=== PATIENT | female | born 1955 | race African-American/Black ===

== ENCOUNTER 2018-08-09 19:35 | Emergency (ER) | payer SELFPAY ==
[2018-08-09 21:36] LABS: Absolute Lymphocytes (CBC) 1.3 K/uL (0.7-4.9); Absolute Monocytes 0.4 K/uL (0.1-1.3); Absolute Neutrophil 2.9 K/uL (1.8-8.0); Basophils % 0.6 % (0-1.3); Eosinophils % 1.4 % (0-4.4); Hematocrit 37.3 % (36.0-45.0); Lymphocytes % 27.1 % (15.3-44.8); MPV 9.7 fL (7.6-11.3); Monocytes % 8.5 % (3.3-12.3); RBC Red Blood Cell Count 4.69 M/uL (3.86-4.86)
[2018-08-09 21:37] LABS: Protime INR 1.04
[2018-08-09 21:49] LABS: ALT/SGPT 22 U/L (12-78); AST/SGOT 21 U/L (15-37); Albumin 3.8 g/dL (3.4-5.0); Alkaline Phosphatase 72 U/L (45-117); BUN Blood Urea Nitrogen 15 mg/dL (7-18); Bicarbonate 29 mmol/L (21-32); Bilirubin Direct 0.1 mg/dL (0-0.2); Bilirubin Total 0.2 mg/dL (0.2-1.0); Glucose Level 94 mg/dL (74-106); Magnesium 2.2 mg/dL (1.8-2.4); NT PRO-BNP 65 pg/mL (<125); Potassium 3.8 mmol/L (3.5-5.1); Protein, Total 8.4 g/dL (6.4-8.2); Sodium Level 140 mmol/L (136-145); Troponin (Emerg Dept Use Only) < 0.02 ng/mL (0.0-0.045)
--- NOTE | 2018-08-09 22:10 | ER ---
Nurse's Notes [facility] Name: Critsino Morrison Age: 62 yrs Sex: Female : 1955 Arrival Date: 08/09/2018 Time: 19:37 Bed 14 Private MD: Diagnosis: Strain of muscle and tendon of back wall of thorax;Strain of muscle and tendon of front wall of thorax Presentation: 08/09 20:11 Presenting complaint: Patient states: For the past 2 to 3 days she has been having aj1 upper back pain, she's tried soaking in a warm bath with epsom salt, but it didn't help. Patient states that she was moving some furniture "the other day". Patient denies fever. Transition of care: patient was not received from another setting of care. Onset of symptoms was August 07, 2017. Risk Assessment: Do you want to hurt yourself or someone else? Patient reports no desire to harm self or others. Initial Sepsis Screen: Does the patient meet any 2 criteria? No. Patient's initial sepsis screen is negative. Does the patient have a suspected source of infection? No. Patient's initial sepsis screen is negative. Care prior to arrival: None. 20:11 Method Of Arrival: Ambulatory aj1 20:11 Acuity: SYEDA 3 aj1 Triage Assessment: 20:14 General: Appears in no apparent distress. uncomfortable, Behavior is calm, cooperative, aj1 appropriate for age. Pain: Complains of pain in thoracic area Pain currently is 8 out of 10 on a pain scale. Neuro: Level of Consciousness is awake, alert, obeys commands. Cardiovascular: Patient's skin is warm and dry. Respiratory: Airway is patent Respiratory effort is even, unlabored, Respiratory pattern is regular, symmetrical. Historical: - Allergies: 20:14 Codeine; aj1 - Home Meds: 20:14 None [Active]; aj1 - PMHx: 20:14 None; aj1 - PSHx: 20:14 partial hysterectomy; Tubal ligation; ; aj1 - Immunization history:: Flu vaccine is not up to date. - Social history:: Smoking status: Patient/guardian denies using tobacco. - Ebola Screening: : Patient denies travel to an Ebola-affected area in the 21 days before illness onset. Screenin:32 Abuse screen: Denies threats or abuse. Denies injuries from another. Nutritional ak1 screening: No deficits noted. On. Tuberculosis screening: No symptoms or risk factors identified. Fall Risk None identified. Assessment: 20:29 General: Appears in no apparent distress. Behavior is calm, cooperative. Pain: ak1 Complains of pain in back and left arm. Neuro: Level of Consciousness is awake, alert, obeys commands, Oriented to person, place, time, situation, Dynamics Ax Technical Architect are equal bilaterally Moves all extremities. Gait is steady, Speech is normal, Facial symmetry appears normal. Cardiovascular: No deficits noted. Respiratory: No deficits noted. GI: No signs and/or symptoms were reported involving the gastrointestinal system. : No signs and/or symptoms were reported regarding the genitourinary system. EENT: No signs and/or symptoms were reported regarding the EENT system. Derm: No signs and/or symptoms reported regarding the dermatologic system. Musculoskeletal: Range of motion: limited in left shoulder Reports pain in upper back, left shoulder, left chest wall pt stated she "may have slept wrong" Sunday, pain started in upper back. pt stated Sunday she "moved furniture" and now has increased pain to upper back, across the shoulders, left shoulder and left arm is more sore than right arm and right shoulder. pt c/o chest wall pain increased with palpation. Vital Signs: 20:14 BP 154 / 83; Pulse 70; Resp 18; Temp 97.2; Pulse Ox 100% on R/A; Weight 68.04 kg (R); aj1 Height 5 ft. 4 in. (162.56 cm) (R); Pain 8/10; 21:54 BP 153 / 82; Pulse 60; Resp 18; Temp 97.2; Pulse Ox 100% on R/A; ak1 22:21 BP 134 / 74; Pulse 68; Resp 18; Temp 98.1; Pulse Ox 100% on R/A; ak1 20:14 Body Mass Index 25.75 (68.04 kg, 162.56 cm) aj1 ED Course: 19:37 Patient arrived in ED. am2 20:14 Triage completed. aj1 20:14 Arm band placed on Patient placed in waiting room, Patient notified of wait time. aj1 20:29 Kaylee Andrade, RN is Primary Nurse. ak1 20:32 Patient has correct armband on for positive identification. Placed in gown. Bed in low ak1 position. Call light in reach. Side rails up X 1. Pulse ox on. NIBP on. 20:36 Avelino Grace NP is PHCP. pm1 20:36 Cristian Bonilla MD is Attending Physician. pm1 21:17 XRAY Chest (1 view) In Process Unspecified. EDMS 21:31 Basic Metabolic Panel Sent. ak1 21:31 LFT's Sent. ak1 22:21 No provider procedures requiring assistance completed. Patient did not have IV access ak1 during this emergency room visit. Administered Medications: No medications were administered Outcome: 22:09 Discharge ordered by . pm1 22:22 Discharged to home ambulatory. ak1 22:22 Condition: good 22:22 Discharge instructions given to patient, Instructed on discharge instructions, follow up and referral plans. no drinking with medication, no driving heavy equipment, medication usage, Demonstrated understanding of instructions, follow-up care, medications, Prescriptions given X 2. 22:39 Patient left the ED. ak1 Signatures: Dispatcher [employer] EDMS Evelyn Porter, RN RN aj1 Kaylee Andrade RN RN ak1 Avelino Grace NP SUPERVISOR MULTIFOCAL LENS pm1 [place] am2
--- NOTE | 2018-08-09 22:10 | EDPHYS ---
Physician Documentation [facility] Name: Cristino Morrison Age: 62 yrs Sex: Female : 1955 Arrival Date: 08/09/2018 Time: 19:37 Bed 14 Private MD: ED Physician Cristian Bonilla HPI: 08/09 22:03 This 62 yrs old Black Female presents to ER via Ambulatory with complaints of Neck and pm1 Upper Back Pain. 22:03 The patient presents with pain that is acute. The symptoms are located in the left pm1 trapezius and right trapezius and chest. Onset: The symptoms/episode began/occurred 2 day(s) ago. The pain does not radiate. Associated signs and symptoms: Pertinent negatives: abdominal pain, dysuria, fever, headache, nausea, numbness, tingling, vomiting, SOB. 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 Pain to back and chest improved with lying in a tub with epsom salt. Pain increased with lifting up both arms. Painful to move her arms. Modifying factors: The patient symptoms are alleviated by hot tub bath, the patient symptoms are aggravated by moving arms. Severity of symptoms: in the emergency department the symptoms have improved. The patient has not experienced similar symptoms in the past. The patient has not recently seen a physician. Historical: - Allergies: 20:14 Codeine; aj1 - Home Meds: 20:14 None [Active]; aj1 - PMHx: 20:14 None; aj1 - PSHx: 20:14 partial hysterectomy; Tubal ligation; ; aj1 - Immunization history:: Flu vaccine is not up to date. - Social history:: Smoking status: Patient/guardian denies using tobacco. - Ebola Screening: : Patient denies travel to an Ebola-affected area in the 21 days before illness onset. ROS: 22:03 Constitutional: Negative for fever, chills, and weight loss, Eyes: Negative for injury, pm1 pain, redness, and discharge, ENT: Negative for injury, pain, and discharge, Neck: Negative for injury, pain, and swelling, Respiratory: Negative for shortness of breath, cough, wheezing, and pleuritic chest pain. 22:03 Abdomen/GI: Negative for abdominal pain, nausea, vomiting, diarrhea, and constipation, Back: Negative for injury and pain, : Negative for injury, bleeding, discharge, and swelling, MS/Extremity: Negative for injury and deformity, Skin: Negative for injury, rash, and discoloration, Neuro: Negative for headache, weakness, numbness, tingling, and seizure. 22:03 Cardiovascular: Positive for chest pain, Negative for edema, orthopnea, palpitations. Exam: 22:03 Constitutional: This is a well developed, well nourished patient who is awake, alert, pm1 and in no acute distress. Head/Face: Normocephalic, atraumatic. Eyes: Pupils equal round and reactive to light, extra-ocular motions intact. Lids and lashes normal. Conjunctiva and sclera are non-icteric and not injected. Cornea within normal limits. Periorbital areas with no swelling, redness, or edema. ENT: Nares patent. No nasal discharge, no septal abnormalities noted. Tympanic membranes are normal and external auditory canals are clear. Oropharynx with no redness, swelling, or masses, exudates, or evidence of obstruction, uvula midline. Mucous membranes moist. Neck: Trachea midline, no thyromegaly or masses palpated, and no cervical lymphadenopathy. Supple, full range of motion without nuchal rigidity, or vertebral point tenderness. No Meningismus. 22:03 Cardiovascular: Regular rate and rhythm with a normal S1 and S2. No gallops, murmurs, or rubs. Normal PMI, no JVD. No pulse deficits. Respiratory: Lungs have equal breath sounds bilaterally, clear to auscultation and percussion. No rales, rhonchi or wheezes noted. No increased work of breathing, no retractions or nasal flaring. Abdomen/GI: Soft, non-tender, with normal bowel sounds. No distension or tympany. No guarding or rebound. No evidence of tenderness throughout. 22:03 Skin: Warm, dry with normal turgor. Normal color with no rashes, no lesions, and no evidence of cellulitis. MS/ Extremity: Pulses equal, no cyanosis. Neurovascular intact. Full, normal range of motion. 22:03 Chest/axilla: Inspection: normal, Palpation: crepitus, is not appreciated, tenderness, of the anterior aspect of right upper chest and anterior aspect of left upper chest, that totally reproduces the patient's complaints. 22:03 Back: pain, that is moderate, of the left trapezius and right trapezius, tenderness, normal spinal alignment noted. 22:03 Neuro: Orientation: is normal, Motor: is normal, moves all fours, Sensation: is normal, no obvious gross deficits, Gait: is steady, at a normal pace, without difficulty. Vital Signs: 20:14 BP 154 / 83; Pulse 70; Resp 18; Temp 97.2; Pulse Ox 100% on R/A; Weight 68.04 kg (R); aj1 Height 5 ft. 4 in. (162.56 cm) (R); Pain 8/10; 21:54 BP 153 / 82; Pulse 60; Resp 18; Temp 97.2; Pulse Ox 100% on R/A; ak1 22:21 BP 134 / 74; Pulse 68; Resp 18; Temp 98.1; Pulse Ox 100% on R/A; ak1 20:14 Body Mass Index 25.75 (68.04 kg, 162.56 cm) aj1 MDM: 20:37 Patient medically screened. pm1 22:08 Data reviewed: vital signs. Data interpreted: Pulse oximetry: on room air is 100 %. pm1 Interpretation: normal. Counseling: I had a detailed discussion with the patient and/or guardian regarding: the historical points, exam findings, and any diagnostic results supporting the discharge/admit diagnosis, lab results, radiology results, the need for outpatient follow up, to return to the emergency department if symptoms worsen or persist or if there are any questions or concerns that arise at home. 08/09 20:59 Order name: Basic Metabolic Panel pm1 08/09 20:59 Order name: CBC with Diff; Complete Time: 22:02 pm08/09 20:59 Order name: LFT's pm1 08/09 20:59 Order name: Magnesium; Complete Time: 22:02 pm1 08/09 20:59 Order name: NT PRO-BNP; Complete Time: 22:02 pm1 08/09 20:59 Order name: PT-INR; Complete Time: 22:02 pm1 08/09 20:59 Order name: Troponin (emerg Dept Use Only); Complete Time: 22:02 pm1 08/09 20:59 Order name: XRAY Chest (1 view) pm1 08/09 20:59 Order name: EKG; Complete Time: 21:00 pm1 08/09 20:59 Order name: Cardiac monitoring; Complete Time: 21:24 pm1 08/09 20:59 Order name: EKG - Nurse/Tech; Complete Time: 21:24 pm1 08/09 20:59 Order name: IV Saline Lock; Complete Time: 22:19 pm1 08/09 20:59 Order name: Basic Metabolic Panel; Complete Time: 22:02 EDAK 08/09 21:00 Order name: Liver (Hepatic) Function; Complete Time: 22:02 EDAK 08/09 20:59 Order name: Labs collected and sent; Complete Time: 21:24 pm1 08/09 20:59 Order name: O2 Per Protocol; Complete Time: 21:24 pm1 08/09 20:59 Order name: O2 Sat Monitoring; Complete Time: 21:24 pm1 Administered Medications: No medications were administered Disposition: 08/09/18 22:09 Discharged to Home. Impression: Strain of muscle and tendon of back wall of thorax, Strain of muscle and tendon of front wall of thorax. - Condition is Stable. - Discharge Instructions: Muscle Strain. - Prescriptions for Cyclobenzaprine 10 mg Oral Tablet - take 1 tablet by ORAL route every 8 hours As needed; 30 tablet. Diclofenac Sodium 75 mg Oral Tablet, Delayed Release (E.C.) - take 1 tablet by ORAL route 2 times per day As needed; 30 tablet. - Medication Reconciliation Form, Thank You Letter, Antibiotic Education, Prescription Opioid Use form. - Follow up: Emergency Department; When: As needed; Reason: Worsening of condition. Follow up: Private Physician; When: 2 - 3 days; Reason: Recheck today's complaints, Continuance of care, Re-evaluation by your physician. - Problem is new. - Symptoms have improved. Addendum: 08/12/2018 09:01 Co-signature as Attending Physician, Cristian Bonilla MD I agree with the assessment and c cooper plan of care. Signatures: Dispatcher [employer] Evelyn Navarro, RN RN aj1 Cristian Bonilla MD MD cha Krenek, Amber RN RN ak1 Avelino Grace, SECURITIES VAULT SUPERVISOR SECURITIES VAULT SUPERVISOR pm1 Corrections: (The following items were deleted from the chart) 08/09 22:39 22:09 08/09/2018 22:09 Discharged to Home. Impression: Strain of muscle and tendon of ak1 back wall of thorax; Strain of muscle and tendon of front wall of thorax. Condition is Stable. Forms are Medication Reconciliation Form, Thank You Letter, Antibiotic Education, Prescription Opioid Use. Follow up: Emergency Department; When: As needed; Reason: Worsening of condition. Follow up: Private Physician; When: 2 - 3 days; Reason: Recheck today's complaints, Continuance of care, Re-evaluation by your physician. Problem is new. Symptoms have improved. pm1
--- NOTE | 2018-08-10 07:44 | EKG ---
Test Date: 2018-08-09 Test Time: 21:25:46 Accounts Payable Specialist: KAMLESH MEASUREMENT RESULTS: Intervals: Rate: 67 OK: 172 QRSD: 74 QT: 396 QTc: 418 [place]: P: 60 OK: 172 QRS: 21 T: 2 INTERPRETIVE STATEMENTS: Normal sinus rhythm Possible Left atrial enlargement Borderline ECG No previous ECG available for comparison Electronically Signed On 08-10-18 07:43:49 MARINE ELECTRICIAN HELPER by Jake Nuñez
--- NOTE | 2018-08-12 09:54 | RAD REPORT ---
EXAM DESCRIPTION: RAD - Chest Single View CLINICAL HISTORY: Thepatient is 62 years old and is Female; CHEST PAIN. COMPARISON: No relevant prior studies available. TECHNIQUE: Frontal view of the chest. FINDINGS: Lungs: Unremarkable. No consolidation. Pleural space: Unremarkable. No pneumothorax. Heart: Unremarkable. No cardiomegaly. Mediastinum: Unremarkable. Bones/Joints: Unremarkable. IMPRESSION: No acute cardiopulmonary process. Electronically signed by: Sandhya Posada MD 08/09/2018 11:55 PM TOUR PRODUCTION SUPERVISOR Due to temporary technical issues with the PACS/Fluency reporting system, reports are being signed by the in house radiologist as a courtesy to ensure prompt reporting. The interpreting radiologist is f ully responsible for the content of the report.
== END 2018-08-09 22:39 | disposition home or self-care (01) ==
LOC: ER 19:35
DX: S29.012A Strain of muscle and tendon of back wall of thorax, initial encounter (principal); S29.011A Strain of muscle and tendon of front wall of thorax, initial encounter; X50.0XXA Overexertion from strenuous movement or load, initial encounter; Z88.5 Allergy status to narcotic agent
CPT/HCPCS: 36415; 71045; 80048; 80076; 83735; 83880; 84484; 85025; 85610; 93005; 99284

== ENCOUNTER 2018-11-05 20:00 | Emergency (ER) | payer SELFPAY ==
--- NOTE | 2018-11-05 20:37 | ER ---
Nurse's Notes [facility] Name: Cristino Morrison Age: 62 yrs Sex: Female : 1955 Arrival Date: 11/05/2018 Time: 20:02 Bed Treatment Private MD: Diagnosis: Cellulitis of right lower limb Presentation: 11/05 20:08 Presenting complaint: Patient states: insect bite on Sunday, pt states the bite is tl2 getting bigger. States she has been putting alcohol on it. Denies drainage, reports redness. Transition of care: patient was not received from another setting of care. Onset of symptoms was November 02, 2018. Risk Assessment: Do you want to hurt yourself or someone else? Patient reports no desire to harm self or others. Initial Sepsis Screen: Does the patient meet any 2 criteria? No. Patient's initial sepsis screen is negative. Does the patient have a suspected source of infection? No. Patient's initial sepsis screen is negative. Care prior to arrival: None. 20:08 Method Of Arrival: Ambulatory tl2 20:08 Acuity: SYEDA 4 tl2 Triage Assessment: 20:10 Bite description: bite sustained to medial aspect of right thigh by unknown insect. tl2 General: Appears in no apparent distress. comfortable, Behavior is calm, cooperative, appropriate for age. 21:17 Bite description: animal information: vaccination(s) is unknown. aj1 Historical: - Allergies: 20:10 Codeine; tl2 - Home Meds: 20:10 None [Active]; tl2 - PMHx: 20:10 None; tl2 - PSHx: 20:10 Carpal Tunnel Repair; Tubal ligation; ; tl2 - Immunization history:: Adult Immunizations up to date. - Social history:: Smoking status: Patient/guardian denies using tobacco. - Ebola Screening: : No symptoms or risks identified at this time. Screenin:15 Abuse screen: Denies threats or abuse. Denies injuries from another. Nutritional aj1 screening: No deficits noted. Tuberculosis screening: No symptoms or risk factors identified. 21:17 Fall Risk None identified. aj1 Assessment: 21:15 General: Appears in no apparent distress. comfortable, Behavior is calm, cooperative, aj1 appropriate for age. Pain: Complains of pain in medial aspect of right thigh. Neuro: Level of Consciousness is awake, alert, obeys commands. Cardiovascular: Patient's skin is warm and dry. Respiratory: Airway is patent Respiratory effort is even, unlabored, Respiratory pattern is regular, symmetrical. GI: No signs and/or symptoms were reported involving the gastrointestinal system. : No signs and/or symptoms were reported regarding the genitourinary system. EENT: No signs and/or symptoms were reported regarding the EENT system. Derm: Skin is healthy with good turgor, Skin is normal, redness noted to right thigh. Musculoskeletal: Circulation, motion, and sensation intact. Vital Signs: 20:10 BP 133 / 79; Pulse 86; Resp 18; Temp 98.4(O); Pulse Ox 98% on R/A; Weight 68.95 kg; tl2 Height 5 ft. 4 in. (162.56 cm); Pain 2/10; 20:10 Body Mass Index 26.09 (68.95 kg, 162.56 cm) tl2 ED Course: 20:02 Patient arrived in ED. es 20:09 Triage completed. tl2 20:10 Arm band placed on right wrist. tl2 20:18 Franky Roberts PA is PHCP. [facility] 20:18 Roddy Magana MD is Attending Physician. [facility] 20:30 Evelyn Porter, RN is Primary Nurse. aj1 21:15 Patient has correct armband on for positive identification. Bed in low position. aj1 21:15 No provider procedures requiring assistance completed. Patient did not have IV access aj1 during this emergency room visit. Administered Medications: No medications were administered Outcome: 20:36 Discharge ordered by MD. [facility] 21:15 Discharged to home ambulatory. aj1 21:15 Condition: good 21:15 Discharge instructions given to patient, Instructed on discharge instructions, follow up and referral plans. medication usage, Demonstrated understanding of instructions, follow-up care, medications. 21:18 Patient left the ED. aj1 Signatures: Evelyn Porter, RN RN aj1 Franky Roberts PA PA jmm Salyer, Edna es Knox, Taylor, RN RN tl2
--- NOTE | 2018-11-05 20:37 | EDPHYS ---
Physician Documentation [facility] Name: Crsitino Morrison Age: 62 yrs Sex: Female : 1955 Arrival Date: 11/05/2018 Time: 20:02 Bed Treatment Private MD: ED Physician Roddy Magana HPI: 11/05 20:32 This 62 yrs old Black Female presents to ER via Ambulatory with complaints of Insect jmm Bite. 20:32 The patient's rash thought to be caused by insect bites. Onset: The symptoms/episode jmm began/occurred acutely, 3 day(s) ago. Associated signs and symptoms: Pertinent negatives: fever. This is a 62 year old female with no chronic medical conditions that presents to the ED with complaints of right thigh pain beginning after she felt an insect bite 3 days ago. Patient denies fever. . Historical: - Allergies: 20:10 Codeine; tl2 - Home Meds: 20:10 None [Active]; tl2 - PMHx: 20:10 None; tl2 - PSHx: 20:10 Carpal Tunnel Repair; Tubal ligation; ; tl2 - Immunization history:: Adult Immunizations up to date. - Social history:: Smoking status: Patient/guardian denies using tobacco. - Ebola Screening: : No symptoms or risks identified at this time. ROS: 20:32 Constitutional: Negative for fever, chills, and weight loss, Cardiovascular: Negative jmm for chest pain, palpitations, and edema, Respiratory: Negative for shortness of breath, cough, wheezing, and pleuritic chest pain. 20:32 MS/extremity: Positive for pain. 20:32 All other systems are negative. Exam: 20:32 Constitutional: This is a well developed, well nourished patient who is awake, alert, jmm and in no acute distress. Head/Face: atraumatic. Eyes: EOMI, no conjunctival erythema appreciated ENT: Moist Mucus Membranes Neck: Trachea midline, Supple Chest/axilla: Normal chest wall appearance and motion. Cardiovascular: Regular rate and rhythm. No edema appreciated Respiratory: Normal respirations, no respiratory distress appreciated Abdomen/GI: Non distended, soft Back: Normal ROM 20:32 Skin: mild erythema noted to the right medial thigh, mildly tender to palpation, no purulent drainage is appreciated. . 20:32 Neuro: Orientation: is normal, Mentation: is normal, Memory: is normal. 20:32 Psych: Behavior/mood is pleasant, cooperative. Vital Signs: 20:10 BP 133 / 79; Pulse 86; Resp 18; Temp 98.4(O); Pulse Ox 98% on R/A; Weight 68.95 kg; tl2 Height 5 ft. 4 in. (162.56 cm); Pain 2/10; 20:10 Body Mass Index 26.09 (68.95 kg, 162.56 cm) tl2 MDM: 20:32 Patient medically screened. [facility] 20:36 Data reviewed: vital signs, nurses notes. Counseling: I had a detailed discussion with [facility] the patient and/or guardian regarding: the historical points, exam findings, and any diagnostic results supporting the discharge/admit diagnosis, the need for outpatient follow up, to return to the emergency department if symptoms worsen or persist or if there are any questions or concerns that arise at home. 20:36 ED course: Patient is alert and non toxic in appearance in the ED. Patient prescribed [facility] oral antibiotics and advised to closely follow up with PCP for reevaluation. Patient was otherwise given strict return precautions. Patient understood and agrees with the plan of care. . Administered Medications: No medications were administered Disposition: 11/05/18 20:36 Discharged to Home. Impression: Cellulitis of right lower limb. - Condition is Stable. - Discharge Instructions: Cellulitis, Adult. - Prescriptions for Cephalexin 500 mg Oral Capsule - take 1 capsule by ORAL route every 6 hours for 10 days; 40 capsule. - Medication Reconciliation Form, Thank You Letter, Antibiotic Education, Prescription Opioid Use form. - Follow up: Private Physician; When: 2 - 3 days; Reason: Recheck today's complaints, Continuance of care, Re-evaluation by your physician. Signatures: Evelyn Porter RN RN aj1 Franky Roberts PA PA jmm Knox, Taylor RN RN tl2 Corrections: (The following items were deleted from the chart) 21:18 20:36 11/05/2018 20:36 Discharged to Home. Impression: Cellulitis of right lower limb. aj1 Condition is Stable. Forms are Medication Reconciliation Form, Thank You Letter, Antibiotic Education, Prescription Opioid Use. Follow up: Private Physician; When: 2 - 3 days; Reason: Recheck today's complaints, Continuance of care, Re-evaluation by your physician. carla
== END 2018-11-05 21:18 | disposition home or self-care (01) ==
LOC: ER 20:00
DX: L03.115 Cellulitis of right lower limb (principal); Z88.5 Allergy status to narcotic agent
CPT/HCPCS: 99281

== ENCOUNTER 2019-06-25 13:46 | Emergency (ER) | payer SELFPAY ==
[2019-06-25 15:03] LABS: Basophils % 0.4 % (0-1.3); Hematocrit 33.1 % (36.0-45.0); Lymphocytes % 26.6 % (15.3-44.8); MPV 9.2 fL (7.6-11.3); RBC Red Blood Cell Count 4.26 M/uL (3.86-4.86)
--- NOTE | 2019-06-25 15:15 | RAD REPORT ---
EXAM DESCRIPTION: CT - Stone Protocol - 06/25/2019 3:02 pm CLINICAL HISTORY: Abdominal pain, nausea COMPARISON: None. TECHNIQUE: Axial 5 mm thick images were obtained without oral or IV contrast. The [id number]-awws span s the entirety of the system partially obscuring uppermost abdomen and lung bases. All CT scans are performed using dose optimization technique as appropriate and may include automated exposure control or mA/KV adjustment according to patient size. FINDINGS: Mild dilatation of the left collecting system. No obstructing or nonobstructing calculi. N o right-side dilatation. No suspicious renal masses. Isodense masses and pyelonephritis are not exclu ded on a stone protocol CT scan. No urinary bladder suspicious finding. No significant adrenal findin g. Numerous pelvic phleboliths are present. Imaged portions of the liver, spleen and pancreas show no suspicious findings on non-contrast imaging . No gallbladder or biliary tree abnormality identified. No appendicitis. No bowel dilatation or bowel wall thickening. Moderate stool volume in the colon. No hernia, mass or bulky lymphadenopathy noted. No free air, free fluid or inflammatory stranding. No significant bony abnormality. IMPRESSION: Mild dilatation of the collecting system on the left with no obstructing mass or calculu s. Isodense masses and pyelonephritis are not excluded on stone protocol technique. No acute GI abnormality. No acute finding to explain the abdominal pain.
[2019-06-25 15:16] LABS: Potassium 3.3 mmol/L (3.5-5.1)
[2019-06-25 15:28] LABS: Urine Bacteria >50 /HPF (<20); Urine Culture Reflex Order REFLEXED; Urine Mucus 2+ /HPF (NONE SEEN); Urine RBC <5 /HPF (NONE SEEN)
--- NOTE | 2019-06-25 15:44 | ER ---
Nurse's Notes [facility] Name: Cristino Morrison Age: 63 yrs Sex: Female : 1955 Arrival Date: 06/25/2019 Time: 13:49 Bed 15 Private MD: Diagnosis: Acute cystitis Presentation: 06/25 13:55 Presenting complaint: Lower abdominal pain and nausea x 3 days. Transition of care: hb patient was not received from another setting of care. Onset of symptoms was June 22, 2019. Risk Assessment: Do you want to hurt yourself or someone else? Patient reports no desire to harm self or others. Initial Sepsis Screen: Does the patient meet any 2 criteria? No. Patient's initial sepsis screen is negative. Does the patient have a suspected source of infection? No. Patient's initial sepsis screen is negative. Care prior to arrival: None. 13:55 Method Of Arrival: Ambulatory 13:55 Acuity: SYEDA 3 hb Triage Assessment: 14:27 GI: Abdomen is round non-distended, Bowel sounds present X 4 quads. Abd is soft Abdomen vc is tender to palpation in right lower quadrant and left lower quadrant. 14:27 General: Appears in no apparent distress. comfortable, Behavior is calm, cooperative. vc Pain: Complains of pain in right lower quadrant and left lower quadrant Pain does not radiate. Historical: - Allergies: 13:56 Codeine; hb - Home Meds: 13:56 None [Active]; hb - PMHx: 13:56 Asthma; hb - PSHx: 13:56 Carpal Tunnel Repair; Tubal ligation; ; hb - Immunization history:: Adult Immunizations up to date. - Social history:: Smoking status: Patient/guardian denies using tobacco. - Ebola Screening: : No symptoms or risks identified at this time. Screenin:27 Abuse screen: Denies threats or abuse. Nutritional screening: No deficits noted. vc Tuberculosis screening: No symptoms or risk factors identified. Fall Risk None identified. Assessment: 14:27 General: Appears in no apparent distress. comfortable, Behavior is calm, cooperative. vc Pain: Complains of pain in right lower quadrant and left lower quadrant. Neuro: Level of Consciousness is awake, alert, obeys commands, Oriented to person, place, time. Cardiovascular: Patient's skin is warm and dry. Respiratory: Airway is patent Respiratory effort is even, unlabored. GI: Abdomen is round non-distended, Bowel sounds present X 4 quads. Reports lower abdominal pain. : Urine is cloudy. EENT: No signs and/or symptoms were reported regarding the EENT system. Derm: Skin is intact, is healthy with good turgor, Skin temperature is warm. Musculoskeletal: Range of motion: intact in all extremities. 15:13 Reassessment: Patient to CT, via wheelchair.. vc 16:00 Reassessment: Patient and/or family updated on plan of care and expected duration. Pain vc level reassessed. Patient is alert, oriented x 3, equal unlabored respirations, skin warm/dry/pink. Patient states feeling better. Vital Signs: 13:56 BP 148 / 84; Pulse 84; Resp 16; Temp 98.2; Pulse Ox 100% on R/A; Weight 68.04 kg; hb Height 5 ft. 4 in. (162.56 cm); Pain 6/10; 15:00 BP 117 / 71; Pulse 72; Resp 18; Pulse Ox 100% on R/A; Pain 4/10; vc 16:00 BP 131 / 70; Pulse 67; Resp 16; Pulse Ox 100% on R/A; Pain 4/10; vc 13:56 Body Mass Index 25.75 (68.04 kg, 162.56 cm) hb ED Course: 13:49 Patient arrived in ED. as 13:49 [facility]C [facility] la1 13:49 Filipe Obrien MD is Attending Physician. la1 13:56 Triage completed. hb 13:57 Arm band placed on. hb 14:27 Jessica Shay, RN is Primary Nurse. vc 14:27 Patient has correct armband on for positive identification. Bed in low position. Call vc light in reach. Side rails up X 1. 14:58 Basic Metabolic Panel Sent. vc 14:58 CBC with Diff Sent. vc 15:13 CT Stone Protocol In Process Unspecified. EDMS 16:38 No provider procedures requiring assistance completed. IV discontinued, intact, vc bleeding controlled, No redness/swelling at site. Pressure dressing applied. Administered Medications: No medications were administered Outcome: 15:42 Discharge ordered by . la1 16:38 Discharged to home ambulatory. vc 16:38 Condition: good 16:38 Discharge instructions given to patient, Instructed on discharge instructions, follow up and referral plans. medication usage, Demonstrated understanding of instructions, follow-up care, medications, Prescriptions given X 2. 16:39 Patient left the ED. bp Signatures: Dispatcher [employer] EDNataliia Conrad Lee, CUSTOMER SERVICE REPRESENTATIVE TELLER-C CUSTOMER SERVICE REPRESENTATIVE TELLER-Cla1 Yojana Salcedo RN RN Leon Garcia RN RN bp Jessica Shay RN RN vc Corrections: (The following items were deleted from the chart) 16:55 16:53 Reassessment: Patient to CT.. vc vc
--- NOTE | 2019-06-25 15:44 | EDPHYS ---
Physician Documentation [facility] Name: Cristino Morrison Age: 63 yrs Sex: Female : 1955 Arrival Date: 06/25/2019 Time: 13:49 Bed 15 Private MD: ED Physician Filipe Obrien HPI: 06/25 14:04 This 63 yrs old Black Female presents to ER via Ambulatory with complaints of Abdominal la1 Pain. 14:04 The patient presents with abdominal pain in the lower abdomen. Onset: The la1 symptoms/episode began/occurred 2 day(s) ago. The symptoms radiate to the left flank. Associated signs and symptoms: Pertinent positives: dysuria, nausea, Pertinent negatives: chest pain, constipation, diarrhea, vomiting, vomiting blood. The symptoms are described as sharp. Modifying factors: The symptoms are alleviated by nothing. Severity of pain: At its worst the pain was moderate in the emergency department the pain has improved. The patient has not experienced similar symptoms in the past. pt reports recently she was having sex with her SO and noticed some bleeding after, now she reports dysuria and left flank pain'. Historical: - Allergies: 13:56 Codeine; hb - Home Meds: 13:56 None [Active]; hb - PMHx: 13:56 Asthma; hb - PSHx: 13:56 Carpal Tunnel Repair; Tubal ligation; ; hb - Immunization history:: Adult Immunizations up to date. - Social history:: Smoking status: Patient/guardian denies using tobacco. - Ebola Screening: : No symptoms or risks identified at this time. ROS: 14:06 Constitutional: Negative for fever, chills, and weight loss, Eyes: Negative for injury, la1 pain, redness, and discharge, ENT: Negative for injury, pain, and discharge, Neck: Negative for injury, pain, and swelling, Cardiovascular: Negative for chest pain, palpitations, and edema, Respiratory: Negative for shortness of breath, cough, wheezing, and pleuritic chest pain, Back: Negative for injury and pain, MS/Extremity: Negative for injury and deformity, Neuro: Negative for headache, weakness, numbness, tingling, and seizure. 14:06 Abdomen/GI: Positive for abdominal pain, nausea. 14:06 : Positive for burning with urination. Exam: 14:06 Constitutional: This is a well developed, well nourished patient who is awake, alert, la1 and in no acute distress. Head/Face: Normocephalic, atraumatic. Eyes: Pupils equal round and reactive to light, extra-ocular motions intact. Lids and lashes normal. Conjunctiva and sclera are non-icteric and not injected. Cornea within normal limits. Periorbital areas with no swelling, redness, or edema. Neck: Trachea midline, no thyromegaly or masses palpated, and no cervical lymphadenopathy. Supple, full range of motion without nuchal rigidity, or vertebral point tenderness. No Meningismus. Chest/axilla: Normal chest wall appearance and motion. Nontender with no deformity. No lesions are appreciated. Cardiovascular: Regular rate and rhythm with a normal S1 and S2. No gallops, murmurs, or rubs. Normal PMI, no JVD. No pulse deficits. Respiratory: Lungs have equal breath sounds bilaterally, clear to auscultation No rales, rhonchi or wheezes noted. No increased work of breathing, no retractions or nasal flaring. 14:06 Abdomen/GI: Inspection: abdomen appears normal, Bowel sounds: normal, in all quadrants, Palpation: soft, in all quadrants, mild abdominal tenderness, in the suprapubic area, right lower quadrant and left lower quadrant, Indicators: McBurney's point is not tender, Day's sign is negative, Rovsing's sign is negative, Obturator sign is negative, Psoas sign is negative. 14:06 Back: CVA tenderness, is absent. Vital Signs: 13:56 BP 148 / 84; Pulse 84; Resp 16; Temp 98.2; Pulse Ox 100% on R/A; Weight 68.04 kg; hb Height 5 ft. 4 in. (162.56 cm); Pain 6/10; 15:00 BP 117 / 71; Pulse 72; Resp 18; Pulse Ox 100% on R/A; Pain 4/10; vc 16:00 BP 131 / 70; Pulse 67; Resp 16; Pulse Ox 100% on R/A; Pain 4/10; vc 13:56 Body Mass Index 25.75 (68.04 kg, 162.56 cm) hb MDM: 14:00 Patient medically screened. la1 15:40 Data reviewed: vital signs, nurses notes, lab test result(s), I have discussed the la1 patient's presentation/case with the attending Emergency Department Physician; and as a result, I will discharge patient. Data interpreted: Pulse oximetry: on room air is 100 %. Interpretation: normal. Counseling: I had a detailed discussion with the patient and/or guardian regarding: the historical points, exam findings, and any diagnostic results supporting the discharge/admit diagnosis, lab results, the need for outpatient follow up, a family practitioner. ED course: Instructed to complete course of abx and FU with PCP for repeat testing for presence of blood. Pt tolerating PO, in no distress, resting comfortably in stretcher. Return precautions given. 06/25 14:01 Order name: Basic Metabolic Panel; Complete Time: 15:24 [facility] 06/25 14:01 Order name: CBC with Diff [facility] 06/25 14:45 Order name: CT Stone Protocol; Complete Time: 15:24 [facility] 06/25 14:46 Order name: Urine Microscopic Only; Complete Time: 15:35 [facility] 06/25 15:30 Order name: Urine Culture [facility] 06/25 15:35 Order name: Urine Dipstick--Ancillary (enter results) bd 06/25 14:01 Order name: IV Saline Lock; Complete Time: 14:58 la1 06/25 14:01 Order name: Labs collected and sent; Complete Time: 14:58 la 06/25 14:01 Order name: Urine Dipstick-Ancillary (obtain specimen); Complete Time: 14:58 la1 Administered Medications: No medications were administered Disposition: 06/25/19 15:42 Discharged to Home. Impression: Acute cystitis. - Condition is Stable. - Discharge Instructions: Urinary Tract Infection, Adult. - Prescriptions for Pyridium 200 mg Oral Tablet - take 1 tablet by ORAL route every 8 hours for 3 days; 9 tablet. Macrobid 100 mg Oral Capsule - take 1 capsule by ORAL route every 12 hours for 7 days; 14 capsule. - Medication Reconciliation Form, Thank You Letter form. - Follow up: Private Physician; When: 2 - 3 days; Reason: Recheck today's complaints, Re-evaluation by your physician. Follow up: Emergency Department; When: As needed; Reason: Fever > 102 F, Worsening of condition. - Problem is new. - Symptoms are unchanged. Addendum: 06/26/2019 21:00 Co-signature as Attending Physician, Filipe Obrien MD I agree with the assessment and k dr plan of care. Signatures: Dispatcher [employer] EDVA Filipe Obrien MD MD [facility] Manuel Mendoza, SPIRAL TUBE WINDER HELPER-C SPIRAL TUBE WINDER HELPER-Cla1 Yojana Salcedo, RN RN Leon Garcia, RN RN bp Corrections: (The following items were deleted from the chart) 06/25 16:39 15:42 06/25/2019 15:42 Discharged to Home. Impression: Acute cystitis. Condition is bp Stable. Forms are Medication Reconciliation Form, Thank You Letter, Antibiotic Education, Prescription Opioid Use. Follow up: Private Physician; When: 2 - 3 days; Reason: Recheck today's complaints, Re-evaluation by your physician. Follow up: Emergency Department; When: As needed; Reason: Fever > 102 F, Worsening of condition. Problem is new. Symptoms are unchanged. la1
[2019-06-25 15:47] LABS: Urine Blood 1+ (NEG); Urine Glucose NEGATIVE (NEG); Urine Protein NEGATIVE (NEG); Urine Specific Gravity >1.030 (1.005-1.030)
[2019-06-25 20:34] VITALS: TEMP 98.2; O2SAT 100
[2019-06-25 20:37] VITALS: BP 131/70
== END 2019-06-25 16:39 | disposition home or self-care (01) ==
LOC: ER 13:46
DX: N30.00 Acute cystitis without hematuria (principal); Z88.6 Allergy status to analgesic agent
CPT/HCPCS: 36415; 74176; 76377; 80048; 81003; 81015; 85025; 87086; 87088; 99283

== ENCOUNTER 2019-07-10 09:51 | Emergency (ER) | payer SELFPAY ==
[2019-07-10] MEDS ORDERED: IPRATROPIUM BROM 0.5MG/2.5ML ONE (10:25)
[2019-07-10] MEDS ORDERED: ALBUTEROL 2.5 MG/3 ML NEB SOL ONE (10:25)
--- NOTE | 2019-07-10 11:07 | ER ---
Nurse's Notes [facility] Name: Cristino Morrison Age: 63 yrs Sex: Female : 1955 Arrival Date: 07/10/2019 Time: 09:54 Bed 4 Private MD: Diagnosis: Cough Presentation: 07/10 10:10 Presenting complaint: Patient states: She has had a persistent cough since Sunday. She aj1 has been taking OTC cough medication with no relief. Reports chills, congestion, and headache. Denies fever. Transition of care: patient was not received from another setting of care. Onset of symptoms was 2018. Risk Assessment: Do you want to hurt yourself or someone else? Patient reports no desire to harm self or others. Initial Sepsis Screen: Does the patient meet any 2 criteria? HR > 90 bpm. No. Patient's initial sepsis screen is negative. Does the patient have a suspected source of infection? Yes: Productive cough/pneumonia. Care prior to arrival: None. 10:10 Method Of Arrival: Ambulatory aj 10:10 Acuity: SYEDA 4 aj1 Triage Assessment: 10:11 General: Appears in no apparent distress. comfortable, Behavior is calm, cooperative, aj1 appropriate for age. Pain: Complains of pain in face. EENT: Reports nasal congestion nasal discharge. Historical: - Allergies: 10:11 Codeine; aj1 - Home Meds: 10:11 Albuterol Inhl as needed [Active]; aj1 - PMHx: 10:11 Asthma; aj1 - Immunization history:: Flu vaccine is not up to date. - Social history:: Smoking status: Patient/guardian denies using tobacco. - Ebola Screening: : Patient denies travel to an Ebola-affected area in the 21 days before illness onset. Screenin:12 Abuse screen: Denies threats or abuse. Denies injuries from another. Nutritional aj1 screening: No deficits noted. Tuberculosis screening: No symptoms or risk factors identified. Assessment: 10:12 General: Appears in no apparent distress. uncomfortable, Behavior is calm, cooperative, aj1 appropriate for age. Pain: Complains of pain in face Pain does not radiate. Pain currently is 6 out of 10 on a pain scale. Quality of pain is described as aching. Neuro: Level of Consciousness is awake, alert, obeys commands, Oriented to person, place, time, situation, Reports headache. Cardiovascular: Patient's skin is warm and dry. Respiratory: Reports cough that is hacking, persistent Airway is patent Respiratory effort is even, unlabored, Respiratory pattern is regular, symmetrical, GI: No signs and/or symptoms were reported involving the gastrointestinal system. : No signs and/or symptoms were reported regarding the genitourinary system. EENT: Throat is reddened bilaterally Reports nasal congestion nasal discharge. Derm: No signs and/or symptoms reported regarding the dermatologic system. Skin is pink, warm \T\ dry. normal. Musculoskeletal: No signs and/or symptoms reported regarding the musculoskeletal system. Circulation, motion, and sensation intact. 11:17 Reassessment: PT D/C HOME AMBULATORY, DX WITH COUGH. bp Vital Signs: 10:11 BP 105 / 58; Pulse 94; Resp 20; Temp 98.5; Pulse Ox 100% on R/A; Weight 68.04 kg (R); aj1 Height 5 ft. 4 in. (162.56 cm) (R); Pain 6/10; 11:17 BP 107 / 71; Pulse 76; Resp 16; Temp 98.5; Pulse Ox 99% ; bp 10:11 Body Mass Index 25.75 (68.04 kg, 162.56 cm) aj1 ED Course: 09:54 Patient arrived in ED. as 09:54 Kenya Jeffery [facility]NP-C [facility]. kb 09:54 Filipe Obrien MD is Attending Physician. kb 10:10 Evelyn Porter, SUJATA is Primary Nurse. aj1 10:11 Triage completed. aj1 10:11 Arm band placed on Patient placed in an exam room. aj1 10:12 Patient has correct armband on for positive identification. Bed in low position. Call aj1 light in reach. 10:12 No provider procedures requiring assistance completed. aj1 10:13 Strep Sent. hb 10:13 Flu Sent. hb 11:18 Patient did not have IV access during this emergency room visit. bp Administered Medications: 10:31 Drug: Albuterol 2.5 mg Route: Inhalation; aj1 10:31 Drug: AtroVENT Aerosol 0.5 mg Route: Inhalation; aj1 Outcome: 11:06 Discharge ordered by . kb 11:18 Discharged to home ambulatory. bp 11:18 Condition: stable 11:18 Discharge instructions given to patient, Instructed on discharge instructions, follow up and referral plans. medication usage, Demonstrated understanding of instructions, follow-up care, medications, Prescriptions given X 1. 11:19 Patient left the ED. bp Signatures: Kenya Jeffery, CLINICAL APPEALS REVIEWER-C CLINICAL APPEALS REVIEWER-Evelyn Kelly, RN RN aj1 Nataliia Logan as Yojana Salcedo RN RN Leon Garcia RN RN bp
--- NOTE | 2019-07-10 11:08 | EDPHYS ---
Physician Documentation [facility] Name: Cristino Morrison Age: 63 yrs Sex: Female : 1955 Arrival Date: 07/10/2019 Time: 09:54 Bed 4 Private MD: ED Physician Filipe Obrien HPI: 07/10 10:15 This 63 yrs old Black Female presents to ER via Ambulatory with complaints of Cough, kb Sore Throat. 10:15 The patient or guardian reports cough, that is constant, described as moderate, with no kb sputum. Onset: The symptoms/episode began/occurred 4 day(s) ago. Severity of symptoms: At their worst the symptoms were moderate, in the emergency department the symptoms are unchanged. Modifying factors: The symptoms are alleviated by nothing, the symptoms are aggravated by nothing. Associated signs and symptoms: Pertinent positives: rhinorrhea, sore throat, Pertinent negatives: chest pain, diarrhea, ear ache, fever, nausea, vomiting. The patient has not experienced similar symptoms in the past. The patient has not recently seen a physician. Historical: - Allergies: 10:11 Codeine; aj1 - Home Meds: 10:11 Albuterol Inhl as needed [Active]; aj1 - PMHx: 10:11 Asthma; aj1 - Immunization history:: Flu vaccine is not up to date. - Social history:: Smoking status: Patient/guardian denies using tobacco. - Ebola Screening: : Patient denies travel to an Ebola-affected area in the 21 days before illness onset. ROS: 10:14 Constitutional: Negative for fever, chills, and weight loss, Neck: Negative for injury, kb pain, and swelling, Cardiovascular: Negative for chest pain, palpitations, and edema, Abdomen/GI: Negative for abdominal pain, nausea, vomiting, diarrhea, and constipation, : Negative for injury, bleeding, discharge, and swelling, MS/Extremity: Negative for injury and deformity, Skin: Negative for injury, rash, and discoloration, Neuro: Negative for headache, weakness, numbness, tingling, and seizure. 10:14 ENT: Positive for sore throat. 10:14 Respiratory: Positive for cough. Exam: 10:14 Constitutional: This is a well developed, well nourished patient who is awake, alert, kb and in no acute distress. Head/Face: Normocephalic, atraumatic. Neck: Trachea midline, no thyromegaly or masses palpated, and no cervical lymphadenopathy. Supple, full range of motion without nuchal rigidity, or vertebral point tenderness. No Meningismus. Chest/axilla: Normal chest wall appearance and motion. Nontender with no deformity. No lesions are appreciated. Cardiovascular: Regular rate and rhythm with a normal S1 and S2. No gallops, murmurs, or rubs. Normal PMI, no JVD. No pulse deficits. Respiratory: Lungs have equal breath sounds bilaterally, clear to auscultation and percussion. No rales, rhonchi or wheezes noted. No increased work of breathing, no retractions or nasal flaring. Abdomen/GI: Soft, non-tender, with normal bowel sounds. No distension or tympany. No guarding or rebound. No evidence of tenderness throughout. Skin: Warm, dry with normal turgor. Normal color with no rashes, no lesions, and no evidence of cellulitis. MS/ Extremity: Pulses equal, no cyanosis. Neurovascular intact. Full, normal range of motion. Neuro: Awake and alert, GCS 15, oriented to person, place, time, and situation. Cranial nerves II-XII grossly intact. Motor strength 5/5 in all extremities. Sensory grossly intact. Cerebellar exam normal. Normal gait. 10:14 ENT: External ear(s): are unremarkable, Ear canal(s): are normal, TM's: are normal, Nose: is normal, Mouth: is normal, Posterior pharynx: Airway: normal, no evidence of obstruction, Tonsils: bilaterally enlarged, with erythema, Uvula: normal, midline, swelling, that is mild, erythema, that is mild, exudate, is not appreciated. Vital Signs: 10:11 BP 105 / 58; Pulse 94; Resp 20; Temp 98.5; Pulse Ox 100% on R/A; Weight 68.04 kg (R); aj1 Height 5 ft. 4 in. (162.56 cm) (R); Pain 6/10; 11:17 BP 107 / 71; Pulse 76; Resp 16; Temp 98.5; Pulse Ox 99% ; bp 10:11 Body Mass Index 25.75 (68.04 kg, 162.56 cm) aj MDM: 09:59 Patient medically screened. kb 10:14 Data reviewed: vital signs, nurses notes. Data interpreted: Pulse oximetry: on room air kb is 100 %. Interpretation: normal. 11:05 Counseling: I had a detailed discussion with the patient and/or guardian regarding: the kb historical points, exam findings, and any diagnostic results supporting the discharge/admit diagnosis, lab results, the need for outpatient follow up, a family practitioner, to return to the emergency department if symptoms worsen or persist or if there are any questions or concerns that arise at home. 07/10 09:55 Order name: Flu; Complete Time: 10:41 kb 07/10 09:55 Order name: Strep; Complete Time: 10:41 kb 07/10 10:35 Order name: Throat Culture EDMS Administered Medications: 10:31 Drug: Albuterol 2.5 mg Route: Inhalation; aj1 10:31 Drug: AtroVENT Aerosol 0.5 mg Route: Inhalation; aj1 Disposition: 16:29 Co-signature as Attending Physician, Filipe Obrien MD I agree with the assessment and kdr plan of care. Disposition: 07/10/19 11:06 Discharged to Home. Impression: Cough. - Condition is Stable. - Discharge Instructions: Cough, Adult, [id number]. - Prescriptions for Tessalon Perles 100 mg Oral Capsule - take 1 capsule by ORAL route every 8 hours As needed; 15 capsule. - Medication Reconciliation Form, Thank You Letter, Antibiotic Education, Prescription Opioid Use form. - Follow up: Emergency Department; When: As needed; Reason: Worsening of condition. Follow up: Private Physician; When: 2 - 3 days; Reason: Recheck today's complaints, Continuance of care, Re-evaluation by your physician. Signatures: Dispatcher [employer] EDMS Kenya Jeffery FNP-C FNP-Ckb Johnson, Angela, RN RN aj1 Filipe Obrien MD MD kdr Peltier, Brian, RN RN bp Corrections: (The following items were deleted from the chart) 11:19 11:06 07/10/2019 11:06 Discharged to Home. Impression: Cough. Condition is Stable. bp Forms are Medication Reconciliation Form, Thank You Letter, Antibiotic Education, Prescription Opioid Use. Follow up: Emergency Department; When: As needed; Reason: Worsening of condition. Follow up: Private Physician; When: 2 - 3 days; Reason: Recheck today's complaints, Continuance of care, Re-evaluation by your physician. kb
[2019-07-10 11:33] VITALS: TEMP 98.5
[2019-07-10 11:34] VITALS: BP 107/71; O2SAT 99
== END 2019-07-10 11:19 | disposition home or self-care (01) ==
LOC: ER 09:51
DX: R05 Cough (principal); J45.909 Unspecified asthma, uncomplicated; Z88.5 Allergy status to narcotic agent
CPT/HCPCS: 87070; 87081; 87804; 99284

== ENCOUNTER 2019-07-26 00:38 | Emergency (ER) | payer SELFPAY ==
[2019-07-26 02:51] LABS: Absolute Lymphocytes (CBC) 0.8 K/uL (0.7-4.9); Basophils % 0.4 % (0-1.3); Hematocrit 33.5 % (36.0-45.0); MPV 9.4 fL (7.6-11.3); RBC Red Blood Cell Count 4.29 M/uL (3.86-4.86)
--- NOTE | 2019-07-26 03:36 | ER ---
Nurse's Notes [facility] Name: Cristino Morrison Age: 63 yrs Sex: Female : 1955 Arrival Date: 07/26/2019 Time: 00:40 Bed 19 Private MD: Diagnosis: Sinusitis. Bronchitis Presentation: 07/26 00:43 Presenting complaint: Patient states: I had these same symptoms 2 weeks ago and was fc seen here and diagnosed with a viral illness then about 3 days ago I started feeling bad again. I have cough, congestion. sore throat and fever. Transition of care: patient was not received from another setting of care. Onset of symptoms was July 22, 2018. Risk Assessment: Do you want to hurt yourself or someone else? Patient reports no desire to harm self or others. Initial Sepsis Screen: Does the patient meet any 2 criteria? No. Patient's initial sepsis screen is negative. Does the patient have a suspected source of infection? No. Patient's initial sepsis screen is negative. Care prior to arrival: None. 00:43 Method Of Arrival: Ambulatory 00:43 Acuity: SYEDA 3 fc Historical: - Allergies: 00:47 Codeine; fc - Home Meds: 00:47 Albuterol Inhl as needed [Active]; loratadine oral oral [Active]; fc - PMHx: 00:47 Asthma; fc - PSHx: 00:47 ; Tubal ligation; Hysterectomy; fc - Immunization history:: Adult Immunizations not up to date, Flu vaccine is not up to date. - Social history:: Smoking status: Patient denies any tobacco usage or history of. Patient/guardian denies using alcohol, street drugs. - Ebola Screening: : Patient negative for fever greater than or equal to 101.5 degrees Fahrenheit, and additional compatible Ebola Virus Disease symptoms Patient denies exposure to infectious person Patient denies travel to an Ebola-affected area in the 21 days before illness onset. Screenin:00 Abuse screen: Denies threats or abuse. Denies injuries from another. Nutritional wh screening: No deficits noted. Tuberculosis screening: No symptoms or risk factors identified. Fall Risk None identified. Assessment: 01:50 General: Appears in no apparent distress. Behavior is calm, cooperative, appropriate wh for age. Pain: Denies pain. Neuro: Level of Consciousness is awake, alert, obeys commands, Oriented to person, place, time, situation, Appropriate for age. Cardiovascular: Heart tones S1 S2. Respiratory: Airway is patent Respiratory effort is even, unlabored, Respiratory pattern is regular, symmetrical, Breath sounds are clear bilaterally. Respiratory: Reports cough that is congestion. GI: Abdomen is flat, non-distended. : No signs and/or symptoms were reported regarding the genitourinary system. EENT: Throat is pink. Derm: Skin is intact, is healthy with good turgor, Skin is pink, warm \T\ dry. normal. Musculoskeletal: Circulation, motion, and sensation intact. 03:00 Reassessment: Patient appears in no apparent distress at this time. No changes from previously documented assessment. Patient and/or family updated on plan of care and expected duration. Pain level reassessed. Patient is alert, oriented x 3, equal unlabored respirations, skin warm/dry/pink. Vital Signs: 00:45 BP 119 / 85; Pulse 95; Resp 17; Temp 98.8; Pulse Ox 100% ; Weight 68.04 kg; Height 5 fc ft. 4 in. (162.56 cm); Pain 8/10; 03:22 BP 122 / 79; Pulse 82; Resp 18; Pulse Ox 100% on R/A; wh 00:45 Body Mass Index 25.75 (68.04 kg, 162.56 cm) ED Course: 00:40 Patient arrived in ED. cf2 00:45 Triage completed. 00:47 Arm band placed on right wrist. 01:39 Mague Santizo is Primary Nurse. 02:00 Patient has correct armband on for positive identification. Bed in low position. Call light in reach. Side rails up X 1. Pulse ox on. NIBP on. 02:06 Oscar Arboleda MD is Attending Physician. pkl 02:30 Inserted saline lock: 22 gauge in right antecubital area, using aseptic technique. Blood collected. 02:32 XRAY CXR (1 view) In Process Unspecified. EDMS 03:49 No provider procedures requiring assistance completed. IV discontinued, intact, bleeding controlled, No redness/swelling at site. Administered Medications: No medications were administered Outcome: 03:36 Discharge ordered by . pkl 03:49 Discharged to home ambulatory. 03:49 Condition: stable 03:49 Discharge instructions given to patient, Instructed on discharge instructions, follow up and referral plans. medication usage, POC Demonstrated understanding of instructions, follow-up care, medications, POC Prescriptions given X 2. 03:50 Patient left the ED. Signatures: Dispatcher [employer] EDOscar Matthews MD MD pkl Chretien, Felicia, RN RN Mague Null [facility]
--- NOTE | 2019-07-26 03:36 | EDPHYS ---
Physician Documentation [facility] Name: Cristino Morrison Age: 63 yrs Sex: Female : 1955 Arrival Date: 07/26/2019 Time: 00:40 Bed 19 Private MD: ED Physician Oscar Arboleda HPI: 07/26 03:29 This 63 yrs old Black Female presents to ER via Ambulatory with complaints of Flu pkl Symptoms. 03:29 The patient or guardian reports cough, described as mild, difficulty breathing. pkl 03:30 Onset: The symptoms/episode began/occurred 3 day(s) ago. pkl Historical: - Allergies: 00:47 Codeine; fc - Home Meds: 00:47 Albuterol Inhl as needed [Active]; loratadine oral oral [Active]; fc - PMHx: 00:47 Asthma; fc - PSHx: 00:47 ; Tubal ligation; Hysterectomy; fc - Immunization history:: Adult Immunizations not up to date, Flu vaccine is not up to date. - Social history:: Smoking status: Patient denies any tobacco usage or history of. Patient/guardian denies using alcohol, street drugs. - Ebola Screening: : Patient negative for fever greater than or equal to 101.5 degrees Fahrenheit, and additional compatible Ebola Virus Disease symptoms Patient denies exposure to infectious person Patient denies travel to an Ebola-affected area in the 21 days before illness onset. ROS: 03:30 Eyes: Negative for injury, pain, redness, and discharge, ENT: Negative for injury, pkl pain, and discharge, Neck: Negative for injury, pain, and swelling, Cardiovascular: Negative for chest pain, palpitations, and edema. 03:30 Respiratory: Positive for cough, with green sputum, shortness of breath. 03:30 Abdomen/GI: Negative for abdominal pain, nausea, vomiting, and diarrhea. 03:32 Back: Negative for acute changes. pkl 03:32 : Negative for urinary symptoms. 03:32 MS/extremity: Negative for acute changes. 03:32 Skin: Negative for rash. 03:32 Neuro: Negative for altered mental status. Exam: 03:32 Head/Face: Normocephalic, atraumatic. Eyes: Pupils equal round and reactive to light, pkl extra-ocular motions intact. Lids and lashes normal. Conjunctiva and sclera are non-icteric and not injected. Cornea within normal limits. Periorbital areas with no swelling, redness, or edema. ENT: Nares patent. No nasal discharge, no septal abnormalities noted. Tympanic membranes are normal and external auditory canals are clear. Oropharynx with no redness, swelling, or masses, exudates, or evidence of obstruction, uvula midline. Mucous membranes moist. Neck: Trachea midline, no thyromegaly or masses palpated, and no cervical lymphadenopathy. Supple, full range of motion without nuchal rigidity, or vertebral point tenderness. No Meningismus. Chest/axilla: Normal chest wall appearance and motion. Nontender with no deformity. No lesions are appreciated. Cardiovascular: Regular rate and rhythm with a normal S1 and S2. No gallops, murmurs, or rubs. Normal PMI, no JVD. No pulse deficits. Respiratory: Lungs have equal breath sounds bilaterally, clear to auscultation and percussion. No rales, rhonchi or wheezes noted. No increased work of breathing, no retractions or nasal flaring. Abdomen/GI: Soft, non-tender, with normal bowel sounds. No distension or tympany. No guarding or rebound. No evidence of tenderness throughout. Back: No spinal tenderness. No costovertebral tenderness. Full range of motion. Skin: Warm, dry with normal turgor. Normal color with no rashes, no lesions, and no evidence of cellulitis. MS/ Extremity: Pulses equal, no cyanosis. Neurovascular intact. Full, normal range of motion. Neuro: Awake and alert, GCS 15, oriented to person, place, time, and situation. Cranial nerves II-XII grossly intact. Motor strength 5/5 in all extremities. Sensory grossly intact. Cerebellar exam normal. Normal gait. Vital Signs: 00:45 BP 119 / 85; Pulse 95; Resp 17; Temp 98.8; Pulse Ox 100% ; Weight 68.04 kg; Height 5 fc ft. 4 in. (162.56 cm); Pain 8/10; 03:22 BP 122 / 79; Pulse 82; Resp 18; Pulse Ox 100% on R/A; wh 00:45 Body Mass Index 25.75 (68.04 kg, 162.56 cm) fc MDM: 02:07 Patient medically screened. pkl 03:32 Data reviewed: vital signs, nurses notes, lab test result(s), radiologic studies, plain pkl films. 07/26 00:48 Order name: Flu; Complete Time: 02:07 fc 07/26 02:11 Order name: CBC with Diff pkl 07/26 02:11 Order name: Strep; Complete Time: 03:11 pkl 07/26 02:11 Order name: XRAY CXR (1 view) pkl 07/26 02:11 Order name: CBC with Automated Diff; Complete Time: 03:12 EDMS 07/26 02:51 Order name: Throat Culture EDMS Administered Medications: No medications were administered Disposition: 07/26/19 03:36 Discharged to Home. Impression: Sinusitis. Bronchitis. - Condition is Stable. - Discharge Instructions: Sinusitis, Adult, Auft-[id number], Acute Bronchitis, [id number]. - Prescriptions for Zithromax Z- Oz 250 mg Oral Tablet - take 1 tablet by ORAL route as directed for 5 days Day 1 - take two (2) tablets one time. Day 2, 3, 4 , 5 take one (1) tablet once daily.; 6 tablet. - Medication Reconciliation Form, Thank You Letter, Antibiotic Education, Prescription Opioid Use form. - Follow up: Private Physician; When: 2 - 3 days; Reason: Re-evaluation by your physician. - Problem is new. - Symptoms are unchanged. Signatures: Dispatcher [employer] EDMN Oscar Arboleda MD MD pkl Chretien, Felicia RN RN Mague Null Corrections: (The following items were deleted from the chart) 03:50 03:36 07/26/2019 03:36 Discharged to Home. Impression: Sinusitis. Bronchitis. Condition wh is Stable. Forms are Medication Reconciliation Form, Thank You Letter, Antibiotic Education, Prescription Opioid Use. Follow up: Private Physician; When: 2 - 3 days; Reason: Re-evaluation by your physician. Problem is new. Symptoms are unchanged. pkl
[2019-07-26 03:55] VITALS: TEMP 98.8; O2SAT 100
[2019-07-26 03:56] VITALS: BP 122/79
--- NOTE | 2019-07-26 07:22 | RAD REPORT ---
EXAM DESCRIPTION: Susanna Single View07/26/2019 2:32 am CLINICAL HISTORY: Cough COMPARISON: August 2018 FINDINGS: The lungs appear clear of acute infiltrate. The heart is normal size IMPRESSION: No acute abnormalities displayed
== END 2019-07-26 03:50 | disposition home or self-care (01) ==
LOC: ER 00:38
DX: J40 Bronchitis, not specified as acute or chronic (principal); J32.9 Chronic sinusitis, unspecified; Z88.5 Allergy status to narcotic agent
CPT/HCPCS: 36415; 71045; 85025; 87070; 87081; 87804; 99284

== ENCOUNTER 2019-10-24 03:11 | Emergency (ER) | payer SELFPAY ==
[2019-10-24] MEDS ORDERED: NA CHLORIDE 0.9% 500 ML ONE (03:58)
[2019-10-24 04:41] LABS: Absolute Lymphocytes (CBC) 1.1 K/uL (0.7-4.9); Basophils % 0.5 % (0-1.3); Hematocrit 35.5 % (36.0-45.0); Lymphocytes % 31.3 % (15.3-44.8); MPV 10.1 fL (7.6-11.3); RBC Red Blood Cell Count 4.49 M/uL (3.86-4.86)
[2019-10-24 04:53] LABS: Albumin 3.6 g/dL (3.4-5.0); Bilirubin Total 0.3 mg/dL (0.2-1.0); Potassium 3.9 mmol/L (3.5-5.1); Protein, Total 7.5 g/dL (6.4-8.2)
--- NOTE | 2019-10-24 04:59 | ER ---
Nurse's Notes [facility] Name: Cristino Morrison Age: 63 yrs Sex: Female : 1955 Arrival Date: 10/24/2019 Time: 03:15 Bed 8 Private MD: Diagnosis: Vomiting;Diarrhea, unspecified;Asthma Presentation: 10/23 03:18 Chief complaint: EMS states: Reports she has been quarantined for 6 days pt reports she ea has been having difficulty breathing that started tonight. Pt reports her co worker was confirmed positive for covid. Coronavirus screen: Proceed with normal triage. Ebola Screen: No symptoms or risks identified at this time. Risk Assessment: Do you want to hurt yourself or someone else?. Onset of symptoms was October 24, 2019. 03:18 Method Of Arrival: EMS: [facility] ea 03:18 Acuity: SYEDA 4 ea 03:30 Initial Sepsis Screen: Does the patient meet any 2 criteria? No. Patient's initial ea sepsis screen is negative. Does the patient have a suspected source of infection? No. Patient's initial sepsis screen is negative. Historical: - Allergies: 03:30 Codeine; ea - Home Meds: 03:30 loratadine Oral [Active]; Albuterol Inhl as needed [Active]; ea - PMHx: 03:30 Asthma; ea - PSHx: 03:30 Hysterectomy; Tubal ligation; ; ea - Immunization history:: Adult Immunizations up to date. - Social history:: Smoking status: Patient denies any tobacco usage or history of. Screenin:20 Abuse screen: Denies threats or abuse. Nutritional screening: No deficits noted. ea Tuberculosis screening: No symptoms or risk factors identified. Fall Risk None identified. Assessment: 03:30 General: Appears in no apparent distress. Behavior is calm, cooperative, appropriate ea for age. Pain: Denies pain. Neuro: Level of Consciousness is awake, alert, obeys commands, Oriented to person, place, time, situation. Cardiovascular: Patient's skin is warm and dry. Respiratory: Airway is patent Respiratory effort is even, unlabored, Respiratory pattern is regular, symmetrical. Derm: Skin is dry, Skin is normal, Skin temperature is warm. 04:00 Reassessment: Patient and/or family updated on plan of care and expected duration. Pain ea level reassessed. Patient is alert, oriented x 3, equal unlabored respirations, skin warm/dry/pink. 05:41 Reassessment: Patient and/or family updated on plan of care and expected duration. Pain ea level reassessed. Patient is alert, oriented x 3, equal unlabored respirations, skin warm/dry/pink. Discharge instruction given to patient, verbalized the understanding of instruction. Pt awaiting on ride. 05:57 Reassessment: Patient and/or family updated on plan of care and expected duration. Pain ea level reassessed. Patient is alert, oriented x 3, equal unlabored respirations, skin warm/dry/pink. Pt left ED ambulatory tolerating well. Vital Signs: 03:18 Weight 68.04 kg; Height 5 ft. 4 in. (162.56 cm); ea 03:28 BP 147 / 91; Pulse 79; Resp 18; Temp 97.9; Pulse Ox 98% ; ea 05:42 BP 126 / 76; Pulse 80; Resp 18; Pulse Ox 98% ; ea 03:18 Body Mass Index 25.75 (68.04 kg, 162.56 cm) ea ED Course: 03:15 Patient arrived in ED. ea 03:18 Amparo Taylor, RN is Primary Nurse. ea 03:20 Triage completed. ea 03:20 Patient has correct armband on for positive identification. Bed in low position. Call ea light in reach. Side rails up X2. 03:29 Cristian Bonilla MD is Attending Physician. franck 03:30 Patient placed in an exam room, on a stretcher, on pulse oximetry. ea 04:00 Inserted saline lock: 22 gauge in left antecubital area, using aseptic technique. ea 04:12 Chest Single View XRAY In Process Unspecified. EDMS 05:41 No provider procedures requiring assistance completed. IV discontinued, intact, ea bleeding controlled, No redness/swelling at site. Pressure dressing applied. 10:09 Health Dept notified/ COVID test sent to lab/ PUI # [id number]/ lab notified. eb Administered Medications: 04:10 Drug: NS 0.9% 500 ml Route: IV; Rate: bolus; Site: left antecubital; ea 05:42 Follow up: Response: No adverse reaction; IV Status: Completed infusion; IV Intake: ea 500ml Intake: 05:42 IV: 500ml; Total: 500ml. ea Outcome: 04:58 Discharge ordered by . franck 05:41 Condition: stable ea 05:41 Discharge instructions given to patient, Instructed on discharge instructions, follow up and referral plans. medication usage, Demonstrated understanding of instructions, follow-up care, medications, Prescriptions given X 2. 05:56 Discharged to home ambulatory, with family. ea 06:00 Patient left the ED. ea Signatures: Dispatcher [employer] EDCristian Murphy MD MD cha Antunez, Elena RN RN Betty Alba
--- NOTE | 2019-10-24 04:59 | EDPHYS ---
Physician Documentation [facility] Name: Cristino Morrison Age: 63 yrs Sex: Female : 1955 Arrival Date: 10/24/2019 Time: 03:15 Bed 8 Private MD: ED Physician Cristian Bonilla HPI: 10/23 03:41 This 63 yrs old Black Female presents to ER via EMS with complaints of n,v, d and sob. franck 03:41 The patient has shortness of breath at rest, with light activity. Onset: The franck symptoms/episode began/occurred just prior to arrival. Duration: The symptoms are continuous, but are markedly better than the original presentation. The patient's shortness of breath has no apparent modifying factors. The patient presents to the emergency department with nausea, vomiting, diarrhea. Possible causes: unknown, covid 19 exposure at work. The symptoms are aggravated by nothing. The symptoms are alleviated by nothing. Associated signs and symptoms: Pertinent positives: non-productive cough, nausea, vomiting. Severity of symptoms: At their worst the symptoms were mild in the emergency department the symptoms have resolved. Associated signs and symptoms: Pertinent positives: diarrhea, nausea, vomiting. Historical: - Allergies: 03:30 Codeine; ea - Home Meds: 03:30 loratadine Oral [Active]; Albuterol Inhl as needed [Active]; ea - PMHx: 03:30 Asthma; ea - PSHx: 03:30 Hysterectomy; Tubal ligation; ; ea - Immunization history:: Adult Immunizations up to date. - Social history:: Smoking status: Patient denies any tobacco usage or history of. ROS: 03:43 Constitutional: Negative for fever, chills, and weight loss, Eyes: Negative for injury, franck pain, redness, and discharge, ENT: Negative for injury, pain, and discharge, Neck: Negative for injury, pain, and swelling, Cardiovascular: Negative for chest pain, palpitations, and edema, Back: Negative for injury and pain, : Negative for injury, bleeding, discharge, and swelling, MS/Extremity: Negative for injury and deformity, Skin: Negative for injury, rash, and discoloration, Neuro: Negative for headache, weakness, numbness, tingling, and seizure, Psych: Negative for depression, anxiety, suicide ideation, homicidal ideation, and hallucinations, Allergy/Immunology: Negative for hives, rash, and allergies, Endocrine: Negative for neck swelling, polydipsia, polyuria, polyphagia, and marked weight changes, Hematologic/Lymphatic: Negative for swollen nodes, abnormal bleeding, and unusual bruising. 03:43 Respiratory: Positive for shortness of breath. 03:43 Abdomen/GI: Positive for nausea and vomiting, diarrhea. 03:43 MS/extremity: Negative for swelling, tenderness. Exam: 03:44 Constitutional: This is a well developed, well nourished patient who is awake, alert, franck and in no acute distress. Head/Face: Normocephalic, atraumatic. Eyes: Pupils equal round and reactive to light, extra-ocular motions intact. Lids and lashes normal. Conjunctiva and sclera are non-icteric and not injected. Cornea within normal limits. Periorbital areas with no swelling, redness, or edema. ENT: Nares patent. No nasal discharge, no septal abnormalities noted. Tympanic membranes are normal and external auditory canals are clear. Oropharynx with no redness, swelling, or masses, exudates, or evidence of obstruction, uvula midline. Mucous membranes moist. Neck: Trachea midline, no thyromegaly or masses palpated, and no cervical lymphadenopathy. Supple, full range of motion without nuchal rigidity, or vertebral point tenderness. No Meningismus. Chest/axilla: Normal chest wall appearance and motion. Nontender with no deformity. No lesions are appreciated. Cardiovascular: Regular rate and rhythm with a normal S1 and S2. No gallops, murmurs, or rubs. Normal PMI, no JVD. No pulse deficits. Respiratory: Lungs have equal breath sounds bilaterally, clear to auscultation and percussion. No rales, rhonchi or wheezes noted. No increased work of breathing, no retractions or nasal flaring. Abdomen/GI: Soft, non-tender, with normal bowel sounds. No distension or tympany. No guarding or rebound. No evidence of tenderness throughout. Back: No spinal tenderness. No costovertebral tenderness. Full range of motion. Female : Normal external genitalia. Skin: Warm, dry with normal turgor. Normal color with no rashes, no lesions, and no evidence of cellulitis. MS/ Extremity: Pulses equal, no cyanosis. Neurovascular intact. Full, normal range of motion. Neuro: Awake and alert, GCS 15, oriented to person, place, time, and situation. Cranial nerves II-XII grossly intact. Motor strength 5/5 in all extremities. Sensory grossly intact. Cerebellar exam normal. Normal gait. Psych: Awake, alert, with orientation to person, place and time. Behavior, mood, and affect are within normal limits. 04:08 ECG was reviewed by the Attending Physician. [facility] Vital Signs: 03:18 Weight 68.04 kg; Height 5 ft. 4 in. (162.56 cm); ea 03:28 BP 147 / 91; Pulse 79; Resp 18; Temp 97.9; Pulse Ox 98% ; ea 05:42 BP 126 / 76; Pulse 80; Resp 18; Pulse Ox 98% ; ea 03:18 Body Mass Index 25.75 (68.04 kg, 162.56 cm) ea MDM: 03:29 Patient medically screened. [facility] 03:45 Data reviewed: vital signs, nurses notes, lab test result(s), EKG, radiologic studies, [facility] plain films. ED course: pt at home parvin n,v, d and sob, called ems... pt at work 6 days ago covid 19 exposure. 10/23 03:40 Order name: CBC with Diff; Complete Time: 04:43 [facility] 10/23 03:40 Order name: Comprehensive Metabolic Panel; Complete Time: 04:58 [facility] 10/23 03:40 Order name: Strep [facility] 10/23 03:40 Order name: Flu [facility] 10/23 03:40 Order name: COVID-19 [facility] 10/23 05:03 Order name: Throat Culture EDCT 10/23 03:40 Order name: Chest Single View XRAY [facility] 10/23 03:40 Order name: EKG; Complete Time: 03:41 [facility] 10/23 03:40 Order name: EKG - Nurse/Tech; Complete Time: 04:17 [facility] EC:08 Rate is 69 beats/min. Rhythm is regular. QRS [place] is Normal. CT interval is normal. QRS franck interval is normal. QT interval is normal. No Q waves. T waves are Inverted. No ST changes noted. Clinical impression: Abnormal EKG without significant change. Administered Medications: 04:10 Drug: NS 0.9% 500 ml Route: IV; Rate: bolus; Site: left antecubital; ea 05:42 Follow up: Response: No adverse reaction; IV Status: Completed infusion; IV Intake: ea 500ml Disposition: 10/24/19 04:58 Discharged to Home. Impression: Vomiting, Diarrhea, unspecified, Asthma. - Condition is Stable. - Discharge Instructions: Asthma, Adult, Food Choices to Help Relieve Diarrhea, Adult, Diarrhea, Adult, Nausea and Vomiting, Adult, Nausea and Vomiting, Adult, [id number], Asthma, Adult, Tvyw-nx-Gvyd, Diarrhea, Adult, Nqvj-[id number]. - Prescriptions for Zofran 4 mg Oral Tablet - take 1 tablet by ORAL route every 12 hours As needed; 14 tablet. Albuterol Sulfate 90 mcg/actuation - inhale 1-2 puff by INHALATION route every 4-6 hours; 1 Inhaler. - Medication Reconciliation Form, Thank You Letter, Antibiotic Education, Prescription Opioid Use form. - Follow up: Private Physician; When: 2 - 3 days; Reason: Recheck today's complaints, Re-evaluation by your physician. - Problem is new. - Symptoms have improved. Signatures: Dispatcher [employer] EDCT Cristian Bonilla MD MD cha Antunez, Elena RN RN lilia Corrections: (The following items were deleted from the chart) 06:00 04:58 10/24/2019 04:58 Discharged to Home. Impression: Vomiting; Diarrhea, unspecified; ea Asthma. Condition is Stable. Discharge Instructions: Asthma, Adult, Food Choices to Help Relieve Diarrhea, Adult, Diarrhea, Adult, Nausea and Vomiting, Adult, Nausea and Vomiting, Adult, Sris-in-Qlqn, Asthma, Adult, Eknf-qn-Xxwk, Diarrhea, Adult, Uufg-ex-Cdcu. Prescriptions for Zofran 4 mg Oral Tablet - take 1 tablet by ORAL route every 12 hours As needed; 14 tablet, Albuterol Sulfate 90 mcg/actuation - inhale 1-2 puff by INHALATION route every 4-6 hours; 1 Inhaler. and Forms are Medication Reconciliation Form, Thank You Letter, Antibiotic Education, Prescription Opioid Use. Follow up: Private Physician; When: 2 - 3 days; Reason: Recheck today's complaints, Re-evaluation by your physician. Problem is new. Symptoms have improved. franck
[2019-10-24 06:06] VITALS: TEMP 97.9; O2SAT 98
[2019-10-24 06:08] VITALS: BP 126/76
--- NOTE | 2019-10-24 08:39 | RAD REPORT ---
EXAM DESCRIPTION: RAD - Chest Single View - 10/24/2019 4:12 am CLINICAL HISTORY: COUGH Chest pain. COMPARISON: Chest Single View dated 07/26/2019; Chest Single View dated 08/09/2018 FINDINGS: Portable technique limits examination quality. The lungs are grossly clear. The heart is normal in size. No displaced fractures. IMPRESSION: No acute intrathoracic process suspected.
--- NOTE | 2019-10-24 12:03 | EKG ---
Test Date: 2019-10-24 Test Time: 04:03:43 Land Commissioner: THUY MEASUREMENT RESULTS: Intervals: Rate: 69 [place]: 172 QRSD: 78 QT: 378 QTc: 405 [place]: P: 70 [place]: 172 QRS: 12 T: -11 INTERPRETIVE STATEMENTS: Normal sinus rhythm Nonspecific T wave abnormality Abnormal ECG Compared to ECG 08/09/2018 21:25:46 T-wave abnormality now present Electronically Signed On 10-24-19 12:02:38 CDT by Johnathon Galindo
== END 2019-10-24 06:00 | disposition home or self-care (01) ==
LOC: ER 03:11
DX: R11.2 Nausea with vomiting, unspecified (principal); R19.7 Diarrhea, unspecified; J45.909 Unspecified asthma, uncomplicated; Z03.818 Encounter for observation for suspected exposure to other biological agents ruled out; Z88.5 Allergy status to narcotic agent
CPT/HCPCS: 36415; 71045; 80053; 85025; 87070; 87081; 87804; 93005; 96360; 96361; 99284; J7040; U0001

== ENCOUNTER 2020-01-01 06:08 | Emergency (ER) | payer OTHER, SELFPAY ==
[2020-01-01] MEDS ORDERED: BUPIVACAINE 0.5% PF 10 ML VIAL ONE (06:44)
--- NOTE | 2020-01-01 07:57 | ER ---
Nurse's Notes [facility] Name: Cristino Morrison Age: 64 yrs Sex: Female : 1955 Arrival Date: 01/01/2020 Time: 06:10 Bed 15 Private MD: Diagnosis: Edith Presentation: 12/31 06:27 Chief complaint: Patient states: Swelling to right middle finger swelling that began 3 lp1 days ago, unsure if bitten by something; No relief with compression and ice to area. Coronavirus screen: Proceed with normal triage. Ebola Screen: No symptoms or risks identified at this time. Initial Sepsis Screen: Does the patient meet any 2 criteria? No. Patient's initial sepsis screen is negative. Does the patient have a suspected source of infection? No. Patient's initial sepsis screen is negative. Risk Assessment: Do you want to hurt yourself or someone else? Patient reports no desire to harm self or others. Onset of symptoms was January 01, 2020. 06:27 Method Of Arrival: Ambulatory lp1 06:27 Acuity: SYEDA 4 lp1 Historical: - Allergies: 06:29 Codeine; lp1 - Home Meds: 06:29 Albuterol Inhl as needed [Active]; lp1 - PMHx: 06:29 Asthma; lp1 - PSHx: 06:29 partial hysterectomy; lp1 - Immunization history:: Adult Immunizations up to date. - Social history:: Smoking status: Patient denies any tobacco usage or history of. Screenin:30 Abuse screen: Denies threats or abuse. Denies injuries from another. Nutritional lp1 screening: No deficits noted. Tuberculosis screening: No symptoms or risk factors identified. Fall Risk None identified. Assessment: 06:33 General: Appears in no apparent distress. Behavior is calm, cooperative, appropriate lp1 for age. Pain: Complains of pain in right middle finger Pain currently is 6 out of 10 on a pain scale. Neuro: No deficits noted. Cardiovascular: No deficits noted. Respiratory: No deficits noted. GI: No deficits noted. : No signs and/or symptoms were reported regarding the genitourinary system. EENT: No signs and/or symptoms were reported regarding the EENT system. Derm: swelling to right middle finger. Musculoskeletal: Swelling present in right middle finger. 07:46 Reassessment: Patient appears in no apparent distress at this time. Patient and/or ph family updated on plan of care and expected duration. Pain level reassessed. Patient is alert, oriented x 3, equal unlabored respirations, skin warm/dry/pink. ERP at bedside to drain abscess, pt tolerated well. Vital Signs: 06:27 BP 154 / 91; Pulse 74; Resp 18; Temp 98.1(TE); Pulse Ox 100% on R/A; Weight 68.04 kg lp1 (R); Height 5 ft. 4 in. (162.56 cm); Pain 6/10; 06:27 Body Mass Index 25.75 (68.04 kg, 162.56 cm) lp1 ED Course: 06:10 Patient arrived in ED. cl3 06:29 Triage completed. lp1 06:29 Arm band placed on left wrist. lp1 06:30 Patient has correct armband on for positive identification. lp1 06:33 [facility] jr[facility] 06:33 Cristian Bonilla MD is Attending Physician. jr8 06:40 Sonam Kurtz, RN is Primary Nurse. lp1 07:47 Assist provider with I \T\ D: of an abscess on right middle digit. ph 07:47 Patient did not have IV access during this emergency room visit. ph 07:53 Wellington Ro MD is Referral Physician. jr8 Administered Medications: 07:15 Drug: Marcaine (0.5 %) 1 vials Volume: 10 ml; Route: Infiltration; ph Outcome: 07:56 Discharge ordered by . jr8 08:23 Patient left the ED. ph Signatures: Sonam Kurtz RN RN lp1 Hill Amaya PA PA jr8 Gris Wiggins RN RN Juan Carlos cMcray cl3 Corrections: (The following items were deleted from the chart) 07:48 07:47 Assist provider with I \T\ D: of an abscess on ph ph
--- NOTE | 2020-01-01 07:57 | EDPHYS ---
Physician Documentation [facility] Name: Cristino Morrison Age: 64 yrs Sex: Female : 1955 Arrival Date: 01/01/2020 Time: 06:10 Bed 15 Private MD: ED Physician Cristian Bonilla HPI: 12/31 07:05 This 64 yrs old Black Female presents to ER via Ambulatory with complaints of finger jr8 swelling. 07:05 The patient or guardian reports pain, swelling, tenderness. The complaints affect the jr8 pad of third finger right hand. Context: The problem was sustained at home. Onset: The symptoms/episode began/occurred gradually, 2 day(s) ago. Modifying factors: The symptoms are alleviated by nothing, the symptoms are aggravated by movement. Associated signs and symptoms: The patient has no apparent associated signs or symptoms. Severity of symptoms: At their worst the symptoms were mild, in the emergency department the symptoms are unchanged. The patient has not experienced similar symptoms in the past. The patient has not recently seen a physician. Historical: - Allergies: 06:29 Codeine; lp1 - Home Meds: 06:29 Albuterol Inhl as needed [Active]; lp1 - PMHx: 06:29 Asthma; lp1 - PSHx: 06:29 partial hysterectomy; lp1 - Immunization history:: Adult Immunizations up to date. - Social history:: Smoking status: Patient denies any tobacco usage or history of. ROS: 07:05 Eyes: Negative for injury, pain, redness, and discharge, ENT: Negative for injury, jr8 pain, and discharge, Neck: Negative for injury, pain, and swelling, Cardiovascular: Negative for chest pain, palpitations, and edema, Respiratory: Negative for shortness of breath, cough, wheezing, and pleuritic chest pain, Abdomen/GI: Negative for abdominal pain, nausea, vomiting, diarrhea, and constipation, Back: Negative for injury and pain, Skin: Negative for injury, rash, and discoloration, Neuro: Negative for headache, weakness, numbness, tingling, and seizure. 07:05 MS/extremity: Positive for pain, swelling, tenderness, warmth, of the pad of right middle finger. Exam: 07:05 Eyes: Pupils equal round and reactive to light, extra-ocular motions intact. Lids and jr8 lashes normal. Conjunctiva and sclera are non-icteric and not injected. Cornea within normal limits. Periorbital areas with no swelling, redness, or edema. ENT: Nares patent. No nasal discharge, no septal abnormalities noted. Tympanic membranes are normal and external auditory canals are clear. Oropharynx with no redness, swelling, or masses, exudates, or evidence of obstruction, uvula midline. Mucous membranes moist. Neck: Trachea midline, no thyromegaly or masses palpated, and no cervical lymphadenopathy. Supple, full range of motion without nuchal rigidity, or vertebral point tenderness. No Meningismus. Cardiovascular: Regular rate and rhythm with a normal S1 and S2. No gallops, murmurs, or rubs. Normal PMI, no JVD. No pulse deficits. Respiratory: Lungs have equal breath sounds bilaterally, clear to auscultation and percussion. No rales, rhonchi or wheezes noted. No increased work of breathing, no retractions or nasal flaring. Abdomen/GI: Soft, non-tender, with normal bowel sounds. No distension or tympany. No guarding or rebound. No evidence of tenderness throughout. Back: No spinal tenderness. No costovertebral tenderness. Full range of motion. Skin: Warm, dry with normal turgor. Normal color with no rashes, no lesions, and no evidence of cellulitis. Neuro: Awake and alert, GCS 15, oriented to person, place, time, and situation. Cranial nerves II-XII grossly intact. Motor strength 5/5 in all extremities. Sensory grossly intact. Cerebellar exam normal. Normal gait. 07:05 Musculoskeletal/extremity: Extremities: grossly normal except: noted in the pad right finger: Patient has moderate swelling to pad of right middle finger with mild erythema. No extension along george surface of finger. No other trauma or nail abnormality noted , ROM: intact in all extremities, Circulation is intact in all extremities. Sensation intact. Vital Signs: 06:27 BP 154 / 91; Pulse 74; Resp 18; Temp 98.1(TE); Pulse Ox 100% on R/A; Weight 68.04 kg lp1 (R); Height 5 ft. 4 in. (162.56 cm); Pain 6/10; 06:27 Body Mass Index 25.75 (68.04 kg, 162.56 cm) lp1 Procedures: 07:04 Nerve block: (digital) of dorsal aspect of proximal phalanx of right middle finger jr8 Medication: Marcaine 0.5%, Amount: 4 mls were injected, Effect: the patient has resolution of the pain, Set up for procedure. Performed by Hill TORRES Patient tolerated well. 07:52 I \T\ D: Incision and drainage was performed for an abscess of the right finger Prepped jr8 with Betadine, Incised with #11 blade. Drained small amount purulent fluid. bloody fluid. Abscess cavity explored. Dressing: sterile 4x4 gauze, the patient tolerated the procedure well. MDM: 06:33 Patient medically screened. jr8 07:52 Data reviewed: vital signs, nurses notes, and as a result, I will discharge patient. jr8 Data interpreted: Pulse oximetry: on room air is 100 %. Interpretation: normal. Counseling: I had a detailed discussion with the patient and/or guardian regarding: the historical points, exam findings, and any diagnostic results supporting the discharge/admit diagnosis, the need for outpatient follow up, a hand specialist, to return to the emergency department if symptoms worsen or persist or if there are any questions or concerns that arise at home. Administered Medications: 07:15 Drug: Marcaine (0.5 %) 1 vials Volume: 10 ml; Route: Infiltration; ph Disposition: 17:48 Co-signature as Attending Physician, Cristian Bonilla MD I agree with the assessment and franck plan of care. Disposition: 01/01/20 07:56 Discharged to Home. Impression: Felon. - Condition is Stable. - Discharge Instructions: Edith. - Prescriptions for Ibuprofen 800 mg Oral Tablet - take 1 tablet by ORAL route every 12 hours As needed take with food; 20 tablet. Bactrim DS 800- 160 mg Oral Tablet - take 1 tablet by ORAL route every 12 hours for 10 days; 20 tablet. - Medication Reconciliation Form, Thank You Letter, Antibiotic Education, Prescription Opioid Use form. - Follow up: Wellington Ro MD; When: 2 - 3 days; Reason: Wound Recheck, Recheck today's complaints, Continuance of care, Re-evaluation by your physician. - Problem is new. - Symptoms have improved. Signatures: Cristian Bonilla MD MD cha Pena, Laura RN RN lp1 Hill Amaya PA PA jr8 Gris Wiggins, RN RN ph Corrections: (The following items were deleted from the chart) 08:23 07:56 01/01/2020 07:56 Discharged to Home. Impression: Felon. Condition is Stable. ph Forms are Medication Reconciliation Form, Thank You Letter, Antibiotic Education, Prescription Opioid Use. Follow up: Wellington Ro; When: 2 - 3 days; Reason: Wound Recheck, Recheck today's complaints, Continuance of care, Re-evaluation by your physician. Problem is new. Symptoms have improved. jr8
[2020-01-01 08:44] VITALS: BP 154/91; TEMP 98.1; O2SAT 100
== END 2020-01-01 08:23 | disposition home or self-care (01) ==
LOC: ER 06:08
PROC: 0J9J0ZZ Drainage of Right Hand Subcutaneous Tissue and Fascia, Open Approach (ICD-10-PCS; principal; 2020-01-01)
DX: L03.011 Cellulitis of right finger (principal); J45.909 Unspecified asthma, uncomplicated; Z88.5 Allergy status to narcotic agent
CPT/HCPCS: 64450; 99283

== ENCOUNTER 2020-06-30 05:42 | Emergency (ER) | payer SELFPAY ==
[2020-06-30 06:34] LABS: Absolute Lymphocytes (CBC) 1.1 K/uL (0.7-4.9); Basophils % 0.4 % (0-1.3); Lymphocytes % 28.3 % (15.3-44.8); MPV 9.7 fL (7.6-11.3); RBC Red Blood Cell Count 4.59 M/uL (3.86-4.86)
[2020-06-30 06:35] LABS: Protime INR 1.08
[2020-06-30] MEDS ORDERED: NA CHLORIDE 0.9% 500 ML ONE (06:35)
[2020-06-30 06:56] LABS: ALT/SGPT 17 U/L (12-78); AST/SGOT 19 U/L (15-37); Albumin 3.7 g/dL (3.4-5.0); Alkaline Phosphatase 69 U/L (45-117); BUN Blood Urea Nitrogen 11 mg/dL (7-18); Bicarbonate 28 mmol/L (21-32); Bilirubin Direct < 0.1 mg/dL (0-0.2); Bilirubin Total 0.5 mg/dL (0.2-1.0); Glucose Level 95 mg/dL (74-106); Lipase 156 U/L (73-393); Magnesium 2.2 mg/dL (1.8-2.4); NT PRO-BNP 84 pg/mL (<125); Potassium 3.6 mmol/L (3.5-5.1); Sodium Level 142 mmol/L (136-145); Troponin (Emerg Dept Use Only) < 0.02 ng/mL (0.0-0.045)
--- NOTE | 2020-06-30 07:33 | ER ---
Nurse's Notes [facility] Name: Cristino Morrison Age: 64 yrs Sex: Female : 1955 Arrival Date: 06/30/2020 Time: 05:43 Bed 15 Private MD: Diagnosis: Weakness;Palpitations Presentation: 06/30 05:45 Chief complaint: Patient states: I just keep having these hot flashes and Im not really sg sure what is causing them, also having abdominal pain, no N/V/D/Fever at this time. pt denies any other symptoms for triage. Coronavirus screen: Client denies travel out of the [place] in the last 14 days. At this time, the client does not indicate any symptoms associated with coronavirus-19. Ebola Screen: Patient negative for fever greater than or equal to 101.5 degrees Fahrenheit, and additional compatible Ebola Virus Disease symptoms Patient denies exposure to infectious person. Patient denies travel to an Ebola-affected area in the 21 days before illness onset. No symptoms or risks identified at this time. Initial Sepsis Screen: Does the patient meet any 2 criteria? No. Patient's initial sepsis screen is negative. Does the patient have a suspected source of infection? No. Patient's initial sepsis screen is negative. Risk Assessment: Do you want to hurt yourself or someone else? Patient reports no desire to harm self or others. Onset of symptoms was June 30, 2020. Care prior to arrival: None. Transition of care: patient was not received from another setting of care. 05:45 Method Of Arrival: Ambulatory 05:45 Acuity: SYEDA 3 sg Historical: - Allergies: 05:45 Codeine; sg - PMHx: 05:45 Asthma; sg - PSHx: 05:45 partial hysterectomy; sg - Immunization history:: Adult Immunizations up to date. - Social history:: Smoking status: Patient denies any tobacco usage or history of. - Family history:: not pertinent. Screenin:49 Abuse screen: Denies threats or abuse. Nutritional screening: No deficits noted. ll2 Tuberculosis screening: No symptoms or risk factors identified. Fall Risk None identified. Assessment: 05:48 General: Appears in no apparent distress. Behavior is calm, cooperative, appropriate ll2 for age. Pain: Denies pain. Neuro: Level of Consciousness is awake, alert, obeys commands, Oriented to person, place, time, situation. Cardiovascular: Patient's skin is warm and dry. Respiratory: Airway is patent Respiratory effort is even, unlabored, Respiratory pattern is regular, symmetrical. GI: No signs and/or symptoms were reported involving the gastrointestinal system. : No signs and/or symptoms were reported regarding the genitourinary system. EENT: No signs and/or symptoms were reported regarding the EENT system. Derm: Skin is intact, is healthy with good turgor, Skin is dry, Skin is normal, Skin temperature is warm. Musculoskeletal: Circulation, motion, and sensation intact. Range of motion: intact in all extremities. 07:20 General: Appears in no apparent distress. comfortable, Behavior is calm, cooperative, zb appropriate for age. Pain: Denies pain. Neuro: Level of Consciousness is awake, alert, obeys commands, Oriented to person, place, time, situation. Cardiovascular: Heart tones S1 S2 present Capillary refill < 3 seconds in bilateral fingers Patient's skin is warm and dry. Respiratory: Airway is patent Respiratory effort is even, unlabored, Respiratory pattern is regular, symmetrical. GI: Abdomen is round non-distended. : No signs and/or symptoms were reported regarding the genitourinary system. EENT: No signs and/or symptoms were reported regarding the EENT system. Derm: Skin is intact, is healthy with good turgor, Skin is dry, Skin is normal, Skin temperature is warm. Musculoskeletal: Circulation, motion, and sensation intact. Capillary refill < 3 seconds, in bilateral fingers. Range of motion: intact in all extremities. 08:16 Reassessment: d/c instructions explain. pt oriented and able to ambulate w/ steady gate.zb Vital Signs: 06:06 BP 133 / 96; Pulse 60; Resp 17; Temp 98.3; Pulse Ox 100% on R/A; ll2 07:57 BP 141 / 85; Pulse 62; Resp 18; Pulse Ox 100% on R/A; zb ED Course: 05:43 Patient arrived in ED. cl3 05:45 Arm band placed on. sg 05:47 Cristian Bonilla MD is Attending Physician. franck 05:49 Patient has correct armband on for positive identification. commercial artist on. Pulse ll2 ox on. NIBP on. 05:49 No provider procedures requiring assistance completed. ll2 05:59 Initial lab(s) drawn, by me, sent to lab. Inserted saline lock: 20 gauge in right ll2 antecubital area, using aseptic technique. Blood collected. 06:17 Emily Lind, RN is Primary Nurse. ll2 06:18 Basic Metabolic Panel Sent. ll2 06:18 CBC with Diff Sent. ll2 06:24 Triage completed. sg 06:29 XRAY Chest (1 view) In Process Unspecified. EDMS 07:02 Attending Physician role handed off by Cristian Bonilla MD kdr 07:02 Filipe Obrien MD is Attending Physician. kdr 07:32 Rosalba Jose MD is Referral Physician. kdr 07:33 Primary Nurse role handed off by Emily Lind RN 07:42 Dayami Caraballo RN is Primary Nurse. zb 08:20 IV discontinued, intact, bleeding controlled, No redness/swelling at site. Pressure zb dressing applied. Administered Medications: 06:36 Drug: NS 0.9% 500 ml Route: IV; Rate: bolus; Site: right antecubital; ll2 07:58 Follow up: Response: No adverse reaction; IV Status: Completed infusion; IV Intake: zb 500ml 07:48 Drug: Aspirin 81 mg Route: PO; zb 07:58 Follow up: Response: No adverse reaction zb Intake: 07:58 IV: 500ml; Total: 500ml. zb Outcome: 07:32 Discharge ordered by MD. kdr 08:20 Discharged to home ambulatory. zb 08:20 Condition: stable 08:20 Discharge instructions given to patient, Instructed on discharge instructions, follow up and referral plans. medication usage, Demonstrated understanding of instructions, follow-up care, medications, Prescriptions given X 1. 08:27 Patient left the ED. zb Signatures: Dispatcher [employer] EDMS Seema Weber RN RN sv Gay, Steven, RN RN Cristian Bonilla MD MD cha Rittger, Kevin, MD MD [facility] Juan Carlos Mccray cl3 Emily Lind RN RN ll2 Dayami Caraballo RN RN zb Corrections: (The following items were deleted from the chart) 06:25 05:45 Chief complaint: Patient states: I just keep having these hot flashes and Im not sg really sure what is causing them. pt denies any other symptoms for triage at this time sg 06:25 05:45 Acuity: SYEDA 4 sg sg
--- NOTE | 2020-06-30 07:33 | EDPHYS ---
Physician Documentation [facility] Name: Cristino Morrison Age: 64 yrs Sex: Female : 1955 Arrival Date: 06/30/2020 Time: 05:43 Bed 15 Private MD: ED Physician Filipe Obrien HPI: 06/30 06:03 This 64 yrs old Black Female presents to ER via Unassigned with complaints of Hot franck Flashes. 06:03 The patient presents with abdominal pain abdominal distention. Onset: The franck symptoms/episode began/occurred 2 day(s) ago. hot flashes. Onset: The symptoms/episode began/occurred 2 day(s) ago. The symptoms do not radiate. Associated signs and symptoms: none. Modifying factors: The symptoms are alleviated by nothing, the symptoms are aggravated by nothing. Severity of symptoms: At their worst the symptoms were mild in the emergency department the symptoms are unchanged. Historical: - Allergies: 05:45 Codeine; sg - PMHx: 05:45 Asthma; sg - PSHx: 05:45 partial hysterectomy; sg - Immunization history:: Adult Immunizations up to date. - Social history:: Smoking status: Patient denies any tobacco usage or history of. - Family history:: not pertinent. ROS: 06:03 Constitutional: Negative for fever, chills, and weight loss, Eyes: Negative for injury, franck pain, redness, and discharge, ENT: Negative for injury, pain, and discharge, Neck: Negative for injury, pain, and swelling, Cardiovascular: Negative for chest pain, palpitations, and edema, Respiratory: Negative for shortness of breath, cough, wheezing, and pleuritic chest pain, Abdomen/GI: Negative for abdominal pain, nausea, vomiting, diarrhea, and constipation, Back: Negative for injury and pain, : Negative for injury, bleeding, discharge, and swelling, MS/Extremity: Negative for injury and deformity, Skin: Negative for injury, rash, and discoloration, Neuro: Negative for headache, weakness, numbness, tingling, and seizure, Psych: Negative for depression, anxiety, suicide ideation, homicidal ideation, and hallucinations, Allergy/Immunology: Negative for hives, rash, and allergies, Endocrine: Negative for neck swelling, polydipsia, polyuria, polyphagia, and marked weight changes, Hematologic/Lymphatic: Negative for swollen nodes, abnormal bleeding, and unusual bruising. 06:27 MS/extremity: Negative for swelling, no homans , no cords, no trauma, no hcs, no hx dvt.franck Exam: 06:03 Constitutional: This is a well developed, well nourished patient who is awake, alert, franck and in no acute distress. Head/Face: Normocephalic, atraumatic. Eyes: Pupils equal round and reactive to light, extra-ocular motions intact. Lids and lashes normal. Conjunctiva and sclera are non-icteric and not injected. Cornea within normal limits. Periorbital areas with no swelling, redness, or edema. ENT: Nares patent. No nasal discharge, no septal abnormalities noted. Tympanic membranes are normal and external auditory canals are clear. Oropharynx with no redness, swelling, or masses, exudates, or evidence of obstruction, uvula midline. Mucous membranes moist. Neck: Trachea midline, no thyromegaly or masses palpated, and no cervical lymphadenopathy. Supple, full range of motion without nuchal rigidity, or vertebral point tenderness. No Meningismus. Chest/axilla: Normal chest wall appearance and motion. Nontender with no deformity. No lesions are appreciated. Cardiovascular: Regular rate and rhythm with a normal S1 and S2. No gallops, murmurs, or rubs. Normal PMI, no JVD. No pulse deficits. Respiratory: Lungs have equal breath sounds bilaterally, clear to auscultation and percussion. No rales, rhonchi or wheezes noted. No increased work of breathing, no retractions or nasal flaring. Abdomen/GI: Soft, non-tender, with normal bowel sounds. No distension or tympany. No guarding or rebound. No evidence of tenderness throughout. Back: No spinal tenderness. No costovertebral tenderness. Full range of motion. Female : Normal external genitalia. Skin: Warm, dry with normal turgor. Normal color with no rashes, no lesions, and no evidence of cellulitis. 06:03 Musculoskeletal/extremity: ROM: no acute changes, intact in all extremities, full active range of motion, full passive range of motion, Circulation is intact in all extremities. Sensation intact. Compartment Syndrome exam of affected extremity: is normal. Joints: All joints appear normal with full range of motion. Tendon exam: specific tendon testing normal through active and passive range of motion DVT Exam: No signs of deep vein thrombosis. no pain, no swelling, no tenderness, negative Homans' sign noted on exam, no appreciated bluish discoloration, no erythema, no increased warmth. 06:25 Musculoskeletal/extremity: Weight bearing: able to fully bear weight. [facility] 06:36 ECG was reviewed by the Attending Physician. [facility] Vital Signs: 06:06 BP 133 / 96; Pulse 60; Resp 17; Temp 98.3; Pulse Ox 100% on R/A; ll2 07:57 BP 141 / 85; Pulse 62; Resp 18; Pulse Ox 100% on R/A; zb MDM: 05:47 Patient medically screened. [facility] 06:06 Differential Diagnosis sepsis. Differential diagnosis: acute coronary syndrome, franck gastritis, gastroesophageal reflux disease, Mesenteric ischemia or infarction, myocardia ischemia or infarction, non-specific abd pain, pancreatitis, Peptic Ulcer Disease, Perf. Gastric Ulcer, Pyelonephritis, Ureterolithiasis, urinary tract infection. Data reviewed: vital signs, nurses notes, lab test result(s), EKG. Data interpreted: objects conservator:. Test interpretation: by ED physician or midlevel provider: ECG, plain radiologic studies. Counseling: I had a detailed discussion with the patient and/or guardian regarding: the historical points, exam findings, and any diagnostic results supporting the discharge/admit diagnosis, lab results, radiology results, the need for outpatient follow up. 07:34 Special discussion: Based on the patient's history, exam, and Dx evaluation, there is kdr no indication for emergent intervention or inpatient Tx. It is understood by the patient/guardian that if the Sx's persist or worsen they need to return immediately for re-evaluation. I discussed with the patient/guardian in detail that at this point there is no indication for admission to the hospital. It is understood, however, that if the symptoms persist or worsen the patient needs to return immediately for re-evaluation. 06/30 05:57 Order name: Basic Metabolic Panel [facility] 06/30 05:57 Order name: CBC with Diff [facility] 06/30 05:57 Order name: LFT's; Complete Time: 07:22 [facility] 06/30 05:57 Order name: Magnesium; Complete Time: 07:22 [facility] 06/30 05:57 Order name: NT PRO-BNP; Complete Time: 07:22 [facility] 06/30 05:57 Order name: PT-INR; Complete Time: 07:22 [facility] 06/30 05:57 Order name: Troponin (emerg Dept Use Only); Complete Time: 07:22 [facility] 06/30 05:57 Order name: XRAY Chest (1 view) [facility] 06/30 05:57 Order name: Lipase; Complete Time: 07:22 [facility] 06/30 05:58 Order name: Basic Metabolic Panel; Complete Time: 07:22 [facility] 06/30 05:58 Order name: CBC with Automated Diff; Complete Time: 07:22 [facility] 06/30 05:57 Order name: EKG; Complete Time: 05:58 [facility] 06/30 05:57 Order name: Cardiac monitoring; Complete Time: 06:18 [facility] 06/30 05:57 Order name: EKG - Nurse/Tech; Complete Time: 06:37 [facility] 06/30 05:57 Order name: IV Saline Lock; Complete Time: 06:18 [facility] 06/30 05:57 Order name: Labs collected and sent; Complete Time: 06:18 [facility] 06/30 05:57 Order name: O2 Per Protocol; Complete Time: 06:18 [facility] 06/30 05:57 Order name: O2 Sat Monitoring; Complete Time: 06:18 [facility] EC:36 Rate is 66 beats/min. Rhythm is regular. QRS [place] is Normal. GA interval is normal. QRS franck interval is normal. QT interval is normal. No Q waves. T waves are Normal. No ST changes noted. Clinical impression: NSR w/ Non-specific ST/T Changes and No evidence of ischemia. Interpreted by me. Reviewed by me. Administered Medications: 06:36 Drug: NS 0.9% 500 ml Route: IV; Rate: bolus; Site: right antecubital; ll2 07:58 Follow up: Response: No adverse reaction; IV Status: Completed infusion; IV Intake: zb 500ml 07:48 Drug: Aspirin 81 mg Route: PO; zb 07:58 Follow up: Response: No adverse reaction zb Disposition: 06/30/20 07:32 Discharged to Home. Impression: Weakness, Palpitations. - Condition is Stable. - Discharge Instructions: Palpitations, Weakness, Fatigue, Weakness, [id number], Aspirin and Your Heart, Palpitations, [id number]. - Prescriptions for Vitamin 27- 0.8 mg Oral Tablet - take 1 tablet by ORAL route once daily; 30 tablet. - Medication Reconciliation Form, Thank You Letter form. - Follow up: Private Physician; When: 2 - 3 days; Reason: Recheck today's complaints, Continuance of care, Re-evaluation by your physician. Follow up: Rosalba Jose; When: 2 - 3 days; Reason: Recheck today's complaints, Re-evaluation by your physician. - Problem is new. - Symptoms have improved. Signatures: Dispatcher [employer] EDMS Semaj Bermudez RN RN Cristian Leger MD MD cha Rittger, Kevin, MD MD kdr Linscombe, Lacie RN RN ll2 Dayami Caraballo RN RN zb Corrections: (The following items were deleted from the chart) 08:27 07:32 06/30/2020 07:32 Discharged to Home. Impression: Weakness; Palpitations. zb Condition is Stable. Discharge Instructions: Palpitations, Weakness, Fatigue, Weakness, [id number]-wu-[id number], Aspirin and Your Heart, Palpitations, Yshs-[id number]. Prescriptions for Vitamin 27-0.8 mg Oral Tablet - take 1 tablet by ORAL route once daily; 30 tablet. and Forms are Medication Reconciliation Form, Thank You Letter, Antibiotic Education, Prescription Opioid Use. Follow up: Private Physician; When: 2 - 3 days; Reason: Recheck today's complaints, Continuance of care, Re-evaluation by your physician. Follow up: Rosalba Jose; When: 2 - 3 days; Reason: Recheck today's complaints, Re-evaluation by your physician. Problem is new. Symptoms have improved. kdr
[2020-06-30] MEDS ORDERED: ASPIRIN EC 81 MG TAB PO ONE (08:02)
--- NOTE | 2020-06-30 09:14 | RAD REPORT ---
EXAM DESCRIPTION: RAD - Chest Single View - 06/30/2020 6:29 am CLINICAL HISTORY: COUGH COMPARISON: October 2019 TECHNIQUE: AP portable chest image was obtained 06/30/2020 6:29 am . FINDINGS: Lungs are clear. Heart and vasculature are normal. No measurable pleural effusion and no p neumothorax. No acute bony abnormality seen. No acute aortic findings suspected. IMPRESSION: No acute cardiopulmonary process. No significant change from comparison study.
[2020-06-30 15:53] VITALS: TEMP 98.3; O2SAT 100
[2020-06-30 15:55] VITALS: BP 141/85
== END 2020-06-30 08:27 | disposition home or self-care (01) ==
LOC: ER 05:42
DX: R00.2 Palpitations (principal); Z88.5 Allergy status to narcotic agent
CPT/HCPCS: 36415; 71045; 80048; 80076; 83690; 83735; 83880; 84484; 85025; 85610; 93005; 96360; 99284; J7040

== ENCOUNTER 2021-04-25 10:31 | Emergency (ER) | payer OTHER, SELFPAY ==
--- NOTE | 2021-04-25 12:04 | RAD REPORT ---
EXAM DESCRIPTION: RAD - C Spine Ap/Lat - 04/25/2021 11:59 am CLINICAL HISTORY: trauma COMPARISON: No comparisons FINDINGS: No acute fracture. No malalignment. Mild spurring at the C5-6 and C6-7 level. IMPRESSION: No acute osseous abnormality involving the cervical spine.
--- NOTE | 2021-04-25 12:05 | RAD REPORT ---
EXAM DESCRIPTION: RAD - Lumbar Spine 3 Views - 04/25/2021 11:59 am CLINICAL HISTORY: trauma COMPARISON: No comparisons FINDINGS: No acute fracture. No malalignment. No significant focal degenerative changes. IMPRESSION: No acute osseous abnormality involving the lumbar spine.
--- NOTE | 2021-04-25 12:28 | EDPHYS ---
Physician Documentation [facility] Name: Cristino Morrison Age: 65 yrs Sex: Female : 1955 Arrival Date: 04/25/2021 Time: 10:40 Bed 20 Private MD: ED Physician Casie Hernandez HPI: 04/25 11:11 This 65 yrs old Black Female presents to ER via Wheelchair with complaints of Back Pain.sp3 11:11 65-year-old female with a history of asthma presents with right upper and lower sp3 muscular back pain for the past 3 days. On her over the stove microwave and kitchen cabinet fell while she was using the device and she had to catch it with her right upper extremity to prevent it from falling on top of her. Patient states that subsequent to that she has had pain in her right upper and lower back that is muscular in origin. Patient denies any fall, direct bone pain, radiculopathy, paresthesia, pain in any of her extremities, abdominal pain, chest pain, shortness of breath, fever, nausea, vomiting, diarrhea, inability to ambulate, or any other symptoms as a part of ROS at this time. Remainder of ROS negative. Patient denies head injury, fall, trauma, or any other direct trauma.. Historical: - Allergies: 10:49 Codeine; aa5 - PMHx: 10:49 Asthma; aa5 - Immunization history:: Client reports receiving the German \T\ German single-dose vaccine. - Social history:: Smoking status: Patient denies any tobacco usage or history of. ROS: 11:13 Constitutional: Negative for fever, chills, and weight loss, Eyes: Negative for injury, sp3 pain, redness, and discharge, ENT: Negative for injury, pain, and discharge, Neck: Negative for injury, pain, and swelling, Cardiovascular: Negative for chest pain, palpitations, and edema, Respiratory: Negative for shortness of breath, cough, wheezing, and pleuritic chest pain, Abdomen/GI: Negative for abdominal pain, nausea, vomiting, diarrhea, and constipation, : Negative for injury, bleeding, discharge, and swelling, Skin: Negative for injury, rash, and discoloration, Neuro: Negative for headache, weakness, numbness, tingling, and seizure, Psych: Negative for depression, anxiety, suicide ideation, homicidal ideation, and hallucinations. 11:13 All other systems are negative. Exam: 11:14 Constitutional: This is a well developed, well nourished patient who is awake, alert, sp3 and in no acute distress. Head/Face: Normocephalic, atraumatic. Eyes: Pupils equal round and reactive to light, extra-ocular motions intact. Lids and lashes normal. Conjunctiva and sclera are non-icteric and not injected. Cornea within normal limits. Periorbital areas with no swelling, redness, or edema. ENT: Nares patent. No nasal discharge, no septal abnormalities noted. External auditory canals are clear. Oropharynx with no redness, swelling, or masses, exudates, or evidence of obstruction, uvula midline. Mucous membranes moist. Neck: Trachea midline, no thyromegaly or masses palpated, and no cervical lymphadenopathy. Supple, full range of motion without nuchal rigidity, or vertebral point tenderness. No Meningismus. Chest/axilla: Normal chest wall appearance and motion. Nontender with no deformity. No lesions are appreciated. Cardiovascular: Regular rate and rhythm with a normal S1 and S2. No gallops, murmurs, or rubs. Normal PMI, no JVD. No pulse deficits. Respiratory: Lungs have equal breath sounds bilaterally, clear to auscultation and percussion. No rales, rhonchi or wheezes noted. No increased work of breathing, no retractions or nasal flaring. Abdomen/GI: Soft, non-tender, with normal bowel sounds. No distension or tympany. No guarding or rebound. No evidence of tenderness throughout. Skin: Warm, dry with normal turgor. Normal color with no rashes, no lesions, and no evidence of cellulitis. MS/ Extremity: Pulses equal, no cyanosis. Neurovascular intact. Full, normal range of motion. Neuro: Awake and alert, GCS 15, oriented to person, place, time, and situation. Cranial nerves II-XII grossly intact. Motor strength 5/5 in all extremities. Sensory grossly intact. Cerebellar exam normal. Normal gait. Psych: Awake, alert, with orientation to person, place and time. Behavior, mood, and affect are within normal limits. 11:14 Back: Patient has mild tenderness to the musculature on the right side of her back. No direct bony pain on spinous processes. Patient is full range of motion in the right upper extremity. Rotator cuff exam is normal. Neurovascular exam in the right upper extremity and right lower extremity are also normal with no sensory, motor, or pulse deficits.. Vital Signs: 10:48 BP 132 / 85; Pulse 82; Resp 16 S; Temp 97.0(TE); Pulse Ox 100% on R/A; Weight 63.5 kg aa5 (R); Height 5 ft. 4 in. (162.56 cm) (R); 10:52 BP 132 / 85; Pulse 82; Resp 16; Temp 97; Pulse Ox 100% ; ch5 10:48 Body Mass Index 24.03 (63.50 kg, 162.56 cm) aa5 MDM: 10:58 Patient medically screened. sp3 11:15 Data reviewed: vital signs, nurses notes. ED course: 65-year-old with likely muscular sp3 strain of her back of likely her latissimus dorsi muscle. I am not suspicious of head trauma, spinal trauma, compression fracture, herniation, vascular tear, intra-abdominal pathology, any other critical emergency at this time. Will obtain x-rays of the cervical and lumbar spine and if no acute abnormalities will discharge patient home on Flexeril and NSAID. Patient is okay with the plan and has no further questions or concerns. She is only taken Tylenol orally at home without any anti-inflammatories.. 12:26 ED course: X-rays are negative and we will give 30 mg ketorolac IM x1. Will discharge sp3 on Flexeril and diclofenac p.o.. 04/25 11:08 Order name: XRAY Lumbar Spine (3 Views); Complete Time: 12:25 sp3 04/25 11:08 Order name: XRAY C Spine Ap/lat; Complete Time: 12:25 sp3 Administered Medications: 12:20 Drug: Ketorolac 30 mg Route: IM; Site: right deltoid; 5 12:39 Follow up: Response: Medication administered at discharge. ch5 Disposition Summary: 04/25/21 12:27 Discharge Ordered Location: Home sp3 Condition: Stable sp3 Diagnosis - Strain of muscle and tendon of back wall of thorax, initial encounter sp3 - Strain of muscle, fascia and tendon of lower back, initial encounter sp3 Followup: sp3 - With: Private Physician - When: - Reason: Re-evaluation by your physician Discharge Instructions: - Discharge Summary Sheet sp3 - Muscle Strain sp3 - Thoracic Strain sp3 Forms: - Medication Reconciliation Form sp3 - Thank You Letter sp3 - Antibiotic Education sp3 - Prescription Opioid Use sp3 - Work release form ch5 Prescriptions: - Diclofenac Sodium 75 mg Oral Tablet Sustained Release - take 1 tablet by ORAL route 2 times per day; 30 tablet; Refills: 0, Product sp3 Selection Permitted - Cyclobenzaprine 5 mg Oral Tablet - take 1 tablet by ORAL route 3 times per day As needed; 15 tablet; Refills: 0, sp3 Product Selection Permitted Signatures: Dispatcher [employer] EDShila Mccauley RN RN aa5 Casie Hernandez MD MD sp3 Mikhail Callahan RN RN ch5
--- NOTE | 2021-04-25 12:28 | ER ---
Nurse's Notes [facility] [place], [place] Name: Cristino Morrison Age: 65 yrs Sex: Female : 1955 Arrival Date: 04/25/2021 Time: 10:40 Bed 20 Private MD: Diagnosis: Strain of muscle and tendon of back wall of thorax, initial encounter;Strain of muscle, fascia and tendon of lower back, initial encounter Presentation: 04/25 10:48 Chief complaint: Patient states: "my top kitchen cabinets and microwave fell and I aa5 tried to catch it with my right arm and ever since then my back has been hurting". Coronavirus screen: At this time, the client does not indicate any symptoms associated with coronavirus-19. Ebola Screen: No symptoms or risks identified at this time. Initial Sepsis Screen: Does the patient meet any 2 criteria? No. Patient's initial sepsis screen is negative. Does the patient have a suspected source of infection? No. Patient's initial sepsis screen is negative. Risk Assessment: Do you want to hurt yourself or someone else? Patient reports no desire to harm self or others. Onset of symptoms was April 22, 2021. 10:48 Method Of Arrival: Wheelchair aa5 10:48 Acuity: SYEDA 4 aa5 Historical: - Allergies: 10:49 Codeine; aa5 - PMHx: 10:49 Asthma; aa5 - Immunization history:: Client reports receiving the German \\T\\ German single-dose vaccine. - Social history:: Smoking status: Patient denies any tobacco usage or history of. Screenin:52 Abuse screen: Denies threats or abuse. Denies injuries from another. Nutritional ch5 screening: No deficits noted. Tuberculosis screening: No symptoms or risk factors identified. Fall Risk None identified. Assessment: 10:51 Reassessment: No changes from previously documented assessment. Pain: Complains of pain ch5 in back. Vital Signs: 10:48 BP 132 / 85; Pulse 82; Resp 16 S; Temp 97.0(TE); Pulse Ox 100% on R/A; Weight 63.5 kg aa5 (R); Height 5 ft. 4 in. (162.56 cm) (R); 10:52 BP 132 / 85; Pulse 82; Resp 16; Temp 97; Pulse Ox 100% ; ch5 10:48 Body Mass Index 24.03 (63.50 kg, 162.56 cm) aa5 ED Course: 10:40 Patient arrived in ED. ds1 10:48 Arm band placed on. aa5 10:49 Triage completed. aa5 10:51 Mikhail Callahan, RN is Primary Nurse. ch5 10:52 Bed in low position. Call light in reach. Side rails up X2. ch5 10:52 No provider procedures requiring assistance completed. ch5 10:54 Casie Hernandez MD is Attending Physician. sp3 11:59 XRAY Lumbar Spine (3 Views) In Process Unspecified. EDMS 11:59 XRAY C Spine Ap/lat In Process Unspecified. EDMS 12:39 IV discontinued, intact. ch5 Administered Medications: 12:20 Drug: Ketorolac 30 mg Route: IM; Site: right deltoid; ch5 12:39 Follow up: Response: Medication administered at discharge. 5 Outcome: 12:27 Discharge ordered by . sp3 12:39 Discharged to home ambulatory. ch5 12:39 Condition: improved 12:39 Discharge instructions given to patient, Instructed on discharge instructions, Prescriptions given X 2. 12:40 Patient left the ED. 5 Signatures: Dispatcher [employer] EDDC Malaika Bautista ds1 Shila Wilkins, RN RN aa5 Casie Hernandez MD MD sp3 Mikhail Callahan, RN RN 5
[2021-04-25] MEDS ORDERED: KETOROLAC 30 MG/ML INJ ONE (12:48)
[2021-04-25 12:54] VITALS: BP 132/85; O2SAT 100
[2021-04-25 12:56] VITALS: TEMP 97
== END 2021-04-25 12:40 | disposition home or self-care (01) ==
LOC: ER 10:31
DX: S39.012A Strain of muscle, fascia and tendon of lower back, initial encounter (principal); S29.012A Strain of muscle and tendon of back wall of thorax, initial encounter; Z88.5 Allergy status to narcotic agent
CPT/HCPCS: 72040; 72100; 96372; 99283

== ENCOUNTER 2022-01-18 17:41 | Emergency (ER) | payer OTHER ==
[2022-01-18] MEDS ORDERED: LIDOCAINE VISCOUS 2% SOLN 15 ML UDC ONE (19:27)
[2022-01-18] MEDS ORDERED: FAMOTIDINE 20 MG TAB ONE (19:27)
[2022-01-18] MEDS ORDERED: MAGNES/ALUMIN/SIMET 30ML UCUP ONE (19:27)
[2022-01-18 19:46] LABS: Absolute Lymphocytes (CBC) 0.3 K/uL (0.7-4.9); Hematocrit 36.4 % (36.0-45.0); Lymphocytes % 5.7 % (15.3-44.8); MCV 78.6 fL (80-100); MPV 9.2 fL (7.6-11.3); RBC Red Blood Cell Count 4.63 M/uL (3.86-4.86)
[2022-01-18 20:07] LABS: Potassium 3.7 mmol/L (3.5-5.1); Troponin High Sensitivity 4.8 pg/mL (<58.9)
--- NOTE | 2022-01-18 20:20 | RAD REPORT ---
EXAM DESCRIPTION: RAD - Chest Single View - 01/18/2022 7:57 pm CLINICAL HISTORY: CHEST PAIN COMPARISON: Portable 06/30/2020 TECHNIQUE: AP portable chest image was obtained 01/18/2022 7:57 pm . FINDINGS: Lungs are clear. Mediastinal and hilar regions match comparison. Heart and vasculature are normal. No measurable pleural effusion and no pneumothorax. No acute bony abnormality seen. No acute aortic findings suspected. IMPRESSION: No acute cardiopulmonary process.
--- NOTE | 2022-01-18 20:34 | EDPHYS ---
Physician Documentation [facility] Name: Cristino Morrison Age: 66 yrs Sex: Female : 1955 Arrival Date: 01/18/2022 Time: 17:43 Bed 2 Private MD: ED Physician Mustapha Bolton HPI: 01/18 19:52 This 66 yrs old Black Female presents to ER via Ambulatory with complaints of acid ms3 reflux. 19:52 The patient presents with abdominal pain in the epigastric area. Onset: The ms3 symptoms/episode began/occurred 1 day(s) ago. The symptoms radiate to chest. Associated signs and symptoms: none. The symptoms are described as burning. Modifying factors: The symptoms are alleviated by nothing, the symptoms are aggravated by nothing. Severity of pain: At its worst the pain was severe in the emergency department the pain is unchanged. Historical: - Allergies: 19:15 Codeine; vc1 - Home Meds: 19:15 Albuterol Inhl as needed [Active]; Iron CR 250 mg Oral cpER [Active]; vc1 - PMHx: 19:15 Asthma; GERD; vc1 - PSHx: 19:15 section; Patial Hysterectomy; Tubes Tied; vc1 - Immunization history:: Adult Immunizations up to date, Client reports receiving the 2nd dose of the Covid vaccine, German \T\German Flu vaccine is up to date. - Social history:: Smoking status: Patient/guardian denies using tobacco, but has a distant history of tobacco abuse. ROS: 19:52 Constitutional: Negative for fever, and chills. Eyes: Negative for injury, pain, ms3 redness, and discharge, Neck: Negative for injury, pain, and swelling. 19:52 Cardiovascular: Negative for chest pain, and palpitations. Respiratory: Negative for shortness of breath, cough, wheezing, and pleuritic chest pain. 19:52 Skin: Negative for injury, rash, and discoloration, Neuro: Negative for headache, weakness, numbness, tingling. 19:52 Cardiovascular: 19:52 Abdomen/GI: Positive for reflux. 19:52 All other systems are negative. Exam: 19:49 ECG was reviewed by the Attending Physician. ms3 19:52 Constitutional: This is a well developed, well nourished patient who is awake, alert, ms3 and in no acute distress. Head/Face: Normocephalic, atraumatic. Chest/axilla: Normal chest wall appearance and motion. Nontender with no deformity. Cardiovascular: Regular rate and rhythm with a normal S1 and S2. No gallops, murmurs, or rubs. Normal PMI, no JVD. No pulse deficits. Respiratory: Lungs have equal breath sounds bilaterally, clear to auscultation and percussion. No rales, rhonchi or wheezes noted. No increased work of breathing, no retractions or nasal flaring. Abdomen/GI: Soft, non-tender, with normal bowel sounds. No distension or tympany. No guarding or rebound. No evidence of tenderness throughout. Skin: Warm, dry with normal turgor. Normal color with no rashes, no lesions, and no evidence of cellulitis. Neuro: Awake and alert, GCS 15, oriented to person, place, time, and situation. Cranial nerves II-XII grossly intact. Motor strength 5/5 in all extremities. Sensory grossly intact. Cerebellar exam normal. Normal gait. Psych: Awake, alert, with orientation to person, place and time. Behavior, mood, and affect are within normal limits. Vital Signs: 19:09 Pain 6/10; vc1 19:12 Weight 62.14 kg; Height 5 ft. 4 in. (162.56 cm); vc1 19:13 BP 110 / 77; Pulse 101; Resp 17; Temp 98.5; Pulse Ox 100% ; vc1 20:12 BP 120 / 75; Pulse 83; Resp 18 S; Pulse Ox 100% on R/A; as6 19:12 Body Mass Index 23.52 (62.14 kg, 162.56 cm) vc1 MDM: 19:52 Differential diagnosis: gastroesophageal reflux disease, myocardia ischemia or ms3 infarction, non-specific abd pain. 20:04 Patient medically screened. ms3 20:33 Data reviewed: vital signs, lab test result(s), radiologic studies, and as a result, I ms3 will discharge patient. Data interpreted: Pulse oximetry: on room air is 100 %. Interpretation: normal. Counseling: I had a detailed discussion with the patient and/or guardian regarding: the historical points, exam findings, and any diagnostic results supporting the discharge/admit diagnosis, lab results, radiology results, the need for outpatient follow up, to return to the emergency department if symptoms worsen or persist or if there are any questions or concerns that arise at home. 22:35 ED course: Discussed labs, chest x-ray, physical exam findings with patient. Patient to ms3 follow-up with primary care physician in 2 to 3 days. Patient understands and agrees with plan. All questions were answered. Return precautions discussed include worsening symptoms, or any other concerns. On reevaluation patient is alert and oriented x4, in no apparent distress, nontoxic-appearing, speaking full sentences, ambulatory in emergency department. . 01/18 19:17 Order name: Basic Metabolic Panel; Complete Time: 20:08 ms3 01/18 19:17 Order name: CBC with Diff; Complete Time: 20:08 ms3 01/18 19:17 Order name: Troponin HS; Complete Time: 20:08 ms3 01/18 19:17 Order name: XRAY Chest (1 view); Complete Time: 20:22 ms3 01/18 19:17 Order name: EKG; Complete Time: 19:17 ms3 01/18 19:17 Order name: Cardiac monitoring; Complete Time: 20:11 ms3 01/18 19:17 Order name: EKG - Nurse/Tech; Complete Time: 19:38 ms3 01/18 19:17 Order name: IV Saline Lock; Complete Time: 19:37 ms3 01/18 19:17 Order name: Labs collected and sent; Complete Time: 19:37 ms3 01/18 19:17 Order name: O2 Per Protocol; Complete Time: 20:11 ms3 01/18 19:17 Order name: O2 Sat Monitoring; Complete Time: 20:11 ms3 EC:49 Rate is 85 beats/min. Rhythm is regular. QRS [place] is Normal. QRS interval is normal. ms3 Clinical impression: NSR w/ Non-specific ST/T Changes. Interpreted by me. Reviewed by me. Administered Medications: 19:23 Drug: GI Cocktail with - (Phenobarbital-Belladonna 10 ml, Maalox Suspension 30 vc1 ml, Lidocaine Liquid 2 % 20 ml) Route: PO; 19:23 Drug: Pepcid (famotidine) 20 mg Route: PO; vc1 Disposition Summary: 01/18/22 20:33 Discharge Ordered Location: Home ms3 Condition: Stable ms3 Diagnosis - Chest pain, unspecified ms3 - Gastro-esophageal reflux disease without esophagitis ms3 - anemia ms3 Followup: ms3 - With: Lee Hernandez DO - When: 2 - 3 days - Reason: Recheck today's complaints Discharge Instructions: - Discharge Summary Sheet ms3 - Nonspecific Chest Pain, Adult, [id number] ms3 - Gastroesophageal Reflux Disease, Adult, [id number] ms3 Forms: - Medication Reconciliation Form ms3 - Thank You Letter ms3 - Antibiotic Education ms3 - Prescription Opioid Use ms3 Prescriptions: - Pepcid 20 mg Oral Tablet - take 1 tablet by ORAL route every 12 hours for 5 days; 10 tablet; Refills: 0, ms3 Product Selection Permitted Signatures: Dispatcher [employer] Mustapha Abbasi DO DO ms3 Jessica Shay, RN RN vc1
--- NOTE | 2022-01-18 20:34 | ER ---
Nurse's Notes [facility] Name: Cristino Morrison Age: 66 yrs Sex: Female : 1955 Arrival Date: 01/18/2022 Time: 17:43 Bed 2 Private MD: Diagnosis: Chest pain, unspecified;Gastro-esophageal reflux disease without esophagitis;anemia Presentation: 01/18 19:09 Chief complaint: Patient states: "I have acid reflux and I ate some cucumbers and I vc1 have been really bad all day.". Coronavirus screen: Vaccine status:. Initial Sepsis Screen: Does the patient meet any 2 criteria?. Onset of symptoms was January 18, 2022. 19:09 Method Of Arrival: Ambulatory vc1 19:13 Ebola Screen: No symptoms or risks identified at this time. Initial Sepsis Screen: Does vc1 the patient meet any 2 criteria? HR > 90 bpm. No. Patient's initial sepsis screen is negative. Does the patient have a suspected source of infection? No. Patient's initial sepsis screen is negative. Risk Assessment: Do you want to hurt yourself or someone else? Patient reports no desire to harm self or others. 19:13 Acuity: SYEDA 3 vc1 Triage Assessment: 19:09 General: Appears in no apparent distress. uncomfortable, Behavior is calm, cooperative, vc1 appropriate for age. Pain: Complains of pain in mid-sternal area Pain currently is 6 out of 10 on a pain scale. Quality of pain is described as burning. EENT: No deficits noted. Neuro: Level of Consciousness is awake, alert, obeys commands, Oriented to person, place, time, situation, Appropriate for age. Cardiovascular: Reports Heart burn. Respiratory: Airway is patent Respiratory effort is even, unlabored, Respiratory pattern is regular, symmetrical. GI: Reports indigestion. : No signs and/or symptoms were reported regarding the genitourinary system. Derm: No deficits noted. Musculoskeletal: No deficits noted. Historical: - Allergies: 19:15 Codeine; vc1 - Home Meds: 19:15 Albuterol Inhl as needed [Active]; Iron CR 250 mg Oral cpER [Active]; vc1 - PMHx: 19:15 Asthma; GERD; vc1 - PSHx: 19:15 section; Patial Hysterectomy; Tubes Tied; vc1 - Immunization history:: Adult Immunizations up to date, Client reports receiving the 2nd dose of the Covid vaccine, German \\T\\German Flu vaccine is up to date. - Social history:: Smoking status: Patient/guardian denies using tobacco, but has a distant history of tobacco abuse. Screenin:12 Abuse screen: Denies threats or abuse. Nutritional screening: No deficits noted. vc1 Tuberculosis screening: No symptoms or risk factors identified. Fall Risk None identified. Assessment: 20:12 Reassessment: Patient appears in no apparent distress at this time. Patient and/or as6 family updated on plan of care and expected duration. Pain level reassessed. Patient is alert, oriented x 3, equal unlabored respirations, skin warm/dry/pink. Patient states symptoms have improved. Vital Signs: 19:09 Pain 6/10; vc1 19:12 Weight 62.14 kg; Height 5 ft. 4 in. (162.56 cm); vc1 19:13 BP 110 / 77; Pulse 101; Resp 17; Temp 98.5; Pulse Ox 100% ; vc1 20:12 BP 120 / 75; Pulse 83; Resp 18 S; Pulse Ox 100% on R/A; as6 19:12 Body Mass Index 23.52 (62.14 kg, 162.56 cm) vc1 ED Course: 17:43 Patient arrived in ED. as 19:08 Mustapha Bolton DO is Attending Physician. ms3 19:15 Triage completed. vc1 19:16 Arm band placed on left wrist. vc1 19:16 Patient has correct armband on for positive identification. vc1 19:37 Inserted saline lock: 20 gauge in right antecubital area, using aseptic technique. zm Blood collected. 19:37 Basic Metabolic Panel Sent. zm 19:38 CBC with Diff Sent. zm 19:38 Troponin HS Sent. zm 19:58 XRAY Chest (1 view) In Process Unspecified. EDMS 20:06 Luis A Colmenares, SUJATA is Primary Nurse. as6 20:28 Lee Hernandez DO is Referral Physician. ms3 20:47 No provider procedures requiring assistance completed. IV discontinued, intact, ld1 bleeding controlled, No redness/swelling at site. Administered Medications: 19:23 Drug: GI Cocktail with - (Phenobarbital-Belladonna 10 ml, Maalox Suspension 30 vc1 ml, Lidocaine Liquid 2 % 20 ml) Route: PO; 19:23 Drug: Pepcid (famotidine) 20 mg Route: PO; vc1 Medication: 20:47 VIS not applicable for this client. ld1 Outcome: 20:33 Discharge ordered by . ms3 20:47 Discharged to home ambulatory. ld1 20:47 Condition: stable 20:47 Discharge instructions given to patient. 20:47 Patient left the ED. ld1 Signatures: Dispatcher [employer] EDNataliia Conrad Marcus, DO DO ms3 Michela Barrios RN RN ld1 Luis A Colmenares RN RN as6 Jessica Shay RN RN vc1 Christel Logan
[2022-01-18 21:29] VITALS: TEMP 98.5; O2SAT 100
[2022-01-18 21:31] VITALS: BP 120/75
--- NOTE | 2022-01-19 13:05 | EKG ---
Test Date: 2022-01-18 Test Time: 19:49:35 Patent Clerk: LISA MEASUREMENT RESULTS: Intervals: Rate: 85 FL: 162 QRSD: 86 QT: 348 QTc: 414 [place]: P: 73 FL: 162 QRS: 37 T: -1 INTERPRETIVE STATEMENTS: Normal sinus rhythm Nonspecific T wave abnormality Abnormal ECG Compared to ECG 06/30/2020 06:31:32 No significant changes Electronically Signed On 01-19-22 13:04:13 CDT by Varun Schmidt
== END 2022-01-18 20:47 | disposition home or self-care (01) ==
LOC: ER 17:41
DX: R07.9 Chest pain, unspecified (principal); K21.9 Gastro-esophageal reflux disease without esophagitis; D64.9 Anemia, unspecified; J45.909 Unspecified asthma, uncomplicated; Z88.5 Allergy status to narcotic agent
CPT/HCPCS: 36415; 71045; 80048; 84484; 85025; 93005

== ENCOUNTER 2023-04-16 05:13 | Emergency (ER) | payer OTHER ==
[2023-04-16 05:59] LABS: Renal Epithelial <5 /HPF (None Seen); Specific Gravity 1.025 (1.005-1.030); Urine Bacteria None Seen /HPF (<20); Urine Bilirubin NEGATIVE (Negative); Urine Blood Negative (Negative); Urine Clarity Extremely Turbid (Clear); Urine Color Light-Yellow (Yellow); Urine Glucose NEGATIVE (Negative); Urine Mucus Slight /HPF (None Seen); Urine Protein NEGATIVE (Negative); Urine RBC <5 /HPF (None Seen); Urine Urobilinogen Normal (Normal); Urine pH 5.5 (5.0-7.0)
[2023-04-16] MEDS ORDERED: CIPROFLOXACIN HCL 500 MG TAB ONE (06:19)
[2023-04-16] MEDS ORDERED: CEFTRIAXONE 1000 MG/VIAL ONE (06:20)
[2023-04-16] MEDS ORDERED: NA CHLORIDE 0.9% 1,000 ML ONE (06:20)
[2023-04-16 06:46] LABS: Absolute Lymphocytes (CBC) 1.1 K/uL (0.7-4.9); Lymphocytes % 30.9 % (15.3-44.8); MCV 79.4 fL (80-100); MPV 9.9 fL (7.6-11.3); Platelets 186 thou/uL (152-406); RBC Red Blood Cell Count 4.29 M/uL (3.86-4.86)
--- NOTE | 2023-04-16 06:49 | EDPHYS ---
Physician Documentation [facility] Name: Cristino Morrison Age: 67 yrs Sex: Female : 1955 Arrival Date: 04/16/2023 Time: 05:13 Bed 6 Private MD: ED Physician Cristian Bonilla HPI: 04/16 05:44 This 67 yrs old Black Female presents to ER via Ambulatory with complaints of Urinary franck Problem. 05:44 The patient presents with abdominal pain in the lower abdomen, in the left lower franck quadrant. Onset: The symptoms/episode began/occurred 3 day(s) ago. The patient presents with urinary symptoms, dysuria, frequency. Onset: The symptoms/episode began/occurred 3 day(s) ago. Modifying factors: The symptoms are alleviated by nothing, the symptoms are aggravated by nothing. Associated signs and symptoms: The patient has no apparent associated signs or symptoms. Severity of symptoms: At their worst the symptoms were mild, moderate, in the emergency department the symptoms are unchanged. Historical: - Allergies: 05:27 Codeine; bp - Home Meds: 05:27 Albuterol Inhl as needed [Active]; Iron CR 250 mg Oral cpER [Active]; bp - PMHx: 05:27 Asthma; GERD; bp - PSHx: 05:27 section; patial hysterectomy; tubes tied; bp - Immunization history:: Adult Immunizations up to date. - Social history:: Smoking status: Patient denies any tobacco usage or history of. - Family history:: not pertinent. ROS: 05:44 Constitutional: Negative for fever, chills, and weight loss, Eyes: Negative for injury, franck pain, redness, and discharge, ENT: Negative for injury, pain, and discharge, Neck: Negative for injury, pain, and swelling, Cardiovascular: Negative for chest pain, palpitations, and edema, Respiratory: Negative for shortness of breath, cough, wheezing, and pleuritic chest pain, Back: Negative for injury and pain, : Negative for injury, bleeding, discharge, and swelling, MS/Extremity: Negative for injury and deformity, Skin: Negative for injury, rash, and discoloration, Neuro: Negative for headache, weakness, numbness, tingling, and seizure, Psych: Negative for depression, anxiety, suicide ideation, homicidal ideation, and hallucinations, Allergy/Immunology: Negative for hives, rash, and allergies, Endocrine: Negative for neck swelling, polydipsia, polyuria, polyphagia, and marked weight changes, Hematologic/Lymphatic: Negative for swollen nodes, abnormal bleeding, and unusual bruising, 05:44 Abdomen/GI: Positive for abdominal pain, of the suprapubic area, Exam: 05:44 Constitutional: This is a well developed, well nourished patient who is awake, alert, franck and in no acute distress. Head/Face: Normocephalic, atraumatic. Eyes: Pupils equal round and reactive to light, extra-ocular motions intact. Lids and lashes normal. Conjunctiva and sclera are non-icteric and not injected. Cornea within normal limits. Periorbital areas with no swelling, redness, or edema. ENT: Nares patent. No nasal discharge, no septal abnormalities noted. Tympanic membranes are normal and external auditory canals are clear. Oropharynx with no redness, swelling, or masses, exudates, or evidence of obstruction, uvula midline. Mucous membranes moist. Neck: Trachea midline, no thyromegaly or masses palpated, and no cervical lymphadenopathy. Supple, full range of motion without nuchal rigidity, or vertebral point tenderness. No Meningismus. Chest/axilla: Normal chest wall appearance and motion. Nontender with no deformity. No lesions are appreciated. Cardiovascular: Regular rate and rhythm with a normal S1 and S2. No gallops, murmurs, or rubs. Normal PMI, no JVD. No pulse deficits. Respiratory: Lungs have equal breath sounds bilaterally, clear to auscultation and percussion. No rales, rhonchi or wheezes noted. No increased work of breathing, no retractions or nasal flaring. Back: No spinal tenderness. No costovertebral tenderness. Full range of motion. Female : Normal external genitalia. Skin: Warm, dry with normal turgor. Normal color with no rashes, no lesions, and no evidence of cellulitis. MS/ Extremity: Pulses equal, no cyanosis. Neurovascular intact. Full, normal range of motion. Neuro: Awake and alert, GCS 15, oriented to person, place, time, and situation. Cranial nerves II-XII grossly intact. Motor strength 5/5 in all extremities. Sensory grossly intact. Cerebellar exam normal. Normal gait. Psych: Awake, alert, with orientation to person, place and time. Behavior, mood, and affect are within normal limits. 05:44 Abdomen/GI: Inspection: obese Bowel sounds: active, all quadrants, Palpation: mild abdominal tenderness, in the suprapubic area and left lower quadrant, Liver: no appreciated palpable abnormalities, Hernia: not appreciated, Vital Signs: 05:26 BP 135 / 89; Pulse 68; Resp 16; Temp 97.7; Pulse Ox 100% ; Weight 58.97 kg; Height 5 bp ft. 4 in. ; 05:26 Body Mass Index 22.31 (58.97 kg, 162.56 cm) bp MDM: 05:22 Patient medically screened. franck 05:47 Differential diagnosis: urinary tract infection, non-specific abd pain. Data reviewed: [facility] vital signs, nurses notes, lab test result(s), radiologic studies, CT scan. Consideration of Admission/Observation Escalation of care including admission/observation considered. I considered the following discharge prescriptions or medication management in the emergency department Medications were administered in the Emergency Department. See MAR. Independent interpretation of the following test(s) in the Emergency Department CT Scan: My interpretation is ct stone. Test considered but Not performed: Ultrasound no abd usg. 04/16 05:29 Order name: Urinalysis w/ reflexes; Complete Time: 06:46 bp 04/16 05:43 Order name: CBC with Diff; Complete Time: 06:47 franck 04/16 05:43 Order name: Comprehensive Metabolic Panel; Complete Time: 07:13 franck 04/16 06:20 Order name: Urine Culture EDMO 04/16 05:43 Order name: CT Stone Protocol franck Administered Medications: 06:10 Drug: NS 0.9% IV 1000 ml IV at 1 bolus Per protocol; 1000 mL bolus Route: IV; Rate: 1 bp bolus; Site: right antecubital; 06:10 Drug: Rocephin IV 1 grams IV at per protocol once; Given slow IV push per pharmacy bp instructions Route: IV; Rate: per protocol; Site: right antecubital; 06:10 Drug: Ciprofloxacin PO 500 mg PO once Route: PO; bp Disposition Summary: 04/16/23 06:48 Discharge Ordered Notes: Location: Home franck Problem: new franck Symptoms: have improved franck Condition: Stable franck Diagnosis - UTI/ Urinary tract infection, site not specified franck - Weakness franck - Abdominal pain, unspecified franck Followup: franck - With: Private Physician - When: 1 - 2 days - Reason: Recheck today's complaints, Continuance of care, Re-evaluation by your physician Discharge Instructions: - Discharge Summary Sheet franck - Abdominal Pain, Adult franck - Dysuria franck - Urinary Tract Infection, Adult franck - Weakness franck - Urinary Tract Infection, Adult, [id number] franck - Weakness, [id number] franck Forms: - Medication Reconciliation Form franck - Thank You Letter franck - Antibiotic Education franck - Prescription Opioid Use franck - Patient Portal Instructions franck - Leadership Thank You Letter franck - Work release form iw Prescriptions: - Cipro 250 mg Oral tablet - take 1 tablet ORAL route every 12 hours; 14 tablet; Refills: 0, Product [facility] Selection Permitted - Pyridium 200 mg Oral tablet - take 1 tablet ORAL route every 8 hours for 2 days; 6 tablet; Refills: 0, franck Product Selection Permitted Signatures: Dispatcher [employer] Cristian Escamilla MD MD cha Peltier, Brian, RN RN bp
--- NOTE | 2023-04-16 06:49 | ER ---
Nurse's Notes [facility] Name: Cristino Morrison Age: 67 yrs Sex: Female : 1955 Arrival Date: 04/16/2023 Time: 05:13 Bed 6 Private MD: Diagnosis: UTI/ Urinary tract infection, site not specified;Weakness;Abdominal pain, unspecified Presentation: 04/16 05:26 Chief complaint: Patient states: FATIGUE AND URINARY DISCHARGE x3 DAYS. Coronavirus bp screen: At this time, the client does not indicate any symptoms associated with coronavirus-19. Ebola Screen: No symptoms or risks identified at this time. Initial Sepsis Screen: Does the patient meet any 2 criteria? No. Patient's initial sepsis screen is negative. Does the patient have a suspected source of infection? No. Patient's initial sepsis screen is negative. Risk Assessment: Do you want to hurt yourself or someone else? Patient reports no desire to harm self or others. Onset of symptoms is unknown. 05:26 Method Of Arrival: Ambulatory bp 05:26 Acuity: SYEDA 4 bp Triage Assessment: 05:27 General: Appears in no apparent distress. Behavior is calm, cooperative, appropriate bp for age. Pain: Denies pain. : Reports burning with urination, discharge. Historical: - Allergies: 05:27 Codeine; bp - Home Meds: 05:27 Albuterol Inhl as needed [Active]; Iron CR 250 mg Oral cpER [Active]; bp - PMHx: 05:27 Asthma; GERD; bp - PSHx: 05:27 section; patial hysterectomy; tubes tied; bp - Immunization history:: Adult Immunizations up to date. - Social history:: Smoking status: Patient denies any tobacco usage or history of. - Family history:: not pertinent. Screenin:30 [facility] ED Fall Risk Assessment (Adult) History of falling in the last 3 months, bp including since admission No falls in past 3 months (0 pts). Abuse screen: Denies threats or abuse. Denies injuries from another. Nutritional screening: No deficits noted. Tuberculosis screening: No symptoms or risk factors identified. Assessment: 05:30 General: SEE TRIAGE NOTE. bp Vital Signs: 05:26 BP 135 / 89; Pulse 68; Resp 16; Temp 97.7; Pulse Ox 100% ; Weight 58.97 kg; Height 5 bp ft. 4 in. ; 05:26 Body Mass Index 22.31 (58.97 kg, 162.56 cm) bp ED Course: 05:19 Patient arrived in ED. mr 05:20 Leon Garcia, RN is Primary Nurse. bp 05:21 Cristian Bonilla MD is Attending Physician. franck 05:27 Triage completed. bp 05:27 Arm band placed on. bp 05:30 Patient has correct armband on for positive identification. Bed in low position. Call bp light in reach. Side rails up X2. 06:22 CT Stone Protocol In Process Unspecified. EDMS 06:27 Inserted saline lock: 22 gauge in right antecubital area, using aseptic technique. bp Blood collected. Administered Medications: 06:10 Drug: NS 0.9% IV 1000 ml IV at 1 bolus Per protocol; 1000 mL bolus Route: IV; Rate: 1 bp bolus; Site: right antecubital; 06:10 Drug: Rocephin IV 1 grams IV at per protocol once; Given slow IV push per pharmacy bp instructions Route: IV; Rate: per protocol; Site: right antecubital; 06:10 Drug: Ciprofloxacin PO 500 mg PO once Route: PO; bp Medication: 05:30 VIS not applicable for this client. bp Outcome: 06:48 Discharge ordered by . [facility] 07:47 Patient left the ED. iw Signatures: Dispatcher [employer] EDMS Cristian Bonilla MD MD cha Rivera, Mary, Reg Reg Ct Mullins, RN RN iw Leon Garcia, RN RN bp
[2023-04-16 06:58] LABS: Albumin 3.4 g/dL (3.4-5.0); Bilirubin Total 0.5 mg/dL (0.2-1.0); Potassium 3.8 mEq/L (3.5-5.1); Protein, Total 7.2 g/dL (6.4-8.2)
--- NOTE | 2023-04-16 07:27 | RAD REPORT ---
EXAM DESCRIPTION: CT - Stone Protocol - 04/16/2023 6:20 am CLINICAL HISTORY: Flank pain. ABD PAIN COMPARISON: Stone Protocol dated 06/25/2019 TECHNIQUE: Axial images were obtained without oral or IV contrast. Lack of contrast limits solid org an and vascular assessment. The [id number] spans the entirety of the system partially obscuring uppermost abdomen and lung bases. Coronal reformatted images were obtained and reviewed. All CT scans are performed using dose optimization technique as appropriate and may include automated exposure control or mA/KV adjustment according to patient size. FINDINGS: The lower lung mason are clear. Small hiatal hernia. Multiple cysts are present in the liver, unchanged. No aggressive liver lesion or biliary dilatation. The spleen is normal in size. The pancreas and adrenal glands are normal. No pathologic lymphadenopat hy in the abdomen or pelvis. No urinary tract stones or obstructive uropathy. No bowel obstruction, free air, free fluid or abscess. Normal appendix noted.Moderate stool is presen t throughout the colon. No significant bony abnormality. Mild degenerative dextroscoliosis. IMPRESSION: No urinary tract stones or obstructive uropathy.
[2023-04-16 07:56] VITALS: BP 135/89; TEMP 97.7; O2SAT 100
== END 2023-04-16 07:47 | disposition home or self-care (01) ==
LOC: ER 05:13
DX: N39.0 Urinary tract infection, site not specified (principal); R53.1 Weakness; Z88.5 Allergy status to narcotic agent
CPT/HCPCS: 87088; 85025; 81001; 87086; 36415; 80053; 76377; 74176; 96374; 99284; J7030; J0696

== ENCOUNTER 2023-06-06 09:44 | Emergency (ER) | payer OTHER ==
--- OUTSIDE RECORDS SUMMARY | 2023-06-06 09:55 | XMS REPORT | Continuity of Care Document ---
:1955 Author Organization [facility] t Address [address] [place] [address] Care Team Providers Name Role Phone Ant Kong Primary Care Physician JOSE DUMONT Attending Clinician Unavailable SANTIAGO SMITH Attending Clinician Unavailable ARLYN MAX Attending Clinician Unavailable LAB90 Attending Clinician Unavailable JOLENE DE OLIVEIRA Attending Clinician Unavailable RAVINDRA DESAI Attending Clinician Unavailable Ravindra Desai MD Attending Clinician ABIMBOLA ANDERSON Attending Clinician Unavailable [id number] Attending Clinician Unavailable MD CATRACHITO Attending Clinician Unavailable PARTH MCGRAW Attending Clinician Unavailable RADIOLOGY, DEPT Attending Clinician Unavailable LAB59 Attending Clinician Unavailable HAILEE MAJANO Attending Clinician Unavailable CONCHIS MAYBERRY Attending Clinician Unavailable SUMANTH DOYLE Attending Clinician Unavailable TATIANNA SALGADO Attending Clinician Ant Kong Attending Clinician Felix Wiggins NP Attending Clinician [email or web address] Attending Clinician Unavailable Janice Magaña RN Attending Clinician Unavailable Only, Ang Db Test Attending Clinician Unavailable Jhony Rivera Attending Clinician JHONY FAITH Attending Clinician Unavailable Verónica Isaacs Attending Clinician [phone] DR TATIANNA SALGADO Attending Clinician Unavailable Leonela SON, Doris S Attending Clinician Doctor Unassigned, [place] Attending Clinician Unavailable Jay Reilly MD Attending Clinician Yomaira Dick MD Attending Clinician Ike Rudd Attending Clinician ANT KONG Attending Clinician Unavailable Bryan Stovall DO Attending Clinician RAVINDRA DESAI Admitting Clinician Unavailable TATIANNA SALGADO Admitting Clinician [email or web address] Admitting Clinician Unavailable DR TATIANNA SALGADO Admitting Clinician Unavailable Payers Payer Name Policy Type Policy Number Effective Date Expiration Date S myles KCYesika GOLD FREEDOM 16 [id number] 2022 HMO-POS 00:00:00 GLADYSCARE [id number] 2022 ADVANTAGE 00:00:00 [place]: [id number] 2021 [email or web address] 00:00:00 [employer] [id number] [facility] [id number] [employer] ([facility]) Problems Condition Condition Condition Status Onset Resolution Last Treating Co mments Source Name Details Category Date Date Treatment Clinician Date Gastroesop Gastroesop Disease Active 2022-07 K elsey hageal hageal 0-25 Seybold reflux reflux 00:00: - disease disease 00 Externa without without l esophagiti esophagiti s s Iron Iron Disease Active 2022-07 Gladys deficiency deficiency 0-25 Se ybold anemia anemia 00:00: - secondary secondary 00 Exte rna to to l inadequate inadequate dietary dietary iron iron intake intake Hepatic Hepatic Disease Active 2022-07 Gladys cyst cyst 0-25 Seybold 00:00: - 00 Externa l Thyroid Thyroid Disease Active Lgadys nodule nodule 4-17 Seybold 00:00: - 00 Externa l Prediabete Prediabete Disease Active K elsey s s 4-17 Seybold 00:00: - 00 Externa l S/P S/P Disease Active Gladys thyroid thyroid 4-17 Seybold biopsy biopsy 00:00: - 00 Externa l Solitary Solitary Disease Active Kelse y nodule of nodule of 3-24 Seyb old right lobe right lobe 00:00: - of thyroid of thyroid 00 Ex terna - Not - Not l 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 03-19 sensitivit sensitivit 00:00: Ho spita y y 00 l Prediabete Prediabete Disease Active M ethodi s s 03-12 st 00:00: Hospita 00 l Hyperchole Hyperchole Disease Active M ethodi sterolemia sterolemia 03-12 00:00: Hospita 00 l Elevated Elevated Disease Active Metho di amylase amylase 03-12 00:00: Hospita 00 l Asthma Asthma Disease Active Methodi dependent dependent 03-10 on inhaled on inhaled 00:00: Ho spita steroids steroids 00 l GERD GERD Disease Active Methodi (gastroeso (gastroeso 03-10 st phageal phageal 00:00: Hospita reflux reflux 00 l disease) disease) Chronic Chronic Disease Active Methodi anemia anemia 03-10 00:00: Hospita 00 l Abnormal Abnormal Disease Active Metho di loss of loss of 03-10 weight weight 00:00: Hospita 00 l GERD GERD Disease Active Methodi (gastroeso (gastroeso 03-10 st phageal phageal 00:00: Hospita reflux reflux 00 l disease) disease) Asthma Asthma Problem Active 2022-06-07 Manuel carmen (disorder) (disorder) 08:01:08 l Active Eric Problem 06/07/2022 [facility] [place] History of History Problem Active 2022-06-07 Memoria polyp of of polyp 08:01:08 l colon of colon Eric (situation (situation ) ) Active Problem 06/07/2022 [facility] History of History Problem Active 2022-06-07 Memoria vaccinatio of 08:01:08 l n vaccinatio Misbah n (situation n ) (situation ) Active Problem 06/07/2022 COVID19, [employer] [facility] Iron Iron Problem Active 2022-06-07 Memor ia deficiency deficiency 08:01:08 l anemia anemia [place] (disorder) (disorder) Active Problem 06/07/2022 [facility] Iron Iron Problem Active 2021-03-11 Memor ia deficiency deficiency 04:10:40 l anemia, anemia, Eric unspecifie unspecifie d iron d iron deficiency deficiency anemia anemia type type Active Problem 03/11/2021 Fide Mckeon M.D P.A. Cervical Cervical Diagnosis Active 2020-12-29 Memoria cancer cancer 04:10:27 l screening screening Herm brad Active Diagnosis 12/29/2020 Fide Mckeon M.D P.A. No known No known Disease Unive rs active active ity of problems problems [facility] History of Past Illness Condition Condition Condition Status Onset Resolution Last Treating Co mments Source Name Details Category Date Date Treatment Clinician Date Encounter Encounter Problem 2021-072022-06-07 2022-06-07 Memoria for for 08-06 08:01:08 08:01:08 l screening screening 18:00: Herm brad for for 00 malignant malignant neoplasm neoplasm of colon of colon 06/06/2022 06/07/2022 [facility] Allergies, Adverse Reactions, Alerts Allergy Allergy Status Severity Reaction(s) Onset Inactive Treating Comm ents Source Name Type Date Date Clinician Codeine Propensi Active Other lori Graham ty to 07-26 Seybold adverse 00:00: - reaction 00 Externa s l Codeine- Propensi Active Other (See Me paz Guaifene ty to Comments) 03-10 st sin adverse 00:00: Hospita reaction 00 l s to drug Codeine Codeine Active Info Not Memori a Sulfate Sulfate Available 6-22 l 00:00: Eric 00 CODEINE DRUG Active Anxiety Univers INGREDI 03-13 ity of 00:00: [place] 00 [facility] Codeine Propensi Active Anxiety Univer s ty to 03-13 ity of adverse 00:00: [place] reaction 00 Medical s Branch Codeine Propensi Active Anxiety Method i ty to 03-13 st adverse 00:00: Hospita reaction 00 l s to drug codeine codeine Active Eruption of Mem oria skin l (disorder) Misbah n Codeine DA Active Unknown Dizzy, [facility] Caffeine FA Active Unknown [facility] Family History Family Member Diagnosis Comments Start Date Stop Date Source Natural mother Thyroid disease [facility] Natural mother Diabetes [facility] Natural mother Hyperlipidemia Method t [facility] mother Hypertension [facility] Natural sister Cancer [facility] Natural brother Stroke [facility] father Diabetes [facility] father Hypertension [facility] Social History Social Habit Start Date Stop Date Quantity Comments Source Sexual orientation Method [facility] History of tobacco Cigarette Smoker Gladys Sarabia - use External Gender identity Gladys matthew - External Exposure to 2022-11-02 2022-11-12 Not sure University of SARS-CoV-2 (event) 00:00:00 20:50:00 [facility] Tobacco use and 2022-10-23 2022-10-23 Smokeless Gladys Hairston ybhelena - exposure 00:00:00 00:00:00 tobacco non-user External Alcohol intake 2022-04-17 2022-04-17 Ex-drinker [facility] 00:00:00 00:00:00 (finding) Hospital History of Social 2022-04-17 2022-04-[address] function 00:00:00 00:00:00 Hospital Cigarettes smoked 2022-03-10 2022-03-[address] current (pack per 00:00:00 00:00:00 Hospita l day) - Reported Cigarette 2022-03-10 2022-03-10 [facility] pack-years 00:00:00 00:00:00 Hospital Sex [birth year] At [birth year] [facility] 00:00:00 00:00:00 Hospital Smoking Status Start Date Stop Date Source Ex-smoker 2022-10-23 00:00:00 2022-10-23 Gladys Berkowitz ld - 00:00:00 External Social History [facility] Tobacco smoking [facility] consumption unknown Medical Bran ch Medications Ordered Filled Start Stop Current Ordering Indication Dosage Frequency Signature Comments Components Source Medication Medication Date Date Medication? Clinician (SIG) Name Name Eva 2022-07 Yes [id number] 1{tbl} Q.5D Take 1 Gladys rphan-guaiF 1-28 tablet by Bernadette sweeney ENesin 00:00: mouth 2 - (Mucinex DM 00 times Externa Maximum daily as l Strength) needed. 60-1200 MG oral Tablet 12 Hour Sustained Release ASHWAGANDHA 2022-07- No 300mg Take 300 Gladys OR 0-25 10-25 mg by Seybold 09:47: 00:00 mouth - 34 :00 daily Externa l Evening 2022-07- No 1{capsu Take 1 Jazzy ey [place] 0-25 10-25 le} capsule by Yair malik Oil 1000 MG 09:47: 00:00 mouth - oral 11 :00 daily Externa Capsule l Albuterol 2022-07 Yes 2{puff} Inhale 2 K elsey Sulfate 108 0-25 puffs into Se ybold (90 Base) 09:37: the lungs - MCG/ACT 14 as needed Externa inhalation l AEROSOL POWDER, BREATH ACTIVATED Albuterol 2022-07 Yes 2{puff} Inhale 2 K elsey Sulfate 108 0-25 puffs into Se ybold (90 Base) 09:37: the lungs - MCG/ACT 14 as needed Externa inhalation l AEROSOL POWDER, BREATH ACTIVATED Ascorbic 2022-07 Yes 500mg Take 500 Jazzy ey Acid 0-25 mg by ybhelena (VITAMIN C 09:36: mouth - OR) 25 daily Externa l Cholecalcif 2022-07 Yes 1{tbl} Take 1 Ke lsey renetta 0-25 tablet by No (Vitamin 09:36: mouth - D3) 50 MCG 25 daily Externa (1999 UT) l oral Capsule Cyanocobala 2022-07 Yes 1{tbl} Take 1 Ke lsey min (B-12) 0-25 tablet by yb old 500 MCG 09:36: mouth - oral Tablet 25 Externa l Vitamin E 2022-07 Yes 180mg Take 180 James sey 180 MG (400 0-25 mg by Seybhelena UNIT) oral 09:36: mouth - Capsule 25 daily Externa l Ascorbic 2022-07 Yes 500mg Take 500 Jazzy ey Acid 0-25 mg by Seybold (VITAMIN C 09:36: mouth - OR) 25 daily Externa l Cholecalcif 2022-07 Yes 1{tbl} Take 1 Ke lsey renetta 0-25 tablet by Seybold (Vitamin 09:36: mouth - D3) 50 MCG 25 daily Externa (2000 UT) l oral Capsule Cyanocobala 2022-07 Yes 1{tbl} Take 1 Ke lsey min (B-12) 0-25 tablet by Seyb old 500 MCG 09:36: mouth - oral Tablet 25 Externa l Vitamin E 2022-07 Yes 180mg Take 180 James sey 180 MG (400 0-25 mg by Seybold UNIT) oral 09:36: mouth - Capsule 25 daily Externa l Ferrous 2022-07 Yes [id number] 325mg Take 1 Ke lsey Sulfate 0-25 tablet Seybold (Iron) 325 00:00: (325 mg - (65 Fe) MG 00 total) by Exte rna oral Tablet mouth l daily (with breakfast) . Pantoprazol 2022-07 Yes [id number] 40mg Take 1 Gladys e Sodium 40 0-25 tablet (40 Se ybold MG oral 00:00: mg total) - Tablet 00 by mouth Externa Delayed daily. l Response Ferrous 2022-07 Yes [id number] 325mg Take 1 Ke lsey Sulfate 0-25 tablet Seybold (Iron) 325 00:00: (325 mg - (65 Fe) MG 00 total) by Exte rna oral Tablet mouth l daily (with breakfast) . Pantoprazol 2022-07 Yes [id number] 40mg Take 1 Gladys e Sodium 40 0-25 tablet (40 Se ybold MG oral 00:00: mg total) - Tablet 00 by mouth Externa Delayed daily. l Response Ciprofloxac 2022-07- No 250mg Take 1 Ke lsey in HCl 250 0-09 10-25 tablet Seybol d MG oral 00:00: 00:00 (250 mg - Tablet 00 :00 total) by Externa mouth l every 12 hours. Albuterol Yes 2{puff} Inhale 2 K elsey Sulfate 108 6-16 puffs into Se ybold (90 Base) 15:04: the lungs - MCG/ACT 33 as needed Externa inhalation l AEROSOL POWDER, BREATH ACTIVATED Ascorbic 0 Yes 500mg Take 500 Jazzy ey Acid 6-16 mg by Seybold (VITAMIN C 15:04: mouth - OR) 33 daily Externa l Cholecalcif 0 Yes 1{tbl} Take 1 Ke lsey renetta 6-16 tablet by Seybold (Vitamin 15:04: mouth - D3) 50 MCG 33 daily Externa (2000 UT) l oral Capsule Cyanocobala 0 Yes 1{tbl} Take 1 Ke lsey min (B-12) 6-16 tablet by Seyb old 500 MCG 15:04: mouth - oral Tablet 33 Externa l Vitamin E 0 Yes 180mg Take 180 James sey 180 MG (400 6-16 mg by Seybold UNIT) oral 15:04: mouth - Capsule 33 daily Externa l ASHWAGANDHA Yes 300mg Take 300 K elsey OR 6-16 mg by Seybold 15:04: mouth - 33 daily Externa l Evening Yes 1{capsu Take 1 Kelse y [place] 6-16 le} capsule by Seybo ld Oil 1000 MG 15:04: mouth - oral 33 daily Externa Capsule l methylpredn 2022- No 125mg 125 mg, U nivers isolone sod 11-13 Intramuscu i ty of succ 03:00: 02:18 lar, ONCE, [place] (SOLU-MEDRO 00 :00 1 dose, On Me dical L) 11/12/22 Branch injection at 2200, 2 125 mg mL ipratropium 2022- No 3mL 3 mL, Univ ers -albuteroL 11-13 Inhalation it y of (DUONEB) 03:00: 02:22 , ONCE, 1 Seth as 0.5 mg-3 00 :00 dose, On Medical mg(2.5 mg 11/12/22 Bran ch base)/3 mL at 2200, nebulizer Routine solution 3 mL albuterol 0 Yes [id number] 2{puff} Inhale 2 Univers 90 5-07 Puffs ity of mcg/actuati 00:00: every 4 Seth as on inhaler 00 (four) Medical hours as Branch needed for Wheezing or Shortness of Breath. predniSONE Yes [id number] Take 40 mg Univers 20 mg 11-12 (2 ity of tablet 00:00: tablets) [place] 00 daily for Medical next 5 Branch days Albuterol Yes 2{puff} Inhale 2 K elsey Sulfate 108 4-17 puffs into Se ybold (90 Base) 14:14: the lungs - MCG/ACT 09 as needed Externa inhalation l AEROSOL POWDER, BREATH ACTIVATED Ascorbic Yes 500mg Take 500 Jazzy ey Acid 4-17 mg by Seybold (VITAMIN C 14:14: mouth - OR) 09 daily Externa l Cholecalcif Yes 1{tbl} Take 1 Ke lsey renetta 4-17 tablet by Seybold (Vitamin 14:14: mouth - D3) 50 MCG 09 daily Externa (2000 UT) l oral Capsule Cyanocobala Yes 1{tbl} Take 1 Ke lsey min (B-12) 4-17 tablet by Seyb old 500 MCG 14:14: mouth - oral Tablet 09 Externa l Vitamin E Yes 180mg Take 180 James sey 180 MG (400 4-17 mg by Seybold UNIT) oral 14:14: mouth - Capsule 09 daily Externa l ASHWAGANDHA Yes 300mg Take 300 K elsey OR 4-17 mg by Seybold 14:14: mouth - 09 daily Externa l Evening Yes 1{capsu Take 1 Kelse y [place] 4-17 le} capsule by Seybo ld Oil 1000 MG 14:14: mouth - oral 09 daily Externa Capsule l Probiotic 2022- No Take by Jazzy ey Product -03 08- mouth Seybold (PROBIOTIC 16:05: 00:00 Drinks1 - OR) 51 :00 bottle by Externa mouth l daily Albuterol Yes 2{puff} Inhale 2 K elsey Sulfate 108 1-26 puffs into Se ybold (90 Base) 16:05: the lungs - MCG/ACT 44 as needed Externa inhalation l AEROSOL POWDER, BREATH ACTIVATED Ascorbic Yes 1{tbl} Take 1 Kelse y Acid -26 tablet by Seybold (VITAMIN C 16:05: mouth - OR) 44 daily Externa l Cholecalcif Yes 1{tbl} Take 1 Ke lsey renetta 1-26 tablet by Seybold (VITAMIN D3 16:05: mouth - OR) 44 daily Externa l Cyanocobala Yes 1{tbl} Take 1 Ke lsey min (B-12) 1-26 tablet by Seyb old 500 MCG 16:05: mouth - oral Tablet 44 Externa l Albuterol Yes 2{puff} Inhale 2 K elsey Sulfate 108 1-18 puffs into Se ybold (90 Base) 15:55: the lungs - MCG/ACT 17 as needed Externa inhalation l AEROSOL POWDER, BREATH ACTIVATED Ascorbic Yes 1{tbl} Take 1 Kelse y Acid 1-18 tablet by Seybold (VITAMIN C 15:55: mouth - OR) 17 daily Externa l Cholecalcif Yes 1{tbl} Take 1 Ke lsey renetta 1-18 tablet by Seybold (VITAMIN D3 15:55: mouth - OR) 17 daily Externa l Probiotic Yes Take by Kelse y Product 1-18 mouth Seybold (PROBIOTIC 15:55: Drinks1 - OR) 17 bottle by Externa mouth l daily Cyanocobala Yes 1{tbl} Take 1 Ke lsey min (B-12) 1-18 tablet by Seyb old 500 MCG 15:55: mouth - oral Tablet 17 Externa l Probiotic 2021-07 Yes Take by Kelse y Product 2-08 mouth Seybold (PROBIOTIC 16:57: Drinks1 - OR) 44 bottle by Externa mouth l daily Cholecalcif 2021-07 Yes 1{tbl} Take 1 Ke lsey renetta 2-08 tablet by Seybold (VITAMIN D3 16:52: mouth - OR) 23 daily Externa l Ascorbic 2021-07 Yes 1{tbl} Take 1 Kelse y Acid 2-08 tablet by Seybold (VITAMIN C 16:52: mouth - OR) 23 daily Externa l Albuterol 2021-07 Yes 2{puff} Inhale 2 K elsey Sulfate 108 2-08 puffs into Se ybold (90 Base) 16:50: the lungs - MCG/ACT 07 as needed Externa inhalation l AEROSOL POWDER, BREATH ACTIVATED LR 1,000 mL 2021-07 No 1,000 mL, M emoria 1-29 IV, 75 l 15:20: mL/hr, Eric 00 start date 06/06/22 9:20:00 BUG TRIMMER, 1.66, m2 Robinul 2021-07 No 0.2 mg = 1 Manuel carmen 1-29 mL, l 15:20: Injection, Eric 00 IV Push, Once PRN for bradycardi a, first dose 06/06/22 9:20:00 BUG TRIMMER Xopenex 2021-07 No 0.63 mg = Memor ia 0.63 mg/3 08-06 3 mL, l mL 15:20: Soln, NEB, [place] inhalation 00 Once PRN solution for wheezing, first dose 06/06/22 9:20:00 BUG TRIMMER ondansetron 2021-07 No 4 mg = 2 Me moria 1-29 mL, l 15:20: Injection, [place] 00 IV Push, q15min PRN for nausea, order duration: 2 dose(s)/ti me(s), first dose 06/06/22 9:20:00 BUG TRIMMER, stop date Limited # of times promethazin 2021-07 No 12.5 mg = M emoria e -29 0.5 mL, l 15:20: Injection, [place] 00 IM, Once PRN for vomiting, first dose 06/06/22 9:20:00 BUG TRIMMER labetalol 2021-07 No 5 mg = 1 Manuel carmen 1-29 mL, l 15:20: Injection, [place] 00 IV Push, As Indicated PRN for hypertensi on, first dose 06/06/22 9:20:00 BUG TRIMMER, SBP Hold Parameter: less than 110 mmHg, HR Hold Parameter: less than 60 bpm hydrALAZINE 2021-07 No 10 mg = Mem oria 1-29 0.5 mL, l 15:20: Injection, [place] 00 IV Push, As Indicated PRN for hypertensi on, first dose 06/06/22 9:20:00 BUG TRIMMER, SBP Hold Parameter: less than 110 mmHg diphenhydrA 2021-07 No 25 mg = Mem oria MINE -29 0.5 mL, l 15:20: Injection, [place] 00 IV Push, Once PRN for itching, first dose 06/06/22 9:20:00 BUG TRIMMER Xopenex 2021-07 No 0.63 mg = Memor ia 0.63 mg/3 08-06 3 mL, l mL 15:20: Soln, NEB, Eric inhalation 00 Once PRN solution for wheezing, first dose 06/06/22 9:20:00 BUG TRIMMER ondansetron 2021-07 No 4 mg = 2 Me moria 1-29 mL, l 15:20: Injection, [place] 00 IV Push, q15min PRN for nausea, order duration: 2 dose(s)/ti me(s), first dose 06/06/22 9:20:00 BUG TRIMMER, stop date Limited # of times promethazin 2021-07 No 12.5 mg = M emoria e -29 0.5 mL, l 15:20: Injection, [place] 00 IM, Once PRN for vomiting, first dose 06/06/22 9:20:00 BUG TRIMMER labetalol 2021-07 No 5 mg = 1 Manuel carmen -29 mL, l 15:20: Injection, [place] 00 IV Push, As Indicated PRN for hypertensi on, first dose 06/06/22 9:20:00 BUG TRIMMER, SBP Hold Parameter: less than 110 mmHg, HR Hold Parameter: less than 60 bpm hydrALAZINE 2021-07 No 10 mg = Mem oria 1-29 0.5 mL, l 15:20: Injection, [place] 00 IV Push, As Indicated PRN for hypertensi on, first dose 06/06/22 9:20:00 BUG TRIMMER, SBP Hold Parameter: less than 110 mmHg diphenhydrA 2021-07 No 25 mg = Mem oria MINE -29 0.5 mL, l 15:20: Injection, Eric 00 IV Push, Once PRN for itching, first dose 06/06/22 9:20:00 BUG TRIMMER LR 1,000 mL 2021-07 No 1,000 mL, M emoria 1-29 IV, 75 l 15:20: mL/hr, [place] 00 start date 06/06/22 9:20:00 BUG TRIMMER, 1.66, m2 Robinul 2021-07 No 0.2 mg = 1 Manuel carmen 1-29 mL, l 15:20: Injection, Eric 00 IV Push, Once PRN for bradycardi a, first dose 06/06/22 9:20:00 BUG TRIMMER Xopenex 2021-07 No 0.63 mg = Memor ia 0.63 mg/3 08-06 3 mL, l mL 15:20: Soln, NEB, Eric inhalation 00 Once PRN solution for wheezing, first dose 06/06/22 9:20:00 BUG TRIMMER ondansetron 2021-07 No 4 mg = 2 Me moria -29 mL, l 15:20: Injection, Eric 00 IV Push, q15min PRN for nausea, order duration: 2 dose(s)/ti me(s), first dose 06/06/22 9:20:00 BUG TRIMMER, stop date Limited # of times promethazin 2021-07 No 12.5 mg = M emoria e - 0.5 mL, l 15:20: Injection, Eric 00 IM, Once PRN for vomiting, first dose 06/06/22 9:20:00 BUG TRIMMER labetalol 2021-07 No 5 mg = 1 Manuel carmen -29 mL, l 15:20: Injection, Eric 00 IV Push, As Indicated PRN for hypertensi on, first dose 06/06/22 9:20:00 BUG TRIMMER, SBP Hold Parameter: less than 110 mmHg, HR Hold Parameter: less than 60 bpm hydrALAZINE 2021-07 No 10 mg = Mem oria -29 0.5 mL, l 15:20: Injection, Eric 00 IV Push, As Indicated PRN for hypertensi on, first dose 06/06/22 9:20:00 BUG TRIMMER, SBP Hold Parameter: less than 110 mmHg diphenhydrA 2021-07 No 25 mg = Mem oria MINE -29 0.5 mL, l 15:20: Injection, Eric 00 IV Push, Once PRN for itching, first dose 06/06/22 9:20:00 BUG TRIMMER LR 1,000 mL 2021-07 No 1,000 mL, M emoria 1-29 IV, 75 l 15:20: mL/hr, Eric 00 start date 06/06/22 9:20:00 BUG TRIMMER, 1.66, m2 Robinul 2021-07 No 0.2 mg = 1 Manuel carmen 1-29 mL, l 15:20: Injection, Eric 00 IV Push, Once PRN for bradycardi a, first dose 06/06/22 9:20:00 BUG TRIMMER Xopenex 2021-07 No 0.63 mg = Memor ia 0.63 mg/3 08-06 3 mL, l mL 15:20: Soln, NEB, Eric inhalation 00 Once PRN solution for wheezing, first dose 06/06/22 9:20:00 BUG TRIMMER ondansetron 2021-07 No 4 mg = 2 Me moria 1-29 mL, l 15:20: Injection, Eric 00 IV Push, q15min PRN for nausea, order duration: 2 dose(s)/ti me(s), first dose 06/06/22 9:20:00 BUG TRIMMER, stop date Limited # of times promethazin 2021-07 No 12.5 mg = M emoria e -29 0.5 mL, l 15:20: Injection, [place] 00 IM, Once PRN for vomiting, first dose 06/06/22 9:20:00 BUG TRIMMER labetalol 2021-07 No 5 mg = 1 Manuel carmen 1-29 mL, l 15:20: Injection, [place] 00 IV Push, As Indicated PRN for hypertensi on, first dose 06/06/22 9:20:00 BUG TRIMMER, SBP Hold Parameter: less than 110 mmHg, HR Hold Parameter: less than 60 bpm hydrALAZINE 2021-07 No 10 mg = Mem oria 1-29 0.5 mL, l 15:20: Injection, [place] 00 IV Push, As Indicated PRN for hypertensi on, first dose 06/06/22 9:20:00 BUG TRIMMER, SBP Hold Parameter: less than 110 mmHg diphenhydrA 2021-07 No 25 mg = Mem oria MINE -29 0.5 mL, l 15:20: Injection, [place] 00 IV Push, Once PRN for itching, first dose 06/06/22 9:20:00 BUG TRIMMER LR 1,000 mL 2021-07 No 1,000 mL, M emoria 1-29 IV, 75 l 15:20: mL/hr, [place] 00 start date 06/06/22 9:20:00 BUG TRIMMER, 1.66, m2 Robinul 2021-07 No 0.2 mg = 1 Manuel carmen 1-29 mL, l 15:20: Injection, [place] 00 IV Push, Once PRN for bradycardi a, first dose 06/06/22 9:20:00 BUG TRIMMER Xopenex 2021-07 No 0.63 mg = Memor ia 0.63 mg/3 08-06 3 mL, l mL 15:20: Soln, NEB, [place] inhalation 00 Once PRN solution for wheezing, first dose 06/06/22 9:20:00 BUG TRIMMER ondansetron 2021-07 No 4 mg = 2 Me moria 1-29 mL, l 15:20: Injection, [place] 00 IV Push, q15min PRN for nausea, order duration: 2 dose(s)/ti me(s), first dose 06/06/22 9:20:00 BUG TRIMMER, stop date Limited # of times promethazin 2021-07 No 12.5 mg = M emoria e - 0.5 mL, l 15:20: Injection, Eric 00 IM, Once PRN for vomiting, first dose 06/06/22 9:20:00 BUG TRIMMER labetalol 2021-07 No 5 mg = 1 Manuel carmen -29 mL, l 15:20: Injection, Eric 00 IV Push, As Indicated PRN for hypertensi on, first dose 06/06/22 9:20:00 BUG TRIMMER, SBP Hold Parameter: less than 110 mmHg, HR Hold Parameter: less than 60 bpm hydrALAZINE 2021-07 No 10 mg = Mem oria 1-29 0.5 mL, l 15:20: Injection, [place] 00 IV Push, As Indicated PRN for hypertensi on, first dose 06/06/22 9:20:00 BUG TRIMMER, SBP Hold Parameter: less than 110 mmHg diphenhydrA 2021-07 No 25 mg = Mem oria MINE -29 0.5 mL, l 15:20: Injection, [place] 00 IV Push, Once PRN for itching, first dose 06/06/22 9:20:00 BUG TRIMMER LR 1,000 mL 2021-07 No 1,000 mL, M emoria 1-29 IV, 75 l 15:20: mL/hr, [place] 00 start date 06/06/22 9:20:00 BUG TRIMMER, 1.66, m2 Robinul 2022-1 No 0.2 mg = 1 Manuel carmen 1-29 mL, l 15:20: Injection, Eric 00 IV Push, Once PRN for bradycardi a, first dose 06/06/22 9:20:00 BUG TRIMMER Xopenex 2021-07 No 0.63 mg = Memor ia 0.63 mg/3 1-29 3 mL, l mL 15:20: Soln, NEB, [place] inhalation 00 Once PRN solution for wheezing, first dose 06/06/22 9:20:00 BUG TRIMMER ondansetron 2021-07 No 4 mg = 2 Me moria 1-29 mL, l 15:20: Injection, [place] 00 IV Push, q15min PRN for nausea, order duration: 2 dose(s)/ti me(s), first dose 06/06/22 9:20:00 BUG TRIMMER, stop date Limited # of times promethazin 2021-07 No 12.5 mg = M emoria e 1-29 0.5 mL, l 15:20: Injection, Eric 00 IM, Once PRN for vomiting, first dose 06/06/22 9:20:00 BUG TRIMMER labetalol 2021-07 No 5 mg = 1 Manuel carmen 1-29 mL, l 15:20: Injection, Eric 00 IV Push, As Indicated PRN for hypertensi on, first dose 06/06/22 9:20:00 BUG TRIMMER, SBP Hold Parameter: less than 110 mmHg, HR Hold Parameter: less than 60 bpm hydrALAZINE 2021-07 No 10 mg = Mem oria 1-29 0.5 mL, l 15:20: Injection, Eric 00 IV Push, As Indicated PRN for hypertensi on, first dose 06/06/22 9:20:00 BUG TRIMMER, SBP Hold Parameter: less than 110 mmHg diphenhydrA 2021-07 No 25 mg = Mem oria MINE 1-29 0.5 mL, l 15:20: Injection, Eric 00 IV Push, Once PRN for itching, first dose 06/06/22 9:20:00 BUG TRIMMER LR 1,000 mL 2021-07 No 1,000 mL, M emoria 1-29 IV, 75 l 15:20: mL/hr, [place] 00 start date 06/06/22 9:20:00 BUG TRIMMER, 1.66, m2 Robinul 2021-07 No 0.2 mg = 1 Manuel carmen 1-29 mL, l 15:20: Injection, Eric 00 IV Push, Once PRN for bradycardi a, first dose 06/06/22 9:20:00 BUG TRIMMER Xopenex 2021-07 No 0.63 mg = Memor ia 0.63 mg/3 1-29 3 mL, l mL 15:20: Soln, NEB, [place] inhalation 00 Once PRN solution for wheezing, first dose 06/06/22 9:20:00 BUG TRIMMER ondansetron 2021-07 No 4 mg = 2 Me moria 1-29 mL, l 15:20: Injection, Eric 00 IV Push, q15min PRN for nausea, order duration: 2 dose(s)/ti me(s), first dose 06/06/22 9:20:00 BUG TRIMMER, stop date Limited # of times promethazin 2021-07 No 12.5 mg = M emoria e 1-29 0.5 mL, l 15:20: Injection, [place] 00 IM, Once PRN for vomiting, first dose 06/06/22 9:20:00 BUG TRIMMER labetalol 2021-07 No 5 mg = 1 Manuel carmen 1-29 mL, l 15:20: Injection, [place] 00 IV Push, As Indicated PRN for hypertensi on, first dose 06/06/22 9:20:00 BUG TRIMMER, SBP Hold Parameter: less than 110 mmHg, HR Hold Parameter: less than 60 bpm hydrALAZINE 2021-07 No 10 mg = Mem oria 1-29 0.5 mL, l 15:20: Injection, [place] 00 IV Push, As Indicated PRN for hypertensi on, first dose 06/06/22 9:20:00 BUG TRIMMER, SBP Hold Parameter: less than 110 mmHg diphenhydrA 2021-07 No 25 mg = Mem oria MINE 1-29 0.5 mL, l 15:20: Injection, [place] 00 IV Push, Once PRN for itching, first dose 06/06/22 9:20:00 BUG TRIMMER LR 1,000 mL 2021-07 No 1,000 mL, M emoria 1-29 IV, 75 l 15:20: mL/hr, [place] 00 start date 06/06/22 9:20:00 BUG TRIMMER, 1.66, m2 LR 1,000 mL 2021-07 No 1,000 mL, M emoria 1-29 IV, 75 l 15:20: mL/hr, [place] 00 start date 06/06/22 9:20:00 BUG TRIMMER, 1.66, m2 Robinul 2021-07 No 0.2 mg = 1 Manuel carmen 1-29 mL, l 15:20: Injection, [place] 00 IV Push, Once PRN for bradycardi a, first dose 06/06/22 9:20:00 BUG TRIMMER Xopenex 2021-07 No 0.63 mg = Memor ia 0.63 mg/3 -29 3 mL, l mL 15:20: Soln, NEB, Eric inhalation 00 Once PRN solution for wheezing, first dose 06/06/22 9:20:00 BUG TRIMMER ondansetron 2021-07 No 4 mg = 2 Me moria 1-29 mL, l 15:20: Injection, Eric 00 IV Push, q15min PRN for nausea, order duration: 2 dose(s)/ti me(s), first dose 06/06/22 9:20:00 BUG TRIMMER, stop date Limited # of times promethazin 2021-07 No 12.5 mg = M emoria e -29 0.5 mL, l 15:20: Injection, Eric 00 IM, Once PRN for vomiting, first dose 06/06/22 9:20:00 BUG TRIMMER labetalol 2021-07 No 5 mg = 1 Manuel carmen 1-29 mL, l 15:20: Injection, Eric 00 IV Push, As Indicated PRN for hypertensi on, first dose 06/06/22 9:20:00 BUG TRIMMER, SBP Hold Parameter: less than 110 mmHg, HR Hold Parameter: less than 60 bpm hydrALAZINE 2021-07 No 10 mg = Mem oria 1-29 0.5 mL, l 15:20: Injection, Eric 00 IV Push, As Indicated PRN for hypertensi on, first dose 06/06/22 9:20:00 BUG TRIMMER, SBP Hold Parameter: less than 110 mmHg diphenhydrA 2021-07 No 25 mg = Mem oria MINE 1-29 0.5 mL, l 15:20: Injection, [place] 00 IV Push, Once PRN for itching, first dose 06/06/22 9:20:00 BUG TRIMMER Robinul 2021-07 No 0.2 mg = 1 Manuel carmen 1-29 mL, l 15:20: Injection, [place] 00 IV Push, Once PRN for bradycardi a, first dose 06/06/22 9:20:00 BUG TRIMMER Xopenex 2021-07 No 0.63 mg = Memor ia 0.63 mg/3 1-29 3 mL, l mL 15:20: Soln, NEB, Eric inhalation 00 Once PRN solution for wheezing, first dose 06/06/22 9:20:00 BUG TRIMMER LR 1,000 mL 2021-07 No 1,000 mL, M emoria 1- IV, 75 l 15:20: mL/hr, [place] 00 start date 06/06/22 9:20:00 BUG TRIMMER, 1.66, m2 Robinul 2021-07 No 0.2 mg = 1 Manuel carmen 1-29 mL, l 15:20: Injection, [place] 00 IV Push, Once PRN for bradycardi a, first dose 06/06/22 9:20:00 BUG TRIMMER Xopenex 2021-07 No 0.63 mg = Memor ia 0.63 mg/3 -29 3 mL, l mL 15:20: Soln, NEB, Eric inhalation 00 Once PRN solution for wheezing, first dose 06/06/22 9:20:00 BUG TRIMMER ondansetron 2021-07 No 4 mg = 2 Me moria 1-29 mL, l 15:20: Injection, [place] 00 IV Push, q15min PRN for nausea, order duration: 2 dose(s)/ti me(s), first dose 06/06/22 9:20:00 BUG TRIMMER, stop date Limited # of times ondansetron 2021-07 No 4 mg = 2 Me moria 1-29 mL, l 15:20: Injection, Eric 00 IV Push, q15min PRN for nausea, order duration: 2 dose(s)/ti me(s), first dose 06/06/22 9:20:00 BUG TRIMMER, stop date Limited # of times promethazin 2021-07 No 12.5 mg = M emoria e -29 0.5 mL, l 15:20: Injection, [place] 00 IM, Once PRN for vomiting, first dose 06/06/22 9:20:00 BUG TRIMMER labetalol 2021-07 No 5 mg = 1 Manuel carmen 1-29 mL, l 15:20: Injection, [place] 00 IV Push, As Indicated PRN for hypertensi on, first dose 06/06/22 9:20:00 BUG TRIMMER, SBP Hold Parameter: less than 110 mmHg, HR Hold Parameter: less than 60 bpm hydrALAZINE 2021-07 No 10 mg = Mem oria 1-29 0.5 mL, l 15:20: Injection, [place] 00 IV Push, As Indicated PRN for hypertensi on, first dose 06/06/22 9:20:00 BUG TRIMMER, SBP Hold Parameter: less than 110 mmHg diphenhydrA 2021-07 No 25 mg = Mem oria MINE -29 0.5 mL, l 15:20: Injection, [place] 00 IV Push, Once PRN for itching, first dose 06/06/22 9:20:00 BUG TRIMMER promethazin 2021-07 No 12.5 mg = M emoria e -29 0.5 mL, l 15:20: Injection, Eric 00 IM, Once PRN for vomiting, first dose 06/06/22 9:20:00 BUG TRIMMER labetalol 2021-07 No 5 mg = 1 Manuel carmen 1-29 mL, l 15:20: Injection, [place] 00 IV Push, As Indicated PRN for hypertensi on, first dose 06/06/22 9:20:00 BUG TRIMMER, SBP Hold Parameter: less than 110 mmHg, HR Hold Parameter: less than 60 bpm LR 1,000 mL 2021-07 No 1,000 mL, M emoria 1-29 IV, 75 l 15:20: mL/hr, start date 06/06/22 9:20:00 BUG TRIMMER, 1.66, m2 Robinul 2021-07 No 0.2 mg = 1 Manuel carmen 1-29 mL, l 15:20: Injection, Eric 00 IV Push, Once PRN for bradycardi a, first dose 06/06/22 9:20:00 BUG TRIMMER Xopenex 2021-07 No 0.63 mg = Memor ia 0.63 mg/3 08-06 3 mL, l mL 15:20: Soln, NEB, Eric inhalation 00 Once PRN solution for wheezing, first dose 06/06/22 9:20:00 BUG TRIMMER ondansetron 2021-07 No 4 mg = 2 Me moria 1-29 mL, l 15:20: Injection, Eric 00 IV Push, q15min PRN for nausea, order duration: 2 dose(s)/ti me(s), first dose 06/06/22 9:20:00 BUG TRIMMER, stop date Limited # of times promethazin 2021-07 No 12.5 mg = M emoria e 1-29 0.5 mL, l 15:20: Injection, Eric 00 IM, Once PRN for vomiting, first dose 06/06/22 9:20:00 BUG TRIMMER labetalol 2021-07 No 5 mg = 1 Manuel carmen 1-29 mL, l 15:20: Injection, [place] 00 IV Push, As Indicated PRN for hypertensi on, first dose 06/06/22 9:20:00 BUG TRIMMER, SBP Hold Parameter: less than 110 mmHg, HR Hold Parameter: less than 60 bpm hydrALAZINE 2021-07 No 10 mg = Mem oria 1-29 0.5 mL, l 15:20: Injection, [place] 00 IV Push, As Indicated PRN for hypertensi on, first dose 06/06/22 9:20:00 BUG TRIMMER, SBP Hold Parameter: less than 110 mmHg diphenhydrA 2021-07 No 25 mg = Mem oria MINE 1-29 0.5 mL, l 15:20: Injection, [place] 00 IV Push, Once PRN for itching, first dose 06/06/22 9:20:00 BUG TRIMMER hydrALAZINE 2021-07 No 10 mg = Mem oria 1-29 0.5 mL, l 15:20: Injection, [place] 00 IV Push, As Indicated PRN for hypertensi on, first dose 06/06/22 9:20:00 BUG TRIMMER, SBP Hold Parameter: less than 110 mmHg diphenhydrA 2021-07 No 25 mg = Mem oria MINE 1-29 0.5 mL, l 15:20: Injection, [place] 00 IV Push, Once PRN for itching, first dose 06/06/22 9:20:00 BUG TRIMMER LR 1,000 mL 2022-1 No 1,000 mL, M emoria 1-29 IV, 75 l 15:20: mL/hr, Eric 00 start date 06/06/22 9:20:00 BUG TRIMMER, 1.66, m2 Rayshawnul 2021-07 No 0.2 mg = 1 Manuel carmen 1-29 mL, l 15:20: Injection, Eric 00 IV Push, Once PRN for bradycardi a, first dose 06/06/22 9:20:00 BUG TRIMMER Xopenex 2021-07 No 0.63 mg = Memor ia 0.63 mg/3 -29 3 mL, l mL 15:20: Soln, NEB, [place] inhalation 00 Once PRN solution for wheezing, first dose 06/06/22 9:20:00 BUG TRIMMER ondansetron 2021-07 No 4 mg = 2 Me moria 1-29 mL, l 15:20: Injection, [place] 00 IV Push, q15min PRN for nausea, order duration: 2 dose(s)/ti me(s), first dose 06/06/22 9:20:00 BUG TRIMMER, stop date Limited # of times promethazin 2021-07 No 12.5 mg = M emoria e 1-29 0.5 mL, l 15:20: Injection, [place] 00 IM, Once PRN for vomiting, first dose 06/06/22 9:20:00 BUG TRIMMER labetalol 2021-07 No 5 mg = 1 Manuel carmen 1-29 mL, l 15:20: Injection, Eric 00 IV Push, As Indicated PRN for hypertensi on, first dose 06/06/22 9:20:00 BUG TRIMMER, SBP Hold Parameter: less than 110 mmHg, HR Hold Parameter: less than 60 bpm hydrALAZINE 2021-07 No 10 mg = Mem oria 1-29 0.5 mL, l 15:20: Injection, [place] 00 IV Push, As Indicated PRN for hypertensi on, first dose 06/06/22 9:20:00 BUG TRIMMER, SBP Hold Parameter: less than 110 mmHg diphenhydrA 2021-07 No 25 mg = Mem oria MINE 1-29 0.5 mL, l 15:20: Injection, Eric 00 IV Push, Once PRN for itching, first dose 06/06/22 9:20:00 BUG TRIMMER LR 1,000 mL 2021-07 No 1,000 mL, M emoria 1-29 IV, 75 l 15:20: mL/hr, [place] 00 start date 06/06/22 9:20:00 BUG TRIMMER, 1.66, m2 Rayshawnul 2021-07 No 0.2 mg = 1 Manuel carmen 1-29 mL, l 15:20: Injection, [place] 00 IV Push, Once PRN for bradycardi a, first dose 06/06/22 9:20:00 BUG TRIMMER Xopenex 2021-07 No 0.63 mg = Memor ia 0.63 mg/3 - 3 mL, l mL 15:20: Soln, NEB, Eric inhalation 00 Once PRN solution for wheezing, first dose 06/06/22 9:20:00 BUG TRIMMER ondansetron 2021-07 No 4 mg = 2 Me moria 1-29 mL, l 15:20: Injection, Eric 00 IV Push, q15min PRN for nausea, order duration: 2 dose(s)/ti me(s), first dose 06/06/22 9:20:00 BUG TRIMMER, stop date Limited # of times promethazin 2021-07 No 12.5 mg = M emoria e -29 0.5 mL, l 15:20: Injection, [place] 00 IM, Once PRN for vomiting, first dose 06/06/22 9:20:00 BUG TRIMMER labetalol 2021-07 No 5 mg = 1 Manuel carmen 1-29 mL, l 15:20: Injection, [place] 00 IV Push, As Indicated PRN for hypertensi on, first dose 06/06/22 9:20:00 BUG TRIMMER, SBP Hold Parameter: less than 110 mmHg, HR Hold Parameter: less than 60 bpm hydrALAZINE 2021-07 No 10 mg = Mem oria 1-29 0.5 mL, l 15:20: Injection, Eric 00 IV Push, As Indicated PRN for hypertensi on, first dose 06/06/22 9:20:00 BUG TRIMMER, SBP Hold Parameter: less than 110 mmHg diphenhydrA 2021-07 No 25 mg = Mem oria MINE -29 0.5 mL, l 15:20: Injection, [place] 00 IV Push, Once PRN for itching, first dose 06/06/22 9:20:00 BUG TRIMMER LR 1,000 mL 2021-07 No 1,000 mL, M emoria 1-29 IV, 75 l 15:20: mL/hr, Eric 00 start date 06/06/22 9:20:00 BUG TRIMMER, 1.66, m2 Robinul 2021-07 No 0.2 mg = 1 Manuel carmen 1-29 mL, l 15:20: Injection, Eric 00 IV Push, Once PRN for bradycardi a, first dose 06/06/22 9:20:00 BUG TRIMMER Xopenex 2021-07 No 0.63 mg = Memor ia 0.63 mg/3 -29 3 mL, l mL 15:20: Soln, NEB, [place] inhalation 00 Once PRN solution for wheezing, first dose 06/06/22 9:20:00 BUG TRIMMER ondansetron 2021-07 No 4 mg = 2 Me moria 1-29 mL, l 15:20: Injection, Eric 00 IV Push, q15min PRN for nausea, order duration: 2 dose(s)/ti me(s), first dose 06/06/22 9:20:00 BUG TRIMMER, stop date Limited # of times promethazin 2021-07 No 12.5 mg = M emoria e 1-29 0.5 mL, l 15:20: Injection, [place] 00 IM, Once PRN for vomiting, first dose 06/06/22 9:20:00 BUG TRIMMER labetalol 2021-07 No 5 mg = 1 Manuel carmen 1-29 mL, l 15:20: Injection, Eric 00 IV Push, As Indicated PRN for hypertensi on, first dose 06/06/22 9:20:00 BUG TRIMMER, SBP Hold Parameter: less than 110 mmHg, HR Hold Parameter: less than 60 bpm hydrALAZINE 2021-07 No 10 mg = Mem oria 1-29 0.5 mL, l 15:20: Injection, [place] 00 IV Push, As Indicated PRN for hypertensi on, first dose 06/06/22 9:20:00 BUG TRIMMER, SBP Hold Parameter: less than 110 mmHg diphenhydrA 2021-07 No 25 mg = Mem oria MINE 1-29 0.5 mL, l 15:20: Injection, [place] 00 IV Push, Once PRN for itching, first dose 06/06/22 9:20:00 BUG TRIMMER LR 1,000 mL 2021-07 No 1,000 mL, M emoria 1-29 IV, 75 l 15:20: mL/hr, [place] 00 start date 06/06/22 9:20:00 BUG TRIMMER, 1.66, m2 Fatimah 2021-07 No 0.2 mg = 1 Manuel carmen 1-29 mL, l 15:20: Injection, Eric 00 IV Push, Once PRN for bradycardi a, first dose 06/06/22 9:20:00 BUG TRIMMER Xopenex 2021-07 No 0.63 mg = Memor ia 0.63 mg/3 - 3 mL, l mL 15:20: Soln, NEB, [place] inhalation 00 Once PRN solution for wheezing, first dose 06/06/22 9:20:00 BUG TRIMMER ondansetron 2021-07 No 4 mg = 2 Me moria 1-29 mL, l 15:20: Injection, [place] 00 IV Push, q15min PRN for nausea, order duration: 2 dose(s)/ti me(s), first dose 06/06/22 9:20:00 BUG TRIMMER, stop date Limited # of times promethazin 2021-07 No 12.5 mg = M emoria e -29 0.5 mL, l 15:20: Injection, Eric 00 IM, Once PRN for vomiting, first dose 06/06/22 9:20:00 BUG TRIMMER labetalol 2021-07 No 5 mg = 1 Manuel carmen 1-29 mL, l 15:20: Injection, [place] 00 IV Push, As Indicated PRN for hypertensi on, first dose 06/06/22 9:20:00 BUG TRIMMER, SBP Hold Parameter: less than 110 mmHg, HR Hold Parameter: less than 60 bpm hydrALAZINE 2021-07 No 10 mg = Mem oria 1-29 0.5 mL, l 15:20: Injection, [place] 00 IV Push, As Indicated PRN for hypertensi on, first dose 06/06/22 9:20:00 BUG TRIMMER, SBP Hold Parameter: less than 110 mmHg diphenhydrA 2021-07 No 25 mg = Mem oria MINE -29 0.5 mL, l 15:20: Injection, [place] 00 IV Push, Once PRN for itching, first dose 06/06/22 9:20:00 BUG TRIMMER LR 1,000 mL 2021-07 No 1,000 mL, M emoria 1- IV, 75 l 15:20: mL/hr, start date 06/06/22 9:20:00 BUG TRIMMER, 1.66, m2 Robinul 2021-07 No 0.2 mg = 1 Manuel carmen 1-29 mL, l 15:20: Injection, Eric 00 IV Push, Once PRN for bradycardi a, first dose 06/06/22 9:20:00 BUG TRIMMER Xopenex 2021-07 No 0.63 mg = Memor ia 0.63 mg/3 08-06 3 mL, l mL 15:20: Soln, NEB, inhalation 00 Once PRN solution for wheezing, first dose 06/06/22 9:20:00 BUG TRIMMER ondansetron 2021-07 No 4 mg = 2 Me moria -29 mL, l 15:20: Injection, IV Push, q15min PRN for nausea, order duration: 2 dose(s)/ti me(s), first dose 06/06/22 9:20:00 BUG TRIMMER, stop date Limited # of times promethazin 2021-07 No 12.5 mg = M emoria e - 0.5 mL, l 15:20: Injection, 00 IM, Once PRN for vomiting, first dose 06/06/22 9:20:00 BUG TRIMMER labetalol 2021-07 No 5 mg = 1 Manuel carmen 1-29 mL, l 15:20: Injection, [place] 00 IV Push, As Indicated PRN for hypertensi on, first dose 06/06/22 9:20:00 BUG TRIMMER, SBP Hold Parameter: less than 110 mmHg, HR Hold Parameter: less than 60 bpm hydrALAZINE 2021-07 No 10 mg = Mem oria 1-29 0.5 mL, l 15:20: Injection, [place] 00 IV Push, As Indicated PRN for hypertensi on, first dose 06/06/22 9:20:00 BUG TRIMMER, SBP Hold Parameter: less than 110 mmHg diphenhydrA 2021-07 No 25 mg = Mem oria MINE -29 0.5 mL, l 15:20: Injection, [place] 00 IV Push, Once PRN for itching, first dose 06/06/22 9:20:00 BUG TRIMMER LR 1,000 mL 2021-07 No 1,000 mL, M emoria 08-06 IV, 75 l 15:20: mL/hr, [place] 00 start date 06/06/22 9:20:00 BUG TRIMMER, 1.66, m2 Robinul 2021-07 No 0.2 mg = 1 Manuel carmen -29 mL, l 15:20: Injection, [place] 00 IV Push, Once PRN for bradycardi a, first dose 06/06/22 9:20:00 BUG TRIMMER Xopenex 2021-07 No 0.63 mg = Memor ia 0.63 mg/3 08-06 3 mL, l mL 15:20: Soln, NEB, Eric inhalation 00 Once PRN solution for wheezing, first dose 06/06/22 9:20:00 BUG TRIMMER ondansetron 2021-07 No 4 mg = 2 Me moria -29 mL, l 15:20: Injection, [place] 00 IV Push, q15min PRN for nausea, order duration: 2 dose(s)/ti me(s), first dose 06/06/22 9:20:00 BUG TRIMMER, stop date Limited # of times promethazin 2021-07 No 12.5 mg = M emoria e 08-06 0.5 mL, l 15:20: Injection, [place] 00 IM, Once PRN for vomiting, first dose 06/06/22 9:20:00 BUG TRIMMER labetalol 2021-07 No 5 mg = 1 Manuel carmen -29 mL, l 15:20: Injection, [place] 00 IV Push, As Indicated PRN for hypertensi on, first dose 06/06/22 9:20:00 BUG TRIMMER, SBP Hold Parameter: less than 110 mmHg, HR Hold Parameter: less than 60 bpm hydrALAZINE 2021-07 No 10 mg = Mem oria -29 0.5 mL, l 15:20: Injection, [place] 00 IV Push, As Indicated PRN for hypertensi on, first dose 06/06/22 9:20:00 BUG TRIMMER, SBP Hold Parameter: less than 110 mmHg diphenhydrA 2021-07 No 25 mg = Mem oria MINE - 0.5 mL, l 15:20: Injection, [place] 00 IV Push, Once PRN for itching, first dose 06/06/22 9:20:00 BUG TRIMMER LR 1,000 mL 2021-07 No 1,000 mL, M emoria - IV, 75 l 15:20: mL/hr, [place] 00 start date 06/06/22 9:20:00 BUG TRIMMER, 1.66, m2 Robinul 2021-07 No 0.2 mg = 1 Manuel carmen -29 mL, l 15:20: Injection, [place] 00 IV Push, Once PRN for bradycardi a, first dose 06/06/22 9:20:00 BUG TRIMMER Xopenex 2021-07 No 0.63 mg = Memor ia 0.63 mg/3 08-06 3 mL, l mL 15:20: Soln, NEB, [place] inhalation 00 Once PRN solution for wheezing, first dose 06/06/22 9:20:00 BUG TRIMMER ondansetron 2021-07 No 4 mg = 2 Me moria -29 mL, l 15:20: Injection, [place] 00 IV Push, q15min PRN for nausea, order duration: 2 dose(s)/ti me(s), first dose 06/06/22 9:20:00 BUG TRIMMER, stop date Limited # of times promethazin 2021-07 No 12.5 mg = M emoria e 08-06 0.5 mL, l 15:20: Injection, Eric 00 IM, Once PRN for vomiting, first dose 06/06/22 9:20:00 BUG TRIMMER labetalol 2021-07 No 5 mg = 1 Manuel carmen -29 mL, l 15:20: Injection, [place] 00 IV Push, As Indicated PRN for hypertensi on, first dose 06/06/22 9:20:00 BUG TRIMMER, SBP Hold Parameter: less than 110 mmHg, HR Hold Parameter: less than 60 bpm hydrALAZINE 2021-07 No 10 mg = Mem oria -29 0.5 mL, l 15:20: Injection, Eric 00 IV Push, As Indicated PRN for hypertensi on, first dose 06/06/22 9:20:00 BUG TRIMMER, SBP Hold Parameter: less than 110 mmHg diphenhydrA 2021-07 No 25 mg = Mem oria MINE 1-29 0.5 mL, l 15:20: Injection, [place] 00 IV Push, Once PRN for itching, first dose 06/06/22 9:20:00 BUG TRIMMER LR 1,000 mL 2021-07 No 1,000 mL, M emoria 1-29 IV, 75 l 15:20: mL/hr, Eric 00 start date 06/06/22 9:20:00 BUG TRIMMER, 1.66, m2 Robinul 2021-07 No 0.2 mg = 1 Manuel carmen 1-29 mL, l 15:20: Injection, [place] 00 IV Push, Once PRN for bradycardi a, first dose 06/06/22 9:20:00 BUG TRIMMER Xopenex 2021-07 No 0.63 mg = Memor ia 0.63 mg/3 08-06 3 mL, l mL 15:20: Soln, NEB, Eric inhalation 00 Once PRN solution for wheezing, first dose 06/06/22 9:20:00 BUG TRIMMER ondansetron 2021-07 No 4 mg = 2 Me moria 1-29 mL, l 15:20: Injection, [place] 00 IV Push, q15min PRN for nausea, order duration: 2 dose(s)/ti me(s), first dose 06/06/22 9:20:00 BUG TRIMMER, stop date Limited # of times promethazin 2021-07 No 12.5 mg = M emoria e -29 0.5 mL, l 15:20: Injection, Eric 00 IM, Once PRN for vomiting, first dose 06/06/22 9:20:00 BUG TRIMMER labetalol 2021-07 No 5 mg = 1 Manuel carmen 1-29 mL, l 15:20: Injection, [place] 00 IV Push, As Indicated PRN for hypertensi on, first dose 06/06/22 9:20:00 BUG TRIMMER, SBP Hold Parameter: less than 110 mmHg, HR Hold Parameter: less than 60 bpm hydrALAZINE 2021-07 No 10 mg = Mem oria 1-29 0.5 mL, l 15:20: Injection, [place] 00 IV Push, As Indicated PRN for hypertensi on, first dose 06/06/22 9:20:00 BUG TRIMMER, SBP Hold Parameter: less than 110 mmHg diphenhydrA 2021-07 No 25 mg = Mem oria MINE 1-29 0.5 mL, l 15:20: Injection, [place] 00 IV Push, Once PRN for itching, first dose 06/06/22 9:20:00 BUG TRIMMER LR 1,000 mL 2021-07 No 1,000 mL, M emoria 1-29 IV, 75 l 15:20: mL/hr, [place] 00 start date 06/06/22 9:20:00 BUG TRIMMER, 1.66, m2 Robinul 2021-07 No 0.2 mg = 1 Manuel carmen 1-29 mL, l 15:20: Injection, Eric 00 IV Push, Once PRN for bradycardi a, first dose 06/06/22 9:20:00 BUG TRIMMER Xopenex 2021-07 No 0.63 mg = Memor ia 0.63 mg/3 - 3 mL, l mL 15:20: Soln, NEB, [place] inhalation 00 Once PRN solution for wheezing, first dose 06/06/22 9:20:00 BUG TRIMMER ondansetron 2021-07 No 4 mg = 2 Me moria 1-29 mL, l 15:20: Injection, Eric 00 IV Push, q15min PRN for nausea, order duration: 2 dose(s)/ti me(s), first dose 06/06/22 9:20:00 BUG TRIMMER, stop date Limited # of times promethazin 2021-07 No 12.5 mg = M emoria e -29 0.5 mL, l 15:20: Injection, Eric 00 IM, Once PRN for vomiting, first dose 06/06/22 9:20:00 BUG TRIMMER labetalol 2021-07 No 5 mg = 1 Manuel carmen 1-29 mL, l 15:20: Injection, [place] 00 IV Push, As Indicated PRN for hypertensi on, first dose 06/06/22 9:20:00 BUG TRIMMER, SBP Hold Parameter: less than 110 mmHg, HR Hold Parameter: less than 60 bpm hydrALAZINE 2021-07 No 10 mg = Mem oria 1-29 0.5 mL, l 15:20: Injection, [place] 00 IV Push, As Indicated PRN for hypertensi on, first dose 06/06/22 9:20:00 BUG TRIMMER, SBP Hold Parameter: less than 110 mmHg diphenhydrA 2021-07 No 25 mg = Mem oria MINE 1-29 0.5 mL, l 15:20: Injection, Eric 00 IV Push, Once PRN for itching, first dose 06/06/22 9:20:00 BUG TRIMMER LR 1,000 mL 2021-07 No 1,000 mL, M emoria 1-29 IV, 75 l 15:20: mL/hr, Eric 00 start date 06/06/22 9:20:00 BUG TRIMMER, 1.66, m2 Robinul 2021-07 No 0.2 mg = 1 Manuel carmen 1-29 mL, l 15:20: Injection, Eric 00 IV Push, Once PRN for bradycardi a, first dose 06/06/22 9:20:00 BUG TRIMMER Xopenex 2021-07 No 0.63 mg = Memor ia 0.63 mg/3 -29 3 mL, l mL 15:20: Soln, NEB, Eric inhalation 00 Once PRN solution for wheezing, first dose 06/06/22 9:20:00 BUG TRIMMER ondansetron 2021-07 No 4 mg = 2 Me moria 1-29 mL, l 15:20: Injection, [place] 00 IV Push, q15min PRN for nausea, order duration: 2 dose(s)/ti me(s), first dose 06/06/22 9:20:00 BUG TRIMMER, stop date Limited # of times promethazin 2021-07 No 12.5 mg = M emoria e -29 0.5 mL, l 15:20: Injection, [place] 00 IM, Once PRN for vomiting, first dose 06/06/22 9:20:00 BUG TRIMMER labetalol 2021-07 No 5 mg = 1 Manuel carmen 1-29 mL, l 15:20: Injection, Eric 00 IV Push, As Indicated PRN for hypertensi on, first dose 06/06/22 9:20:00 BUG TRIMMER, SBP Hold Parameter: less than 110 mmHg, HR Hold Parameter: less than 60 bpm hydrALAZINE 2021-07 No 10 mg = Mem oria 1-29 0.5 mL, l 15:20: Injection, [place] 00 IV Push, As Indicated PRN for hypertensi on, first dose 06/06/22 9:20:00 BUG TRIMMER, SBP Hold Parameter: less than 110 mmHg diphenhydrA 2021-07 No 25 mg = Mem oria MINE -29 0.5 mL, l 15:20: Injection, [place] 00 IV Push, Once PRN for itching, first dose 06/06/22 9:20:00 BUG TRIMMER LR 1,000 mL 2021-07 No 1,000 mL, M emoria - IV, 75 l 15:20: mL/hr, Eric 00 start date 06/06/22 9:20:00 BUG TRIMMER, 1.66, m2 Robinul 2021-07 No 0.2 mg = 1 Manuel carmen -29 mL, l 15:20: Injection, Eric 00 IV Push, Once PRN for bradycardi a, first dose 06/06/22 9:20:00 BUG TRIMMER Xopenex 2021-07 No 0.63 mg = Memor ia 0.63 mg/3 08-06 3 mL, l mL 15:20: Soln, NEB, [place] inhalation 00 Once PRN solution for wheezing, first dose 06/06/22 9:20:00 BUG TRIMMER ondansetron 2021-07 No 4 mg = 2 Me moria 1-29 mL, l 15:20: Injection, Eric 00 IV Push, q15min PRN for nausea, order duration: 2 dose(s)/ti me(s), first dose 06/06/22 9:20:00 BUG TRIMMER, stop date Limited # of times promethazin 2021-07 No 12.5 mg = M emoria e -29 0.5 mL, l 15:20: Injection, [place] 00 IM, Once PRN for vomiting, first dose 06/06/22 9:20:00 BUG TRIMMER labetalol 2021-07 No 5 mg = 1 Manuel carmen 1-29 mL, l 15:20: Injection, Eric 00 IV Push, As Indicated PRN for hypertensi on, first dose 06/06/22 9:20:00 BUG TRIMMER, SBP Hold Parameter: less than 110 mmHg, HR Hold Parameter: less than 60 bpm hydrALAZINE 2021-07 No 10 mg = Mem oria 1-29 0.5 mL, l 15:20: Injection, Eric 00 IV Push, As Indicated PRN for hypertensi on, first dose 06/06/22 9:20:00 BUG TRIMMER, SBP Hold Parameter: less than 110 mmHg diphenhydrA 2021-07 No 25 mg = Mem oria MINE 08-06 0.5 mL, l 15:20: Injection, IV Push, Once PRN for itching, first dose 06/06/22 9:20:00 BUG TRIMMER LR 1,000 mL 2021-07 No 1,000 mL, M emoria 08-06 IV, 75 l 15:20: mL/hr, start date 06/06/22 9:20:00 BUG TRIMMER, 1.66, m2 Robinul 2021-07 No 0.2 mg = 1 Manuel carmen 08-06 mL, l 15:20: Injection, IV Push, Once PRN for bradycardi a, first dose 06/06/22 9:20:00 BUG TRIMMER Saline Lock 2021-07 No 10 mL, Manuel carmen Flush 08-06 Soln, IV l 14:50: Push, As Indicated PRN for flush, first dose 06/06/22 8:50:00 BUG TRIMMER [facility] 2021-07 No 10 mL, Manuel carmen Flush 08-06 Soln, IV l 14:50: Push, As Indicated PRN for flush, first dose 06/06/22 8:50:00 BUG TRIMMER [facility] 2021-07 No 10 mL, Manuel carmen Flush 08-06 Soln, IV l 14:50: Push, As Indicated PRN for flush, first dose 06/06/22 8:50:00 BUG TRIMMER [facility] 2021-07 No 10 mL, Manuel carmen Flush 08-06 Soln, IV l 14:50: Push, As Indicated PRN for flush, first dose 06/06/22 8:50:00 BUG TRIMMER [facility] 2021-07 No 10 mL, Manuel carmen Flush 08-06 Soln, IV l 14:50: Push, As Eric 00 Indicated PRN for flush, first dose 06/06/22 8:50:00 BUG TRIMMER [facility] 2021-07 No 10 mL, Manuel carmen Flush 08-06 Soln, IV l 14:50: Push, As Eric 00 Indicated PRN for flush, first dose 06/06/22 8:50:00 BUG TRIMMER [facility] 2021-07 No 10 mL, Manuel carmen Flush 08-06 Soln, IV l 14:50: Push, As Indicated PRN for flush, first dose 06/06/22 8:50:00 BUG TRIMMER [facility] 2021-07 No 10 mL, Manuel carmen Flush 08-06 Soln, IV l 14:50: Push, As Indicated PRN for flush, first dose 06/06/22 8:50:00 BUG TRIMMER [facility] 2021-07 No 10 mL, Manuel carmen Flush 08-06 Soln, IV l 14:50: Push, As Indicated PRN for flush, first dose 06/06/22 8:50:00 BUG TRIMMER [facility] 2021-07 No 10 mL, Manuel carmen Flush 08-06 Soln, IV l 14:50: Push, As Indicated PRN for flush, first dose 06/06/22 8:50:00 BUG TRIMMER [facility] 2021-07 No 10 mL, Manuel carmen Flush 08-06 Soln, IV l 14:50: Push, As Indicated PRN for flush, first dose 06/06/22 8:50:00 BUG TRIMMER [facility] 2021-07 No 10 mL, Manuel carmen Flush 08-06 Soln, IV l 14:50: Push, As Indicated PRN for flush, first dose 06/06/22 8:50:00 BUG TRIMMER [facility] 2021-07 No 10 mL, Manuel carmen Flush 08-06 Soln, IV l 14:50: Push, As Indicated PRN for flush, first dose 06/06/22 8:50:00 BUG TRIMMER [facility] 2021-07 No 10 mL, Manuel carmen Flush 08-06 Soln, IV l 14:50: Push, As [place] 00 Indicated PRN for flush, first dose 06/06/22 8:50:00 BUG TRIMMER [facility] 2021-07 No 10 mL, Manuel carmen Flush 08-06 Soln, IV l 14:50: Push, As Indicated PRN for flush, first dose 06/06/22 8:50:00 BUG TRIMMER [facility] 2021-07 No 10 mL, Manuel carmen Flush 08-06 Soln, IV l 14:50: Push, As Indicated PRN for flush, first dose 06/06/22 8:50:00 BUG TRIMMER [facility] 2021-07 No 10 mL, Manuel carmen Flush 08-06 Soln, IV l 14:50: Push, As Indicated PRN for flush, first dose 06/06/22 8:50:00 BUG TRIMMER [facility] 2021-07 No 10 mL, Manuel carmen Flush 08-06 Soln, IV l 14:50: Push, As Indicated PRN for flush, first dose 06/06/22 8:50:00 BUG TRIMMER [facility] 2021-07 No 10 mL, Manuel carmen Flush 08-06 Soln, IV l 14:50: Push, As Indicated PRN for flush, first dose 06/06/22 8:50:00 BUG TRIMMER [facility] 2021-07 No 10 mL, Manuel carmen Flush 08-06 Soln, IV l 14:50: Push, As Indicated PRN for flush, first dose 06/06/22 8:50:00 BUG TRIMMER [facility] 2021-07 No 10 mL, Manuel carmen Flush 08-06 Soln, IV l 14:50: Push, As Indicated PRN for flush, first dose 06/06/22 8:50:00 BUG TRIMMER [facility] 2021-07 No 10 mL, Manuel carmen Flush 08-06 Soln, IV l 14:50: Push, As Indicated PRN for flush, first dose 06/06/22 8:50:00 BUG TRIMMER [facility] 2021-07 No 600 mL, Memoria Medication 08-06 Soln-IV, l 14:42: IV, Once, first dose 06/06/22 8:42:00 BUG TRIMMER, stop date 06/06/22 8:42:00 BUG TRIMMER [facility] 2021-07 No 600 mL, Memoria Medication 08-06 Soln-IV, l 14:42: IV, Once, [place] 00 first dose 06/06/22 8:42:00 BUG TRIMMER, stop date 06/06/22 8:42:00 BUG TRIMMER [facility] 2021-07 No 600 mL, Memoria Medication 08-06 Soln-IV, l 14:42: IV, Once, first dose 06/06/22 8:42:00 BUG TRIMMER, stop date 06/06/22 8:42:00 BUG TRIMMER [facility] 2021-07 No 600 mL, Memoria Medication 08-06 Soln-IV, l 14:42: IV, Once, first dose 06/06/22 8:42:00 BUG TRIMMER, stop date 06/06/22 8:42:00 BUG TRIMMER [facility] 2021-07 No 600 mL, Memoria Medication 08-06 Soln-IV, l 14:42: IV, Once, first dose 06/06/22 8:42:00 BUG TRIMMER, stop date 06/06/22 8:42:00 BUG TRIMMER [facility] 2021-07 No 600 mL, Memoria Medication 08-06 Soln-IV, l 14:42: IV, Once, first dose 06/06/22 8:42:00 BUG TRIMMER, stop date 06/06/22 8:42:00 BUG TRIMMER [facility] 2021-07 No 600 mL, Memoria Medication 08-06 Soln-IV, l 14:42: IV, Once, first dose 06/06/22 8:42:00 BUG TRIMMER, stop date 06/06/22 8:42:00 BUG TRIMMER [facility] 2021-07 No 600 mL, Memoria Medication 08-06 Soln-IV, l 14:42: IV, Once, first dose 06/06/22 8:42:00 BUG TRIMMER, stop date 06/06/22 8:42:00 BUG TRIMMER [facility] 2021-07 No 600 mL, Memoria Medication 08-06 Soln-IV, l 14:42: IV, Once, first dose 06/06/22 8:42:00 BUG TRIMMER, stop date 06/06/22 8:42:00 BUG TRIMMER [facility] 2021-07 No 600 mL, Memoria Medication 08-06 Soln-IV, l 14:42: IV, Once, first dose 06/06/22 8:42:00 BUG TRIMMER, stop date 06/06/22 8:42:00 BUG TRIMMER [facility] 2021-07 No 600 mL, Memoria Medication 08-06 Soln-IV, l 14:42: IV, Once, first dose 06/06/22 8:42:00 BUG TRIMMER, stop date 06/06/22 8:42:00 BUG TRIMMER [facility] 2021-07 No 600 mL, Memoria Medication 08-06 Soln-IV, l 14:42: IV, Once, first dose 06/06/22 8:42:00 BUG TRIMMER, stop date 06/06/22 8:42:00 BUG TRIMMER [facility] 2021-07 No 600 mL, Memoria Medication 08-06 Soln-IV, l 14:42: IV, Once, first dose 06/06/22 8:42:00 BUG TRIMMER, stop date 06/06/22 8:42:00 BUG TRIMMER [facility] 2021-07 No 600 mL, Memoria Medication 08-06 Soln-IV, l 14:42: IV, Once, first dose 06/06/22 8:42:00 BUG TRIMMER, stop date 06/06/22 8:42:00 BUG TRIMMER [facility] 2021-07 No 600 mL, Memoria Medication 08-06 Soln-IV, l 14:42: IV, Once, first dose 06/06/22 8:42:00 BUG TRIMMER, stop date 06/06/22 8:42:00 BUG TRIMMER [facility] 2021-07 No 600 mL, Memoria Medication 08-06 Soln-IV, l 14:42: IV, Once, first dose 06/06/22 8:42:00 BUG TRIMMER, stop date 06/06/22 8:42:00 BUG TRIMMER [facility] 2021-07 No 600 mL, Memoria Medication 08-06 Soln-IV, l 14:42: IV, Once, first dose 06/06/22 8:42:00 BUG TRIMMER, stop date 06/06/22 8:42:00 BUG TRIMMER [facility] 2021-07 No 600 mL, Memoria Medication 08-06 Soln-IV, l 14:42: IV, Once, first dose 06/06/22 8:42:00 BUG TRIMMER, stop date 06/06/22 8:42:00 BUG TRIMMER [facility] 2021-07 No 600 mL, Memoria Medication 08-06 Soln-IV, l 14:42: IV, Once, first dose 06/06/22 8:42:00 BUG TRIMMER, stop date 06/06/22 8:42:00 BUG TRIMMER [facility] 2021-07 No 600 mL, Memoria Medication 08-06 Soln-IV, l 14:42: IV, Once, first dose 06/06/22 8:42:00 BUG TRIMMER, stop date 06/06/22 8:42:00 BUG TRIMMER [facility] 2021-07 No 600 mL, Memoria Medication 08-06 Soln-IV, l 14:42: IV, Once, Eric 00 first dose 06/06/22 8:42:00 BUG TRIMMER, stop date 06/06/22 8:42:00 BUG TRIMMER [facility] 2021-07 No 600 mL, Memoria Medication 08-06 Soln-IV, l 14:42: IV, Once, first dose 06/06/22 8:42:00 BUG TRIMMER, stop date 06/06/22 8:42:00 BUG TRIMMER propofol 2021-07 No 40 mg = 4 Manuel carmen 1-29 mL, l 14:31: Emulsion, [place] 00 IV, Once, first dose 06/06/22 8:31:00 BUG TRIMMER, stop date 06/06/22 8:31:00 BUG TRIMMER lidocaine 2021-07 No 20 mg = 1 Mem oria 1-29 mL, l 14:31: Injection, [place] 00 IV, Once, first dose 06/06/22 8:31:00 BUG TRIMMER, stop date 06/06/22 8:31:00 BUG TRIMMER propofol 2021-07 No 40 mg = 4 Manuel carmen 1-29 mL, l 14:31: Emulsion, Eric 00 IV, Once, first dose 06/06/22 8:31:00 BUG TRIMMER, stop date 06/06/22 8:31:00 BUG TRIMMER lidocaine 2021-07 No 20 mg = 1 Mem oria 1-29 mL, l 14:31: Injection, Eric 00 IV, Once, first dose 06/06/22 8:31:00 BUG TRIMMER, stop date 06/06/22 8:31:00 BUG TRIMMER propofol 2021-07 No 40 mg = 4 Manuel carmen 1-29 mL, l 14:31: Emulsion, Eric 00 IV, Once, first dose 06/06/22 8:31:00 BUG TRIMMER, stop date 06/06/22 8:31:00 BUG TRIMMER lidocaine 2021-07 No 20 mg = 1 Mem oria 1-29 mL, l 14:31: Injection, [place] 00 IV, Once, first dose 06/06/22 8:31:00 BUG TRIMMER, stop date 06/06/22 8:31:00 BUG TRIMMER propofol 2021-07 No 40 mg = 4 Manuel carmen 1-29 mL, l 14:31: Emulsion, Eric 00 IV, Once, first dose 06/06/22 8:31:00 BUG TRIMMER, stop date 06/06/22 8:31:00 BUG TRIMMER lidocaine 2021-07 No 20 mg = 1 Mem oria 1-29 mL, l 14:31: Injection, Eric 00 IV, Once, first dose 06/06/22 8:31:00 BUG TRIMMER, stop date 06/06/22 8:31:00 BUG TRIMMER propofol 2021-07 No 40 mg = 4 Manuel carmen 1-29 mL, l 14:31: Emulsion, [place] 00 IV, Once, first dose 06/06/22 8:31:00 BUG TRIMMER, stop date 06/06/22 8:31:00 BUG TRIMMER lidocaine 2021-07 No 20 mg = 1 Mem oria 1-29 mL, l 14:31: Injection, Eric 00 IV, Once, first dose 06/06/22 8:31:00 BUG TRIMMER, stop date 06/06/22 8:31:00 BUG TRIMMER propofol 2021-07 No 40 mg = 4 Manuel carmen 1-29 mL, l 14:31: Emulsion, Eric 00 IV, Once, first dose 06/06/22 8:31:00 BUG TRIMMER, stop date 06/06/22 8:31:00 BUG TRIMMER lidocaine 2021-07 No 20 mg = 1 Mem oria 1-29 mL, l 14:31: Injection, [place] 00 IV, Once, first dose 06/06/22 8:31:00 BUG TRIMMER, stop date 06/06/22 8:31:00 BUG TRIMMER propofol 2021-07 No 40 mg = 4 Manuel carmen 1-29 mL, l 14:31: Emulsion, [place] 00 IV, Once, first dose 06/06/22 8:31:00 BUG TRIMMER, stop date 06/06/22 8:31:00 BUG TRIMMER lidocaine 2021-07 No 20 mg = 1 Mem oria 1-29 mL, l 14:31: Injection, Eric 00 IV, Once, first dose 06/06/22 8:31:00 BUG TRIMMER, stop date 06/06/22 8:31:00 BUG TRIMMER propofol 2021-07 No 40 mg = 4 Manuel carmen 1-29 mL, l 14:31: Emulsion, [place] 00 IV, Once, first dose 06/06/22 8:31:00 BUG TRIMMER, stop date 06/06/22 8:31:00 BUG TRIMMER lidocaine 2021-07 No 20 mg = 1 Mem oria 1-29 mL, l 14:31: Injection, [place] 00 IV, Once, first dose 06/06/22 8:31:00 BUG TRIMMER, stop date 06/06/22 8:31:00 BUG TRIMMER propofol 2021-07 No 40 mg = 4 Manuel carmen 1-29 mL, l 14:31: Emulsion, Eric 00 IV, Once, first dose 06/06/22 8:31:00 BUG TRIMMER, stop date 06/06/22 8:31:00 BUG TRIMMER lidocaine 2021-07 No 20 mg = 1 Mem oria 1-29 mL, l 14:31: Injection, Eric 00 IV, Once, first dose 06/06/22 8:31:00 BUG TRIMMER, stop date 06/06/22 8:31:00 BUG TRIMMER propofol 2021-07 No 40 mg = 4 Manuel carmen 1-29 mL, l 14:31: Emulsion, Eric 00 IV, Once, first dose 06/06/22 8:31:00 BUG TRIMMER, stop date 06/06/22 8:31:00 BUG TRIMMER lidocaine 2021-07 No 20 mg = 1 Mem oria 1-29 mL, l 14:31: Injection, Eric 00 IV, Once, first dose 06/06/22 8:31:00 BUG TRIMMER, stop date 06/06/22 8:31:00 BUG TRIMMER propofol 2021-07 No 40 mg = 4 Maunel carmen 1-29 mL, l 14:31: Emulsion, [place] 00 IV, Once, first dose 06/06/22 8:31:00 BUG TRIMMER, stop date 06/06/22 8:31:00 BUG TRIMMER lidocaine 2021-07 No 20 mg = 1 Mem oria 1-29 mL, l 14:31: Injection, Eric 00 IV, Once, first dose 06/06/22 8:31:00 BUG TRIMMER, stop date 06/06/22 8:31:00 BUG TRIMMER propofol 2021-07 No 40 mg = 4 Manuel carmen 1-29 mL, l 14:31: Emulsion, Eric 00 IV, Once, first dose 06/06/22 8:31:00 BUG TRIMMER, stop date 06/06/22 8:31:00 BUG TRIMMER propofol 2021-07 No 40 mg = 4 Manuel carmen 1-29 mL, l 14:31: Emulsion, Eric 00 IV, Once, first dose 06/06/22 8:31:00 BUG TRIMMER, stop date 06/06/22 8:31:00 BUG TRIMMER lidocaine 2021-07 No 20 mg = 1 Mem oria 1-29 mL, l 14:31: Injection, [place] 00 IV, Once, first dose 06/06/22 8:31:00 BUG TRIMMER, stop date 06/06/22 8:31:00 BUG TRIMMER lidocaine 2021-07 No 20 mg = 1 Mem oria 1-29 mL, l 14:31: Injection, [place] 00 IV, Once, first dose 06/06/22 8:31:00 BUG TRIMMER, stop date 06/06/22 8:31:00 BUG TRIMMER propofol 2021-07 No 40 mg = 4 Manuel carmen 1-29 mL, l 14:31: Emulsion, Eric 00 IV, Once, first dose 06/06/22 8:31:00 BUG TRIMMER, stop date 06/06/22 8:31:00 BUG TRIMMER lidocaine 2021-07 No 20 mg = 1 Mem oria 1-29 mL, l 14:31: Injection, [place] 00 IV, Once, first dose 06/06/22 8:31:00 BUG TRIMMER, stop date 06/06/22 8:31:00 BUG TRIMMER propofol 2021-07 No 40 mg = 4 Manuel carmen 1-29 mL, l 14:31: Emulsion, [place] 00 IV, Once, first dose 06/06/22 8:31:00 BUG TRIMMER, stop date 06/06/22 8:31:00 BUG TRIMMER lidocaine 2021-07 No 20 mg = 1 Mem oria 1-29 mL, l 14:31: Injection, [place] 00 IV, Once, first dose 06/06/22 8:31:00 BUG TRIMMER, stop date 06/06/22 8:31:00 BUG TRIMMER propofol 2021-07 No 40 mg = 4 Manuel carmen 1-29 mL, l 14:31: Emulsion, [place] 00 IV, Once, first dose 06/06/22 8:31:00 BUG TRIMMER, stop date 06/06/22 8:31:00 BUG TRIMMER lidocaine 2021-07 No 20 mg = 1 Mem oria 1-29 mL, l 14:31: Injection, [place] 00 IV, Once, first dose 06/06/22 8:31:00 BUG TRIMMER, stop date 06/06/22 8:31:00 BUG TRIMMER propofol 2021-07 No 40 mg = 4 Manuel carmen 1-29 mL, l 14:31: Emulsion, [place] 00 IV, Once, first dose 06/06/22 8:31:00 BUG TRIMMER, stop date 06/06/22 8:31:00 BUG TRIMMER lidocaine 2021-07 No 20 mg = 1 Mem oria 1-29 mL, l 14:31: Injection, [place] 00 IV, Once, first dose 06/06/22 8:31:00 BUG TRIMMER, stop date 06/06/22 8:31:00 BUG TRIMMER propofol 2021-07 No 40 mg = 4 Manuel carmen 1-29 mL, l 14:31: Emulsion, [place] 00 IV, Once, first dose 06/06/22 8:31:00 BUG TRIMMER, stop date 06/06/22 8:31:00 BUG TRIMMER lidocaine 2021-07 No 20 mg = 1 Mem oria 1-29 mL, l 14:31: Injection, Eric 00 IV, Once, first dose 06/06/22 8:31:00 BUG TRIMMER, stop date 06/06/22 8:31:00 BUG TRIMMER propofol 2021-07 No 40 mg = 4 Manuel carmen 1-29 mL, l 14:31: Emulsion, [place] 00 IV, Once, first dose 06/06/22 8:31:00 BUG TRIMMER, stop date 06/06/22 8:31:00 BUG TRIMMER lidocaine 2021-07 No 20 mg = 1 Mem oria 1-29 mL, l 14:31: Injection, [place] 00 IV, Once, first dose 06/06/22 8:31:00 BUG TRIMMER, stop date 06/06/22 8:31:00 BUG TRIMMER propofol 2021-07 No 40 mg = 4 Manuel carmen 1-29 mL, l 14:31: Emulsion, [place] 00 IV, Once, first dose 06/06/22 8:31:00 BUG TRIMMER, stop date 06/06/22 8:31:00 BUG TRIMMER lidocaine 2021-07 No 20 mg = 1 Mem oria 1-29 mL, l 14:31: Injection, Eric 00 IV, Once, first dose 06/06/22 8:31:00 BUG TRIMMER, stop date 06/06/22 8:31:00 BUG TRIMMER propofol 2021-07 No 40 mg = 4 Manuel carmen 1-29 mL, l 14:31: Emulsion, [place] 00 IV, Once, first dose 06/06/22 8:31:00 BUG TRIMMER, stop date 06/06/22 8:31:00 BUG TRIMMER lidocaine 2021-07 No 20 mg = 1 Mem oria 1-29 mL, l 14:31: Injection, [place] 00 IV, Once, first dose 06/06/22 8:31:00 BUG TRIMMER, stop date 06/06/22 8:31:00 BUG TRIMMER propofol 2021-07 No 40 mg = 4 Manuel carmen 1-29 mL, l 14:31: Emulsion, [place] 00 IV, Once, first dose 06/06/22 8:31:00 BUG TRIMMER, stop date 06/06/22 8:31:00 BUG TRIMMER lidocaine 2021-07 No 20 mg = 1 Mem oria 1-29 mL, l 14:31: Injection, [place] 00 IV, Once, first dose 06/06/22 8:31:00 BUG TRIMMER, stop date 06/06/22 8:31:00 BUG TRIMMER propofol 2021-07 No 40 mg = 4 Manuel carmen 1-29 mL, l 14:20: Emulsion, [place] 00 IV, Once, first dose 06/06/22 8:20:00 BUG TRIMMER, stop date 06/06/22 8:20:00 BUG TRIMMER lidocaine 2021-07 No 20 mg = 1 Mem oria 1-29 mL, l 14:20: Injection, [place] 00 IV, Once, first dose 06/06/22 8:20:00 BUG TRIMMER, stop date 06/06/22 8:20:00 BUG TRIMMER propofol 2021-07 No 40 mg = 4 Manuel carmen 1-29 mL, l 14:20: Emulsion, [place] 00 IV, Once, first dose 06/06/22 8:20:00 BUG TRIMMER, stop date 06/06/22 8:20:00 BUG TRIMMER lidocaine 2021-07 No 20 mg = 1 Mem oria 1-29 mL, l 14:20: Injection, [place] 00 IV, Once, first dose 06/06/22 8:20:00 BUG TRIMMER, stop date 06/06/22 8:20:00 BUG TRIMMER propofol 2021-07 No 40 mg = 4 Manuel carmen 1-29 mL, l 14:20: Emulsion, [place] 00 IV, Once, first dose 06/06/22 8:20:00 BUG TRIMMER, stop date 06/06/22 8:20:00 BUG TRIMMER lidocaine 2021-07 No 20 mg = 1 Mem oria 1-29 mL, l 14:20: Injection, Eric 00 IV, Once, first dose 06/06/22 8:20:00 BUG TRIMMER, stop date 06/06/22 8:20:00 BUG TRIMMER propofol 2021-07 No 40 mg = 4 Manuel carmen 1-29 mL, l 14:20: Emulsion, [place] 00 IV, Once, first dose 06/06/22 8:20:00 BUG TRIMMER, stop date 06/06/22 8:20:00 BUG TRIMMER lidocaine 2021-07 No 20 mg = 1 Mem oria 1-29 mL, l 14:20: Injection, Eric 00 IV, Once, first dose 06/06/22 8:20:00 BUG TRIMMER, stop date 06/06/22 8:20:00 BUG TRIMMER propofol 2021-07 No 40 mg = 4 Manuel carmen 1-29 mL, l 14:20: Emulsion, [place] 00 IV, Once, first dose 06/06/22 8:20:00 BUG TRIMMER, stop date 06/06/22 8:20:00 BUG TRIMMER lidocaine 2021-07 No 20 mg = 1 Mem oria 1-29 mL, l 14:20: Injection, Eric 00 IV, Once, first dose 06/06/22 8:20:00 BUG TRIMMER, stop date 06/06/22 8:20:00 BUG TRIMMER propofol 2021-07 No 40 mg = 4 Manuel carmen 1-29 mL, l 14:20: Emulsion, [place] 00 IV, Once, first dose 06/06/22 8:20:00 BUG TRIMMER, stop date 06/06/22 8:20:00 BUG TRIMMER lidocaine 2021-07 No 20 mg = 1 Mem oria 1-29 mL, l 14:20: Injection, Eric 00 IV, Once, first dose 06/06/22 8:20:00 BUG TRIMMER, stop date 06/06/22 8:20:00 BUG TRIMMER propofol 2021-07 No 40 mg = 4 Manuel carmen 1-29 mL, l 14:20: Emulsion, [place] 00 IV, Once, first dose 06/06/22 8:20:00 BUG TRIMMER, stop date 06/06/22 8:20:00 BUG TRIMMER lidocaine 2021-07 No 20 mg = 1 Mem oria 1-29 mL, l 14:20: Injection, [place] 00 IV, Once, first dose 06/06/22 8:20:00 BUG TRIMMER, stop date 06/06/22 8:20:00 BUG TRIMMER propofol 2021-07 No 40 mg = 4 Manuel carmen 1-29 mL, l 14:20: Emulsion, [place] 00 IV, Once, first dose 06/06/22 8:20:00 BUG TRIMMER, stop date 06/06/22 8:20:00 BUG TRIMMER lidocaine 2021-07 No 20 mg = 1 Mem oria 1-29 mL, l 14:20: Injection, Eric 00 IV, Once, first dose 06/06/22 8:20:00 BUG TRIMMER, stop date 06/06/22 8:20:00 BUG TRIMMER propofol 2021-07 No 40 mg = 4 Manuel carmen 1-29 mL, l 14:20: Emulsion, Eric 00 IV, Once, first dose 06/06/22 8:20:00 BUG TRIMMER, stop date 06/06/22 8:20:00 BUG TRIMMER lidocaine 2021-07 No 20 mg = 1 Mem oria 1-29 mL, l 14:20: Injection, [place] 00 IV, Once, first dose 06/06/22 8:20:00 BUG TRIMMER, stop date 06/06/22 8:20:00 BUG TRIMMER propofol 2021-07 No 40 mg = 4 Manuel carmen 1-29 mL, l 14:20: Emulsion, Eric 00 IV, Once, first dose 06/06/22 8:20:00 BUG TRIMMER, stop date 06/06/22 8:20:00 BUG TRIMMER lidocaine 2021-07 No 20 mg = 1 Mem oria 1-29 mL, l 14:20: Injection, [place] 00 IV, Once, first dose 06/06/22 8:20:00 BUG TRIMMER, stop date 06/06/22 8:20:00 BUG TRIMMER propofol 2021-07 No 40 mg = 4 Manuel carmen 1-29 mL, l 14:20: Emulsion, Eric 00 IV, Once, first dose 06/06/22 8:20:00 BUG TRIMMER, stop date 06/06/22 8:20:00 BUG TRIMMER lidocaine 2021-07 No 20 mg = 1 Mem oria 1-29 mL, l 14:20: Injection, [place] 00 IV, Once, first dose 06/06/22 8:20:00 BUG TRIMMER, stop date 06/06/22 8:20:00 BUG TRIMMER propofol 2021-07 No 40 mg = 4 Manuel carmen 1-29 mL, l 14:20: Emulsion, Eric 00 IV, Once, first dose 06/06/22 8:20:00 BUG TRIMMER, stop date 06/06/22 8:20:00 BUG TRIMMER lidocaine 2021-07 No 20 mg = 1 Mem oria 1-29 mL, l 14:20: Injection, [place] 00 IV, Once, first dose 06/06/22 8:20:00 BUG TRIMMER, stop date 06/06/22 8:20:00 BUG TRIMMER propofol 2021-07 No 40 mg = 4 Manuel carmen 1-29 mL, l 14:20: Emulsion, [place] 00 IV, Once, first dose 06/06/22 8:20:00 BUG TRIMMER, stop date 06/06/22 8:20:00 BUG TRIMMER lidocaine 2021-07 No 20 mg = 1 Mem oria 1-29 mL, l 14:20: Injection, Eric 00 IV, Once, first dose 06/06/22 8:20:00 BUG TRIMMER, stop date 06/06/22 8:20:00 BUG TRIMMER propofol 2021-07 No 40 mg = 4 Manuel carmen 1-29 mL, l 14:20: Emulsion, [place] 00 IV, Once, first dose 06/06/22 8:20:00 BUG TRIMMER, stop date 06/06/22 8:20:00 BUG TRIMMER lidocaine 2021-07 No 20 mg = 1 Mem oria 1-29 mL, l 14:20: Injection, Eric 00 IV, Once, first dose 06/06/22 8:20:00 BUG TRIMMER, stop date 06/06/22 8:20:00 BUG TRIMMER propofol 2021-07 No 40 mg = 4 Manuel carmen 1-29 mL, l 14:20: Emulsion, Eric 00 IV, Once, first dose 06/06/22 8:20:00 BUG TRIMMER, stop date 06/06/22 8:20:00 BUG TRIMMER lidocaine 2021-07 No 20 mg = 1 Mem oria 1-29 mL, l 14:20: Injection, Eric 00 IV, Once, first dose 06/06/22 8:20:00 BUG TRIMMER, stop date 06/06/22 8:20:00 BUG TRIMMER propofol 2021-07 No 40 mg = 4 Manuel carmen 1-29 mL, l 14:20: Emulsion, [place] 00 IV, Once, first dose 06/06/22 8:20:00 BUG TRIMMER, stop date 06/06/22 8:20:00 BUG TRIMMER lidocaine 2021-07 No 20 mg = 1 Mem oria 1-29 mL, l 14:20: Injection, Eric 00 IV, Once, first dose 06/06/22 8:20:00 BUG TRIMMER, stop date 06/06/22 8:20:00 BUG TRIMMER propofol 2021-07 No 40 mg = 4 Manuel carmen 1-29 mL, l 14:20: Emulsion, Eric 00 IV, Once, first dose 06/06/22 8:20:00 BUG TRIMMER, stop date 06/06/22 8:20:00 BUG TRIMMER lidocaine 2021-07 No 20 mg = 1 Mem oria 1-29 mL, l 14:20: Injection, [place] 00 IV, Once, first dose 06/06/22 8:20:00 BUG TRIMMER, stop date 06/06/22 8:20:00 BUG TRIMMER propofol 2021-07 No 40 mg = 4 Manuel carmen 1-29 mL, l 14:20: Emulsion, [place] 00 IV, Once, first dose 06/06/22 8:20:00 BUG TRIMMER, stop date 06/06/22 8:20:00 BUG TRIMMER lidocaine 2021-07 No 20 mg = 1 Mem oria 1-29 mL, l 14:20: Injection, Eric 00 IV, Once, first dose 06/06/22 8:20:00 BUG TRIMMER, stop date 06/06/22 8:20:00 BUG TRIMMER propofol 2021-07 No 40 mg = 4 Manuel carmen 1-29 mL, l 14:20: Emulsion, Eric 00 IV, Once, first dose 06/06/22 8:20:00 BUG TRIMMER, stop date 06/06/22 8:20:00 BUG TRIMMER lidocaine 2021-07 No 20 mg = 1 Mem oria 1-29 mL, l 14:20: Injection, [place] 00 IV, Once, first dose 06/06/22 8:20:00 BUG TRIMMER, stop date 06/06/22 8:20:00 BUG TRIMMER propofol 2021-07 No 40 mg = 4 Manuel carmen 1-29 mL, l 14:20: Emulsion, [place] 00 IV, Once, first dose 06/06/22 8:20:00 BUG TRIMMER, stop date 06/06/22 8:20:00 BUG TRIMMER lidocaine 2021-07 No 20 mg = 1 Mem oria 1-29 mL, l 14:20: Injection, Eric 00 IV, Once, first dose 06/06/22 8:20:00 BUG TRIMMER, stop date 06/06/22 8:20:00 BUG TRIMMER propofol 2021-07 No 40 mg = 4 Manuel carmen 1-29 mL, l 14:20: Emulsion, [place] 00 IV, Once, first dose 06/06/22 8:20:00 BUG TRIMMER, stop date 06/06/22 8:20:00 BUG TRIMMER lidocaine 2021-07 No 20 mg = 1 Mem oria 1-29 mL, l 14:20: Injection, [place] 00 IV, Once, first dose 06/06/22 8:20:00 BUG TRIMMER, stop date 06/06/22 8:20:00 BUG TRIMMER propofol 2021-07 No 40 mg = 4 Manuel carmen 1-29 mL, l 14:20: Emulsion, Eric 00 IV, Once, first dose 06/06/22 8:20:00 BUG TRIMMER, stop date 06/06/22 8:20:00 BUG TRIMMER lidocaine 2021-07 No 20 mg = 1 Mem oria 1-29 mL, l 14:20: Injection, [place] 00 IV, Once, first dose 06/06/22 8:20:00 BUG TRIMMER, stop date 06/06/22 8:20:00 BUG TRIMMER fentaNYL 2021-07 No 50 mcg = 1 Mem oria 1-29 mL, l 14:17: Injection, Eric 00 IV, Once, first dose 06/06/22 8:17:00 BUG TRIMMER, stop date 06/06/22 8:17:00 BUG TRIMMER propofol 2021-07 No 40 mg = 4 Manuel carmen 1-29 mL, l 14:17: Emulsion, Eric 00 IV, Once, first dose 06/06/22 8:17:00 BUG TRIMMER, stop date 06/06/22 8:17:00 BUG TRIMMER lidocaine 2021-07 No 20 mg = 1 Mem oria 1-29 mL, l 14:17: Injection, Eric 00 IV, Once, first dose 06/06/22 8:17:00 BUG TRIMMER, stop date 06/06/22 8:17:00 BUG TRIMMER fentaNYL 2021-07 No 50 mcg = 1 Mem oria 1-29 mL, l 14:17: Injection, [place] 00 IV, Once, first dose 06/06/22 8:17:00 BUG TRIMMER, stop date 06/06/22 8:17:00 BUG TRIMMER propofol 2021-07 No 40 mg = 4 Manuel carmen 1-29 mL, l 14:17: Emulsion, [place] 00 IV, Once, first dose 06/06/22 8:17:00 BUG TRIMMER, stop date 06/06/22 8:17:00 BUG TRIMMER lidocaine 2021-07 No 20 mg = 1 Mem oria 1-29 mL, l 14:17: Injection, [place] 00 IV, Once, first dose 06/06/22 8:17:00 BUG TRIMMER, stop date 06/06/22 8:17:00 BUG TRIMMER fentaNYL 2021-07 No 50 mcg = 1 Mem oria 1-29 mL, l 14:17: Injection, [place] 00 IV, Once, first dose 06/06/22 8:17:00 BUG TRIMMER, stop date 06/06/22 8:17:00 BUG TRIMMER propofol 2021-07 No 40 mg = 4 Manuel carmen 1-29 mL, l 14:17: Emulsion, [place] 00 IV, Once, first dose 06/06/22 8:17:00 BUG TRIMMER, stop date 06/06/22 8:17:00 BUG TRIMMER lidocaine 2021-07 No 20 mg = 1 Mem oria 1-29 mL, l 14:17: Injection, [place] 00 IV, Once, first dose 06/06/22 8:17:00 BUG TRIMMER, stop date 06/06/22 8:17:00 BUG TRIMMER fentaNYL 2021-07 No 50 mcg = 1 Mem oria 1-29 mL, l 14:17: Injection, Eric 00 IV, Once, first dose 06/06/22 8:17:00 BUG TRIMMER, stop date 06/06/22 8:17:00 BUG TRIMMER propofol 2021-07 No 40 mg = 4 Manuel carmen 1-29 mL, l 14:17: Emulsion, [place] 00 IV, Once, first dose 06/06/22 8:17:00 BUG TRIMMER, stop date 06/06/22 8:17:00 BUG TRIMMER lidocaine 2021-07 No 20 mg = 1 Mem oria 1-29 mL, l 14:17: Injection, [place] 00 IV, Once, first dose 06/06/22 8:17:00 BUG TRIMMER, stop date 06/06/22 8:17:00 BUG TRIMMER fentaNYL 2021-07 No 50 mcg = 1 Mem oria 1-29 mL, l 14:17: Injection, [place] 00 IV, Once, first dose 06/06/22 8:17:00 BUG TRIMMER, stop date 06/06/22 8:17:00 BUG TRIMMER propofol 2021-07 No 40 mg = 4 Manuel carmen 1-29 mL, l 14:17: Emulsion, Eric 00 IV, Once, first dose 06/06/22 8:17:00 BUG TRIMMER, stop date 06/06/22 8:17:00 BUG TRIMMER lidocaine 2021-07 No 20 mg = 1 Mem oria 1-29 mL, l 14:17: Injection, [place] 00 IV, Once, first dose 06/06/22 8:17:00 BUG TRIMMER, stop date 06/06/22 8:17:00 BUG TRIMMER fentaNYL 2021-07 No 50 mcg = 1 Mem oria 1-29 mL, l 14:17: Injection, [place] 00 IV, Once, first dose 06/06/22 8:17:00 BUG TRIMMER, stop date 06/06/22 8:17:00 BUG TRIMMER propofol 2021-07 No 40 mg = 4 Manuel carmen 1-29 mL, l 14:17: Emulsion, Eric 00 IV, Once, first dose 06/06/22 8:17:00 BUG TRIMMER, stop date 06/06/22 8:17:00 BUG TRIMMER lidocaine 2021-07 No 20 mg = 1 Mem oria 1-29 mL, l 14:17: Injection, [place] 00 IV, Once, first dose 06/06/22 8:17:00 BUG TRIMMER, stop date 06/06/22 8:17:00 BUG TRIMMER fentaNYL 2021-07 No 50 mcg = 1 Mem oria 1-29 mL, l 14:17: Injection, Eric 00 IV, Once, first dose 06/06/22 8:17:00 BUG TRIMMER, stop date 06/06/22 8:17:00 BUG TRIMMER propofol 2021-07 No 40 mg = 4 Manuel carmen 1-29 mL, l 14:17: Emulsion, Eric 00 IV, Once, first dose 06/06/22 8:17:00 BUG TRIMMER, stop date 06/06/22 8:17:00 BUG TRIMMER lidocaine 2021-07 No 20 mg = 1 Mem oria 1-29 mL, l 14:17: Injection, [place] 00 IV, Once, first dose 06/06/22 8:17:00 BUG TRIMMER, stop date 06/06/22 8:17:00 BUG TRIMMER fentaNYL 2021-07 No 50 mcg = 1 Mem oria 1-29 mL, l 14:17: Injection, [place] 00 IV, Once, first dose 06/06/22 8:17:00 BUG TRIMMER, stop date 06/06/22 8:17:00 BUG TRIMMER propofol 2021-07 No 40 mg = 4 Manuel carmen 1-29 mL, l 14:17: Emulsion, [place] 00 IV, Once, first dose 06/06/22 8:17:00 BUG TRIMMER, stop date 06/06/22 8:17:00 BUG TRIMMER lidocaine 2021-07 No 20 mg = 1 Mem oria 1-29 mL, l 14:17: Injection, [place] 00 IV, Once, first dose 06/06/22 8:17:00 BUG TRIMMER, stop date 06/06/22 8:17:00 BUG TRIMMER fentaNYL 2021-07 No 50 mcg = 1 Mem oria 1-29 mL, l 14:17: Injection, Eric 00 IV, Once, first dose 06/06/22 8:17:00 BUG TRIMMER, stop date 06/06/22 8:17:00 BUG TRIMMER propofol 2021-07 No 40 mg = 4 Manuel carmen 1-29 mL, l 14:17: Emulsion, [place] 00 IV, Once, first dose 06/06/22 8:17:00 BUG TRIMMER, stop date 06/06/22 8:17:00 BUG TRIMMER lidocaine 2021-07 No 20 mg = 1 Mem oria 1-29 mL, l 14:17: Injection, [place] 00 IV, Once, first dose 06/06/22 8:17:00 BUG TRIMMER, stop date 06/06/22 8:17:00 BUG TRIMMER fentaNYL 2021-07 No 50 mcg = 1 Mem oria 1-29 mL, l 14:17: Injection, Eric 00 IV, Once, first dose 06/06/22 8:17:00 BUG TRIMMER, stop date 06/06/22 8:17:00 BUG TRIMMER propofol 2021-07 No 40 mg = 4 Manuel carmen 1-29 mL, l 14:17: Emulsion, Eric 00 IV, Once, first dose 06/06/22 8:17:00 BUG TRIMMER, stop date 06/06/22 8:17:00 BUG TRIMMER lidocaine 2021-07 No 20 mg = 1 Mem oria 1-29 mL, l 14:17: Injection, [place] 00 IV, Once, first dose 06/06/22 8:17:00 BUG TRIMMER, stop date 06/06/22 8:17:00 BUG TRIMMER fentaNYL 2021-07 No 50 mcg = 1 Mem oria 1-29 mL, l 14:17: Injection, Eric 00 IV, Once, first dose 06/06/22 8:17:00 BUG TRIMMER, stop date 06/06/22 8:17:00 BUG TRIMMER propofol 2021-07 No 40 mg = 4 Manuel carmen 1-29 mL, l 14:17: Emulsion, [place] 00 IV, Once, first dose 06/06/22 8:17:00 BUG TRIMMER, stop date 06/06/22 8:17:00 BUG TRIMMER lidocaine 2021-07 No 20 mg = 1 Mem oria 1-29 mL, l 14:17: Injection, Eric 00 IV, Once, first dose 06/06/22 8:17:00 BUG TRIMMER, stop date 06/06/22 8:17:00 BUG TRIMMER fentaNYL 2021-07 No 50 mcg = 1 Mem oria 1-29 mL, l 14:17: Injection, Eric 00 IV, Once, first dose 06/06/22 8:17:00 BUG TRIMMER, stop date 06/06/22 8:17:00 BUG TRIMMER propofol 2021-07 No 40 mg = 4 Manuel carmen 1-29 mL, l 14:17: Emulsion, [place] 00 IV, Once, first dose 06/06/22 8:17:00 BUG TRIMMER, stop date 06/06/22 8:17:00 BUG TRIMMER lidocaine 2021-07 No 20 mg = 1 Mem oria 1-29 mL, l 14:17: Injection, [place] 00 IV, Once, first dose 06/06/22 8:17:00 BUG TRIMMER, stop date 06/06/22 8:17:00 BUG TRIMMER fentaNYL 2021-07 No 50 mcg = 1 Mem oria 1-29 mL, l 14:17: Injection, [place] 00 IV, Once, first dose 06/06/22 8:17:00 BUG TRIMMER, stop date 06/06/22 8:17:00 BUG TRIMMER propofol 2021-07 No 40 mg = 4 Manuel carmen 1-29 mL, l 14:17: Emulsion, [place] 00 IV, Once, first dose 06/06/22 8:17:00 BUG TRIMMER, stop date 06/06/22 8:17:00 BUG TRIMMER lidocaine 2021-07 No 20 mg = 1 Mem oria 1-29 mL, l 14:17: Injection, [place] 00 IV, Once, first dose 06/06/22 8:17:00 BUG TRIMMER, stop date 06/06/22 8:17:00 BUG TRIMMER fentaNYL 2021-07 No 50 mcg = 1 Mem oria 1-29 mL, l 14:17: Injection, [place] 00 IV, Once, first dose 06/06/22 8:17:00 BUG TRIMMER, stop date 06/06/22 8:17:00 BUG TRIMMER propofol 2021-07 No 40 mg = 4 Manuel carmen 1-29 mL, l 14:17: Emulsion, [place] 00 IV, Once, first dose 06/06/22 8:17:00 BUG TRIMMER, stop date 06/06/22 8:17:00 BUG TRIMMER lidocaine 2021-07 No 20 mg = 1 Mem oria 1-29 mL, l 14:17: Injection, [place] 00 IV, Once, first dose 06/06/22 8:17:00 BUG TRIMMER, stop date 06/06/22 8:17:00 BUG TRIMMER fentaNYL 2021-07 No 50 mcg = 1 Mem oria 1-29 mL, l 14:17: Injection, [place] 00 IV, Once, first dose 06/06/22 8:17:00 BUG TRIMMER, stop date 06/06/22 8:17:00 BUG TRIMMER propofol 2021-07 No 40 mg = 4 Manuel carmen 1-29 mL, l 14:17: Emulsion, [place] 00 IV, Once, first dose 06/06/22 8:17:00 BUG TRIMMER, stop date 06/06/22 8:17:00 BUG TRIMMER lidocaine 2021-07 No 20 mg = 1 Mem oria 1-29 mL, l 14:17: Injection, [place] 00 IV, Once, first dose 06/06/22 8:17:00 BUG TRIMMER, stop date 06/06/22 8:17:00 BUG TRIMMER fentaNYL 2021-07 No 50 mcg = 1 Mem oria 1-29 mL, l 14:17: Injection, Eric 00 IV, Once, first dose 06/06/22 8:17:00 BUG TRIMMER, stop date 06/06/22 8:17:00 BUG TRIMMER propofol 2021-07 No 40 mg = 4 Manuel carmen 1-29 mL, l 14:17: Emulsion, [place] 00 IV, Once, first dose 06/06/22 8:17:00 BUG TRIMMER, stop date 06/06/22 8:17:00 BUG TRIMMER lidocaine 2021-07 No 20 mg = 1 Mem oria 1-29 mL, l 14:17: Injection, [place] 00 IV, Once, first dose 06/06/22 8:17:00 BUG TRIMMER, stop date 06/06/22 8:17:00 BUG TRIMMER fentaNYL 2021-07 No 50 mcg = 1 Mem oria 1-29 mL, l 14:17: Injection, Eric 00 IV, Once, first dose 06/06/22 8:17:00 BUG TRIMMER, stop date 06/06/22 8:17:00 BUG TRIMMER propofol 2021-07 No 40 mg = 4 Manuel carmen 1-29 mL, l 14:17: Emulsion, [place] 00 IV, Once, first dose 06/06/22 8:17:00 BUG TRIMMER, stop date 06/06/22 8:17:00 BUG TRIMMER lidocaine 2021-07 No 20 mg = 1 Mem oria 1-29 mL, l 14:17: Injection, [place] 00 IV, Once, first dose 06/06/22 8:17:00 BUG TRIMMER, stop date 06/06/22 8:17:00 BUG TRIMMER fentaNYL 2021-07 No 50 mcg = 1 Mem oria 1-29 mL, l 14:17: Injection, [place] 00 IV, Once, first dose 06/06/22 8:17:00 BUG TRIMMER, stop date 06/06/22 8:17:00 BUG TRIMMER propofol 2021-07 No 40 mg = 4 Manuel carmen 1-29 mL, l 14:17: Emulsion, [place] 00 IV, Once, first dose 06/06/22 8:17:00 BUG TRIMMER, stop date 06/06/22 8:17:00 BUG TRIMMER lidocaine 2021-07 No 20 mg = 1 Mem oria 1-29 mL, l 14:17: Injection, [place] 00 IV, Once, first dose 06/06/22 8:17:00 BUG TRIMMER, stop date 06/06/22 8:17:00 BUG TRIMMER fentaNYL 2021-07 No 50 mcg = 1 Mem oria 1-29 mL, l 14:17: Injection, Eric 00 IV, Once, first dose 06/06/22 8:17:00 BUG TRIMMER, stop date 06/06/22 8:17:00 BUG TRIMMER propofol 2021-07 No 40 mg = 4 Manuel carmen 1-29 mL, l 14:17: Emulsion, [place] 00 IV, Once, first dose 06/06/22 8:17:00 BUG TRIMMER, stop date 06/06/22 8:17:00 BUG TRIMMER lidocaine 2021-07 No 20 mg = 1 Mem oria 1-29 mL, l 14:17: Injection, [place] 00 IV, Once, first dose 06/06/22 8:17:00 BUG TRIMMER, stop date 06/06/22 8:17:00 BUG TRIMMER fentaNYL 2021-07 No 50 mcg = 1 Mem oria 1-29 mL, l 14:17: Injection, [place] 00 IV, Once, first dose 06/06/22 8:17:00 BUG TRIMMER, stop date 06/06/22 8:17:00 BUG TRIMMER propofol 2021-07 No 40 mg = 4 Manuel carmen 1-29 mL, l 14:17: Emulsion, [place] 00 IV, Once, first dose 06/06/22 8:17:00 BUG TRIMMER, stop date 06/06/22 8:17:00 BUG TRIMMER lidocaine 2021-07 No 20 mg = 1 Mem oria 1-29 mL, l 14:17: Injection, [place] 00 IV, Once, first dose 06/06/22 8:17:00 BUG TRIMMER, stop date 06/06/22 8:17:00 BUG TRIMMER fentaNYL 2021-07 No 50 mcg = 1 Mem oria 1-29 mL, l 14:17: Injection, Eric 00 IV, Once, first dose 06/06/22 8:17:00 BUG TRIMMER, stop date 06/06/22 8:17:00 BUG TRIMMER propofol 2021-07 No 40 mg = 4 Manuel carmen 1-29 mL, l 14:17: Emulsion, [place] 00 IV, Once, first dose 06/06/22 8:17:00 BUG TRIMMER, stop date 06/06/22 8:17:00 BUG TRIMMER lidocaine 2021-07 No 20 mg = 1 Mem oria 1-29 mL, l 14:17: Injection, Eric 00 IV, Once, first dose 06/06/22 8:17:00 BUG TRIMMER, stop date 06/06/22 8:17:00 BUG TRIMMER fentaNYL 2021-07 No 50 mcg = 1 Mem oria 1-29 mL, l 14:17: Injection, [place] 00 IV, Once, first dose 06/06/22 8:17:00 BUG TRIMMER, stop date 06/06/22 8:17:00 BUG TRIMMER propofol 2021-07 No 40 mg = 4 Manuel carmen 1-29 mL, l 14:17: Emulsion, [place] 00 IV, Once, first dose 06/06/22 8:17:00 BUG TRIMMER, stop date 06/06/22 8:17:00 BUG TRIMMER lidocaine 2021-07 No 20 mg = 1 Mem oria 1-29 mL, l 14:17: Injection, Eric 00 IV, Once, first dose 06/06/22 8:17:00 BUG TRIMMER, stop date 06/06/22 8:17:00 BUG TRIMMER LR 1,000 mL 2021-07 No 1,000 mL, M emoria 1-29 IV, 30 l 14:10: mL/hr, start date 06/06/22 8:10:00 BUG TRIMMER, 1.67, m2 LR 1,000 mL 2021-07 No 1,000 mL, M emoria 1-29 IV, 30 l 14:10: mL/hr, start date 06/06/22 8:10:00 BUG TRIMMER, 1.67, m2 LR 1,000 mL 2021-07 No 1,000 mL, M emoria 1-29 IV, 30 l 14:10: mL/hr, start date 06/06/22 8:10:00 BUG TRIMMER, 1.67, m2 LR 1,000 mL 2021-07 No 1,000 mL, M emoria 1-29 IV, 30 l 14:10: mL/hr, start date 06/06/22 8:10:00 BUG TRIMMER, 1.67, m2 LR 1,000 mL 2021-07 No 1,000 mL, M emoria 1-29 IV, 30 l 14:10: mL/hr, start date 06/06/22 8:10:00 BUG TRIMMER, 1.67, m2 LR 1,000 mL 2021-07 No 1,000 mL, M emoria 1-29 IV, 30 l 14:10: mL/hr, start 06/06/22 8:10:00 BUG TRIMMER, 1.67, m2 LR 1,000 mL 2021-07 No 1,000 mL, M emoria 1-29 IV, 30 l 14:10: mL/hr, start date 06/06/22 8:10:00 BUG TRIMMER, 1.67, m2 LR 1,000 mL 2021-07 No 1,000 mL, M emoria 1-29 IV, 30 l 14:10: mL/hr, 06/06/22 8:10:00 BUG TRIMMER, 1.67, m2 LR 1,000 mL 2021-07 No 1,000 mL, M emoria 1-29 IV, 30 l 14:10: mL/hr, 06/06/22 8:10:00 BUG TRIMMER, 1.67, m2 LR 1,000 mL 2021-07 No 1,000 mL, M emoria 1-29 IV, 30 l 14:10: mL/hr, 06/06/22 8:10:00 BUG TRIMMER, 1.67, m2 LR 1,000 mL 2021-07 No 1,000 mL, M emoria 1-29 IV, 30 l 14:10: mL/hr, 06/06/22 8:10:00 BUG TRIMMER, 1.67, m2 LR 1,000 mL 2021-07 No 1,000 mL, M emoria 1-29 IV, 30 l 14:10: mL/hr, 06/06/22 8:10:00 BUG TRIMMER, 1.67, m2 LR 1,000 mL 2021-07 No 1,000 mL, M emoria 1-29 IV, 30 l 14:10: mL/hr, start date 06/06/22 8:10:00 BUG TRIMMER, 1.67, m2 LR 1,000 mL 2021-07 No 1,000 mL, M emoria 1-29 IV, 30 l 14:10: mL/hr, start date 06/06/22 8:10:00 BUG TRIMMER, 1.67, m2 LR 1,000 mL 2021-07 No 1,000 mL, M emoria 1-29 IV, 30 l 14:10: mL/hr, start date 06/06/22 8:10:00 BUG TRIMMER, 1.67, m2 LR 1,000 mL 2021-07 No 1,000 mL, M emoria 1-29 IV, 30 l 14:10: mL/hr, start date 06/06/22 8:10:00 BUG TRIMMER, 1.67, m2 LR 1,000 mL 2021-07 No 1,000 mL, M emoria 1-29 IV, 30 l 14:10: mL/hr, start date 06/06/22 8:10:00 BUG TRIMMER, 1.67, m2 LR 1,000 mL 2021-07 No 1,000 mL, M emoria 1-29 IV, 30 l 14:10: mL/hr, start date 06/06/22 8:10:00 BUG TRIMMER, 1.67, m2 LR 1,000 mL 2021-07 No 1,000 mL, M emoria 1-29 IV, 30 l 14:10: mL/hr, date 06/06/22 8:10:00 BUG TRIMMER, 1.67, m2 LR 1,000 mL 2021-07 No 1,000 mL, M emoria 1-29 IV, 30 l 14:10: mL/hr, start date 06/06/22 8:10:00 BUG TRIMMER, 1.67, m2 LR 1,000 mL 2021-07 No 1,000 mL, M emoria 1-29 IV, 30 l 14:10: mL/hr, date 06/06/22 8:10:00 BUG TRIMMER, 1.67, m2 LR 1,000 mL 2021-07 No 1,000 mL, M emoria 1-29 IV, 30 l 14:10: mL/hr, date 06/06/22 8:10:00 BUG TRIMMER, 1.67, m2 Lidocaine 2022-1 No 0.2 mL, Memor ia 2% 0.2 mL 08-06 Injection, l IV Start 13:40: [facility] [[facility]] 00 us, Once PRN for other (see comment), first dose 06/06/22 7:40:00 BUG TRIMMER Lidocaine 2021- No 0.2 mL, Memor ia 2% 0.2 mL 08-06 Injection, l IV Start 13:40: [facility] [[facility]] 00 us, Once PRN for other (see comment), first dose 06/06/22 7:40:00 BUG TRIMMER Lidocaine 2021- No 0.2 mL, Memor ia 2% 0.2 mL 08-06 Injection, l IV Start 13:40: [facility] [[facility]] 00 us, Once PRN for other (see comment), first dose 06/06/22 7:40:00 BUG TRIMMER Lidocaine 2021- No 0.2 mL, Memor ia 2% 0.2 mL 08-06 Injection, l IV Start 13:40: [facility] [[facility]] 00 us, Once PRN for other (see comment), first dose 06/06/22 7:40:00 BUG TRIMMER Lidocaine 2021- No 0.2 mL, Memor ia 2% 0.2 mL 08-06 Injection, l IV Start 13:40: [facility] [[facility]] 00 us, Once PRN for other (see comment), first dose 06/06/22 7:40:00 BUG TRIMMER Lidocaine 2021-1 No 0.2 mL, Memor ia 2% 0.2 mL 08-06 Injection, l IV Start 13:40: [facility] [[facility]] 00 us, Once PRN for other (see comment), first dose 06/06/22 7:40:00 BUG TRIMMER Lidocaine 2021-1 No 0.2 mL, Memor ia 2% 0.2 mL 08-06 Injection, l IV Start 13:40: [facility] [[facility]] 00 us, Once PRN for other (see comment), first dose 06/06/22 7:40:00 BUG TRIMMER Lidocaine 2021-1 No 0.2 mL, Memor ia 2% 0.2 mL -29 Injection, l IV Start 13:40: [facility] [place] [[place]] 00 us, Once PRN for other (see comment), first dose 06/06/22 7:40:00 BUG TRIMMER Lidocaine 2021- No 0.2 mL, Memor ia 2% 0.2 mL - Injection, l IV Start 13:40: [facility] [place] [[place]] 00 us, Once PRN for other (see comment), first dose 06/06/22 7:40:00 BUG TRIMMER Lidocaine 2021- No 0.2 mL, Memor ia 2% 0.2 mL - Injection, l IV Start 13:40: [facility] [place] [[place]] 00 us, Once PRN for other (see comment), first dose 06/06/22 7:40:00 BUG TRIMMER Lidocaine 2021- No 0.2 mL, Memor ia 2% 0.2 mL 08-06 Injection, l IV Start 13:40: [facility] [[place]] 00 us, Once PRN for other (see comment), first dose 06/06/22 7:40:00 BUG TRIMMER Lidocaine 2021- No 0.2 mL, Memor ia 2% 0.2 mL 08-06 Injection, l IV Start 13:40: [facility] 00 us, Once PRN for other (see comment), first dose 06/06/22 7:40:00 BUG TRIMMER Lidocaine 2021- No 0.2 mL, Memor ia 2% 0.2 mL 08-06 Injection, l IV Start 13:40: [facility] us, Once PRN for other (see comment), first dose 06/06/22 7:40:00 BUG TRIMMER Lidocaine 2021- No 0.2 mL, Memor ia 2% 0.2 mL 08-06 Injection, l IV Start 13:40: [facility] [place] [[place]] 00 us, Once PRN for other (see comment), first dose 06/06/22 7:40:00 BUG TRIMMER Lidocaine 2021- No 0.2 mL, Memor ia 2% 0.2 mL - Injection, l IV Start 13:40: [facility] [[place]] 00 us, Once PRN for other (see comment), first dose 06/06/22 7:40:00 BUG TRIMMER Lidocaine 2021-07 No 0.2 mL, Memor ia 2% 0.2 mL - Injection, l IV Start 13:40: [facility] [place] [[place]] 00 us, Once PRN for other (see comment), first dose 06/06/22 7:40:00 BUG TRIMMER Lidocaine 2021-07 No 0.2 mL, Memor ia 2% 0.2 mL - Injection, l IV Start 13:40: [facility] [place] [[place]] 00 us, Once PRN for other (see comment), first dose 06/06/22 7:40:00 BUG TRIMMER Lidocaine 2021-07 No 0.2 mL, Memor ia 2% 0.2 mL 08-06 Injection, l IV Start 13:40: [facility] [place] [[place]] 00 us, Once PRN for other (see comment), first dose 06/06/22 7:40:00 BUG TRIMMER Lidocaine 2021-07 No 0.2 mL, Memor ia 2% 0.2 mL 08-06 Injection, l IV Start 13:40: [facility] [place] [[place]] 00 us, Once PRN for other (see comment), first dose 06/06/22 7:40:00 BUG TRIMMER Lidocaine 2021-07 No 0.2 mL, Memor ia 2% 0.2 mL 08-06 Injection, l IV Start 13:40: [facility] [place] [[place]] 00 us, Once PRN for other (see comment), first dose 06/06/22 7:40:00 BUG TRIMMER Lidocaine 2021-07 No 0.2 mL, Memor ia 2% 0.2 mL 08-06 Injection, l IV Start 13:40: [facility] [place] [[place]] 00 us, Once PRN for other (see comment), first dose 06/06/22 7:40:00 BUG TRIMMER Lidocaine 2021-07 No 0.2 mL, Memor ia 2% 0.2 mL -29 Injection, l IV Start 13:40: [facility] [place] [[place]] 00 us, Once PRN for other (see comment), first dose 06/06/22 7:40:00 BUG TRIMMER ferrous 2021-07 No 325mg QD Take 1 Method i sulfate 325 0-10 10-[address] (65 FE) MG 09:15: 00:00 (325 mg [facility] tablet 21 :00 total) by l mouth daily with breakfast. ferrous 2021-07- No 325mg QD Take 1 Method i sulfate 325 0-10 10-[address] (65 FE) MG 09:15: 00:00 (325 mg [facility] tablet 21 :00 total) by l mouth daily with breakfast. ferrous 2021-07- No 325mg QD Take 1 Method i sulfate 325 0-10 10-[address] (65 FE) MG 09:15: 00:00 (325 mg [facility] tablet 21 :00 total) by l mouth daily with breakfast. ferrous 2021-07- No 325mg QD Take 1 Method i sulfate 325 0-10 10-[address] (65 FE) MG 09:15: 00:00 (325 mg [facility] tablet 21 :00 total) by l mouth daily with breakfast. albuterol 2021-07 Yes 2{puff} Q6H Inhale 2 M ethodi (PROAIR 0-[address] HFA) 90 09:05: every 6 Hospita mcg/actuati 52 (six) l on inhaler hours as needed. Lactobacill 2021-07 Yes Take by Met hodi us 0-[address] rhamnosus 09:05: Hospita GG 52 l (CULTURELLE ORAL) cholecalcif 2021-07 Yes Q24H daily. Meth bassem renetta, 0-10 st vitamin D3, 09:05: Hospit a 125 mcg 52 l (5,000 unit) tablet albuterol 2021-07 Yes 2{puff} Q6H Inhale 2 M ethodi (PROAIR 0-[address] HFA) 90 09:05: every 6 Hospita mcg/actuati 52 (six) l on inhaler hours as needed. Lactobacill 2021-07 Yes Take by Met hodi us 0-[address] rhamnosus 09:05: Hospita GG 52 l (CULTURELLE ORAL) cholecalcif 2021-07 Yes Q24H daily. Meth bassem renetta, 0-10 st vitamin D3, 09:05: Hospit a 125 mcg 52 l (5,000 unit) tablet albuterol 2021-07 Yes 2{puff} Q6H Inhale 2 M ethodi (PROAIR 0-[address] HFA) 90 09:05: every 6 Hospita mcg/actuati 52 (six) l on inhaler hours as needed. Lactobacill 2021-07 Yes Take by Met hodi us 0-[address] rhamnosus 09:05: Hospita GG 52 l (CULTURELLE ORAL) cholecalcif 2021-07 Yes Q24H daily. Meth bassem renetta, 0-10 st vitamin D3, 09:05: Hospit a 125 mcg 52 l (5,000 unit) tablet albuterol 2021-07 Yes 2{puff} Q6H Inhale 2 M ethodi (PROAIR 0-[address] HFA) 90 09:05: every 6 Hospita mcg/actuati 52 (six) l on inhaler hours as needed. Lactobacill 2021-07 Yes Take by Met hodi us 0-[address] rhamnosus 09:05: Hospita GG 52 l (CULTURELLE ORAL) cholecalcif 2021-07 Yes Q24H daily. Meth bassem renetta, 0-10 st vitamin D3, 09:05: Hospit a 125 mcg 52 l (5,000 unit) tablet albuterol 2021-07 Yes 2{puff} Q6H Inhale 2 M ethodi (PROAIR 0-[address] HFA) 90 09:05: every 6 Hospita mcg/actuati 52 (six) l on inhaler hours as needed. Lactobacill 2021-07 Yes Take by Met hodi us 0-[address] rhamnosus 09:05: Hospita GG 52 l (CULTURELLE ORAL) cholecalcif 2021-07 Yes Q24H daily. Meth bassem renetta, 0-10 st vitamin D3, 09:05: Hospit a 125 mcg 52 l (5,000 unit) tablet triamcinolo 2021-07- No [id number] Q.5D Apply Methodi ne 0-10 10-[address] ([place]) 00:00: 04:59 2 (two) Hosp jes 0.1 % cream 00 :00 times a l day. triamcinolo 2021-07- No [id number] Q.5D Apply Methodi ne 0-10 10-[address] ([place]) 00:00: 04:59 2 (two) Hosp jes 0.1 % cream 00 :00 times a l day. triamcinolo 2021-07- No [id number] Q.5D Apply Methodi ne 0-10 10-[address] ([place]) 00:00: 04:59 2 (two) Hosp jes 0.1 % cream 00 :00 times a l day. triamcinolo 2021-07- No [id number] Q.5D Apply Methodi ne 0-10 10-[address] ([place]) 00:00: 04:59 2 (two) Hosp jes 0.1 % cream 00 :00 times a l day. triamcinolo 2021-07- No [id number] Q.5D Apply Methodi ne 0-10 10-[address] ([place]) 00:00: 04:59 2 (two) Hosp jes 0.1 % cream 00 :00 times a l day. Albuterol 0 Yes 2 puffs, Manuel carmen (Eqv-ProAir 9-17 MDI, q6hr, l HFA) 90 18:26: PRN as Eric mcg/inh 00 needed for inhalation wheezing, aerosol ASTHMA Albuterol 0 Yes 2 puffs, Manuel carmen (Eqv-ProAir 9-17 MDI, q6hr, l HFA) 90 18:26: PRN as [place] mcg/inh 00 needed for inhalation wheezing, aerosol ASTHMA Albuterol 0 Yes 2 puffs, Manuel carmen (Eqv-ProAir 9-17 MDI, q6hr, l HFA) 90 18:26: PRN as Eric mcg/inh 00 needed for inhalation wheezing, aerosol ASTHMA Albuterol 2021-0 Yes 2 puffs, Manuel carmen (Eqv-ProAir 9-17 MDI, q6hr, l HFA) 90 18:26: PRN as Eric mcg/inh 00 needed for inhalation wheezing, aerosol ASTHMA Albuterol 2021-0 Yes 2 puffs, Manuel carmen (Eqv-ProAir 9-17 MDI, q6hr, l HFA) 90 18:26: PRN as [place] mcg/inh 00 needed for inhalation wheezing, aerosol ASTHMA Albuterol 0 Yes 2 puffs, Manuel carmen (Eqv-ProAir 9-17 MDI, q6hr, l HFA) 90 18:26: PRN as Eric mcg/inh 00 needed for inhalation wheezing, aerosol ASTHMA Albuterol 2021-0 Yes 2 puffs, Manuel carmen (Eqv-ProAir 9-17 MDI, q6hr, l HFA) 90 18:26: PRN as Eric mcg/inh 00 needed for inhalation wheezing, aerosol ASTHMA Albuterol 0 Yes 2 puffs, Manuel carmen (Eqv-ProAir 9-17 MDI, q6hr, l HFA) 90 18:26: PRN as Eric mcg/inh 00 needed for inhalation wheezing, aerosol ASTHMA Albuterol 2021- Yes 2 puffs, Manuel carmen (Eqv-ProAir 9-17 MDI, q6hr, l HFA) 90 18:26: PRN as Eric mcg/inh 00 needed for inhalation wheezing, aerosol ASTHMA Albuterol Yes 2 puffs, Manuel carmen (Eqv-ProAir 9-17 MDI, q6hr, l HFA) 90 18:26: PRN as Eric mcg/inh 00 needed for inhalation wheezing, aerosol ASTHMA Albuterol 2021-0 Yes 2 puffs, Manuel carmen (Eqv-ProAir 9-17 MDI, q6hr, l HFA) 90 18:26: PRN as [place] mcg/inh 00 needed for inhalation wheezing, aerosol ASTHMA Albuterol 2021-0 Yes 2 puffs, Manuel carmen (Eqv-ProAir 9-17 MDI, q6hr, l HFA) 90 18:26: PRN as [place] mcg/inh 00 needed for inhalation wheezing, aerosol ASTHMA Albuterol 2021-0 Yes 2 puffs, Manuel carmen (Eqv-ProAir 9-17 MDI, q6hr, l HFA) 90 18:26: PRN as Eric mcg/inh 00 needed for inhalation wheezing, aerosol ASTHMA Albuterol 0 Yes 2 puffs, Manuel carmen (Eqv-ProAir 9-17 MDI, q6hr, l HFA) 90 18:26: PRN as [place] mcg/inh 00 needed for inhalation wheezing, aerosol ASTHMA Albuterol Yes 2 puffs, Manuel carmen (Eqv-ProAir 9-17 MDI, q6hr, l HFA) 90 18:26: PRN as Eric mcg/inh 00 needed for inhalation wheezing, aerosol ASTHMA Albuterol Yes 2 puffs, Manuel carmen (Eqv-ProAir 9-17 MDI, q6hr, l HFA) 90 18:26: PRN as Eric mcg/inh 00 needed for inhalation wheezing, aerosol ASTHMA Albuterol Yes 2 puffs, Manuel carmen (Eqv-ProAir 9-17 MDI, q6hr, l HFA) 90 18:26: PRN as [place] mcg/inh 00 needed for inhalation wheezing, aerosol ASTHMA Albuterol Yes 2 puffs, Manuel carmen (Eqv-ProAir 9-17 MDI, q6hr, l HFA) 90 18:26: PRN as [place] mcg/inh 00 needed for inhalation wheezing, aerosol ASTHMA Albuterol Yes 2 puffs, Manuel carmen (Eqv-ProAir 9-17 MDI, q6hr, l HFA) 90 18:26: PRN as [place] mcg/inh 00 needed for inhalation wheezing, aerosol ASTHMA Albuterol Yes 2 puffs, Manuel carmen (Eqv-ProAir 9-17 MDI, q6hr, l HFA) 90 18:26: PRN as [place] mcg/inh 00 needed for inhalation wheezing, aerosol ASTHMA Albuterol Yes 2 puffs, Manuel carmen (Eqv-ProAir 9-17 MDI, q6hr, l HFA) 90 18:26: PRN as [place] mcg/inh 00 needed for inhalation wheezing, aerosol ASTHMA Albuterol Yes 2 puffs, Manuel carmen (Eqv-ProAir 9-17 MDI, q6hr, l HFA) 90 18:26: PRN as [place] mcg/inh 00 needed for inhalation wheezing, aerosol ASTHMA Pepcid 20 Yes 20 mg = 1 Mem [facility]ria mg oral 9-17 tabs, l tablet 18:11: Oral, [place] 00 Daily, GERD Pepcid 20 0 Yes 20 mg = 1 Mem [facility]ria mg oral 9-17 tabs, l tablet 18:11: Oral, Eric Daily, GERD Pepcid 20 0 Yes 20 mg = 1 [facility] mg oral 9-17 tabs, l tablet 18:11: Oral, [place] Daily, GERD Pepcid 20 0 Yes 20 mg = 1 [facility] mg oral 9-17 tabs, l tablet 18:11: Oral, Eric Daily, GERD Pepcid 20 0 Yes 20 mg = 1 [facility] mg oral 9-17 tabs, l tablet 18:11: Oral, [place] Daily, GERD Pepcid 20 0 Yes 20 mg = 1 [facility] mg oral 9-17 tabs, l tablet 18:11: Oral, [place] Daily, GERD Pepcid 20 0 Yes 20 mg = 1 [facility] mg oral 9-17 tabs, l tablet 18:11: Oral, [place] Daily, GERD Pepcid 20 0 Yes 20 mg = 1 [facility] mg oral 9-17 tabs, l tablet 18:11: Oral, [place] Daily, GERD Pepcid 20 0 Yes 20 mg = 1 [facility] mg oral 9-17 tabs, l tablet 18:11: Oral, [place] Daily, GERD Pepcid 20 0 Yes 20 mg = 1 [facility] mg oral 9-17 tabs, l tablet 18:11: Oral, [place] 00 Daily, GERD Pepcid 20 0 Yes 20 mg = 1 [facility] mg oral 9-17 tabs, l tablet 18:11: Oral, [place] 00 Daily, GERD Pepcid 20 2021-0 Yes 20 mg = 1 [facility] mg oral 9-17 tabs, l tablet 18:11: Oral, [place] 00 Daily, GERD Pepcid 20 0 Yes 20 mg = 1 [facility] mg oral 9-17 tabs, l tablet 18:11: Oral, [place] 00 Daily, GERD Pepcid 20 0 Yes 20 mg = 1 [facility] mg oral 9-17 tabs, l tablet 18:11: Oral, [place] 00 Daily, GERD Pepcid 20 2021-0 Yes 20 mg = 1 [facility] mg oral 9-17 tabs, l tablet 18:11: Oral, [place] Daily, GERD Pepcid 20 2021-0 Yes 20 mg = 1 [facility] mg oral 9-17 tabs, l tablet 18:11: Oral, [place] Daily, GERD Pepcid 20 2021-0 Yes 20 mg = 1 [facility] mg oral 9-17 tabs, l tablet 18:11: Oral, [place] Daily, GERD Pepcid 20 2021-0 Yes 20 mg = 1 [facility] mg oral 9-17 tabs, l tablet 18:11: Oral, [place] Daily, GERD Pepcid 20 2021-0 Yes 20 mg = 1 [facility] mg oral 9-17 tabs, l tablet 18:11: Oral, [place] Daily, GERD Pepcid 20 2021-0 Yes 20 mg = 1 [facility] mg oral 9-17 tabs, l tablet 18:11: Oral, [place] Daily, GERD Pepcid 20 2021-0 Yes 20 mg = 1 [facility] mg oral 9-17 tabs, l tablet 18:11: Oral, [place] Daily, GERD Pepcid 20 2021-0 Yes 20 mg = 1 [facility] mg oral 9-17 tabs, l tablet 18:11: Oral, [place] Daily, GERD famotidine 2021-0 Yes 20mg Take 1 [facility] (PEPCID) 20 7-14 tablet (20 st MG tablet 00:00: mg total) [facility] by mouth. l famotidine 2021-0 Yes 20mg Take 1 [facility] (PEPCID) 20 7-14 tablet (20 st MG tablet 00:00: mg total) [facility] 00 by mouth. l famotidine 2022-0 Yes 20mg Take 1 [facility] (PEPCID) 20 7-14 tablet (20 st MG tablet 00:00: mg total) [facility] 00 by mouth. l famotidine 2022-0 Yes 20mg Take 1 [facility] (PEPCID) 20 7-14 tablet (20 st MG tablet 00:00: mg total) [facility] 00 by mouth. l famotidine 2-0 Yes 20mg Take 1 [facility] (PEPCID) 20 7-14 tablet (20 st MG tablet 00:00: mg total) [facility] 00 by mouth. l Albuterol Yes Fide 1 puff as [facility] Sulfate HFA 6-23 Mike needed l 04:10: Eric Albuterol Yes Fide 1 puff as [facility] Sulfate HFA 6-23 Mike needed l 04:10: Eric Albuterol Yes Fide 1 puff as [facility] Sulfate HFA 6-23 Mike needed l 04:10: Eric Albuterol Yes Fide 1 puff as [facility] Sulfate HFA 6-23 Mike needed l 04:10: Eric Albuterol Yes Fide 1 puff as [facility] Sulfate HFA 6-23 Mike needed l 04:10: Eric Albuterol Yes Fide 1 puff as [facility] Sulfate HFA 6-23 Mike needed l 04:10: Eric Albuterol 0 Yes Fide 1 puff as [facility] Sulfate HFA 6-23 Mike needed l 04:10: Eric Albuterol Yes Fide 1 puff as [facility] Sulfate HFA 6-23 Mike needed l 04:10: Eric Albuterol 0 Yes Fide 1 puff as [facility] Sulfate HFA 6-23 Mike needed l 04:10: Eric Albuterol Yes Fide 1 puff as [facility] Sulfate HFA 6-23 Mike needed l 04:10: Eric Albuterol 0 Yes Fide 1 puff as [facility] Sulfate HFA 6-23 Mike needed l 04:10: Eric Albuterol 0 Yes Fide 1 puff as [facility] Sulfate HFA 6-23 Mike needed l 04:10: Eric Albuterol 0 Yes Fide 1 puff as [facility] Sulfate HFA 6-23 Mike needed l 04:10: Eric Albuterol 0 Yes Fide 1 puff as [facility] Sulfate HFA 6-23 Mike needed l 04:10: Eric Albuterol 2020-0 Yes Fide 1 puff as [facility] Sulfate HFA 6-23 Mike needed l 04:10: Eric Albuterol 0 Yes Fide 1 puff as [facility] Sulfate HFA 6-23 Mike needed l 04:10: Eric Albuterol 0 Yes Fide 1 puff as [facility] Sulfate HFA 6-23 [facility] needed l 04:10: Eric Albuterol 0 Yes Fide 1 puff as [facility] Sulfate HFA 6-23 [facility] needed l 04:10: Eric Albuterol Yes Fide 1 puff as [facility] Sulfate HFA 6-23 [facility] needed l 04:10: Eric Albuterol 0 Yes Fide 1 puff as [facility] Sulfate HFA 6-23 Mike needed l 04:10: Eric Albuterol 0 Yes Fide 1 puff as [facility] Sulfate HFA 6-23 Mike needed l 04:10: Eric Albuterol 0 Yes Fide 1 puff as [facility] Sulfate HFA 6-23 Mike needed l 04:10: Eric Albuterol 0 Yes Fide 1 puff as [facility] Sulfate HFA 6-23 [facility] needed l 04:10: Eric Tramadol 0 Yes Fide 1 tablet [facility] HCl 6-21 Mike as needed l 00:00: [place] 00 Tramadol 0 Yes Fide 1 tablet [facility] HCl 6-21 Mike as needed l 00:00: [place] 00 Tramadol 0 Yes Fide 1 tablet [facility] HCl 6-21 [facility] as needed l 00:00: [place] 00 Tramadol 0 Yes Fide 1 tablet [facility] HCl 6-21 [facility] as needed l 00:00: [place] 00 Tramadol 2020-0 Yes Fide 1 tablet [facility] HCl 6-21 [facility] as needed l 00:00: [place] 00 Tramadol 0 Yes Fide 1 tablet [facility] HCl 6-21 [facility] as needed l 00:00: Tramadol 2020-0 Yes Fide 1 tablet [facility] HCl 6-21 [facility] as needed l 00:00: Tramadol 2020-0 Yes Fide 1 tablet [facility] HCl 6-21 [facility] as needed l 00:00: Tramadol 2020-0 Yes Fide 1 tablet [facility] HCl 6-21 [facility] as needed l 00:00: Tramadol 2020-0 Yes Fide 1 tablet [facility] HCl 6-21 [facility] as needed l 00:00: Tramadol 2020-0 Yes Fide 1 tablet [facility] HCl 6-21 [facility] as needed l 00:00: Tramadol 2020-0 Yes Fide 1 tablet [facility] HCl 6-21 [facility] as needed l 00:00: Tramadol 2020-0 Yes Fide 1 tablet [facility] HCl 6-21 [facility] as needed l 00:00: Tramadol 2020-0 Yes Fide 1 tablet [facility] HCl 6-21 [facility] as needed l 00:00: Tramadol 2020-0 Yes Fide 1 tablet [facility] HCl 6-21 [facility] as needed l 00:00: Tramadol 2020-0 Yes Fide 1 tablet [facility] HCl 6-21 [facility] as needed l 00:00: Tramadol 2020-0 Yes Fide 1 tablet [facility] HCl 6-21 [facility] as needed l 00:00: Tramadol 2020-0 Yes Fide 1 tablet [facility] HCl 6-21 [facility] as needed l 00:00: Tramadol 2020-0 Yes Fide 1 tablet [facility] HCl 6-21 [facility] as needed l 00:00: Tramadol 2020-0 Yes Fide 1 tablet [facility] HCl 6-21 [facility] as needed l 00:00: Tramadol 1-0 Yes Fide 1 tablet [facility] HCl 6-21 [facility] as needed l 00:00: Tramadol 1-0 Yes Fide 1 tablet [facility] HCl 6-21 [facility] as needed l 00:00: traMADoL 50 1-0 Yes [id number] 50mg Take 1 [facility] mg tablet 6-21 tablet by ity o f 00:00: mouth [place] 00 every 6 Medical (six) Branch hours as needed for Pain (scale 7-10). Indication s: acute pain traMADoL 50 1-0 Yes [id number] 50mg Take 1 [facility] mg tablet 6-21 tablet by ity o f 00:00: mouth [place] 00 every 6 Medical (six) Branch hours as needed for Pain (scale 7-10). Indication s: acute pain traMADoL 50 1-0 Yes [id number] 50mg Take 1 [facility] mg tablet 6-21 tablet by ity o f 00:00: mouth [place] 00 every 6 Medical (six) Branch hours as needed for Pain (scale 7-10). Indication s: acute pain traMADoL 50 1-0 Yes [id number] 50mg Take 1 [facility] mg tablet 6-21 tablet by ity o f 00:00: mouth [place] 00 every 6 Medical (six) Branch hours as needed for Pain (scale 7-10). Indication s: acute pain Tramadol 2020-0 Yes Fide 1 tablet [facility] HCl 6-21 [facility] as needed l 00:00: Ferrous 1-0 Yes Fide 1 tablet [facility] Sulfate 4-20 Mike l 00:00: Ferrous 2021-0 Yes Fide 1 tablet [facility] Sulfate 4-20 Mike l 00:00: Ferrous 2021-0 Yes Fide 1 tablet [facility] Sulfate 4-20 Mike l 00:00: Ferrous 2021-0 Yes Fide 1 tablet [facility] Sulfate 4-20 Mike l 00:00: Ferrous 2021-0 Yes Fide 1 tablet [facility] Sulfate 4-20 Mike l 00:00: Ferrous 2021-0 Yes Fide 1 tablet [facility] Sulfate 4-20 Mike l 00:00: Ferrous 2021-0 Yes Fide 1 tablet [facility] Sulfate 4-20 Mike l 00:00: Ferrous 2021-0 Yes Fide 1 tablet [facility] Sulfate 4-20 Mike l 00:00: Ferrous 2021-0 Yes Fide 1 tablet [facility] Sulfate 4-20 Mike l 00:00: Ferrous 2021-0 Yes Fide 1 tablet [facility] Sulfate 4-20 Mike l 00:00: Ferrous 2021-0 Yes Fide 1 tablet [facility] Sulfate 4-20 Mike l 00:00: Ferrous 2021-0 Yes Fide 1 tablet [facility] Sulfate 4-20 Mike l 00:00: Ferrous 2021-0 Yes Fide 1 tablet [facility] Sulfate 4-20 Mike l 00:00: Ferrous 2021-0 Yes Fide 1 tablet [facility] Sulfate 4-20 Mike l 00:00: Ferrous 1-0 Yes Fide 1 tablet [facility] Sulfate 4-20 Mike l 00:00: Ferrous 1-0 Yes Fide 1 tablet [facility] Sulfate 4-20 Mike l 00:00: Ferrous 1-0 Yes Fide 1 tablet [facility] Sulfate 4-20 Mike l 00:00: Ferrous 1-0 Yes Fide 1 tablet [facility] Sulfate 4-20 Mike l 00:00: Ferrous 1-0 Yes Fide 1 tablet [facility] Sulfate 4-20 Mike l 00:00: Ferrous 1-0 Yes Fide 1 tablet [facility] Sulfate 4-20 Mike l 00:00: Ferrous 1-0 Yes Fide 1 tablet [facility] Sulfate 4-20 Mike l 00:00: Ferrous 1-0 Yes Fide 1 tablet [facility] Sulfate 4-20 Mike l 00:00: Ferrous 1-0 Yes Fide 1 tablet [facility] Sulfate 4-20 Mike l 00:00: iohexol 2021-0 1- No [id number] 120mL 120 mL, [facility] (OMNIPAQUE 3-13 03- Intravenou it y of 350 15:30: 15:16 s, ONCE, 1 [place] BULK-100 00 :00 dose, Sat Medica l mL) 09/18/20 at Branch injection 0930, 120 mL Routine cephALEXin 2020-0 Yes [id number] 500mg Take 1 [facility] 500 mg 3-13 capsule by ity of capsule 00:00: mouth (four) Medical times Branch daily. cephALEXin 2020-0 Yes [id number] 500mg Take 1 [facility] 500 mg 3-13 capsule by ity of capsule 00:00: mouth (four) Medical times Branch daily. cephALEXin 2020-0 Yes [id number] 500mg Take 1 [facility] 500 mg 3-13 capsule by ity of capsule 00:00: mouth (four) Medical times Branch daily. cephALEXin 2020-0 Yes [id number] 500mg Take 1 [facility] 500 mg 3-13 capsule by ity of capsule 00:00: mouth (four) Medical times Branch daily. cephALEXin 2020-0 Yes [id number] 500mg Take 1 [facility] 500 mg 3-13 capsule by ity of capsule 00:00: mouth [place] (four) Medical times Branch daily. cephALEXin 2020-0 Yes [id number] 500mg Take 1 [facility] 500 mg 3-13 capsule by ity of capsule 00:00: mouth [place] (four) Medical times Branch daily. HYDROcodone 2020- No [id number] 1{tbl} Take 1 [facility] -acetaminop 3-13 - tablet by it y of hen 5-325 00:00: 04:59 mouth [place] mg tablet 00 :00 every 6 Medical (six) Branch hours as needed for Pain (scale 4-6) for up to 7 days. Indication s: acute pain ketorolac 2020-2020- No 60mg 60 mg, [facility] rs (TORADOL) -08 03-08 Intramuscu ity of injection 12:30: 11:29 lar, ONCE, [place] 60 mg 00 :00 1 dose, Medical 09/13/20 Branch at 0630, BEULAH
Fa cult[facility] member approving Restricted medication : YOMAIRA DICK levoFLOXaci 2020-0 Yes [id number] 500mg Take 1 [facility] n 3-08 tablet by ity of (LEVAQUIN) 00:00: mouth [place] 500 mg 00 every 24 Medical tablet (twenty-fo Branch ur) hours. traMADoL 2020-0 Yes [id number] 50mg Take 1 [facility] (ULTRAM) 50 3-08 tablet by ity of mg tablet 00:00: mouth [place] 00 every 6 Medical (six) Branch hours as needed for Pain (scale 7-10). Indication s: acute pain methocarbam 2021-0 Yes [id number] 500mg Take 1 [facility] oL 3-08 tablet by ity of (ROBAXIN) 00:00: mouth [place] 500 mg 00 every 6 Medical tablet (six) Branch hours as needed (MUSCLE SPASM). levoFLOXaci 2021-0 Yes [id number] 500mg Take 1 [facility] n 3-08 tablet by ity of (LEVAQUIN) 00:00: mouth [place] 500 mg 00 every 24 Medical tablet (twenty-fo Branch ur) hours. traMADoL 2021-0 Yes [id number] 50mg Take 1 [facility] (ULTRAM) 50 3-08 tablet by ity of mg tablet 00:00: mouth [place] 00 every 6 Medical (six) Branch hours as needed for Pain (scale 7-10). Indication s: acute pain methocarbam 2021-0 Yes [id number] 500mg Take 1 [facility] oL 3-08 tablet by ity of (ROBAXIN) 00:00: mouth [place] 500 mg 00 every 6 Medical tablet (six) Branch hours as needed (MUSCLE SPASM). levoFLOXaci 2021-0 Yes [id number] 500mg Take 1 [facility] n 3-08 tablet by ity of (LEVAQUIN) 00:00: mouth [place] 500 mg 00 every 24 Medical tablet (twenty-fo Branch ur) hours. traMADoL 2021-0 Yes [id number] 50mg Take 1 [facility] (ULTRAM) 50 3-08 tablet by ity of mg tablet 00:00: mouth [place] 00 every 6 Medical (six) Branch hours as needed for Pain (scale 7-10). Indication s: acute pain methocarbam 2021-0 Yes [id number] 500mg Take 1 [facility] oL 3-08 tablet by ity of (ROBAXIN) 00:00: mouth [place] 500 mg 00 every 6 Medical tablet (six) Branch hours as needed (MUSCLE SPASM). levoFLOXaci 2021-0 Yes [id number] 500mg Take 1 [facility] n 3-08 tablet by ity of (LEVAQUIN) 00:00: mouth [place] 500 mg 00 every 24 Medical tablet (twenty-fo Branch ur) hours. methocarbam 2021-0 Yes [id number] 500mg Take 1 [facility] oL 3-08 tablet by ity of (ROBAXIN) 00:00: mouth [place] 500 mg 00 every 6 Medical tablet (six) Branch hours as needed (MUSCLE SPASM). levoFLOXaci 2021-0 Yes [id number] 500mg Take 1 [facility] n 3-08 tablet by ity of (LEVAQUIN) 00:00: mouth [place] 500 mg 00 every 24 Medical tablet (twenty-fo Branch ur) hours. methocarbam 2021-0 Yes [id number] 500mg Take 1 [facility] oL 3-08 tablet by ity of (ROBAXIN) 00:00: mouth [place] 500 mg 00 every 6 Medical tablet (six) Branch hours as needed (MUSCLE SPASM). levoFLOXaci 1-0 Yes [id number] 500mg Take 1 [facility] n 3-08 tablet by ity of (LEVAQUIN) 00:00: mouth [place] 500 mg 00 every 24 Medical tablet (twenty-fo Branch ur) hours. methocarbam 2021-0 Yes [id number] 500mg Take 1 [facility] oL 3-08 tablet by ity of (ROBAXIN) 00:00: mouth [place] 500 mg 00 every 6 Medical tablet (six) Branch hours as needed (MUSCLE SPASM). levoFLOXaci 1-0 Yes [id number] 500mg Take 1 [facility] n 3-08 tablet by ity of (LEVAQUIN) 00:00: mouth [place] 500 mg 00 every 24 Medical tablet (twenty-fo Branch ur) hours. methocarbam 1-0 Yes [id number] 500mg Take 1 [facility] oL 3-08 tablet by ity of (ROBAXIN) 00:00: mouth [place] 500 mg 00 every 6 Medical tablet (six) Branch hours as needed (MUSCLE SPASM). traMADoL 2020- No [id number] 50mg Take 1 [facility] s (ULTRAM) 50 3-08 06-21 tablet by it y of mg tablet 00:00: 00:00 mouth [place] 00 :00 every 6 Medical (six) Branch hours as needed for Pain (scale 7-10). Indication s: acute pain ondansetron 2019-07- No 4mg 4 mg, Slow [facility] (ZOFRAN 07-31 IV Push, ity of (PF)) 01:45: 01:13 ONCE, 1 [place] injection 4 00 :00 dose, Sun Med ical mg 05/30/20 Branch at 1945, BEULAH NaCl 0.9% 2019-07- No 1000mL at 999 Uni vers (NS) bolus 1-23 11-23 mL/hr, ity of infusion 00:45: 02:30 1,000 mL, [facility] as 1,000 mL 00 :00 IV Medical Infusion, Branch ONCE, 1 dose, 05/30/20 at 1845, BEULAH cephALEXin 2019- 2020- No [id number] 500mg Take 1 [facility] 500 mg 07-30 11-30 capsule by ity of capsule 00:00: 05:59 mouth 2 [place] 00 :00 (two) Medical times Branch daily for 7 days. benzonatate 2020-0 2020- No 100mg 100 mg, U nivers (TESSALON 7-13 07-13 Oral, ity of PERLES) 11:30: 10:36 ONCE, 1 [place] capsule 100 00 :00 dose, Mon Med ical mg 01/19/20 at Branch 0630, Routine benzonatate 2020-0 Yes [id number] 100mg Take 1 [facility] 100 mg 7-13 capsule by ity of capsule 00:00: mouth 3 [place] 00 (three) Medical times Branch daily as needed for Cough. chlorphenir 2020-0 Yes [id number] 4mg Take 1 [facility] amine 4 mg 7-13 tablet by ity of tablet 00:00: mouth [place] 00 every 6 Medical (six) Branch hours as needed for Allergies or Runny nose. multivitami 2020-0 Yes [id number] 1{capsu Take 1 [facility] n capsule 7-13 le} capsule by ity of 00:00: mouth [place] 00 daily. Medical Branch calcium-mag 2020-0 Yes [id number] Take as [facility] nesium-zinc 7-13 directed ity of 333-133-8.3 00:00: for daily [place] mg Tab 00 dose. Medical Branch benzonatate 2020-0 Yes [id number] 100mg Take 1 [facility] 100 mg 7-13 capsule by ity of capsule 00:00: mouth 3 [place] 00 (three) Medical times Branch daily as needed for Cough. chlorphenir 2020-0 Yes [id number] 4mg Take 1 [facility] amine 4 mg 7-13 tablet by ity of tablet 00:00: mouth [place] 00 every 6 Medical (six) Branch hours as needed for Allergies or Runny nose. multivitami 2020-0 Yes [id number] 1{capsu Take 1 [facility] n capsule 7-13 le} capsule by ity of 00:00: mouth [place] 00 daily. Medical Branch calcium-mag 2020-0 Yes [id number] Take as [facility] nesium-zinc 7-13 directed ity of 333-133-8.3 00:00: for daily [place] mg Tab 00 dose. Medical Branch benzonatate 2020-0 Yes [id number] 100mg Take 1 [facility] 100 mg 7-13 capsule by ity of capsule 00:00: mouth 3 [place] 00 (three) Medical times Branch daily as needed for Cough. chlorphenir 2020-0 Yes [id number] 4mg Take 1 [facility] amine 4 mg 7-13 tablet by ity of tablet 00:00: mouth [place] 00 every 6 Medical (six) Branch hours as needed for Allergies or Runny nose. multivitami 2020-0 Yes [id number] 1{capsu Take 1 [facility] n capsule 7-13 le} capsule by ity of 00:00: mouth [place] 00 daily. Medical Branch calcium-mag 2020-0 Yes [id number] Take as [facility] nesium-zinc 7-13 directed ity of 333-133-8.3 00:00: for daily [place] mg Tab 00 dose. Medical Branch benzonatate 2020-0 Yes [id number] 100mg Take 1 [facility] 100 mg 7-13 capsule by ity of capsule 00:00: mouth 3 [place] 00 (three) Medical times Branch daily as needed for Cough. chlorphenir 2020-0 Yes [id number] 4mg Take 1 [facility] amine 4 mg 7-13 tablet by ity of tablet 00:00: mouth [place] 00 every 6 Medical (six) Branch hours as needed for Allergies or Runny nose. multivitami 2020-0 Yes [id number] 1{capsu Take 1 [facility] n capsule 7-13 le} capsule by ity of 00:00: mouth [place] 00 daily. Medical Branch calcium-mag 2020-0 Yes [id number] Take as [facility] nesium-zinc 7-13 directed ity of 333-133-8.3 00:00: for daily [place] mg Tab 00 dose. Medical Branch benzonatate 2020-0 Yes [id number] 100mg Take 1 [facility] 100 mg 7-13 capsule by ity of capsule 00:00: mouth 3 [place] 00 (three) Medical times Branch daily as needed for Cough. chlorphenir 2020-0 Yes [id number] 4mg Take 1 [facility] amine 4 mg 7-13 tablet by ity of tablet 00:00: mouth [place] 00 every 6 Medical (six) Branch hours as needed for Allergies or Runny nose. multivitami 2020-0 Yes [id number] 1{capsu Take 1 [facility] n capsule 7-13 le} capsule by ity of 00:00: mouth [place] 00 daily. Medical Branch calcium-mag 2020-0 Yes [id number] Take as [facility] nesium-zinc 7-13 directed ity of 333-133-8.3 00:00: for daily [place] mg Tab 00 dose. Medical Branch benzonatate 2020-0 Yes [id number] 100mg Take 1 [facility] 100 mg 7-13 capsule by ity of capsule 00:00: mouth 3 [place] 00 (three) Medical times Branch daily as needed for Cough. chlorphenir 2020-0 Yes [id number] 4mg Take 1 [facility] amine 4 mg 7-13 tablet by ity of tablet 00:00: mouth [place] 00 every 6 Medical (six) Branch hours as needed for Allergies or Runny nose. multivitami 2020-0 Yes [id number] 1{capsu Take 1 [facility] n capsule 7-13 le} capsule by ity of 00:00: mouth [place] 00 daily. Medical Branch calcium-mag 2020-0 Yes [id number] Take as [facility] nesium-zinc 7-13 directed ity of 333-133-8.3 00:00: for daily [place] mg Tab 00 dose. Medical Branch benzonatate 2020-0 Yes [id number] 100mg Take 1 [facility] 100 mg 7-13 capsule by ity of capsule 00:00: mouth 3 [place] 00 (three) Medical times Branch daily as needed for Cough. chlorphenir 2020-0 Yes [id number] 4mg Take 1 [facility] amine 4 mg 7-13 tablet by ity of tablet 00:00: mouth [place] 00 every 6 Medical (six) Branch hours as needed for Allergies or Runny nose. multivitami 2020-0 Yes [id number] 1{capsu Take 1 [facility] n capsule 7-13 le} capsule by ity of 00:00: mouth [place] 00 daily. Medical Branch calcium-mag 2020-0 Yes [id number] Take as [facility] nesium-zinc 7-13 directed ity of 333-133-8.3 00:00: for daily [place] mg Tab 00 dose. Medical Branch benzonatate 2020-0 Yes [id number] 100mg Take 1 [facility] 100 mg 7-13 capsule by ity of capsule 00:00: mouth 3 [place] 00 (three) Medical times Branch daily as needed for Cough. chlorphenir 2020-0 Yes [id number] 4mg Take 1 [facility] amine 4 mg 7-13 tablet by ity of tablet 00:00: mouth [place] 00 every 6 Medical (six) Branch hours as needed for Allergies or Runny nose. multivitami 2020-0 Yes [id number] 1{capsu Take 1 [facility] n capsule 7-13 le} capsule by ity of 00:00: mouth [place] 00 daily. Medical Branch calcium-mag 2020-0 Yes [id number] Take as [facility] nesium-zinc 7-13 directed ity of 333-133-8.3 00:00: for daily [place] mg Tab 00 dose. Medical Branch benzonatate 2020-0 Yes [id number] 100mg Take 1 [facility] 100 mg 7-13 capsule by ity of capsule 00:00: mouth 3 [place] 00 (three) Medical times Branch daily as needed for Cough. chlorphenir 2020-0 Yes [id number] 4mg Take 1 [facility] amine 4 mg 7-13 tablet by ity of tablet 00:00: mouth [place] 00 every 6 Medical (six) Branch hours as needed for Allergies or Runny nose. multivitami 2020-0 Yes [id number] 1{capsu Take 1 [facility] n capsule 7-13 le} capsule by ity of 00:00: mouth [place] 00 daily. Medical Branch calcium-mag 2020-0 Yes [id number] Take as [facility] nesium-zinc 7-13 directed ity of 333-133-8.3 00:00: for daily [place] mg Tab 00 dose. Medical Branch benzonatate 2020-0 Yes [id number] 100mg Take 1 [facility] 100 mg 7-13 capsule by ity of capsule 00:00: mouth 3 [place] 00 (three) Medical times Branch daily as needed for Cough. chlorphenir 2020-0 Yes [id number] 4mg Take 1 [facility] amine 4 mg 7-13 tablet by ity of tablet 00:00: mouth [place] 00 every 6 Medical (six) Branch hours as needed for Allergies or Runny nose. multivitami 2020-0 Yes [id number] 1{capsu Take 1 [facility] n capsule 7-13 le} capsule by ity of 00:00: mouth [place] 00 daily. Medical Branch calcium-mag 2020-0 Yes [id number] Take as [facility] nesium-zinc 7-13 directed ity of 333-133-8.3 00:00: for daily [place] mg Tab 00 dose. Medical Branch benzonatate 2020-0 Yes [id number] 100mg Take 1 [facility] 100 mg 7-13 capsule by ity of capsule 00:00: mouth 3 [place] 00 (three) Medical times Branch daily as needed for Cough. chlorphenir 2020-0 Yes [id number] 4mg Take 1 [facility] amine 4 mg 7-13 tablet by ity of tablet 00:00: mouth [place] 00 every 6 Medical (six) Branch hours as needed for Allergies or Runny nose. multivitami 2020-0 Yes [id number] 1{capsu Take 1 [facility] n capsule 7-13 le} capsule by ity of 00:00: mouth [place] 00 daily. Medical Branch calcium-mag 2020-0 Yes [id number] Take as [facility] nesium-zinc 7-13 directed ity of 333-133-8.3 00:00: for daily [place] mg Tab 00 dose. Medical Branch multivitami 2020-0 Yes 1{capsu QD Take 1 M ethodi n capsule 7-13 le} capsule by st 00:[facility]: [facility] 00 daily. l multivitami 2020-0 Yes 1{capsu QD Take 1 M ethodi n capsule 7-13 le} capsule by st 00:00: [facility] 00 daily. l multivitami 2020-0 Yes 1{capsu QD Take 1 M ethodi n capsule 7-13 le} capsule by st 00:00: mouth [facility] 00 daily. l multivitami 2020-0 Yes 1{capsu QD Take 1 M ethodi n capsule 7-13 le} capsule by st 00:00: mouth [facility] 00 daily. l multivitami 2020-0 Yes 1{capsu QD Take 1 M ethodi n capsule 7-13 le} capsule by st 00:00: mouth [facility] 00 daily. l ibuprofen Yes 600mg Take 600 [facility] vers 200 mg 5-24 mg by ity of tablet 13:33: mouth as [place] 26 needed. Medical Branch ibuprofen Yes 600mg Take 600 [facility] vers 200 mg 5-24 mg by ity of tablet 13:33: mouth as [place] 26 needed. Medical Branch ibuprofen Yes 600mg Take 600 [facility] vers 200 mg 5-24 mg by ity of tablet 13:33: mouth as [place] 26 needed. Medical Branch ibuprofen 2018-0 Yes 600mg Take 600 [facility] vers 200 mg 5-24 mg by ity of tablet 13:33: mouth as [place] 26 needed. Medical Branch ibuprofen 2018-0 Yes 600mg Take 600 [facility] vers 200 mg 5-24 mg by ity of tablet 13:33: mouth as [place] 26 needed. Medical Branch ibuprofen 2018-0 Yes 600mg Take 600 [facility] vers 200 mg 5-24 mg by ity of tablet 13:33: mouth as [place] 26 needed. Medical Branch ibuprofen 2018-0 Yes 600mg Take 600 [facility] vers 200 mg 5-24 mg by ity of tablet 13:33: mouth as [place] 26 needed. Medical Branch ibuprofen 2018-0 Yes 600mg Take 600 [facility] vers 200 mg 5-24 mg by ity of tablet 08:33: mouth as [place] 26 needed. Medical Branch ibuprofen 2018-0 Yes 600mg Take 600 [facility] vers 200 mg 5-24 mg by ity of tablet 08:33: mouth as [place] 26 needed. Medical Branch ibuprofen 2018-0 Yes 600mg Take 600 [facility] vers 200 mg 5-24 mg by ity of tablet 08:33: mouth as [place] 26 needed. Medical Branch ibuprofen 2018-0 Yes 600mg Take 600 [facility] vers 200 mg 5-24 mg by ity of tablet 08:33: mouth as [place] 26 needed. Medical Branch traMADOL 50 2018-0 Yes 50mg Take 1 [facility] ers mg tablet 3-28 tablet by ity o f 00:00: mouth [place] 00 every 6 Medical (six) Branch hours as needed for Pain (scale 4-6). naproxen 2018-0 Yes 500mg Take 1 [facility] s (NAPROSYN) 3-28 tablet by ity of 500 mg 00:00: mouth 2 [place] tablet 00 (two) Medical times Branch daily with meals. traMADOL 50 2018-0 Yes 50mg Take 1 [facility] ers mg tablet 3-28 tablet by ity o f 00:00: mouth [place] 00 every 6 Medical (six) Branch hours as needed for Pain (scale 4-6). naproxen 2018-0 Yes 500mg Take 1 [facility] s (NAPROSYN) 3-28 tablet by ity of 500 mg 00:00: mouth 2 [place] tablet 00 (two) Medical times Branch daily with meals. traMADOL 50 2018-0 Yes 50mg Take 1 [facility] ers mg tablet 3-28 tablet by ity o f 00:00: mouth [place] 00 every 6 Medical (six) Branch hours as needed for Pain (scale 4-6). naproxen 2018-0 Yes 500mg Take 1 Univer s (NAPROSYN) 3-28 tablet by ity of 500 mg 00:00: mouth 2 [place] tablet 00 (two) Medical times Branch daily with meals. naproxen 2018-0 Yes 500mg Take 1 Univer s (NAPROSYN) 3-28 tablet by ity of 500 mg 00:00: mouth 2 [place] tablet 00 (two) Medical times Branch daily with meals. naproxen 2018-0 Yes 500mg Take 1 Univer s (NAPROSYN) 3-28 tablet by ity of 500 mg 00:00: mouth 2 [place] tablet 00 (two) Medical times Branch daily with meals. naproxen 2018-0 Yes 500mg Take 1 Univer s (NAPROSYN) 3-28 tablet by ity of 500 mg 00:00: mouth 2 [place] tablet 00 (two) Medical times Branch daily with meals. naproxen 2018-0 Yes 500mg Take 1 Univer s (NAPROSYN) 3-28 tablet by ity of 500 mg 00:00: mouth 2 [place] tablet 00 (two) Medical times Branch daily with meals. naproxen 2018-0 Yes 500mg Take 1 Univer s (NAPROSYN) 3-28 tablet by ity of 500 mg 00:00: mouth 2 [place] tablet 00 (two) Medical times Branch daily with meals. traMADOL 50 2018-0 Yes 50mg Take 1 Univ ers mg tablet 3-28 tablet by ity o f 00:00: mouth [place] 00 every 6 Medical (six) Branch hours as needed for Pain (scale 4-6). naproxen 2018-0 Yes 500mg Take 1 Univer s (NAPROSYN) 3-28 tablet by ity of 500 mg 00:00: mouth 2 [place] tablet 00 (two) Medical times Branch daily with meals. traMADOL 50 2018-0 Yes 50mg Take 1 Univ ers mg tablet 3-28 tablet by ity o f 00:00: mouth [place] 00 every 6 Medical (six) Branch hours as needed for Pain (scale 4-6). naproxen 2018-0 Yes 500mg Take 1 Univer s (NAPROSYN) 3-28 tablet by ity of 500 mg 00:00: mouth 2 [place] tablet 00 (two) Medical times Branch daily with meals. traMADOL 50 2018-0 Yes 50mg Take 1 Univ ers mg tablet 3-28 tablet by ity o f 00:00: mouth [place] 00 every 6 Medical (six) Branch hours as needed for Pain (scale 4-6). naproxen 2018-0 Yes 500mg Take 1 Univer s (NAPROSYN) 3-28 tablet by ity of 500 mg 00:00: mouth 2 [place] tablet 00 (two) Medical times Branch daily with meals. traMADOL 50 2018-0 2020- No 50mg Take 1 Uni vers mg tablet 3-28 06-21 tablet by ity of 00:00: 00:00 mouth [place] 00 :00 every 6 Medical (six) Branch hours as needed for Pain (scale 4-6). dicyclomine 2017-0 Yes 20mg Take 1 Univ ers (BENTYL) 20 6-07 tablet by ity of mg tablet 00:00: mouth 4 [place] 00 (four) Medical times Branch daily. ondansetron 2017-0 Yes 4mg Take 1 Univ ers (ZOFRAN, 6-07 tablet by ity of HYDROCHLORI 00:00: mouth [place] DE,) 4 mg 00 every 8 Medical tablet (eight) Branch hours as needed for Nausea and Vomiting (N/V). dicyclomine 2017-0 Yes 20mg Take 1 Univ ers (BENTYL) 20 6-07 tablet by ity of mg tablet 00:00: mouth 4 [place] 00 (four) Medical times Branch daily. ondansetron 2017-0 Yes 4mg Take 1 Univ ers (ZOFRAN, 6-07 tablet by ity of HYDROCHLORI 00:00: mouth [place] DE,) 4 mg 00 every 8 Medical tablet (eight) Branch hours as needed for Nausea and Vomiting (N/V). dicyclomine 2017-0 Yes 20mg Take 1 Univ ers (BENTYL) 20 6-07 tablet by ity of mg tablet 00:00: mouth 4 [place] 00 (four) Medical times Branch daily. ondansetron 2017-0 Yes 4mg Take 1 Univ ers (ZOFRAN, 6-07 tablet by ity of HYDROCHLORI 00:00: mouth [place] DE,) 4 mg 00 every 8 Medical tablet (eight) Branch hours as needed for Nausea and Vomiting (N/V). dicyclomine 2017-0 Yes 20mg Take 1 Univ ers (BENTYL) 20 6-07 tablet by ity of mg tablet 00:00: mouth 4 [place] 00 (four) Medical times Branch daily. ondansetron 2017-0 Yes 4mg Take 1 Univ ers (ZOFRAN, 6-07 tablet by ity of HYDROCHLORI 00:00: mouth [place] DE,) 4 mg 00 every 8 Medical tablet (eight) Branch hours as needed for Nausea and Vomiting (N/V). dicyclomine 2017-0 Yes 20mg Take 1 Univ ers (BENTYL) 20 6-07 tablet by ity of mg tablet 00:00: mouth 4 [place] 00 (four) Medical times Branch daily. ondansetron 2017-0 Yes 4mg Take 1 Univ ers (ZOFRAN, 6-07 tablet by ity of HYDROCHLORI 00:00: mouth [place] DE,) 4 mg 00 every 8 Medical tablet (eight) Branch hours as needed for Nausea and Vomiting (N/V). dicyclomine 2017-0 Yes 20mg Take 1 Univ ers (BENTYL) 20 6-07 tablet by ity of mg tablet 00:00: mouth 4 [place] 00 (four) Medical times Branch daily. ondansetron 2017-0 Yes 4mg Take 1 Univ ers (ZOFRAN, 6-07 tablet by ity of HYDROCHLORI 00:00: mouth [place] DE,) 4 mg 00 every 8 Medical tablet (eight) Branch hours as needed for Nausea and Vomiting (N/V). dicyclomine 2017-0 Yes 20mg Take 1 Univ ers (BENTYL) 20 6-07 tablet by ity of mg tablet 00:00: mouth 4 [place] 00 (four) Medical times Branch daily. ondansetron 2017-0 Yes 4mg Take 1 Univ ers (ZOFRAN, 6-07 tablet by ity of HYDROCHLORI 00:00: mouth [place] DE,) 4 mg 00 every 8 Medical tablet (eight) Branch hours as needed for Nausea and Vomiting (N/V). dicyclomine 2017-0 Yes 20mg Take 1 Univ ers (BENTYL) 20 6-07 tablet by ity of mg tablet 00:00: mouth 4 [place] 00 (four) Medical times Branch daily. ondansetron 2017-0 Yes 4mg Take 1 Univ ers (ZOFRAN, 6-07 tablet by ity of HYDROCHLORI 00:00: mouth [place] DE,) 4 mg 00 every 8 Medical tablet (eight) Branch hours as needed for Nausea and Vomiting (N/V). dicyclomine 2017-0 Yes 20mg Take 1 Univ ers (BENTYL) 20 6-07 tablet by ity of mg tablet 00:00: mouth 4 [place] 00 (four) Medical times Branch daily. ondansetron 2017-0 Yes 4mg Take 1 Univ ers (ZOFRAN, 6-07 tablet by ity of HYDROCHLORI 00:00: mouth [place] DE,) 4 mg 00 every 8 Medical tablet (eight) Branch hours as needed for Nausea and Vomiting (N/V). dicyclomine 2017-0 Yes 20mg Take 1 Univ ers (BENTYL) 20 6-07 tablet by ity of mg tablet 00:00: mouth 4 [place] 00 (four) Medical times Branch daily. ondansetron 2017-0 Yes 4mg Take 1 Univ ers (ZOFRAN, 6-07 tablet by ity of HYDROCHLORI 00:00: mouth [place] DE,) 4 mg 00 every 8 Medical tablet (eight) Branch hours as needed for Nausea and Vomiting (N/V). dicyclomine 2017-0 Yes 20mg Take 1 Univ ers (BENTYL) 20 6-07 tablet by ity of mg tablet 00:00: mouth 4 [place] 00 (four) Medical times Branch daily. ondansetron 2017-0 Yes 4mg Take 1 Univ ers (ZOFRAN, 6-07 tablet by ity of HYDROCHLORI 00:00: mouth [place] DE,) 4 mg 00 every 8 Medical tablet (eight) Branch hours as needed for Nausea and Vomiting (N/V). sulfamethox 2016-0 Yes 1{tbl} Take 1 Un martir azole-trime 9-05 tablet by ity of thoprim 00:00: mouth [place] (BACTRIM 00 every 12 Medical DS) 800-160 (twelve) Bran ch mg per hours. tablet sulfamethox 2016-0 Yes 1{tbl} Take 1 Un martir azole-trime 9-05 tablet by ity of thoprim 00:00: mouth [place] (BACTRIM 00 every 12 Medical DS) 800-160 (twelve) Bran ch mg per hours. tablet sulfamethox 2016-0 Yes 1{tbl} Take 1 Un martir azole-trime 9-05 tablet by ity of thoprim 00:00: mouth [place] (BACTRIM 00 every 12 Medical DS) 800-160 (twelve) Bran ch mg per hours. tablet sulfamethox 2016-0 Yes 1{tbl} Take 1 Un martir azole-trime 9-05 tablet by ity of thoprim 00:00: mouth [place] (BACTRIM 00 every 12 Medical DS) 800-160 (twelve) Bran ch mg per hours. tablet sulfamethox 2016-0 Yes 1{tbl} Take 1 Un martir azole-trime 9-05 tablet by ity of thoprim 00:00: mouth [place] (BACTRIM 00 every 12 Medical DS) 800-160 (twelve) Bran ch mg per hours. tablet sulfamethox 2016-0 Yes 1{tbl} Take 1 Un martir azole-trime 9-05 tablet by ity of thoprim 00:00: mouth [place] (BACTRIM 00 every 12 Medical DS) 800-160 (twelve) Bran ch mg per hours. tablet sulfamethox 2016-0 Yes 1{tbl} Take 1 Un martir azole-trime 9-05 tablet by ity of thoprim 00:00: mouth [place] (BACTRIM 00 every 12 Medical DS) 800-160 (twelve) Bran ch mg per hours. tablet sulfamethox 2016-0 Yes 1{tbl} Take 1 Un martir azole-trime 9-05 tablet by ity of thoprim 00:00: mouth [place] (BACTRIM 00 every 12 Medical DS) 800-160 (twelve) Bran ch mg per hours. tablet sulfamethox 2016-0 Yes 1{tbl} Take 1 Un martir azole-trime 9-05 tablet by ity of thoprim 00:00: mouth [place] (BACTRIM 00 every 12 Medical DS) 800-160 (twelve) Bran ch mg per hours. tablet sulfamethox 2016-0 Yes 1{tbl} Take 1 Un martir azole-trime 9-05 tablet by ity of thoprim 00:00: mouth [place] (BACTRIM 00 every 12 Medical DS) 800-160 (twelve) Bran ch mg per hours. tablet sulfamethox 2016-0 Yes 1{tbl} Take 1 Un martir azole-trime 9-05 tablet by ity of thoprim 00:00: mouth [place] (BACTRIM 00 every 12 Medical DS) 800-160 (twelve) Bran ch mg per hours. tablet ferrous ferrous No 1 Q1D ferrous [facility] sulfate 325 sulfate 325 sulfate Medical mg (65 mg mg (65 mg 325 mg (65 iron) iron) mg iron) tablet Take tablet Take tablet 1 tablet 1 tablet Take 1 every day every day tablet by oral by oral every day route. route. by oral route. nitrofurant nitrofurant No nitrofuran [facility] oin oin toin Medical monohydrate monohydrate monohydrat /macrocryst /macrocryst e/macrocry als 100 mg als 100 mg stals 100 capsule capsule mg capsule TAKE 1 TAKE 1 TAKE 1 CAPSULE BY CAPSULE BY CAPSULE BY MOUTH EVERY MOUTH EVERY MOUTH 12 HOURS 12 HOURS EVERY 12 FOR 7 DAYS FOR 7 DAYS HOURS FOR 7 DAYS Vitamin C Vitamin C No 1 Q1D Vitamin C [facility] 1,000 mg 1,000 mg 1,000 mg Med ical tablet Take tablet Take tablet 1 tablet 1 tablet Take 1 every day every day tablet by oral by oral every day route. route. by oral route. Vitamin D3 Vitamin D3 No 1 Q1D Vitamin D3 [facility] 125 mcg 125 mcg 125 mcg Medica l (5,000 (5,000 (5,000 unit) unit) unit) tablet Take tablet Take tablet 1 tablet 1 tablet Take 1 every day every day tablet by oral by oral every day route. route. by oral route. albuterol albuterol No albuterol [facility] sulfate HFA sulfate HFA sulfate Medical 90 90 HFA 90 mcg/actuati mcg/actuati mcg/actuat on aerosol on aerosol ion inhaler inhaler aerosol INHALE 1 INHALE 1 inhaler PUFF BY PUFF BY INHALE 1 MOUTH EVERY MOUTH EVERY PUFF BY 6 HOURS 6 HOURS MOUTH NEEDED FOR NEEDED FOR EVERY 6 SHORTNESS SHORTNESS HOURS OF BREATH OF BREATH NEEDED FOR SHORTNESS OF BREATH Debrox 6.5 Debrox 6.5 No Debrox 6.5 [facility] % ear drops % ear drops % ear Medical INSTILL 5 INSTILL 5 drops DROPS INTO DROPS INTO INSTILL 5 AFFECTED AFFECTED DROPS INTO EAR(S) BY EAR(S) BY AFFECTED OTIC ROUTE OTIC ROUTE EAR(S) BY 2 TIMES PER 2 TIMES PER OTIC ROUTE DAY DAY 2 TIMES PER DAY ferrous ferrous No 1 Q1D ferrous [facility] sulfate 325 sulfate 325 sulfate Medical mg (65 mg mg (65 mg 325 mg (65 iron) iron) mg iron) tablet Take tablet Take tablet 1 tablet 1 tablet Take 1 every day every day tablet by oral by oral every day route. route. by oral route. albuterol albuterol No albuterol [facility] sulfate HFA sulfate HFA sulfate Medical 90 90 HFA 90 mcg/actuati mcg/actuati mcg/actuat on aerosol on aerosol ion inhaler inhaler aerosol INHALE 1 INHALE 1 inhaler PUFF BY PUFF BY INHALE 1 MOUTH EVERY MOUTH EVERY PUFF BY 6 HOURS 6 HOURS MOUTH NEEDED FOR NEEDED FOR EVERY 6 SHORTNESS SHORTNESS HOURS OF BREATH OF BREATH NEEDED FOR SHORTNESS OF BREATH famotidine famotidine No famotidine [facility] 40 mg 40 mg 40 mg Medical tablet TAKE tablet TAKE tablet 1 TABLET BY 1 TABLET BY TAKE 1 MOUTH TWICE MOUTH TWICE TABLET BY DAILY DAILY MOUTH TWICE DAILY FeroSul 325 FeroSul 325 No FeroSul [facility] mg (65 mg mg (65 mg 325 mg (65 Medical iron) iron) mg iron) tablet TAKE tablet TAKE tablet 1 TABLET BY 1 TABLET BY TAKE 1 MOUTH ONCE MOUTH ONCE TABLET BY DAILY DAILY MOUTH ONCE DAILY Macrobid Macrobid No 1capsul Q12H Macrobid [facility] 100 mg 100 mg e(s) 100 mg Medical capsule capsule capsule Take 1 Take 1 Take 1 capsule capsule capsule every 12 every 12 every 12 hours by hours by hours by oral route oral route oral route for 7 days. for 7 days. for 7 days. Vitamin C Vitamin C No 1 Q1D Vitamin C [facility] 1,000 mg 1,000 mg 1,000 mg Med ical tablet Take tablet Take tablet 1 tablet 1 tablet Take 1 every day every day tablet by oral by oral every day route. route. by oral route. Vitamin D3 Vitamin D3 No 1 Q1D Vitamin D3 [facility] 125 mcg 125 mcg 125 mcg Medica l (5,000 (5,000 (5,000 unit) unit) unit) tablet Take tablet Take tablet 1 tablet 1 tablet Take 1 every day every day tablet by oral by oral every day route. route. by oral route. albuterol albuterol No albuterol [facility] sulfate HFA sulfate HFA sulfate Medical 90 90 HFA 90 mcg/actuati mcg/actuati mcg/actuat on aerosol on aerosol ion inhaler inhaler aerosol INHALE 1 INHALE 1 inhaler PUFF BY PUFF BY INHALE 1 MOUTH EVERY MOUTH EVERY PUFF BY 6 HOURS 6 HOURS MOUTH NEEDED FOR NEEDED FOR EVERY 6 SHORTNESS SHORTNESS HOURS OF BREATH OF BREATH NEEDED FOR SHORTNESS OF BREATH famotidine famotidine No famotidine [facility] 40 mg 40 mg 40 mg Medical tablet TAKE tablet TAKE tablet 1 TABLET BY 1 TABLET BY TAKE 1 MOUTH TWICE MOUTH TWICE TABLET BY DAILY DAILY MOUTH TWICE DAILY Immunizations Ordered Filled Immunization Date Status Comments [facility] e Immunization Name Name COVID-19 vaccine, COVID-19 vaccine, 2021-02-21 Completed [facility] vector-nr, rS-Ad26, vector-nr, rS-Ad26, 00:00:00 PF, 0.5 mL PF, 0.5 mL (M2M Solution) (M2M Solution) COVID-19 vaccine, COVID-19 vaccine, 2021-02-[facility]-Ad[facility], vector-nr, rS-Ad26, 00:00:00 PF, 0.5 mL PF, 0.5 mL (M2M Solution) (M2M Solution) Covid-19 Vaccine 2021-02-21 Completed Gladys perezbold (M2M Solution) 00:00:00 - External Covid-19 Vaccine 2021-02-21 Completed [facility] Mejia eybold (M2M Solution) 00:00:00 - External Covid-19 Vaccine 2021-02-21 Completed [facility] Mejia eybold (M2M Solution) 00:00:00 - External influenza, influenza, 2020-08-16 Completed [facility] injectable, injectable, 00:00:00 quadrivalent quadrivalent influenza, influenza, 2020-08-16 Completed [facility] injectable, injectable, 00:00:00 quadrivalent quadrivalent Influenza Virus 2020-08-16 Completed Glad[facility] patelold Vaccine, Split, up 00:00:00 - Exte rnal to age 3 Influenza Virus 2020-08-16 Completed [facility] patelold Vaccine, Split, up 00:00:00 - Exte rnal to age 4 Influenza Virus 2020-08-16 Completed [facility] patelold Vaccine, Split, up 00:00:00 - Exte rnal to age 4 Tdap Tdap 2016-10-16 Completed [facility] 00:00:00 Tdap Tdap 2016-10-16 Completed [facility] 00:00:00 Tdap- (Boostrix, 2016-10-16 Completed Gladys meza Adacel) 00:00:00 - External Tdap- (Boostrix, 2016-10-16 Completed [facility] meza Adacel) 00:00:00 - External Tdap- (Boostrix, 2016-10-16 Completed Gladys meza Adacel) 00:00:00 - External Tdap Unknown Completed [facility] [place] COVID-19 Unknown Completed [address] [facility] FLUZONE QUAD Unknown Completed [facility] Covid-19 Vaccine Unknown Completed Gladys meza ([facility]) - External Influenza Virus Unknown Completed Gladys amandahelena Vaccine, Split, up - Exte rnal to age 4 Tdap- (Boostrix, Unknown Completed Gladys meza Adacel) - External Covid-19 Vaccine Unknown Completed Gladys meza ([place]) - External Influenza Virus Unknown Completed Gladys tiff Vaccine, Split, up - Exte rnal to age 4 Tdap- (Boostrix, Unknown Completed Gladys meza Adacel) - External Vital Signs Vital Name Observation Time Observation Value Comments Source Systolic blood 2023-05-02 14:34:00 145 mm[Hg] Gladys Sarabia - pressure External Diastolic blood 2023-05-02 14:34:00 87 mm[Hg] Elpidio Sarabia - pressure External Heart rate 2023-05-02 14:34:00 78 /min Gladys meza - External Body temperature 2023-05-02 14:34:00 36.61 Rubi Jazzy perez Seybold - External Respiratory rate 2023-05-02 14:34:00 15 /min Jazzy perez Seybhelena - External Body height 2023-05-02 14:34:00 162.6 cm Gladys meza - External Body weight 2023-05-02 14:34:00 58.968 kg Gladys meza - External BMI 2023-05-02 14:34:00 22.31 kg/m2 Gladys meza - External Oxygen saturation in 2023-05-02 14:34:00 99 /min Gladys Sarabia - Arterial blood by External Pulse oximetry Systolic blood 2022-12-22 20:05:00 127 mm[Hg] Gladys Seybold - pressure External Diastolic blood 2022-12-22 20:05:00 80 mm[Hg] Elpidio seo Seybold - pressure External Heart rate 2022-12-22 20:05:00 72 /min Gladys perezbovirgie - External Body temperature 2022-12-22 20:05:00 36.61 Rubi Jazyz perez Seybold - External Respiratory rate 2022-12-22 20:05:00 16 /min Jazzy perez Seybold - External Body height 2022-12-22 20:05:00 162.6 cm Gladys perezbold - External Body weight 2022-12-22 20:05:00 59.478 kg Gladys perezbold - External BMI 2022-12-22 20:05:00 22.51 kg/m2 Gladys perezbold - External Heart rate 2022-11-13 02:22:00 85 /min [facility] Respiratory rate 2022-11-13 02:22:00 20 /min [facility] Oxygen saturation in 2022-11-13 02:22:00 100 /min [facility] Arterial blood by [facility] Pulse oximetry Branch Systolic blood 2022-11-13 01:54:00 146 mm[Hg] Univer sity of [facility] Diastolic blood 2022-11-13 01:54:00 86 mm[Hg] [facility] Body temperature 2022-11-13 01:54:00 36.89 Rubi [facility] [place] [facility] height 2022-11-13 01:54:00 162.6 cm [facility] Body weight 2022-11-13 01:54:00 61.236 kg [facility] BMI 2022-11-13 01:54:00 23.17 kg/m2 [facility] BMI 2022-10-23 19:15:00 22.49 kg/m2 Gladys perezbold - External Systolic blood 2022-10-23 19:15:00 106 mm[Hg] Gladys Hairstonybold - pressure External Diastolic blood 2022-10-23 19:15:00 72 mm[Hg] Jamesse seo Seybold - pressure External Heart rate 2022-10-23 19:15:00 80 /min Gladys S eybold - External Respiratory rate 2022-10-23 19:15:00 16 /min Jazzy ey Seybold - External Body height 2022-10-23 19:15:00 162.6 cm Gladys Mejia eybold - External Body weight 2022-10-23 19:15:00 59.421 kg Gladys Mejia eybold - External Systolic blood 2022-08-03 22:09:00 110 mm[Hg] Gladys Seybold - pressure External Diastolic blood 2022-08-03 22:09:00 76 mm[Hg] Kelse y Seybold - pressure External Heart rate 2022-08-03 22:09:00 89 /min Gladys Mejia eybold - External Body temperature 2022-08-03 22:09:00 36.56 Rubi Jazzy ey Seybold - External Respiratory rate 2022-08-03 22:09:00 17 /min Jazzy ey Seybold - External Body height 2022-08-03 22:09:00 162.6 cm Gladys Mejia eybold - External Body weight 2022-08-03 22:09:00 59.932 kg Gladys Mejia eybold - External BMI 2022-08-03 22:09:00 22.68 kg/m2 Gladys Mejia eybold - External Systolic blood 2022-07-26 21:59:00 130 mm[Hg] Gladys Seybold - pressure External Diastolic blood 2022-07-26 21:59:00 69 mm[Hg] Jamesse y Seybold - pressure External Heart rate 2022-07-26 21:59:00 80 /min Gladys Mejia eybold - External Body temperature 2022-07-26 21:59:00 36.89 Rubi Jazzy ey Seybold - External Respiratory rate 2022-07-26 21:59:00 18 /min Jazzy perez Seybold - External Body height 2022-07-26 21:59:00 162.6 cm Gladys Mejia eybold - External Body weight 2022-07-26 21:59:00 61.417 kg Gladys Mejia eybold - External BMI 2022-07-26 21:59:00 23.24 kg/m2 Gladys Mejia eybold - External Height 2021-11-16 00:00:00 64 [in_i] Sher Grullon edical BMI (Body Mass 2021-11-16 00:00:00 25.2 kg/m2 [facility] Medical Index) BP Systolic 2021-11-16 00:00:00 138 mm[Hg] Sher Grullon edical Body Weight 2021-11-16 00:00:00 2352 [oz_av] Sher Grullon edical BP Diastolic 2021-11-16 00:00:00 82 mm[Hg] Sher Grullon edical BP Diastolic 2021-10-31 00:00:00 81 mm[Hg] Sher Grullon edical Height 2021-10-31 00:00:00 64 [in_i] Sher Grullon edical BMI (Body Mass 2021-10-31 00:00:00 23.5 kg/m2 [facility] Medical Index) BP Systolic 2021-10-31 00:00:00 136 mm[Hg] Sher Grullon edical Body Weight 2021-10-31 00:00:00 2192 [oz_av] Sher Grullon edical Height 2021-03-01 09:15:00 162.56 CM Weight 2021-03-01 09:15:00 61.68 KG Height 2021-02-21 15:37:00 162.56 CM Weight 2021-02-21 15:37:00 67.58 KG Systolic blood 2020-12-27 20:46:00 142 mm[Hg] Univer sity of [facility] Diastolic blood 2020-12-27 20:46:00 105 mm[Hg] Unive rsity of [facility] Heart rate 2020-12-27 20:46:00 105 /min [facility] Body temperature 2020-12-27 20:46:00 37.44 Rubi Univ ersity [facility] Respiratory rate 2020-12-27 20:46:00 20 /min [facility] Body weight 2020-12-27 20:46:00 63.504 kg [facility] BMI 2020-12-27 20:46:00 24.03 kg/m2 [facility] Oxygen saturation in 2020-12-27 20:46:00 100 /min [facility] blood by [facility] Pulse oximetry Branch BP Diastolic 2020-10-25 00:00:00 83 mm[Hg] Sher hooker Height 2020-10-25 00:00:00 63 [in_i] Sher hooker BMI (Body Mass 2020-10-25 00:00:00 25 kg/m2 [facility] Index) BP Systolic 2020-10-25 00:00:00 130 mm[Hg] Sher hooker Body Weight 2020-10-25 00:00:00 2256 [oz_av] Sher hooker Systolic blood 2020-09-18 15:00:00 145 mm[Hg] Univer sity of [facility] Diastolic blood 2020-09-18 15:00:00 93 mm[Hg] Unive rsity of [facility] Heart rate 2020-09-18 15:00:00 70 /min Universi ty [facility] Respiratory rate 2020-09-18 15:00:00 18 /min Univ ersity of [facility] Oxygen saturation in 2020-09-18 15:00:00 100 /min [facility] Arterial blood by [facility] Pulse oximetry Branch Body temperature 2020-09-18 14:24:00 36.89 Rubi Univ ersity [facility] Body weight 2020-09-18 14:24:00 68.04 kg [facility] BMI 2020-09-18 14:24:00 25.75 kg/m2 [facility] Systolic blood 2020-09-13 11:01:00 130 mm[Hg] Univer sity of [facility] Diastolic blood 2020-09-13 11:01:00 89 mm[Hg] Unive rsity of pressure [facility] Heart rate 2020-09-13 11:01:00 88 /min [facility]i [facility] Body temperature 2020-09-13 11:01:00 36.33 Rubi Univ ersity of [facility] Respiratory rate 2020-09-13 11:01:00 18 /min Univ ers[facility] Body weight 2020-09-13 11:01:00 68.04 kg [facility]i [facility] BMI 2020-09-13 11:01:00 25.75 kg/m2 [facility] Oxygen saturation in 2020-09-13 11:01:00 99 /min [facility] of Arterial blood by [facility] Pulse oximetry Branch Systolic blood 2020-05-31 02:39:00 133 mm[Hg] Univer [facility]ity of [facility] Diastolic blood 2020-05-31 02:39:00 80 mm[Hg] Unive rsity of [facility] Heart rate 2020-05-31 02:39:00 68 /min [facility] Respiratory rate 2020-05-31 02:39:00 18 /min Univ ersity [facility] Oxygen saturation in 2020-05-31 02:39:00 98 /min [facility] Arterial blood by [facility] Pulse oximetry Branch Body temperature 2020-05-31 00:38:00 37.06 Rubi Univ ers[facility] Body weight 2020-05-31 00:38:00 68.04 kg [facility] BMI 2020-05-31 00:38:00 25.75 kg/m2 [facility] Systolic blood 2020-01-19 10:17:00 163 mm[Hg] Univer [facility]ity [facility] Diastolic blood 2020-01-19 10:17:00 85 mm[Hg] Unive rsity [facility] Heart rate 2020-01-19 10:17:00 91 /min [facility] Body temperature 2020-01-19 10:17:00 36.33 Rubi Univ ersity [facility] Respiratory rate 2020-01-19 10:17:00 18 /min Univ ersity [facility] Body height 2020-01-19 10:17:00 162.6 cm [facility] Body weight 2020-01-19 10:17:00 68.04 kg [facility] BMI 2020-01-19 10:17:00 25.75 kg/m2 [facility] Oxygen saturation in 2020-01-19 10:17:00 100 /min [facility] Arterial blood by [facility] Pulse oximetry Branch Respitory Rate 2022-06-06 15:18:00 Coral al Eric Systolic (mm Hg) 2022-06-06 15:18:00 Manuel person Eric Diastolic (mm Hg) 2022-06-06 15:18:00 Lizzie cohen [place] Heart Rate 2022-06-06 15:00:00 [facility] Respitory Rate 2022-06-06 15:00:00 [facility] [place] Systolic (mm Hg) 2022-06-06 15:00:00 Manuel rial Eric Diastolic (mm Hg) 2022-06-06 15:00:00 Mem orial [facility] Heart Rate 2022-06-06 14:50:00 [facility] [place] Respitory Rate 2022-06-06 14:50:00 [facility] [place] Systolic (mm Hg) 2022-06-06 14:50:00 Manuel rial Eric Diastolic (mm Hg) 2022-06-06 14:50:00 Mem orial Eric Heart Rate 2022-06-06 14:40:00 [facility] Temperature Oral (F) 2022-06-06 14:30:00 36.3 [facility]i [facility] Eric Temperature Oral (F) 2022-06-06 13:40:00 36.7 [facility] Height 2022-06-06 13:40:00 162.5 cm [facility] Weight 2022-06-06 13:40:00 [facility] Height 2022-06-02 19:34:00 162.5 cm [facility] Weight 2022-06-02 19:34:00 [facility] Systolic blood 2022-04-17 14:05:00 149 mm[Hg] [facility] pressure Diastolic blood 2022-04-17 14:05:00 88 mm[Hg] [facility] pressure Heart rate 2022-04-17 14:05:00 69 /min [facility] Body temperature 2022-04-17 14:05:00 36.61 Rubi [facility] Respiratory rate 2022-04-17 14:05:00 18 /min [facility] Body height 2022-04-17 14:05:00 162.6 cm [facility] Body weight 2022-04-17 14:05:00 60.328 kg [facility] BMI 2022-04-17 14:05:00 22.83 kg/m2 [facility] Oxygen saturation in 2022-04-17 14:05:00 100 /min [facility] Arterial blood by Pulse oximetry Height 2022-03-25 18:10:00 162.5 cm [facility] Weight 2022-03-25 18:10:00 [facility] Height 2020-12-28 15:30:00 [facility] Temperature Oral (F) 2020-12-28 15:30:00 97.0 F [facility] Heart Rate 2020-12-28 15:30:00 [facility] Diastolic (mm Hg) 2020-12-28 15:30:00 Mem [facility] [place] Systolic (mm Hg) 2020-12-28 15:30:00 Manuel rial [place] Weight 2020-12-28 15:30:00 [facility] Procedures Procedure Date / Time Performing Source Performed Clinician URINALYSIS NONAUTO W/O SCOPE 2022-12-22 20:26:33 Jolene De Oliveira - External RAPID INFLUENZA A/B 2022-11-13 02:18:00 Ravindra Desai [facility] COVID-19 (ID NOW RAPID 2022-11-13 02:18:00 Ravindra Desai [facility] TESTING) Medical Branch CONSENT/REFUSAL FOR 2022-11-13 01:44:06 Doctor Unassigned, [facility] DIAGNOSIS AND TREATMENT [place] [facility] COLONOSCOPY FLEXIBLE; WITH 2022-06-06 14:19:00 [facility] BIOPSY; SINGLE OR MULTIPLE [id number] (N/A)<sup>1</sup> TRICHOMONAS VAGINALIS, TMA 2022-03-10 16:21:00 [facility] URINE CULTURE, COMPREHENSIVE 2022-03-10 16:21:00 [facility] (ELTON HIST) T4, FREE 2022-03-10 16:21:00 [facility] T3, FREE 2022-03-10 16:21:00 [facility] THYROID STIMULATING HORMONE 2022-03-10 16:21:00 [facility] CBC WITH PLATELET AND 2022-03-10 16:21:00 [facility] DIFFERENTIAL COMPREHENSIVE METABOLIC 2022-03-10 16:21:00 [facility] PANEL HEMOGLOBIN A1C 2022-03-10 16:21:00 [facility] LIPID PANEL 2022-03-10 16:21:00 [facility] URINALYSIS SCREEN AND 2022-03-10 16:21:00 [facility] MICROSCOPY, WITH REFLEX TO CULTURE ANTINUCLEAR ANTIBODIES (MONTSE) 2022-03-10 16:21:00 [facility] WITH REFLEX TO TITER AND PATTERN, IMMUNOFLUORESCENCE SS-B ANTIBODY 2022-03-10 16:21:00 [facility] SS-A ANTIBODY 2022-03-10 16:21:00 [facility] SEDIMENTATION RATE 2022-03-10 16:21:00 [facility] HIV 1/2 ANTIGEN/ANTIBODY, 2022-03-10 16:21:00 [facility] FOURTH GENERATION, WITH REFLEXES SYPHILIS RPR SCREEN WITH 2022-03-10 16:21:00 [facility] CONFIRMATION (TRADITIONAL ALGORITHM) HEPATITIS B SURFACE ANTIGEN 2022-03-10 16:21:00 [facility] HEPATITIS C ANTIBODY 2022-03-10 16:21:00 [facility] CHLAMYDIA/GC, FORTINO 2022-03-10 16:21:00 [facility] AMYLASE LEVEL 2022-03-10 16:21:00 [facility] LIPASE LEVEL 2022-03-10 16:21:00 [facility] CELIAC PANEL REFLEX TO TITER 2022-03-10 16:21:00 [facility] MICROSCOPIC EXAMINATION 2022-03-10 16:21:00 [facility] electrocardiogram, routine 2021-11-16 00:00:00 [facility] ECG, 12 leads min MAMMO, screening, bilateral 2021-10-31 00:00:00 [facility] EX SIG COLON VIA MARITA/ART OP 2021-03-01 00:00:00 [facility] ENDO DX Center EX TRNS COLON MARITA OR ART OP 2021-03-01 00:00:00 [facility] ENDO DX Center EX DUODENUM MARITA/ART OPENING 2021-03-01 00:00:00 [facility] ENDO DX Center EXC STOMACH MARITA/ART OPENING 2021-03-01 00:00:00 [facility] ENDO DX Center EXCISION EGJ VIA MARITA ART OP 2021-03-01 00:00:00 [facility] ENDO DX Center CONSENT/REFUSAL FOR 2020-12-27 20:38:15 Doctor Tijerina [facility]AM[facility], screening, bilateral 2020-10-11 00:00:00 [facility] electrocardiogram, routine 2020-10-11 00:00:00 [facility] ECG, 12 leads min DEXA 2020-10-11 00:00:[address] [facility] [address] ABDOMEN PELVIS W WO 2020-09-18 15:22:03 Jay [facility] CONTRAST [facility] LIPASE 2020-09-18 14:47:00 Jay Reilly [facility] HEPATIC FUNCTION PANEL 2020-09-18 14:47:00 Jay Reilly [facility] ([id number]) (ALB,T.PRO,BILI Medical Branch T,BU/BC,ALT,AST,ALK PHOS) BASIC METABOLIC PANEL (NA, 2020-09-18 14:47:00 [facility] K, CL, CO2, GLUCOSE, BUN, Medica l Branch CREATININE, CA) CBC WITH DIFF 2020-09-18 14:47:00 Jay Reilly [facility] PROTHROMBIN TIME / INR 2020-09-18 14:47:00 Jay Reilly [facility] ACTIVATED PARTIAL THRMPLAS 2020-09-18 14:47:00 [facility] PRINCESS [facility] URINALYSIS 2020-09-18 14:47:00 Jay Reilly [facility] CONSENT/REFUSAL FOR 2020-09-18 14:16:33 Doctor Tijerina [facility] 2020-09-13 11:10:00 Yomaira [facility] NOTICE OF PRIVACY PRACTICES 2020-09-13 10:52:09 Doctor Celsa urbina [facility] CONSENT/REFUSAL FOR 2020-09-13 10:51:19 Doctor Breezy [facility] DIAGNOSIS AND TREATMENT [place] [facility] COMP. METABOLIC PANEL 2020-05-31 00:58:00 [id number] CBC WITH DIFF 2020-05-31 00:58:00 Ike Vergara [facility] URINALYSIS 2020-05-31 00:58:00 Ike Vergara [facility] CONSENT/REFUSAL FOR 2020-05-31 00:25:05 Doctor Breezy [facility] DIAGNOSIS AND TREATMENT [place] [facility] NOTICE OF PRIVACY PRACTICES 2020-05-31 00:24:51 Doctor Celsa urbina [facility] [place] [facility] XR CHEST 1 VW COVID 2020-01-19 10:38:17 Bryan Stovall [facility] Delivery 1974-07-09 00:00:00 [facility] Carpal tunnel release [facility] Partial hysterectomy [facility] Colonoscopy [facility] Tubal ligation [facility] section [facility] n Hysterectomy [facility] Medical Plan of Care Planned Activity Planned Date Details Comments Source Future Scheduled 2023-05-03 Screening for [facility] Test 17:15:02 malignant neoplasm of colon (procedure) [code = 615729393] Future Scheduled 2023-05-03 Screening for [facility] Test 17:15:02 malignant neoplasm of colon (procedure) [code = 561479417] Future Scheduled 2023-05-03 Screening for [facility] Test 17:15:02 malignant neoplasm of colon (procedure) [code = 306470407] Future Scheduled 2023-05-03 65+ PNEUMOCOCCAL [facility] Test 17:15:02 VACCINE (1 - PCV) [code = 65+ PNEUMOCOCCAL VACCINE (1 - PCV)] Future Scheduled 2023-05-03 SHINGLES VACCINES (1 Met [facility] Test 17:15:02 of 2) [code = SHINGLES VACCINES (1 of 2)] Future Scheduled 2023-05-03 BREAST CANCER [facility] Test 17:15:02 SCREENING [code = BREAST CANCER SCREENING] Future Scheduled 2023-05-03 HEPATITIS B [facility]ACCINES [facility] Test 17:15:02 (1 of 3 - Risk 3-dose series) [code = HEPATITIS B VACCINES (1 of 3 - Risk 3-dose series)] Future Scheduled 2023-05-03 COVID-19 VACCINE (2 - [facility] Test 17:15:02 season) [code = COVID-19 VACCINE (2 - season)] Future Scheduled 2023-05-03 INFLUENZA VACCINE [facility] Test 17:15:02 (#1) [code = INFLUENZA VACCINE (#1)] Future Scheduled 2023-05-03 [facility] Test 17:15:02 malignant neoplasm of colon (procedure) [code = 362513142] Future Scheduled 2023-05-03 Screening for [facility] Test 17:15:02 malignant neoplasm of colon (procedure) [code = 698635582] Future Scheduled 2022-05-30 HEPATITIS B VACCINES Met [facility] Test 11:25:38 (1 of 3 - 3-dose series) [code = HEPATITIS B VACCINES (1 of 3 - 3-dose series)] Future Scheduled 2022-05-30 COVID-19 VACCINE (#1) [facility] Test 11:25:38 [code = COVID-19 VACCINE (#1)] Future Scheduled 2022-05-30 65+ [facility]CCAL [facility] 11:25:38 VACCINE (1 - PCV) [code = 65+ PNEUMOCOCCAL VACCINE (1 - PCV)] Future Scheduled 2022-05-30 Screening for [facility] Test 11:25:38 malignant neoplasm of cervix (procedure) [code = 982888204] Future Scheduled 2022-05-30 COLONOSCOPY SCREENING [facility] Test 11:25:38 [code = COLONOSCOPY SCREENING] Future Scheduled 2022-05-30 SHINGLES VACCINES (1 Met [facility] Test 11:25:38 of 2) [code = SHINGLES VACCINES (1 of 2)] Future Scheduled 2022-05-30 BREAST CANCER [facility] Test 11:25:38 SCREENING [code = BREAST CANCER SCREENING] Future Scheduled 2022-05-30 INFLUENZA VACCINE [facility] Test 11:25:38 [code = INFLUENZA VACCINE] Future Scheduled 2022-05-30 HEPATITIS B VACCINES Met [facility] Test 11:25:38 (1 of 3 - 3-dose series) [code = HEPATITIS B VACCINES (1 of 3 - 3-dose series)] Future Scheduled 2022-05-30 COVID-19 VACCINE (#1) [facility] Hospital Test 11:25:38 [code = COVID-19 VACCINE (#1)] Future Scheduled 2022-05-30 65+ PNEUMOCOCCAL [facility] Test 11:25:38 VACCINE (1 - PCV) [code = 65+ PNEUMOCOCCAL VACCINE (1 - PCV)] Future Scheduled 2022-05-30 Screening for [facility] Test 11:25:38 malignant neoplasm of cervix (procedure) [code = 044224653] Future Scheduled 2022-05-30 COLONOSCOPY SCREENING [facility] Test 11:25:38 [code = COLONOSCOPY SCREENING] Future Scheduled 2022-05-30 SHINGLES VACCINES (1 Met [facility] Test 11:25:38 of 2) [code = SHINGLES VACCINES (1 of 2)] Future Scheduled 2022-05-30 BREAST CANCER [facility] Test 11:25:38 SCREENING [code = BREAST CANCER SCREENING] Future Scheduled 2022-05-30 INFLUENZA VACCINE [facility] Test 11:25:38 [code = INFLUENZA VACCINE] Future Scheduled 2022-05-30 HEPATITIS B VACCINES Met [facility] Test 11:25:38 (1 of 3 - 3-dose series) [code = HEPATITIS B VACCINES (1 of 3 - 3-dose series)] Future Scheduled 2022-05-30 COVID-19 VACCINE (#1) [facility] Test 11:25:38 [code = COVID-19 VACCINE (#1)] Future Scheduled 2022-05-30 65+ PNEUMOCOCCAL [facility] Test 11:25:38 VACCINE (1 - PCV) [code = 65+ PNEUMOCOCCAL VACCINE (1 - PCV)] Future Scheduled 2022-05-30 Screening for [facility] Test 11:25:38 malignant neoplasm of cervix (procedure) [code = 662678387] Future Scheduled 2022-05-30 COLONOSCOPY SCREENING [facility] Test 11:25:38 [code = COLONOSCOPY SCREENING] Future Scheduled 2022-05-30 SHINGLES VACCINES (1 Met [facility] Test 11:25:38 of 2) [code = SHINGLES VACCINES (1 of 2)] Future Scheduled 2022-05-30 BREAST CANCER [facility] Test 11:25:38 SCREENING [code = BREAST CANCER SCREENING] Future Scheduled 2022-05-30 INFLUENZA VACCINE Method [facility] Test 11:25:38 [code = INFLUENZA VACCINE] Future Scheduled 2022-05-30 HEPATITIS B VACCINES Met [facility] Test 11:25:38 (1 of 3 - 3-dose series) [code = HEPATITIS B VACCINES (1 of 3 - 3-dose series)] Future Scheduled 2022-05-30 COVID-19 VACCINE (#1) [facility] Test 11:25:38 [code = COVID-19 VACCINE (#1)] Future Scheduled 2022-05-30 65+ PNEUMOCOCCAL [facility] Test 11:25:38 VACCINE (1 - PCV) [code = 65+ PNEUMOCOCCAL VACCINE (1 - PCV)] Future Scheduled 2022-05-30 Screening for [facility] Test 11:25:38 malignant neoplasm of cervix (procedure) [code = 176852920] Future Scheduled 2022-05-30 COLONOSCOPY SCREENING [facility] Test 11:25:38 [code = COLONOSCOPY SCREENING] Future Scheduled 2022-05-30 SHINGLES VACCINES (1 Met [facility] Test 11:25:38 of 2) [code = SHINGLES VACCINES (1 of 2)] Future Scheduled 2022-05-30 BREAST CANCER [facility] Test 11:25:38 SCREENING [code = BREAST CANCER SCREENING] Future Scheduled 2022-05-30 INFLUENZA VACCINE Method [facility] Test 11:25:38 [code = INFLUENZA VACCINE] Diagnostic Test 2021-11-16 Grapefruit IgE Ab [facility] Pending 00:00:00 [Units/volume] in Serum [code = 6131-7] Diagnostic Test 2021-11-16 iron + total [facility] Pending 00:00:00 iron-binding capacity (TIBC), serum [code = iron + total iron-binding capacity (TIBC), serum] Diagnostic Test 2021-11-16 ferritin, serum or [facility] Pending 00:00:00 plasma [code = ferritin, serum or plasma] Encounters Start End Encounter Admission Attending Care Care Encounter Source Date/Time Date/Time Type Type Clinicians Facility Department ID 2022-03-10 Outpatient [id number] Memoria 16:05:25 [id number] Eric [id number] 2021-05-09 Emergency [facility] [id number] Univers 02:41:16 [facility] 2021-05-08 Emergency [facility] [id number] Univers 05:46:33 ity [facility] 2021-05-08 Emergency [facility] [id number] Univers 03:55:48 ity [facility] 2021-05-07 Emergency [facility] [id number] Univers 07:07:53 ity [facility] 2021-05-06 Emergency [facility] [id number] Univers 06:15:06 ity [facility] 2023-06-19 2023-06-19 Outpatient GLADYS DUMONT [id number] Gladys 08:45:00 08:45:00 JOSE Seybol d 2023-06-06 2023-06-06 Outpatient SANTIAGO SMITH [id number] Gladys 08:45:00 08:45:00 Seybol d 2023-06-05 2023-06-05 Outpatient GLADYS MAX [id number] Gladys 09:00:00 09:00:00 ARLYN Seybol d 2023-05-02 2023-05-02 Outpatient LAB90 GLADYS GRAHAM [id number] Gladys 10:20:00 10:20:00 Seybol d 2023-05-02 2023-05-02 Outpatient GLADYS DUMONT [id number] Gladys 09:45:00 09:45:00 JOSE Seybol d 2022-12-22 2022-12-22 Outpatient GLADYS DE OLIVEIRA [id number] Gladys 15:15:00 15:15:00 JOLENE Seybol d 2022-11-16 2022-11-16 Outpatient GLADYS DE OLIVEIRA [id number] Gladys 14:45:00 14:45:00 JOLENE Seybol d 2022-11-12 2022-11-12 Emergency X BRYNN, [facility] ERT [id number] Univers 20:57:00 23:56:00 RAVINDRA ity of [facility] 2022-11-12 2022-11-12 Emergency Behzadi, [facility] 1.2.840.114 [id number] Univers 20:57:00 23:56:00 Ravindra Yesika CHOW 350.1.13.10 ity [facility] 4.2.7.2.686 [facility] [phone] [address] 2022-11-03 2022-11-03 Outpatient GLADYS ANDERSON [id number] Gladys 00:00:00 00:00:00 ABIMBOLA Seybol d 2022-11-02 2022-11-02 Outpatient GLADYS ANDERSON [id number] Gladys 00:00:00 00:00:00 ABIMBOLA Seybol d 2022-10-26 2022-10-26 Outpatient GLADYS GRAHAM [id number] Gladys 00:00:00 00:00:00 Seybol d 2022-10-24 2022-10-24 Outpatient GLADYS ANDERSON [id number] Gladys 00:00:00 00:00:00 ABIMBOLA Seybol d 2022-10-23 2022-10-23 Outpatient [id number] GLADYS GRAHAM [id number] Gladys 15:00:00 15:00:00 Seybol d 2022-10-23 2022-10-23 Outpatient GLADYS ANDERSON [id number] Gladys 14:15:00 14:15:00 ABIMBOLA Seybol d 2022-10-17 2022-10-17 Outpatient KARAN GRAHAM [id number] Gladys 00:00:00 00:00:00 MD VINI Seybol d 2022-09-29 2022-09-29 Outpatient PARTH MCGRAW [id number] Gladys 00:00:00 00:00:00 Seybol d 2022-09-21 2022-09-21 Outpatient GLADYS GRAHAM [id number] Gladys 14:30:00 14:30:00 Seybol d 2022-09-21 2022-09-21 Outpatient GLADYS DE OLIVEIRA [id number] Gladys 00:00:00 00:00:00 JOLENE Seybol d 2022-09-05 2022-09-05 Outpatient GLADYS GRAHAM [id number] Gladys 12:00:00 12:00:00 Seybol d 2022-09-05 2022-09-05 Outpatient GLADYS GRAHAM [id number] Gladys 11:55:00 11:55:00 Seybol d 2022-09-05 2022-09-05 Outpatient ALIISATUAI, GLADYS GRAHAM [id number] Gladys 00:00:00 00:00:00 JOLENE Seybol d 2022-08-30 2022-08-30 Outpatient RADIOLOGY, GLADYS GRAHAM [id number] Gladys 00:00:00 00:00:00 DEPT Seybol d 2022-08-25 2022-08-25 Outpatient GLADYS GRAHAM [id number] Gladys 15:20:00 15:20:00 Seybol d 2022-08-25 2022-08-25 Outpatient GLADYS GRAHAM [id number] Gladys 14:15:00 14:15:00 Seybol d 2022-08-03 2022-08-03 Outpatient LAB59 GLADYS GRAHAM [id number] Gladys 17:00:00 17:00:00 Seybol d 2022-08-03 2022-08-03 Outpatient ALIISATUAI, GLADYS GRAHAM [id number] Gladys 16:00:00 16:00:00 JOLENE Seybol d 2022-07-26 2022-07-26 Outpatient ALIISATUAI, GLADYS GRAHAM [id number] Gladys 16:00:00 16:00:00 JOLENE Seybol d 2022-06-27 2022-06-27 Outpatient OKORAFOR, GLADYS GRAHAM [id number] Gladys 14:00:00 14:00:00 HAILEE Seybol d 2022-06-20 2022-06-20 Outpatient OKORAFOR, GLADYS GRAHAM [id number] Gladys 15:00:00 15:00:00 HAILEE Seybol d 2022-06-16 2022-06-16 Outpatient NOCK, GLADYS GRAHAM [id number] Gladys 09:40:00 09:40:00 CONCHIS Seybo ld 2022-06-13 2022-06-13 Outpatient GLADYS DOYLE GLADYS [id number] Gladys 00:00:00 00:00:00 RASHNO ybol d 2022-06-06 2022-06-06 Outpatient [facility] [id number] Memoria 13:20:53 15:36:00 [facility] 2022-06-06 2022-06-06 Outpatient Man [facility] [id number] Memoria 13:20:53 15:36:00 [facility] 2022-06-06 2022-06-06 [facility] [id number] Memoria 07:20:53 09:36:00 judi danielle [place] 2022-06-06 2022-06-06 Outpatient DAMIAN, [id number] 07:20:53 09:36:00 TATIANNA 8 2022-05-26 2022-05-26 Telephone Basia, 1.2.840.1 [id number] Methodi 00:00:00 00:00:[address] 3.430.2.7 Hospit a .3.392066 l .8 2022-04-17 2022-04-17 Office Wiggins, 1.2.840.1 [id number] Methodi 09:00:00 09:24:20 Visit Felix 85578.1.[address] Kb 3.430.2.7 Hospit a .3.764570 l .8 2022-04-14 2022-04-14 Travel 1.2.840.1 1.2.945.947 [id number] Methodi 00:00:00 00:00:[address] 3.430.2.7 0.2.7.3.698 Ho spita .3.911939 084.8 l .8 2022-03-10 2022-03-10 Lab Basia, 1.2.840.1 [id number] Methodi 11:25:00 11:30:[address] 3.430.2.7 Hospit a .3.051407 l .8 2022-03-10 2022-03-10 Office Basia, 1.2.840.1 [id number] Methodi 10:30:00 11:16:35 Visit Ant 34327.1.[address] 3.430.2.7 Hospit a .3.026344 l .8 2022-03-10 2022-03-10 Travel 1.2.840.1 1.2.114.033 [id number] Methodi 00:00:00 00:00:[address] 3.430.2.7 0.2.7.3.698 Ho spita .3.841495 084.8 l .8 2022-02-27 2022-02-27 Outpatient GC_NEMD_Edo PRIV PRIV [id number] [facility] 00:00:00 00:00:00 kpayi_N [id number] Medica 2022-02-01 2022-02-01 Outpatient GC_NEMD_Edo PRIV PRIV [id number] [facility] 00:00:00 00:00:00 kpayi_N [id number] Medica 2022-01-23 2022-01-23 Letter HOLLAND Magaña 1.2.840.114 [id number] Univers 00:00:00 00:00:00 (Out) Janice LANDRY 350.1.13.10 it y of [facility] 4.2.7.2.686 Seth as [phone] [address] 2022-01-22 2022-01-22 Laboratory Only, Ang Db Test [facility] 1.2.8 40.114 [id number] Univers 11:45:00 12:00:00 Only Jhony Faith [facility] 350.1.13.10 ity of [place] 4.2.7.2.686 Seth as WERNER?BLEA [phone] Me [address] MEDICAL OFFICE BUILDING 2022-01-22 2022-01-22 Outpatient Judi FAITH [facility] [id number] Univers 11:45:00 11:45:00 VEENAGEOVANY michaelgabbi [facility] 2022-01-16 2022-01-16 Travel 1.2.840.1 1.2.676.709 [id number] Methodi 00:00:00 00:00:[address] 3.430.2.7 0.2.7.3.698 Ho spita .3.685672 084.8 l .8 2021-11-25 2021-11-25 Outpatient GC_NEMD_Edo PRIV PRIV [id number] [facility] 06:42:00 06:42:00 kpayi_N [id number] Medica l 2021-11-16 2021-11-16 Outpatient GC_NEMD_Edo PRIV PRIV [id number] [facility] 11:15:00 11:15:00 kpayi_N [id number] Medica l 2021-11-16 2021-11-16 Outpatient Edokpayi, PRIV PRIV [id number] 00:00:00 00:00:00 Verónica [id number] 2021-11-16 2021-11-16 Verónica PRIV [facility] 00:00:00 00:00:00 Ferny, Health - Med ical MD: 1111 GC_NEMD_Sug [address] [address] , Ph. 2021-10-31 2021-10-31 Outpatient GC_NEMD_Edo PRIV PRIV [id number] [facility] 12:23:00 12:23:00 kpayi_N [id number] Medica l 2021-10-31 2021-10-31 Outpatient Edokpayi, PRIV PRIV [id number] 00:00:00 00:00:00 Verónica [id number] 2021-10-31 2021-10-31 Verónica PRIV [facility] 00:00:00 00:00:00 [facility] - Med ical MD: 1111 GC_NEMD_Sug [address], [place] [address] , Ph. 2021-03-10 2021-03-10 Outpatient Fide Fide [id number] eClinic 11:24:00 11:24:00 Mike tobar P.A. P.A. 2021-03-01 2021-03-01 Outpatient Phong SALGADO [facility] [id number] [facility] 08:45:00 12:56:00 TATIANNA Medic [facility] 2021-01-20 2021-01-20 Outpatient Fide Elizalde [id number] eClinic 14:49:00 14:49:00 Mike tobar P.A. P.A. 2020-12-28 2020-12-28 Outpatient Fidemuriel Elizalde [id number] eClinic 10:30:00 10:30:00 Mike tobar P.A. P.A. 2020-12-27 2020-12-27 Emergency Gip[place], [facility] 1.2.452.392 [id number] Univers 15:52:00 16:11:00 Doris Chow 350.1.13.10 i ty of [place] 4[place]2.[place].2.686 [place] [phone] [facility] [address] 2020-12-27 2020-12-27 Orders Doctor HOLLAND [id number] Univers 00:00:00 00:00:00 Only Unassigned, GRIS [id number] ity of [place] [facility] 4.2.7.2.686 Seth as [id number] [facility] [address] 2020-11-19 2020-11-19 Outpatient GC_NEMD_Edo PRIV PRIV [id number] [facility] 02:01:00 02:01:00 kpayi_N [id number] Medica l 2020-10-25 2020-10-25 Outpatient GC_NEMD_Edo PRIV PRIV [id number] [facility] 08:24:00 08:24:00 kpayi_N [id number] Medica l 2020-10-25 2020-10-25 Outpatient EdokASH augustin PRIV [id number] 00:00:00 00:00:00 Verónica [id number] 2020-10-25 2020-10-25 Verónica PRIV [facility] - [facility] 19 [facility] 00:00:00 00:00:00 [facility] ica MD: [address] [address], [address] [address], [place] [address] , Ph. 2020-10-11 2020-10-11 Verónica PRIV [facility] - [facility] 05 [facility] 00:00:00 00:00:00 [facility] MD: [address] [address], [address] [address], [place] [address] , Ph. 2020-09-18 2020-09-18 Emergency [facility] [id number] Univers 08:22:00 10:53:00 Jay Chow [id number] i ty of [place] 4.2.7.2.686 [facility] [id number] [address] 2020-09-13 2020-09-13 Emergency Critical access hospital [id number] Univers 05:03:00 07:10:00 Yomaira Chow 350.1.13.10 ity [facility] 4.2.7.2.[address] [place] [id number] 2020-07-23 2020-07-23 Outpatient R [facility] [id number] Univers 14:30:00 14:30:00 ity of [facility] 2020-05-30 2020-05-30 Emergency [facility] [id number] Univers 18:32:00 20:39:00 Ike Chow 350.1.13.10 ity of [place] 4.2.7.2.686 [facility] [id number] [address] 2020-05-28 2020-05-28 Outpatient Judi KONG [facility] [id number] Univers 13:30:00 13:30:00 WONDIFUL ity o f [facility] 2020-03-25 2020-03-25 Outpatient Judi KONG [facility] [id number] Univers 08:45:00 08:45:00 WONDIFUL ity o f [facility] 2020-01-21 2020-01-21 Telephone HOLLAND Stovall [id number] Univers 00:00:00 00:00:00 Bryan GRIS 350.1.13.10 it y of [facility] 4.2.7.2.686 Seth as [id number] [address] 2020-01-20 2020-01-20 Patient Doctor [facility] [id number] Univers 00:00:00 00:00:00 Secure Msg Unassigned, 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 350.1.13.10 ity of [place] [facility] 4.2.7.2.686 Seth as MATERNAL [phone] Med ical & CHILD [address] [place] [address] 2020-01-19 2020-01-19 Emergency Singer [facility] [id number] Univers 05:13:24 06:35:00 Bryan Chow 350.1.13.10 i ty [facility] 4.2.7.2.686 [facility] [id number] [address] 2008-10-29 2008-10-29 Outpatient [facility] [id number] Univers 00:00:00 00:00:00 0 ity of [facility] 2006-12-31 2006-12-31 Outpatient [facility] [id number] Univers 00:00:00 10:27:30 1 ity of [facility] 2006-11-14 2006-11-14 Outpatient [facility] [id number] Univers 00:00:00 00:00:00 7 ity of [facility] 2006-03-06 2006-03-06 Outpatient [facility] [id number] Univers 00:00:00 09:45:[address] [facility] 2005-12-26 2005-12-26 Outpatient [facility] [id number] Univers 00:00:00 10:04:[address] [facility] 2005-10-19 2005-10-19 Outpatient [facility] [id number] Univers 00:00:00 14:52:[address] [facility] Results Test Description Test Time Test Comments Results Result Comments Source URINALYSIS NONAUTO W/O SCOPE 2022-12-22 00:00:00 Test Item Value Reference Range Interpretation Comme nts UD KETONES (test code = neg 5-160 303883) UD GLUCOSE (test code = neg 100-2000 173368) UD PROTEIN (test code = Neg Trace - 2000 mg/dL 156530) UD LEUKOCYTES (test code = Neg Trace - Large @ 2 713022) min. UD NITRITE (test code = Neg Neg. - Pos. @ 60 295846) sec. UD UROBILINOGEN (test code 0.2 mg/dL 0.2-8 = 194404) UD PH (test code = 788571) 6.5 See_Comment [Automated message] The system which ge nerated this result tra nsmitted reference range : 5.0 - 8.5 @ 60 sec.. The reference range was not u sed to interpret this result as normal/abnormal . UD BLOOD (test code = neg Neg. - Large @ 60 033423) sec. UD SPECIFIC GRAVITY (test 1.005 See_Comment [ Automated message] The code = 295394) system which generated this result tra nsmitted reference range : 1.000 - 1.030 @ 45 sec. . The reference range was not used to interpr et this result as brandee l/abnormal. UD BILIRUBIN (test code = neg Neg. - Large @ 45 554279) sec. Gladys Sarabia - ExternalCeliac panel reflex to [id number] 21:09:00 Test Item Value Reference Interpretation Comments Range Gliadin IgA (test See_Comment H Negative 0 - 19 code = 98153-0) Weak Positiv e 20 - 30 Moderate to Strong Positive >30 [Automated mess age] The system [employer] generated this result transmit werner reference range : 0 - 19 units. The reference range was not used to interpret this result as normal/abnormal . Tissue <2 0-3 Negative 0 - 3 Weak transglutaminase Ab, Positiv e 4 - 10 IgA (test code = Positive > 10 Tissue 39176-5) Transglutaminas e (tTG) has been identified as t he endomysial anti gen. Studies have demonstr- ated that endomysial IgA antibodies have over 99% specificity for gluten sensitiv e enteropathy. IgA (test code = 253 mg/dL 87-352 2458-8) VERN (test code = VERN) Performed at: - [address] [id number] Director: Lina Salcedo MD, Phone: [phone] rmed at: - [address] [id number] Director: Jair Turner MD, Phone: [phone] Lab Interpretation Abnormal (test code = 50638-7) [facility] to [id number] 21:09:00 Test Item Value Reference Interpretation Comments Range Gliadin IgA (test See_Comment H Negative 0 - 19 code = 41742-8) Weak Positiv e 20 - 30 Moderate to Strong Positive >30 [Automated mess age] The system Style[employer]aster generated this result transmit werner reference range : 0 - 19 units. The reference range was not used to interpret this result as normal/abnormal . Tissue <2 0-3 Negative 0 - 3 Weak transglutaminase Ab, Positiv e 4 - 10 IgA (test code = Positive >1 0 Tissue 60490-0) Transglutaminas e (tTG) has been identified as t he endomysial anti gen. Studies have demonstr- ated that endomysial IgA antibodies have over 99% specificity for gluten sensitiv e enteropathy. IgA (test code = 253 mg/dL 87-352 2458-8) VERN (test code = VERN) Performed at: [address] [place] [address] [id number] Director: Lina Salcedo MD, Phone: [phone] rmed at: 02 - [address] [id number] Director: Jair Turner MD, Phone: [phone] Lab Interpretation Abnormal (test code = 96557-2) [facility] reflex to [id number] 21:09:00 Test Item Value Reference Interpretation Comments Range Gliadin IgA (test See_Comment H Negative 0 - 19 code = 34545-2) Weak Positiv e 20 - 30 Moderate to Strong Positive >30 [Automated mess age] The system [employer]aster generated this result transmit werner reference range : 0 - 19 units. The reference range was not used to interpret this result as normal/abnormal . Tissue <2 0-3 Negative 0 - 3 Weak transglutaminase Ab, Positiv e 4 - 10 IgA (test code = Positive >1 0 Tissue 89230-6) Transglutaminas e (tTG) has been identified as t he endomysial anti gen. Studies have demonstr- ated that endomysial IgA antibodies have over 99% specificity for gluten sensitiv e enteropathy. IgA (test code = 253 mg/dL 87-352 2458-8) VERN (test code = VERN) Performed at: [address] [id number] Director: Lina Salcedo MD, Phone: [phone] rmed at: [address] [facility] [address] [id number] Director: Jair Turner MD, Phone: [phone] Lab Interpretation Abnormal (test code = 53007-1) [facility] panel reflex to [id number] 21:09:00 Test Item Value Reference Interpretation Comments Range Gliadin IgA (test See_Comment H Negative 0 - 19 code = 59595-4) Weak Positiv e 20 - 30 Moderate to Strong Positive >30 [Automated mess age] The system StyleCaster generated this result transmit werner reference range : 0 - 19 units. The reference range was not used to interpret this result as normal/abnormal . Tissue <2 0-3 Negative 0 - 3 transglutaminase Ab, Weak Po sitive 4 - 10 IgA (test code = Positive >1 0 Tissue 73249-1) Transglutaminas e (tTG) has been identified as t he endomysial anti gen. Studies have demonstr- ated that endomysial IgA antibodies have over 99% specificity for gluten sensitiv e enteropathy. IgA (test code = 253 mg/dL 87-352 2458-8) VERN (test code = VERN) Performed at: [address] [place] [address] [id number] Director: Lina Salcedo MD, Phone: [phone] rmed at: [address] [place] [address] [id number] Director: Jair Turner MD, Phone: [phone] Lab Interpretation Abnormal (test code = 30623-4) [facility], [id number] 17:09:00 Test Item Value Reference Range Interpretation Comments Trichomonas vaginalis, Negative Negative TMA result (test code = 01332-5) VERN (test code = VERN) Performed at: [address] [place] [address] [id number] Director: Jair Turner MD, Phone: [phone] [facility], [id number] 17:09:00 Test Item Value Reference Range Interpretation Comments Trichomonas vaginalis, Negative Negative TMA result (test code = 37369-3) VERN (test code = VERN) Performed at: [address] [place] [address] [id number] Director: Jair Turner MD, Phone: [phone] [facility], [id number] 17:09:00 Test Item Value Reference Range Interpretation Comments Trichomonas vaginalis, Negative Negative TMA result (test code = 17196-6) VERN (test code = VERN) Performed at: [address] [place] [address] [id number] Director: Jair Turner MD, Phone: [phone] [facility], [id number] 17:09:00 Test Item Value Reference Range Interpretation Comments Trichomonas vaginalis, Negative Negative TMA result (test code = 58634-2) VERN (test code = VERN) Performed at: [address] [place] [address] [id number] Director: Jair Turner MD, Phone: [phone] [facility]/GC, [id number] 02:06:00 Test Item Value Reference Range Interpretation Comments Chlamydia trachomatis, Negative Negative FORTINO (test code = 73303-7) Neisseria gonorrhoeae, Negative Negative FORTINO (test code = 94844-2) VERN (test code = VERN) Performed at: [address] [place] [address] [id number] Director: Jair Turner MD, Phone: [phone] [facility], [id number] 02:06:00 Test Item Value Reference Range Interpretation Comments Chlamydia trachomatis, Negative Negative FORTINO (test code = 52889-0) Neisseria gonorrhoeae, Negative Negative FORTINO (test code = 85451-9) VERN (test code = VERN) Performed at: [address] [place] [address] [id number] Director: Jair Turner MD, Phone: [phone] [facility], [id number] 02:06:00 Test Item Value Reference Range Interpretation Comments Chlamydia trachomatis, Negative Negative FORTINO (test code = 30757-3) Neisseria gonorrhoeae, Negative Negative FORTINO (test code = 06449-9) VERN (test code = VERN) Performed at: [address] [place] [address] [id number] Director: Jair Turner MD, Phone: [phone] [facility], [id number] 02:06:00 Test Item Value Reference Range Interpretation Comments Chlamydia trachomatis, Negative Negative FORTINO (test code = 55830-0) Neisseria gonorrhoeae, Negative Negative FORTINO (test code = 19806-7) VERN (test code = VERN) Performed at: [address] [place] [address] [id number] Director: Jair Turner MD, Phone: [phone] [facility], with reflex to culture 2022-03-12 18:08:00 Test Item Value Reference Range Interpretation Comments Specific gravity, 1.005-1.030 urine (test code = 5811-5) pH, urine (test code 5.0-7.5 = 5803-2) Color, UA (test code Yellow Yellow = 5778-6) Appearance (test code Clear Clear = 5767-9) WBC esterase, urine 2+ Negative A (test code = 5799-2) Protein, UA (test Negative Negative/Trace code = 19722-7) Glucose, urine (test Negative Negative code = 47094-9) Ketones, UA (test Negative Negative code = 2514-8) Occult blood, urine Negative Negative (test code = 5794-3) Bilirubin, UA (test Negative Negative code = 5770-3) Urobilinogen, UA 0.2 mg/dL 0.2-1.0 (test code = 16079-8) Nitrite, UA (test Negative Negative code = 5802-4) Microscopic See below: Microscopic was examination (test indicated and was code = 89727-3) performed. Urinalysis reflex Comment This speci men has (test code = 2386) reflexed to a Urine Culture. VERN (test code = VERN) Performed at: [facility] [id number] Director: Jair Turner MD, Phone: [phone] Lab Interpretation Abnormal (test code = 49701-2) [facility] [id number] 18:08:00 Test Item Value Reference Range Interpretation Comments WBC, UA (test code 0-5 See_Comment [Automat ed = 5821-4) message] The system which generated this result transmit werner reference range : 0 - 5 /hpf. The reference range was not used to interpret this result as normal/abnormal . RBC, UA (test code 0-2 See_Comment [Automat ed = 52408-9) message] The system which generated this result transmit werner reference range : 0 - 2 /hpf. The reference range was not used to interpret this result as normal/abnormal . Epithelial cells 0-10 See_Comment [Automated (non renal) (test message] T he code = 5787-7) system which generated this result transmit werner reference range : 0 - 10 /hpf. The reference range was not used to interpret this result as normal/abnormal . Casts (test code = None seen None seen /lpf 66351-2) Bacteria, UA (test Few None seen/Few code = 5769-5) VERN (test code = Performed at: VERN) [facility] [address] [id number] Director: Jair Turner MD, Phone: [phone] [facility] microscopy, with reflex to culture 2022-03-12 18:08:00 Test Item Value Reference Range Interpretation Comments Specific gravity, 1.005-1.030 urine (test code = 5811-5) pH, urine (test code 5.0-7.5 = 5803-2) Color, UA (test code Yellow Yellow = 5778-6) Appearance (test code Clear Clear = 5767-9) WBC esterase, urine 2+ Negative A (test code = 5799-2) Protein, UA (test Negative Negative/Trace code = 18037-5) Glucose, urine (test Negative Negative code = 37402-9) Ketones, UA (test Negative Negative code = 2514-8) Occult blood, urine Negative Negative (test code = 5794-3) Bilirubin, UA (test Negative Negative code = 5770-3) Urobilinogen, UA 0.2 mg/dL 0.2-1.0 (test code = 31568-0) Nitrite, UA (test Negative Negative code = 5802-4) Microscopic See below: Microscopic was examination (test indicated and was code = 40825-5) performed. Urinalysis reflex Comment This speci men has (test code = 2386) reflexed to a Urine Culture. VERN (test code = VERN) Performed at: [address] [place] [address] [id number] Director: Jair Turner MD, Phone: [phone] Lab Interpretation Abnormal (test code = 50909-2) [facility] [id number] 18:08:00 Test Item Value Reference Range Interpretation Comments WBC, UA (test code 0-5 See_Comment [Automat ed = 5821-4) message] The system which generated this result transmit werner reference range : 0 - 5 /hpf. The reference range was not used to interpret this result as normal/abnormal . RBC, UA (test code 0-2 See_Comment [Automat ed = 22856-1) message] The system which generated this result transmit werner reference range : 0 - 2 /hpf. The reference range was not used to interpret this result as normal/abnormal . Epithelial cells 0-10 See_Comment [Automated (non renal) (test message] T he code = 5787-7) system which generated this result transmit werner reference range : 0 - 10 /hpf. The reference range was not used to interpret this result as normal/abnormal . Casts (test code = None seen None seen /lpf 26098-6) Bacteria, UA (test Few None seen/Few code = 5769-5) VERN (test code = Performed at: - VERN) [facility] [id number] Director: Jair Turner MD, Phone: [phone] [facility], with reflex to culture 2022-03-12 18:08:00 Test Item Value Reference Range Interpretation Comments Specific gravity, 1.005-1.030 urine (test code = 5811-5) pH, urine (test code 5.0-7.5 = 5803-2) Color, UA (test code Yellow Yellow = 5778-6) Appearance (test code Clear Clear = 5767-9) WBC esterase, urine 2+ Negative A (test code = 5799-2) Protein, UA (test Negative Negative/Trace code = 74202-6) Glucose, urine (test Negative Negative code = 24026-6) Ketones, UA (test Negative Negative code = 2514-8) Occult blood, urine Negative Negative (test code = 5794-3) Bilirubin, UA (test Negative Negative code = 5770-3) Urobilinogen, UA 0.2 mg/dL 0.2-1.0 (test code = 52083-7) Nitrite, UA (test Negative Negative code = 5802-4) Microscopic See below: Microscopic was examination (test indicated and was code = 75667-4) performed. Urinalysis reflex Comment This speci men has (test code = 2386) reflexed to a Urine Culture. VERN (test code = VERN) Performed at: - [facility] [id number] Director: Jair Turner MD, Phone: [phone] Lab Interpretation Abnormal (test code = 19921-8) [facility] [id number] 18:08:00 Test Item Value Reference Range Interpretation Comments WBC, UA (test code 0-5 See_Comment [Automat ed = 6409-4) message] The system which generated this result transmit werner reference range : 0 - 5 /hpf. The reference range was not used to interpret this result as normal/abnormal . RBC, UA (test code 0-2 See_Comment [Automat ed = 59744-2) message] The system which generated this result transmit werner reference range : 0 - 2 /hpf. The reference range was not used to interpret this result as normal/abnormal . Epithelial cells 0-10 See_Comment [Automated (non renal) (test message] T he code = 5787-7) system which generated this result transmit werner reference range : 0 - 10 /hpf. The reference range was not used to interpret this result as normal/abnormal . Casts (test code = None seen None seen /lpf 96120-3) Bacteria, UA (test Few None seen/Few code = 5769-5) VERN (test code = Performed at: ) [facility] [address] [id number] Director: Jair uTrner MD, Phone: [phone] [facility], with reflex to culture 2022-03-12 18:08:00 Test Item Value Reference Range Interpretation Comments Specific gravity, 1.005-1.030 urine (test code = 5811-5) pH, urine (test code 5.0-7.5 = 5803-2) Color, UA (test code Yellow Yellow = 5778-6) Appearance (test code Clear Clear = 5767-9) WBC esterase, urine 2+ Negative A (test code = 5799-2) Protein, UA (test Negative Negative/Trace code = 51453-3) Glucose, urine (test Negative Negative code = 65256-7) Ketones, UA (test Negative Negative code = 2514-8) Occult blood, urine Negative Negative (test code = 5794-3) Bilirubin, UA (test Negative Negative code = 5770-3) Urobilinogen, UA 0.2 mg/dL 0.2-1.0 (test code = 98414-3) Nitrite, UA (test Negative Negative code = 5802-4) Microscopic See below: Microscopic was examination (test indicated and was code = 45295-9) performed. Urinalysis reflex Comment This speci men has (test code = 2386) reflexed to a Urine Culture. VERN (test code = VERN) Performed at: - [address] [id number] Director: Jair Turner MD, Phone: [phone] Lab Interpretation Abnormal (test code = 27892-2) [facility] [id number] 18:08:00 Test Item Value Reference Range Interpretation Comments WBC, UA (test code 0-5 See_Comment [Automat ed = 5821-4) message] The system which generated this result transmit werner reference range : 0 - 5 /hpf. The reference range was not used to interpret this result as normal/abnormal . RBC, UA (test code 0-2 See_Comment [Automat ed = 70496-8) message] The system which generated this result transmit werner reference range : 0 - 2 /hpf. The reference range was not used to interpret this result as normal/abnormal . Epithelial cells 0-10 See_Comment [Automated (non renal) (test message] T he code = 5787-7) system which generated this result transmit werner reference range : 0 - 10 /hpf. The reference range was not used to interpret this result as normal/abnormal . Casts (test code = None seen None seen /lpf 40601-6) Bacteria, UA (test Few None seen/Few code = 5769-5) VERN (test code = Performed at: - VERN) [address] [id number] Director: Jair Turner MD, Phone: [phone] [facility] Hospital[facility], Hlcchtdtkkzmu5434-59-09 18:08:00Urine cultureMixed urogenital floraLess than 10,000 colonies/mL [facility], [id number] 18:08:00Urine cultureMixed urogenital floraLess than 10,000 colonies/mL [facility], Arwbegazdmkya3317-75-07 18:08:00Urine cultureMixed urogenital floraLess than 10,000 colonies/mL [facility] Hospital[facility]rine [facility], [facility] 2022-03-12 18:08:00Urine cultureMixed urogenital floraLess than 10,000 colonies/mL [facility] [id number] 16:09:00 Test Item Value Reference Range Interpretation Comments MONTSE direct (test code Negative Negative = 8061-4) VERN (test code = VERN) Performed at: - [address] [id number] Director: Jair Turner MD, Phone: [phone] [facility] [id number] 16:09:00 Test Item Value Reference Range Interpretation Comments Sjogren's SS-A <0.2 See_Comment [Automated antibody (test message] The system code = 13297-8) which genera werner this result transmitted reference range : 0.0 - 0.9 AI. T he reference range was not used to interpret this result as normal/abnormal . VERN (test code = Performed at: - [facility]) [address] [id number] Director: Jair Turner MD, Phone: [phone] [facility] [id number] 16:09:00 Test Item Value Reference Range Interpretation Comments Sjogren's SS-B <0.2 See_Comment [Automated antibody (test message] The system code = 14609-3) which genera werner this result transmitted reference range : 0.0 - 0.9 AI. T he reference range was not used to interpret this result as normal/abnormal . VERN (test code = Performed at: - VERN) [address] [id number] Director: Jair Turner MD, Phone: [phone] [facility]2022-09-03 16:09:00 Test Item Value Reference Range Interpretation Comments MONTSE direct (test code Negative Negative = 8061-4) VERN (test code = VERN) Performed at: - [address] [id number] Director: Jair Turner MD, Phone: [phone] [facility] [id number] 16:09:00 Test Item Value Reference Range Interpretation Comments Sjogren's SS-A <0.2 See_Comment [Automated antibody (test message] The system code = 90650-0) which genera werner this result transmitted reference range : 0.0 - 0.9 AI. T he reference range was not used to interpret this result as normal/abnormal . VERN (test code = Performed at: VERN) [address] [id number] Director: Jair Turner MD, Phone: [phone] [facility] [id number] 16:09:00 Test Item Value Reference Range Interpretation Comments Sjogren's SS-B <0.2 See_Comment [Automated antibody (test message] The system code = 48668-5) which genera werner this result transmitted reference range : 0.0 - 0.9 AI. T he reference range was not used to interpret this result as normal/abnormal . VERN (test code = Performed at: VERN) [address] [id number] Director: Jair Turner MD, Phone: [phone] [facility] [id number] 16:09:00 Test Item Value Reference Range Interpretation Comments MONTSE direct (test code Negative Negative = 8061-4) VERN (test code = VERN) Performed at: - [address] [id number] Director: Jair Turner MD, Phone: [phone] [facility] [id number] 16:09:00 Test Item Value Reference Range Interpretation Comments Sjogren's SS-A <0.2 See_Comment [Automated antibody (test message] The system code = 34718-5) which genera werner this result transmitted reference range : 0.0 - 0.9 AI. T he reference range was not used to interpret this result as normal/abnormal . VERN (test code = Performed at: VERN) [address] [id number] Director: Jair Turner MD, Phone: [phone] [facility] [id number] 16:09:00 Test Item Value Reference Range Interpretation Comments Sjogren's SS-B <0.2 See_Comment [Automated antibody (test message] The system code = 77904-0) which genera werner this result transmitted reference range : 0.0 - 0.9 AI. T he reference range was not used to interpret this result as normal/abnormal . VERN (test code = Performed at: ) [address] [id number] Director: Jair Turner MD, Phone: [phone] [facility] HospitalEmwzzbrtNHC9242-21-39 16:09:00 Test Item Value Reference Range Interpretation Comments MONTSE direct (test code Negative Negative = 8061-4) VERN (test code = VERN) Performed at: [address] [address] [id number] Director: Jair Turner MD, Phone: [phone] [facility] [id number] 16:09:00 Test Item Value Reference Range Interpretation Comments Sjogren's SS-A <0.2 See_Comment [Automated antibody (test message] The system code = 18207-7) which genera werner this result transmitted reference range : 0.0 - 0.9 AI. T he reference range was not used to interpret this result as normal/abnormal . VREN (test code = Performed at: ) [address] [id number] Director: Jair Turner MD, Phone: [phone] [facility] [id number] 16:09:00 Test Item Value Reference Range Interpretation Comments Sjogren's SS-B <0.2 See_Comment [Automated antibody (test message] The system code = 49085-6) which genera werner this result transmitted reference range : 0.0 - 0.9 AI. T he reference range was not used to interpret this result as normal/abnormal . VERN (test code = Performed at: VERN) [address] [id number] Director: Jair Turner MD, Phone: [phone] [facility] [id number] 13:11:00 Test Item Value Reference Range Interpretation Comments Glucose (test code 91 mg/dL 65-99 = 2345-7) BUN (test code = 13 mg/dL 8-27 3094-0) Creatinine (test 0.71 mg/dL 0.57-1.00 code = 2160-0) eGFR (test code = 94 mL/min/1.73 See_Comment [Automa werner 8257) message] The system which generated this result transmit werner reference range : >=59. The reference range was not used to interpret this result as normal/abnormal . BUN/creatinine 12-28 ratio (test code = 3097-3) Sodium (test code = 140 mmol/L 749-143 6456-2) Potassium (test 4.2 mmol/L 3.5-5.2 code = 2823-3) Chloride (test code 103 mmol/L 96-106 = 2075-0) CO2 (test code = 24 mmol/L 20-29 2027-9) Calcium (test code 9.7 mg/dL 8.7-10.3 = 88918-1) Protein (test code 7.1 g/dL 6.0-8.5 = 2885-2) Albumin, S (test 4.4 g/dL 3.8-4.8 code = 1751-7) Globulin, total 2.7 g/dL 1.5-4.5 (test code = 50004-2) Albumin/globulin 1.2-2.2 ratio (test code = 1759-0) Total bilirubin 0.4 mg/dL 0.0-1.2 (test code = 1975-2) Alkaline See_Comment [Automated phosphatase (test message] T he code = 6768-6) system which generated this result transmit werner reference range : 44 - 121 IU/L. The reference range was not used to interpret this result as normal/abnormal . AST (test code = See_Comment [Automated 1920-8) message] The system which generated this result transmit werner reference range : 0 - 40 IU/L. The reference range was not used to interpret this result as normal/abnormal . ALT (test code = See_Comment [Automated 1742-6) message] The system which generated this result transmit werner reference range : 0 - 32 IU/L. The reference range was not used to interpret this result as normal/abnormal . VERN (test code = Performed at: VERN) - [facility] Fgrxzae18[address] [place], [place] [id number] Director: Jair Turner MD, Phone: [phone] [facility] [id number] 13:11:00 Test Item Value Reference Range Interpretation Comments Cholesterol (test 201 mg/dL 100-199 H code = 2092-3) Triglycerides (test 46 mg/dL 0-149 code = 2571-8) HDL cholesterol (test 61 mg/dL See_Comment [Auto mated code = 2085-9) message] The system which generated this result transmitted reference range : >=39. The reference range was not used to interpret this result as normal/abnormal . VLDL cholesterol vladimir 8 mg/dL 5-40 (test code = 36061-0) LDL Chol Calc ([facility]) 132 mg/dL 0-99 H (test code = 69821-6) Non-HDL cholesterol 140 mg/dL 0-129 H (test code = 45018-5) VERN (test code = VERN) Performed at: [address] [place] [address] [id number] Director: Jair Turner MD, Phone: [phone] Lab Interpretation Abnormal (test code = 81956-9) [facility] [id number] 13:11:00 Test Item Value Reference Range Interpretation Comments Amylase (test code = 121 U/L 31-110 H 1798-8) VERN (test code = VERN) Performed at: [address] [place] [address] [id number] Director: Jair Turner MD, Phone: [phone] Lab Interpretation (test Abnormal code = 61039-8) [facility] [id number] 13:11:00 Test Item Value Reference Range Interpretation Comments Hemoglobin A1C (test 5.9 % 4.8-5.6 H Predia betes: code = 4548-4) 5.7 - 6.4 Diabetes: >6.4 Glycemic control for adults with diabetes: <7.0 VERN (test code = VERN) Performed at: [address] [place] [id number] Director: Jair Turner MD, Phone: [phone] Lab Interpretation Abnormal (test code = 82735-5) [facility] [id number] 13:11:00 Test Item Value Reference Range Interpretation Comments Lipase (test code = 50 U/L 14-72 3040-3) VERN (test code = VERN) Performed at: [address] [place] [address] [id number] Director: Jair Turner MD, Phone: [phone] [facility] HospitalT4, [id number] 13:11:00 Test Item Value Reference Range Interpretation Comments T4, free (test code 1.21 ng/dL 0.82-1.77 = 3024-7) VERN (test code = Performed at: ) [address] [id number] Director: Jair Turner MD, Phone: [phone] [facility] HospitalThyroid stimulating [id number] 13:11:00 Test Item Value Reference Range Interpretation Comments TSH (test code See_Comment [Automated m essage] = 38042-8) The system ic h generated this result transmit werner reference range : 0.450 - 4.500 uIU/mL. The reference range was not used to interpret this result as normal/abnormal . VERN (test code Performed at: - VERN) [address] [id number] Director: Jair Turner MD, Phone: [phone] [place] [address], [id number] 13:11:00 Test Item Value Reference Range Interpretation Comments T3, free (test code 2.7 pg/mL 2.0-4.4 = 3051-0) VERN (test code = Performed at: ) [address] [id number] Director: Jair Turner MD, Phone: [phone] [facility] with platelet and gitjzsimpxto7099-71-79 13:11:00 Test Item Value Reference Range Interpretation Comments WBC (test code = See_Comment [Automated 2290-2) message] The system which generated this result transmitted reference range : 3.4 - 10.8 x10E3/uL. The reference range was not used to interpret this result as normal/abnormal . RBC (test code = See_Comment [Automated 038-8) message] The system which generated this result transmitted reference range : 3.77 - 5.28 x10E6/uL. The reference range was not used to interpret this result as normal/abnormal . HGB (test code = 11.2 g/dL 11.1-15.9 718-7) HCT (test code = 37.0 % 34.0-46.6 4544-3) MCV (test code = 81 fL 79-97 787-2) MCH (test code = 24.5 pg 26.6-33.0 L 785-6) MCHC (test code = 30.3 g/dL 31.5-35.7 L 786-4) RDW (test code = 14.4 % 11.7-15.4 788-0) Platelet count (test See_Comment [Autom ated code = 777-3) message] The system which generated this result transmitted reference range : 150 - 450 x10E3/uL. The reference range was not used to interpret this result as normal/abnormal . Neutrophils (test 64 % Not Estab. code = 770-8) Lymphocytes (test 27 % Not Estab. code = 736-9) Monocytes (test code 7 % Not Estab. = 5905-5) Eosinophils (test 1 % Not Estab. code = 713-8) Basophils (test code 1 % Not Estab. = 706-2) Neutrophils, absolute See_Comment [Auto mated (test code = 751-8) message] The system which generated this result transmitted reference range : 1.4 - 7.0 x10E3/uL. The reference range was not used to interpret this result as normal/abnormal . Lymphocytes, absolute See_Comment [Auto mated (test code = 731-0) message] The system which generated this result transmitted reference range : 0.7 - 3.1 x10E3/uL. The reference range was not used to interpret this result as normal/abnormal . Monocytes, absolute See_Comment [Automa werner (test code = 742-7) message] The system which generated this result transmitted reference range : 0.1 - 0.9 x10E3/uL. The reference range was not used to interpret this result as normal/abnormal . Eosinophils, absolute See_Comment [Auto mated (test code = 711-2) message] The system which generated this result transmitted reference range : 0.0 - 0.4 x10E3/uL. The reference range was not used to interpret this result as normal/abnormal . Basophils, absolute See_Comment [Automa werner (test code = 704-7) message] The system which generated this result transmitted reference range : 0.0 - 0.2 x10E3/uL. The reference range was not used to interpret this result as normal/abnormal . Immature granulocytes 0 % Not Estab. (test code = 66359-6) Immature See_Comment [Automated granulocytes, message] The absolute (test code = system which 84259-8) generated this result transmitted reference range : 0.0 - 0.1 x10E3/uL. The reference range was not used to interpret this result as normal/abnormal . VERN (test code = VERN) Performed at: 01 - [address] [id number] Director: Jair Turner MD, Phone: [phone] Lab Interpretation Abnormal (test code = 82331-9) [facility] [id number] 13:11:00 Test Item Value Reference Range Interpretation Comments Sedimentation rate See_Comment [Automat ed (test code = 4537-7) message ] The system which generated this result transmitted reference range : 0 - 40 mm/hr. T he reference range was not used to interpret this result as normal/abnormal . VERN (test code = Performed at: VERN) - [address] [id number] Director: Jair Turner MD, Phone: [phone] [facility] B surface [id number] 13:11:00 Test Item Value Reference Range Interpretation Comments Hepatitis B surface Ag Negative Negative (test code = 5196-1) VERN (test code = VERN) Performed at: - [address] [id number] Director: Jair Turner MD, Phone: [phone] [facility] C zfzducte7840-23-03 13:11:00 Test Item Value Reference Range Interpretation Comments Hepatitis C Ab See_Comment Negative: < 0.8 (test code = Indeterminate: 0.8 - 55308-7) 0.9 Positive: > 0.9 HCV antibody al one does not differentiate between previou s resolved infect ion and active infection. The CDC and current cli nical guidelines [place] mmend that a positive HCV antibody result be followed up wit h an HCV RNA test to support the diagnosis of ac [place] HCV infection. [facility] offers Hepatitis C Vir us (HCV) RNA, Diagnosis, FORTINO (485216) and Hepatitis C Vir us (HCV) Antibody with reflex to Quantitative Real-time PCR (771669). [Auto mated message] The sy stem which generated this result transmit werner reference range : 0.0 - 0.9 s/co rati o. The reference r bunny was not used to interpret this result as normal/abnormal . VERN (test code = Performed at: VERN) - [address] [id number] Director: Jair Turner MD, Phone: [phone] [facility]PR screen with confirmation (traditional algorithm) 2022-03-11 13:11:00 Test Item Value Reference Range Interpretation Comments RPR (test code = Non Reactive Non Reactive ) VERN (test code = Performed at: VERN) [address] [id number] Director: Jair Turner MD, Phone: [phone] [facility] HospitalHIV [facility]/2 antigen/antibody, fourth generation, with reflexes 2022-03-11 13:11:00 Test Item Value Reference Range Interpretation Comments HIV Non Reactive Non Reactive HIV antigen/antibo NegativeHIV-1 /HIV-2 dy 4th gen antibodies and HIV-1 (test code = p24 antigen wer e NOT 58218-8) detected.There is no laboratory evid ence of HIV infectio n. VERN (test code Performed at: - = VERN) [address] [id number] Director: Jair Turner MD, Phone: [phone] [facility]Com[facility] [id number] 13:11:00 Test Item Value Reference Range Interpretation Comments Glucose (test code 91 mg/dL 65-99 = 2345-7) BUN (test code = 13 mg/dL 8-27 3094-0) Creatinine (test 0.71 mg/dL 0.57-1.00 code = 2160-0) eGFR (test code = 94 mL/min/1.73 See_Comment [Automa werner 8257) message] The system which generated this result transmit werner reference range : >=59. The reference range was not used to interpret this result as normal/abnormal . BUN/creatinine 12-28 ratio (test code = 3097-3) Sodium (test code = 140 mmol/L 193-587 9429-2) Potassium (test 4.2 mmol/L 3.5-5.2 code = 2823-3) Chloride (test code 103 mmol/L 96-106 = 2075-0) CO2 (test code = 24 mmol/L 20-29 2027-9) Calcium (test code 9.7 mg/dL 8.7-10.3 = 48099-3) Protein (test code 7.1 g/dL 6.0-8.5 = 2885-2) Albumin, S (test 4.4 g/dL 3.8-4.8 code = 1751-7) Globulin, total 2.7 g/dL 1.5-4.5 (test code = 32759-2) Albumin/globulin 1.2-2.2 ratio (test code = 1759-0) Total bilirubin 0.4 mg/dL 0.0-1.2 (test code = 1974-2) Alkaline See_Comment [Automated phosphatase (test message] T he code = 6768-6) system which generated this result transmit werner reference range : 44 - 121 IU/L. The reference range was not used to interpret this result as normal/abnormal . AST (test code = See_Comment [Automated 1920-02) message] The system which generated this result transmit werner reference range : 0 - 40 IU/L. The reference range was not used to interpret this result as normal/abnormal . ALT (test code = See_Comment [Automated 1741-12) message] The system which generated this result transmit werner reference range : 0 - 32 IU/L. The reference range was not used to interpret this result as normal/abnormal . VERN (test code = Performed at: VERN) - [facility] [address]lrv[address] [place], [place] [id number] Director: Jair Turner MD, Phone: [phone] [facility] HospitalLipid [id number] 13:11:00 Test Item Value Reference Range Interpretation Comments Cholesterol (test 201 mg/dL 100-199 H code = 2092-3) Triglycerides (test 46 mg/dL 0-149 code = 2571-8) HDL cholesterol (test 61 mg/dL See_Comment [Auto mated code = 2085-03) message] The system which generated this result transmitted reference range : >=39. The reference range was not used to interpret this result as normal/abnormal . VLDL cholesterol vladimir 8 mg/dL 5-40 (test code = 43608-6) LDL Chol Calc ([facility]) 132 mg/dL 0-99 H (test code = 02667-0) Non-HDL cholesterol 140 mg/dL 0-129 H (test code = 18264-9) VERN (test code = VERN) Performed at: [address] [place] [address] [id number] Director: Jair Turner MD, Phone: [phone] Lab Interpretation Abnormal (test code = 76379-8) [facility] HospitalAm[facility] [id number] 13:11:00 Test Item Value Reference Range Interpretation Comments Amylase (test code = 121 U/L 31-110 H 1798-8) VERN (test code = VERN) Performed at: [address] [place] [address] [id number] Director: Jair Turner MD, Phone: [phone] Lab Interpretation (test Abnormal code = 71573-7) [facility] HospitalHemoglobin [id number] 13:11:00 Test Item Value Reference Range Interpretation Comments Hemoglobin A1C (test 5.9 % 4.8-5.6 H Predia betes: code = 4548-4) 5.7 - 6.4 Diabetes: >6.4 Glycemic control for adults with diabetes: <7.0 VERN (test code = VERN) Performed at: [address] [place] [address] [id number] Director: Jair Turner MD, Phone: [phone] Lab Interpretation Abnormal (test code = 92568-4) [facility] HospitalLip[facility] [id number] 13:11:00 Test Item Value Reference Range Interpretation Comments Lipase (test code = 50 U/L 14-72 3040-3) VERN (test code = VERN) Performed at: [address] [place] [address] [id number] Director: Jair Turner MD, Phone: [phone] [facility] HospitalT4, pwjo7699-05-11 13:11:00 Test Item Value Reference Range Interpretation Comments T4, free (test code 1.21 ng/dL 0.82-1.77 = 3024-7) VERN (test code = Performed at: ) [address] [id number] Director: Jair Turner MD, Phone: [phone] [facility] HospitalThyroid stimulating [id number] 13:11:00 Test Item Value Reference Range Interpretation Comments TSH (test code See_Comment [Automated m essage] = 38084-7) The system whic h generated this result transmit ewrner reference range : 0.450 - 4.500 uIU/mL. The reference range was not used to interpret this result as normal/abnormal . VERN (test code Performed at: - = VERN) [address] [id number] Director: Jair Turner MD, Phone: [phone] [facility] HospitalT3, [id number] 13:11:00 Test Item Value Reference Range Interpretation Comments T3, free (test code 2.7 pg/mL 2.0-4.4 = 3051-0) VERN (test code = Performed at: ) [address] [id number] Director: Jair Turner MD, Phone: [phone] [facility] with platelet and telnunpzsbom2584-34-89 13:11:00 Test Item Value Reference Range Interpretation Comments WBC (test code = See_Comment [Automated 7390-2) message] The system which generated this result transmitted reference range : 3.4 - 10.8 x10E3/uL. The reference range was not used to interpret this result as normal/abnormal . RBC (test code = See_Comment [Automated 779-8) message] The system which generated this result transmitted reference range : 3.77 - 5.28 x10E6/uL. The reference range was not used to interpret this result as normal/abnormal . HGB (test code = 11.2 g/dL 11.1-15.9 718-7) HCT (test code = 37.0 % 34.0-46.6 4544-3) MCV (test code = 81 fL 79-97 787-2) MCH (test code = 24.5 pg 26.6-33.0 L 785-6) MCHC (test code = 30.3 g/dL 31.5-35.7 L 786-4) RDW (test code = 14.4 % 11.7-15.4 788-0) Platelet count (test See_Comment [Autom ated code = 777-3) message] The system which generated this result transmitted reference range : 150 - 450 x10E3/uL. The reference range was not used to interpret this result as normal/abnormal . Neutrophils (test 64 % Not Estab. code = 770-8) Lymphocytes (test 27 % Not Estab. code = 736-9) Monocytes (test code 7 % Not Estab. = 5905-5) Eosinophils (test 1 % Not Estab. code = 713-8) Basophils (test code 1 % Not Estab. = 706-2) Neutrophils, absolute See_Comment [Auto mated (test code = 751-8) message] The system which generated this result transmitted reference range : 1.4 - 7.0 x10E3/uL. The reference range was not used to interpret this result as normal/abnormal . Lymphocytes, absolute See_Comment [Auto mated (test code = 731-0) message] The system which generated this result transmitted reference range : 0.7 - 3.1 x10E3/uL. The reference range was not used to interpret this result as normal/abnormal . Monocytes, absolute See_Comment [Automa werner (test code = 742-7) message] The system which generated this result transmitted reference range : 0.1 - 0.9 x10E3/uL. The reference range was not used to interpret this result as normal/abnormal . Eosinophils, absolute See_Comment [Auto mated (test code = 711-2) message] The system which generated this result transmitted reference range : 0.0 - 0.4 x10E3/uL. The reference range was not used to interpret this result as normal/abnormal . Basophils, absolute See_Comment [Automa werner (test code = 704-7) message] The system which generated this result transmitted reference range : 0.0 - 0.2 x10E3/uL. The reference range was not used to interpret this result as normal/abnormal . Immature granulocytes 0 % Not Estab. (test code = 88038-0) Immature See_Comment [Automated granulocytes, message] The absolute (test code = system which 03298-1) generated this result transmitted reference range : 0.0 - 0.1 x10E3/uL. The reference range was not used to interpret this result as normal/abnormal . VERN (test code = VERN) Performed at: - [address] [id number] Director: Jair Turner MD, Phone: [phone] Lab Interpretation Abnormal (test code = 86357-3) [facility] [id number] 13:11:00 Test Item Value Reference Range Interpretation Comments Sedimentation rate See_Comment [Automat ed (test code = 4537-7) message ] The system which generated this result transmitted reference range : 0 - 40 mm/hr. T he reference range was not used to interpret this result as normal/abnormal . VERN (test code = Performed at: [facility]) - [address] [id number] Director: Jair Turner MD, Phone: [phone] [facility] B surface oyomlrc4975-03-22 13:11:00 Test Item Value Reference Range Interpretation Comments Hepatitis B surface Ag Negative Negative (test code = 5196-1) VERN (test code = VERN) Performed at: [address] [place] [address] [id number] Director: Jair Turner MD, Phone: [phone] [facility] C gwuyzbvx4703-02-86 13:11:00 Test Item Value Reference Range Interpretation Comments Hepatitis C Ab See_Comment Negative: < 0.8 (test code = Indeterminate: 0.8 - 77031-9) 0.9 Positive: > 0.9 HCV antibody al one does not differentiate between previou s resolved infect ion and active infection. The CDC and current cli nical guidelines [place] mmend that a positive HCV antibody result be followed up wit h an HCV RNA test to support the diagnosis of ac [place] HCV infection. [facility] offers Hepatitis C Vir us (HCV) RNA, Diagnosis, FORTINO (664764) and Hepatitis C Vir us (HCV) Antibody with reflex to Quantitative Real-time PCR (772499). [Auto mated message] The sy stem which generated this result transmit werner reference range : 0.0 - 0.9 s/co rati o. The reference r bunny was not used to interpret this result as normal/abnormal . VERN (test code = Performed at: VERN) - [address] [id number] Director: Jair Turner MD, Phone: [phone] [facility] RPR screen with confirmation (traditional algorithm) 2022-03-11 13:11:00 Test Item Value Reference Range Interpretation Comments RPR (test code = Non Reactive Non Reactive 92388-7) VERN (test code = Performed at: - VERN) [address] [id number] Director: Jair Turner MD, Phone: [phone] [facility] HospitalHIV [facility]/2 antigen/antibody, fourth generation, with reflexes 2022-03-11 13:11:00 Test Item Value Reference Range Interpretation Comments HIV Non Reactive Non Reactive HIV antigen/antibo NegativeHIV-1 /HIV-2 dy 4th gen antibodies and HIV-1 (test code = p24 antigen wer e NOT 58921-6) detected.There is no laboratory evid ence of HIV infectio n. VERN (test code Performed at: - = VERN) [address] [id number] Director: Jair Turner MD, Phone: [phone] [facility]Com[facility] [id number] 13:11:00 Test Item Value Reference Range Interpretation Comments Glucose (test code 91 mg/dL 65-99 = 2345-7) BUN (test code = 13 mg/dL 8-27 3094-0) Creatinine (test 0.71 mg/dL 0.57-1.00 code = 2160-0) eGFR (test code = 94 mL/min/1.73 See_Comment [Automa werner 8257) message] The system which generated this result transmit werner reference range : >=59. The reference range was not used to interpret this result as normal/abnormal . BUN/creatinine 12-28 ratio (test code = 3097-3) Sodium (test code = 140 mmol/L 652-883 5048-2) Potassium (test 4.2 mmol/L 3.5-5.2 code = 2823-3) Chloride (test code 103 mmol/L 96-106 = 5-0) CO2 (test code = 24 mmol/L 20-29 2028-03) Calcium (test code 9.7 mg/dL 8.7-10.3 = 54929-4) Protein (test code 7.1 g/dL 6.0-8.5 = 2885-2) Albumin, S (test 4.4 g/dL 3.8-4.8 code = 1751-7) Globulin, total 2.7 g/dL 1.5-4.5 (test code = 77757-7) Albumin/globulin 1.2-2.2 ratio (test code = 1759-0) Total bilirubin 0.4 mg/dL 0.0-1.2 (test code = 1974-2) Alkaline See_Comment [Automated phosphatase (test message] T he code = 6768-6) system which generated this result transmit werner reference range : 44 - 121 IU/L. The reference range was not used to interpret this result as normal/abnormal . AST (test code = See_Comment [Automated 1920-02) message] The system which generated this result transmit werner reference range : 0 - 40 IU/L. The reference range was not used to interpret this result as normal/abnormal . ALT (test code = See_Comment [Automated 1741-12) message] The system which generated this result transmit werner reference range : 0 - 32 IU/L. The reference range was not used to interpret this result as normal/abnormal . VERN (test code = Performed at: VERN) - [facility] [address]gt[address] [place], [place] [id number] Director: Jair Turner MD, Phone: [phone] [facility] HospitalLipid [id number] 13:11:00 Test Item Value Reference Range Interpretation Comments Cholesterol (test 201 mg/dL 100-199 H code = 2092-3) Triglycerides (test 46 mg/dL 0-149 code = 2571-8) HDL cholesterol (test 61 mg/dL See_Comment [Auto mated code = 2085-03) message] The system which generated this result transmitted reference range : >=39. The reference range was not used to interpret this result as normal/abnormal . VLDL cholesterol vladimir 8 mg/dL 5-40 (test code = 27999-6) LDL Chol Calc ([facility]) 132 mg/dL 0-99 H (test code = 99166-6) Non-HDL cholesterol 140 mg/dL 0-129 H (test code = 81095-6) VERN (test code = VERN) Performed at: [address] [place] [address] [id number] Director: Jair Turner MD, Phone: [phone] Lab Interpretation Abnormal (test code = 07102-3) [facility] [id number] 13:11:00 Test Item Value Reference Range Interpretation Comments Amylase (test code = 121 U/L 31-110 H 1798-8) VERN (test code = VERN) Performed at: [address] [place] [address] [id number] Director: Jair Turner MD, Phone: [phone] Lab Interpretation (test Abnormal code = 12806-2) [facility] HospitalHemoglobin [id number] 13:11:00 Test Item Value Reference Range Interpretation Comments Hemoglobin A1C (test 5.9 % 4.8-5.6 H Predia betes: code = 4548-4) 5.7 - 6.4 Diabetes: >6.4 Glycemic control for adults with diabetes: <7.0 VERN (test code = VERN) Performed at: [address] [place] [address] [id number] Director: Jair Turner MD, Phone: [phone] Lab Interpretation Abnormal (test code = 85601-1) [facility] HospitalLipase [id number] 13:11:00 Test Item Value Reference Range Interpretation Comments Lipase (test code = 50 U/L 14-72 3040-3) VERN (test code = VERN) Performed at: [address] [place] [address] [id number] Director: Jair Turner MD, Phone: [phone] [facility] HospitalT4, [id number] 13:11:00 Test Item Value Reference Range Interpretation Comments T4, free (test code 1.21 ng/dL 0.82-1.77 = 3024-7) VERN (test code = Performed at: [facility]) Lab[address] [id number] Director: Jair Turner MD, Phone: [phone] [facility] HospitalThyroid stimulating [id number] 13:11:00 Test Item Value Reference Range Interpretation Comments TSH (test code See_Comment [Automated m essage] = 02461-9) The system whic h generated this result transmit werner reference range : 0.450 - 4.500 uIU/mL. The reference range was not used to interpret this result as normal/abnormal . VERN (test code Performed at: - = VERN) [address] [id number] Director: Jair uTrner MD, Phone: [phone] [facility] HospitalT3, [id number] 13:11:00 Test Item Value Reference Range Interpretation Comments T3, free (test code 2.7 pg/mL 2.0-4.4 = 3051-0) VERN (test code = Performed at: VERN) [address] [id number] Director: Jair Turner MD, Phone: [phone] [facility] with platelet and [id number] 13:11:00 Test Item Value Reference Range Interpretation Comments WBC (test code = See_Comment [Automated 1190-2) message] The system which generated this result transmitted reference range : 3.4 - 10.8 x10E3/uL. The reference range was not used to interpret this result as normal/abnormal . RBC (test code = See_Comment [Automated 232-8) message] The system which generated this result transmitted reference range : 3.77 - 5.28 x10E6/uL. The reference range was not used to interpret this result as normal/abnormal . HGB (test code = 11.2 g/dL 11.1-15.9 718-7) HCT (test code = 37.0 % 34.0-46.6 4544-3) MCV (test code = 81 fL 79-97 787-2) MCH (test code = 24.5 pg 26.6-33.0 L 785-6) MCHC (test code = 30.3 g/dL 31.5-35.7 L 786-4) RDW (test code = 14.4 % 11.7-15.4 788-0) Platelet count (test See_Comment [Autom ated code = 777-3) message] The system which generated this result transmitted reference range : 150 - 450 x10E3/uL. The reference range was not used to interpret this result as normal/abnormal . Neutrophils (test 64 % Not Estab. code = 770-8) Lymphocytes (test 27 % Not Estab. code = 736-9) Monocytes (test code 7 % Not Estab. = 5905-5) Eosinophils (test 1 % Not Estab. code = 713-8) Basophils (test code 1 % Not Estab. = 706-2) Neutrophils, absolute See_Comment [Auto mated (test code = 751-8) message] The system which generated this result transmitted reference range : 1.4 - 7.0 x10E3/uL. The reference range was not used to interpret this result as normal/abnormal . Lymphocytes, absolute See_Comment [Auto mated (test code = 731-0) message] The system which generated this result transmitted reference range : 0.7 - 3.1 x10E3/uL. The reference range was not used to interpret this result as normal/abnormal . Monocytes, absolute See_Comment [Automa werner (test code = 742-7) message] The system which generated this result transmitted reference range : 0.1 - 0.9 x10E3/uL. The reference range was not used to interpret this result as normal/abnormal . Eosinophils, absolute See_Comment [Auto mated (test code = 711-2) message] The system which generated this result transmitted reference range : 0.0 - 0.4 x10E3/uL. The reference range was not used to interpret this result as normal/abnormal . Basophils, absolute See_Comment [Automa werner (test code = 704-7) message] The system which generated this result transmitted reference range : 0.0 - 0.2 x10E3/uL. The reference range was not used to interpret this result as normal/abnormal . Immature granulocytes 0 % Not Estab. (test code = 26189-9) Immature See_Comment [Automated granulocytes, message] The absolute (test code = system which 56375-8) generated this result transmitted reference range : 0.0 - 0.1 x10E3/uL. The reference range was not used to interpret this result as normal/abnormal . VERN (test code = VERN) Performed at: - [address] [id number] Director: Jair Turner MD, Phone: [phone] Lab Interpretation Abnormal (test code = 55113-6) [facility] [id number] 13:11:00 Test Item Value Reference Range Interpretation Comments Sedimentation rate See_Comment [Automat ed (test code = 4537-7) message ] The system which generated this result transmitted reference range : 0 - 40 mm/hr. T he reference range was not used to interpret this result as normal/abnormal . VERN (test code = Performed at: [facility]) - [address] [id number] Director: Jair Turner MD, Phone: [phone] [facility] B surface [id number] 13:11:00 Test Item Value Reference Range Interpretation Comments Hepatitis B surface Ag Negative Negative (test code = 5196-1) VERN (test code = VERN) Performed at: - [address] [id number] Director: Jair Turner MD, Phone: [phone] [facility] C [id number] 13:11:00 Test Item Value Reference Range Interpretation Comments Hepatitis C Ab See_Comment Negative: < 0.8 (test code = Indeterminate: 0.8 - 94303-8) 0.9 Positive: > 0.9 HCV antibody al one does not differentiate between previou s resolved infect ion and active infection. The CDC and current cli nical guidelines [place] mmend that a positive HCV antibody result be followed up wit h an HCV RNA test to support the diagnosis of ac [place] HCV infection. [facility] offers Hepatitis C Vir us (HCV) RNA, Diagnosis, FORTINO (372613) and Hepatitis C Vir us (HCV) Antibody with reflex to Quantitative Real-time PCR (059303). [Auto mated message] The sy stem which generated this result transmit werner reference range : 0.0 - 0.9 s/co rati o. The reference r bunny was not used to interpret this result as normal/abnormal . VERN (test code = Performed at: 01 VERN) - Lab[address] [id number] Director: Jair Turner MD, Phone: [phone] [facility] RPR screen with confirmation (traditional algorithm) 2022-03-11 13:11:00 Test Item Value Reference Range Interpretation Comments RPR (test code = Non Reactive Non Reactive 76483-1) VERN (test code = Performed at: - VERN) Lab[address] [id number] Director: Jair Turner MD, Phone: [phone] [facility] HospitalHIV 1/2 antigen/antibody, fourth generation, with reflexes 2022-03-11 13:11:00 Test Item Value Reference Range Interpretation Comments HIV Non Reactive Non Reactive HIV antigen/antibo NegativeHIV-1 /HIV-2 dy 4th gen antibodies and HIV-1 (test code = p24 antigen wer e NOT 58637-0) detected.There is no laboratory evid ence of HIV infectio n. VERN (test code Performed at: - = VERN) [address] [id number] Director: Jair Turner MD, Phone: [phone] [facility] HospitalComprehensive metabolic [id number] 13:11:00 Test Item Value Reference Range Interpretation Comments Glucose (test code 91 mg/dL 65-99 = 2345-7) BUN (test code = 13 mg/dL 8-27 3094-0) Creatinine (test 0.71 mg/dL 0.57-1.00 code = 2160-0) eGFR (test code = 94 mL/min/1.73 See_Comment [Automa werner 8257) message] The system which generated this result transmit werner reference range : >=59. The reference range was not used to interpret this result as normal/abnormal . BUN/creatinine 12-28 ratio (test code = 3097-3) Sodium (test code = 140 mmol/L 618-179 4142-2) Potassium (test 4.2 mmol/L 3.5-5.2 code = 2823-3) Chloride (test code 103 mmol/L 96-106 = 2075-0) CO2 (test code = 24 mmol/L 20-29 2028-9) Calcium (test code 9.7 mg/dL 8.7-10.3 = 08266-5) Protein (test code 7.1 g/dL 6.0-8.5 = 2885-2) Albumin, S (test 4.4 g/dL 3.8-4.8 code = 1751-7) Globulin, total 2.7 g/dL 1.5-4.5 (test code = 84940-2) Albumin/globulin 1.2-2.2 ratio (test code = 1759-0) Total bilirubin 0.4 mg/dL 0.0-1.2 (test code = 1974-2) Alkaline See_Comment [Automated phosphatase (test message] T he code = 6768-6) system which generated this result transmit werner reference range : 44 - 121 IU/L. The reference range was not used to interpret this result as normal/abnormal . AST (test code = See_Comment [Automated 1920-02) message] The system which generated this result transmit werner reference range : 0 - 40 IU/L. The reference range was not used to interpret this result as normal/abnormal . ALT (test code = See_Comment [Automated 1741-12) message] The system which generated this result transmit werner reference range : 0 - 32 IU/L. The reference range was not used to interpret this result as normal/abnormal . VERN (test code = Performed at: 01 VERN) - [facility] [address] [place], [place] [id number] Director: Jair Turner MD, Phone: [phone] [facility] HospitalLipid [id number] 13:11:00 Test Item Value Reference Range Interpretation Comments Cholesterol (test 201 mg/dL 100-199 H code = 2093-3) Triglycerides (test 46 mg/dL 0-149 code = 2571-8) HDL cholesterol (test 61 mg/dL See_Comment [Auto mated code = 2085-03) message] The system which generated this result transmitted reference range : >=39. The reference range was not used to interpret this result as normal/abnormal . VLDL cholesterol vladimir 8 mg/dL 5-40 (test code = 76356-4) LDL Chol Calc ([facility]) 132 mg/dL 0-99 H (test code = 82472-4) Non-HDL cholesterol 140 mg/dL 0-129 H (test code = 81962-0) VERN (test code = VERN) Performed at: [address] [place] [address] [id number] Director: Jair Turner MD, Phone: [phone] Lab Interpretation Abnormal (test code = 79486-3) [facility] HospitalAmylase [id number] 13:11:00 Test Item Value Reference Range Interpretation Comments Amylase (test code = 121 U/L 31-110 H 1798-8) VERN (test code = VERN) Performed at: [address] [place] [address] [id number] Director: Jair Turner MD, Phone: [phone] Lab Interpretation (test Abnormal code = 29278-1) [facility] HospitalHemoglobin [id number] 13:11:00 Test Item Value Reference Range Interpretation Comments Hemoglobin A1C (test 5.9 % 4.8-5.6 H Predia betes: code = 4548-4) 5.7 - 6.4 Diabetes: >6.4 Glycemic control for adults with diabetes: <7.0 VERN (test code = VERN) Performed at: [address] [place] [address] [id number] Director: Jair Turner MD, Phone: [phone] Lab Interpretation Abnormal (test code = 01798-3) [facility] HospitalLipase [id number] 13:11:00 Test Item Value Reference Range Interpretation Comments Lipase (test code = 50 U/L 14-72 3040-3) VERN (test code = VERN) Performed at: [address] [place] [address] [id number] Director: Jair Turner MD, Phone: [phone] [facility] HospitalT4, [id number] 13:11:00 Test Item Value Reference Range Interpretation Comments T4, free (test code 1.21 ng/dL 0.82-1.77 = 3024-7) VERN (test code = Performed at: VERN) Lab[address] [id number] Director: Jair Turner MD, Phone: [phone] [facility] HospitalThyroid stimulating [id number] 13:11:00 Test Item Value Reference Range Interpretation Comments TSH (test code See_Comment [Automated m essage] = 81066-4) The system whic h generated this result transmit werner reference range : 0.450 - 4.500 uIU/mL. The reference range was not used to interpret this result as normal/abnormal . VERN (test code Performed at: - = VERN) LabCo[address] [id number] Director: Jair Turner MD, Phone: [phone] [facility] HospitalT3, [id number] 13:11:00 Test Item Value Reference Range Interpretation Comments T3, free (test code 2.7 pg/mL 2.0-4.4 = 3051-0) VERN (test code = Performed at: VERN) [facility] [id number] Director: Jair Turner MD, Phone: [phone] [facility] with platelet and [id number] 13:11:00 Test Item Value Reference Range Interpretation Comments WBC (test code = See_Comment [Automated 4590-2) message] The system which generated this result transmitted reference range : 3.4 - 10.8 x10E3/uL. The reference range was not used to interpret this result as normal/abnormal . RBC (test code = See_Comment [Automated 279-8) message] The system which generated this result transmitted reference range : 3.77 - 5.28 x10E6/uL. The reference range was not used to interpret this result as normal/abnormal . HGB (test code = 11.2 g/dL 11.1-15.9 718-7) HCT (test code = 37.0 % 34.0-46.6 4544-3) MCV (test code = 81 fL 79-97 787-2) MCH (test code = 24.5 pg 26.6-33.0 L 785-6) MCHC (test code = 30.3 g/dL 31.5-35.7 L 786-4) RDW (test code = 14.4 % 11.7-15.4 788-0) Platelet count (test See_Comment [Autom ated code = 777-3) message] The system which generated this result transmitted reference range : 150 - 450 x10E3/uL. The reference range was not used to interpret this result as normal/abnormal . Neutrophils (test 64 % Not Estab. code = 770-8) Lymphocytes (test 27 % Not Estab. code = 736-9) Monocytes (test code 7 % Not Estab. = 5905-5) Eosinophils (test 1 % Not Estab. code = 713-8) Basophils (test code 1 % Not Estab. = 706-2) Neutrophils, absolute See_Comment [Auto mated (test code = 751-8) message] The system which generated this result transmitted reference range : 1.4 - 7.0 x10E3/uL. The reference range was not used to interpret this result as normal/abnormal . Lymphocytes, absolute See_Comment [Auto mated (test code = 731-0) message] The system which generated this result transmitted reference range : 0.7 - 3.1 x10E3/uL. The reference range was not used to interpret this result as normal/abnormal . Monocytes, absolute See_Comment [Automa werner (test code = 742-7) message] The system which generated this result transmitted reference range : 0.1 - 0.9 x10E3/uL. The reference range was not used to interpret this result as normal/abnormal . Eosinophils, absolute See_Comment [Auto mated (test code = 711-2) message] The system which generated this result transmitted reference range : 0.0 - 0.4 x10E3/uL. The reference range was not used to interpret this result as normal/abnormal . Basophils, absolute See_Comment [Automa werner (test code = 704-7) message] The system which generated this result transmitted reference range : 0.0 - 0.2 x10E3/uL. The reference range was not used to interpret this result as normal/abnormal . Immature granulocytes 0 % Not Estab. (test code = 33735-8) Immature See_Comment [Automated granulocytes, message] The absolute (test code = system which 33658-1) generated this result transmitted reference range : 0.0 - 0.1 x10E3/uL. The reference range was not used to interpret this result as normal/abnormal . VERN (test code = VERN) Performed at: [address] [place] [address] [id number] Director: Jair Turner MD, Phone: [phone] Lab Interpretation Abnormal (test code = 94599-2) [facility] [id number] 13:11:00 Test Item Value Reference Range Interpretation Comments Sedimentation rate See_Comment [Automat ed (test code = 4537-7) message ] The system which generated this result transmitted reference range : 0 - 40 mm/hr. T he reference range was not used to interpret this result as normal/abnormal . VERN (test code = Performed at: 01 VERN) - [address] [id number] Director: Jair Turner MD, Phone: [phone] [facility] B surface [id number] 13:11:00 Test Item Value Reference Range Interpretation Comments Hepatitis B surface Ag Negative Negative (test code = 5196-1) VERN (test code = VERN) Performed at: - [address] [id number] Director: Jair Turner MD, Phone: [phone] [facility] C [id number] 13:11:00 Test Item Value Reference Range Interpretation Comments Hepatitis C Ab See_Comment Negative: < 0.8 (test code = Indeterminate: 0.8 - 96220-7) 0.9 Positive: > 0.9 HCV antibody al one does not differentiate between previou s resolved infect ion and active infection. The CDC and current cli nical guidelines [place] mmend that a positive HCV antibody result be followed up wit h an HCV RNA test to support the diagnosis of ac [place] HCV infection. [facility] Vir us (HCV) RNA, Diagnosis, FORTINO (359610) and Hepatitis C Vir us (HCV) Antibody with reflex to Quantitative Real-time PCR (445061). [Auto mated message] The sy stem which generated this result transmit werner reference range : 0.0 - 0.9 s/co rati o. The reference r bunny was not used to interpret this result as normal/abnormal . VERN (test code = Performed at: 01 VERN) - [address] [id number] Director: Jair Turner MD, Phone: [phone] [facility] with confirmation (traditional algorithm) 2022-03-11 13:11:00 Test Item Value Reference Range Interpretation Comments RPR (test code = Non Reactive Non Reactive 41628-7) VERN (test code = Performed at: VERN) [facility] [id number] Director: Jair Turner MD, Phone: [phone] [facility] HospitalHIV 1/2 antigen/antibody, fourth generation, with reflexes 2022-03-11 13:11:00 Test Item Value Reference Range Interpretation Comments HIV Non Reactive Non Reactive HIV antigen/antibo NegativeHIV-1 /HIV-2 dy 4th gen antibodies and HIV-1 (test code = p24 antigen wer e NOT 84812-6) detected.There is no laboratory evid ence of HIV infectio n. VERN (test code Performed at: - = VERN) Lab[address] [id number] Director: Jair Turner MD, Phone: [phone] [facility] ABDOMEN PELVIS W WO [id number] 16:00:21 No acute abdominopelvic process. No hydronephrosis or radiopaque renal stones. Multiple hepatic cysts. An isolated hepatic flecture colonic diverticulum. Preliminary Report Dictated by Resident: Juliet Fraire MD., have reviewed this study and agree with theabove report.EXAM:CT ABDOMEN AND PELVIS WITH AND WITHOUT CONTRAST HISTORY: Abdominal pain, recently diagnosed with UTIto be evaluated forrenal stone/pyelonephritis . COMPARISON: None. TECHNIQUE AND FINDINGS: Contiguousaxial imaging from the level of the lungbases through the proximal thighs was performed before and after theuncomplicated administration of intravenous Omnipaque contrast. Coronal andsagittal reconstructions were obtained. ?Auto mA and/or iterativereconstruction were used to reduce radiation dose. FINDINGS: LOWER THORAX: A 0.2 cm left lower lobe noncalcified pulmonary nodule isseen (8:5). LIVER: Scattered bilateral lobulated hypoattenuating hepatic lesions,largest seen in the right hepatic lobe measuring up to 4.4 x 4.2 cm. Likelyrepresent hepatic cysts. Scattered subcentimeter hypodensities, too sm allto characterize but probably represent cysts. GALLBLADDER AND BILIARY TREE: No biliary ductal dilation. ?No gallbladderwall thickening. SPLEEN: No splenomegaly. A 1.1 cm splenule is seen (8:35). PANCREAS: No ductal dilation or masses. ADRENAL GLANDS: No adrenal nodules. KIDNEYS: No hydronephrosis, or stones. No perinephric fat stranding PERITONEUM AND RETROPERITONEUM: No free air or fluid. LYMPH NODES: No lymphadenopathy. GI TRACT: No dilation or wall thickening. And isolated diverticulum isnotedin hepatic flecture. The appendix appears unremarkable. PELVIS/BLADDER: The urinary bladder is decompressed and appearsunremarkable. Prior hysterectomy. VESSELS: Unremarkable. BONES AND SOFT TISSUES: No suspicious lytic or sclerotic bony lesions. [facility], Radiant Results Inft User - 09/18/2020 10:01 AM CSTEXAM: CT ABDOMEN AND PELVIS WITH AND WITHOUT CONTRASTHISTORY: Abdominal pain, recently diagnosed with UTI to be evaluated forrenal stone/pyelonephritis .COMPARISON: None.TECHNIQUE AND FINDINGS: Contigu ous axial imaging from the level of the lungbases through the proximal thighs was performed before and after theuncomplicated administration of intravenous Omnipaque contrast. Coronal andsagittal reconstructions were obtained. Auto mA and/or iterativereconstruction were used to reduce radiation dose.FINDINGS:LOWER THORAX: A 0.2 cm left lower lobe noncalcified pulmonary nodule isseen (8:5).LIVER: Scattered bilateral lobulated hypoattenuating hepatic lesions,largest seen in the right hepatic lobe measuring up to 4.4 x 4.2 cm. Likelyrepresent hepatic cysts. Scattered subcentimeter hypodensities, too sm allto characterize but probably represent cysts.GALLBLADDER AND BILIARY TREE: No biliary ductal dilation. No gallbladderwall thickening.SPLEEN: No splenomegaly. A 1.1 cm splenule is seen (8:35).PANCREAS: No ductal dilation or masses.ADRENAL GLANDS: No adrenal nodules.KIDNEYS: No hydronephrosis, or stones. No perinephric fat strandingPERITONEUM AND RETROPERITONEUM: No free air or fluid.LYMPH NODES: Nolymphadenopathy.GI TRACT: No dilation or wall thickening. And isolated diverticulum isnoted in hepatic flecture. The appendix appears unremarkable.PELVIS/BLADDER: The urinary bladder is decompressed and appearsunremarkable. Prior hysterectomy.VESSELS: Unremarkable.BONES AND SOFT TISSUES: No suspiciouslytic or sclerotic bony lesions.IMPRESSIONNo acute abdominopelvic process.No hydronephrosis or radiopaque renal stones.Multiple hepatic cysts.An isolated hepatic flecture colonic diverticulum. Preliminary Report Dictated by Resident: Diamond Aranda, Juliet Koenig MD., have reviewed this study and agree with theabove report.[facility]wayaPTT2021-03-13 15:20:22 Test Item Value Reference Range Interpretation Comments APTT Patient (test See_Comment [Automat ed code = 3173-2) message] The system which generated this result transmitted reference range : 23 - 38 Seconds . The reference range was not used to interpr et this result as normal/abnormal . VERN (test code = VERN) The [facility] patient population mean normal value for aPTT is 30 seconds. Lab Interpretation Normal (test code = 32247-5) [facility] ParkwayProthrombin Time (PT) / [id number] 15:17:42 Test Item Value Reference Range Interpretation Comments PROTIME PATIENT (test See_Comment [Auto mated message] code = 5964-2) The system wh ich generated this result transmitted ref erence range: 12.0 - 1 4.7 Seconds. The re ference range was not u sed to interpret this result as normal/abnor mal. INR (test code = 6301-6) Nor mal INR <1.1; Warfarin Therap eutic range 2.0 to 3. 0 or 2.5 to 3.5, dep ending upon the indica tions. Lab Interpretation (test Normal code = 07499-0) [facility] ParkwayUrinalysis2021-03-13 15:12:10 Test Item Value Reference Range Interpretation Comments APPEARANCE (test code = Cloudy Clear A [id number]) COLOR (test code = Yellow Yellow [id number]) PH (test code = 4.8-8.0 2597377147) SP GRAVITY (test code = 1.003-1.030 6371297699) GLU U QUAL (test code = Normal Normal 9284920400) BLOOD (test code = Negative Negative 1198379299) KETONES (test code = Negative Negative 2703722010) PROTEIN (test code = Negative Negative 2887-8) UROBILIN (test code = Normal Normal 4581688566) BILIRUBIN (test code = Negative Negative 0616401111) NITRITE (test code = Negative Negative 6498923516) LEUK PAZ (test code = 500/uL Negative A 3381688144) RBC/HPF (test code = See_Comment H [Autom ated message] 4422028166) The system StyleCaster generated this result transmitted ref erence range: 0 - 3 HP F. The reference range was not used to int erpret this result as normal/abnormal . WBC/HPF (test code = See_Comment H [Autom ated message] 4888914315) The system [employer]aster generated this result transmitted ref erence range: 0 - 5 HP F. The reference range was not used to int erpret this result as normal/abnormal . BACTERIA (test code = Few Negative A 7472854459) MUCOUS (test code = Slight Negative LPF A 4481682677) AMORPHOUS (test code = Rare Rare HPF 5674459280) SQ EPITH (test code = HPF 3465376662) HYAL CAST (test code = See_Comment [Aut omated message] 8407508950) The system [employer] generated this result transmitted ref erence range: <=2 LPF. The reference range was not used to int erpret this result as normal/abnormal . Lab Interpretation (test Abnormal code = 74857-1) [facility] (NA, K, CL, CO2, GLUCOSE, BUN, CREATININE, CA)2020-09-18 15:10:00 Test Item Value Reference Range Interpretation Comments NA (test code = 139 mmol/L 135-145 6195134355) K (test code = 3.8 mmol/L 3.5-5.0 3606100369) CL (test code = 104 mmol/L 98-108 6637205607) CO2 TOTAL (test code = 30 mmol/L 23-31 9191484720) AGAP (test code = 2-16 1205643877) BUN (test code = 11 mg/dL 7-23 6591624079) GLUCOSE (test code = 93 mg/dL 70-110 9831748464) CREATININE (test code 0.81 mg/dL 0.50-1.04 = 9409476361) CALCIUM (test code = 9.0 mg/dL 8.6-10.6 5986628179) eGFR Calculation mL/min/1.73m2 (Non-) (test code = 5977933240) eGFR Calculation mL/min/1.73m2 () (test code = 1185145706) VERN (test code = VERN) Association of Glomerular Filtration Rate (GFR) and Staging of Kidney Disease* + -+ + ---+| GFR (mL/min/1.73 m2) ?| With Kidney Damage ?| ?Without Kidney Damage+ -------+ ------+ ---------+| ?>90 ?| ?Stage one ?| ? Normal ?+ --+ -+ ----+| ?60-89 ?| ?Stage two ?| ? Decreased GFR ? + -+ + ---+| ?30-59 ?| ?Stage three ?| ? Stage three ? + -+ + ---+| ?15-29 ?| ?Stage four ? | ? Stage four ?+ --+ -+ ----+| ?<15 (or dialysis) ? ?| ?Stage five ? | ? Stage five ?+ --+ -+ ----+ *Each stage assumes the associated GFR level has been in effect for at least three months. ?Stages 1 to 5, with or without kidney disease, indicate chronic kidney disease. Notes: Determination of stages one and two (with eGFR >59mL/min/1.73 m2) requires estimation of kidney damage for at least three months as defined by structural or functional abnormalities of the kidney, manifested by either:Pathological abnormalities or Markers of kidney damage (including abnormalities in the composition of the blood or urine or abnormalities in imaging tests). [facility] (ALB, T.PRO, BILI T, BU/BC, ALT, AST, ALK PHOS)2020-09-18 15:10:00 Test Item Value Reference Range Interpretation Comments TOTAL BILI (test code = 5238723712) 0.6 mg/dL 0.1-1.1 BILI UNCON (test code = 1985670744) 0.6 mg/dL 0.1-1.1 BILI CONJ (test code = 3451027793) 0.0 mg/dL 0.0-0.3 T PROTEIN (test code = 3718659836) 7.3 g/dL 6.3-8.2 ALBUMIN (test code = 4856690010) 4.2 g/dL 3.5-5.0 ALK PHOS (test code = 2279403497) 65 U/L 34-122 ALTv (test code = 1742-6) 11 U/L 5-35 AST(SGOT) (test code = 2243464221) 24 U/L 13-40 Lab Interpretation (test code = Normal 05827-0) [facility] [id number] 15:09:39 Test Item Value Reference Range Interpretation Comments LIPASE (test code = 2605396423) 82 U/L 0-220 Lab Interpretation (test code = Normal 50427-2) [facility] with [id number] 15:02:23 Test Item Value Reference Range Interpretation Comments WBC (test code = See_Comment L [Automated 0890-2) message] The sy stem which generated this result transmitted reference range : 4.30 - 11.10 10*3/?L. The reference range was not used to interpret this result as normal/abnormal . RBC (test code = See_Comment [Automated 789-8) message] The sy stem which generated this result transmitted reference range : 3.93 - 5.25 10*6/?L. The reference range was not used to interpret this result as normal/abnormal . HGB (test code = 10.9 g/dL 11.6-15.0 L 718-7) HCT (test code = 35.3 % 35.7-45.2 L 4544-3) MCV (test code = 80.4 fL 80.6-95.5 L 787-2) MCH (test code = 24.8 pg 25.9-32.8 L 785-6) MCHC (test code = 30.9 g/dL 31.6-35.1 L 786-4) RDW-SD (test code = 40.6 fL 39.0-49.9 44084-1) RDW-CV (test code = 13.9 % 12.0-15.5 788-0) PLT (test code = See_Comment [Automated 777-3) message] The sy stem which generated this result transmitted reference range : 166 - 358 10*3/ ?L. The reference r bunny was not used to interpret this result as normal/abnormal . MPV (test code = 11.1 fL 9.5-12.9 93837-8) NRBC/100 WBC (test See_Comment [Automat ed code = 0766865845) message] The system which generated this result transmitted reference range : 0.0 - 10.0 /100 WBCs. The refer ence range was not u sed to interpret th is result as normal/abnormal . NRBC x10^3 (test code <0.01 See_Comment [Auto mated = 0043728608) message] The s ystem which generated this result transmitted reference range : 10*3/?L. The reference range was not used to interpret this result as normal/abnormal . GRAN MAT (NEUT) % 57.3 % (test code = 770-8) IMM GRAN % (test code 0.00 % = 3658873009) LYMPH % (test code = 33.8 % 736-9) MONO % (test code = 7.4 % 5905-5) EOS % (test code = 0.9 % 713-8) BASO % (test code = 0.6 % 706-2) GRAN MAT x10^3(ANC) 1.93 10*3/uL 1.88-7.09 (test code = 2631517856) IMM GRAN x10^3 (test <0.03 0.00-0.06 code = 8550536117) LYMPH x10^3 (test code 1.14 10*3/uL 1.32-3.29 L = 731-0) MONO x10^3 (test code 0.25 10*3/uL 0.33-0.92 L = 742-7) EOS x10^3 (test code = 0.03 10*3/uL 0.03-0.39 711-2) BASO x10^3 (test code <0.03 0.01-0.07 = 704-7) Lab Interpretation Abnormal (test code = 51683-5) [facility]2021[facility]-08 11:37:37 Test Item Value Reference Range Interpretation Comments APPEARANCE (test code = Hazy Clear A 4159559360) COLOR (test code = Yellow Yellow 5582761554) PH (test code = 4.8-8.0 5900154209) SP GRAVITY (test code = 1.003-1.030 1898648103) GLU U QUAL (test code = Normal Normal 6067198916) BLOOD (test code = Negative Negative 8994775949) KETONES (test code = Negative Negative 9694687889) PROTEIN (test code = Negative Negative 2887-8) UROBILIN (test code = Normal Normal 7108767065) BILIRUBIN (test code = Negative Negative 5679698571) NITRITE (test code = Negative Negative 6597642067) LEUK PAZ (test code = 500/uL Negative A 1770982917) RBC/HPF (test code = See_Comment H [Autom ated message] 4407092842) The system [employer] generated this result transmitted ref erence range: 0 - 3 HP F. The reference range was not used to int erpret this result as normal/abnormal . WBC/HPF (test code = See_Comment H [Autom ated message] 8166368189) The system [employer] generated this result transmitted ref erence range: 0 - 5 HP F. The reference range was not used to int erpret this result as normal/abnormal . BACTERIA (test code = Few Negative A 6739798368) MUCOUS (test code = Slight Negative LPF A 6888251591) SQ EPITH (test code = HPF 3764180002) Lab Interpretation (test Abnormal code = 84436-3) [facility]. METABOLIC PANEL (12009)2020-05-31 01:42:00 Test Item Value Reference Range Interpretation Comments NA (test code = 142 mmol/L 135-145 6084188623) K (test code = 4.0 mmol/L 3.5-5 0477175739) CL (test code = 102 mmol/L 98-108 2121505166) CO2 TOTAL (test code = 31 mmol/L 23-31 3107442735) AGAP (test code = 2-16 5198299485) BUN (test code = 19 mg/dL 7-23 9883359714) GLUCOSE (test code = 104 mg/dL 70-110 1460616271) CREATININE (test code 0.83 mg/dL 0.5-1.04 = 2620037962) TOTAL BILI (test code 0.4 mg/dL 0.1-1.1 = 1959386997) CALCIUM (test code = 10.1 mg/dL 8.6-10.6 0839901380) T PROTEIN (test code = 7.8 g/dL 6.3-8.2 2429921119) ALBUMIN (test code = 4.4 g/dL 3.5-5 9355469288) ALK PHOS (test code = 61 U/L 34-122 8882396878) ALTv (test code = 14 U/L 5-35 1742-6) AST(SGOT) (test code = 26 U/L 13-40 3709200396) eGFR Calculation mL/min/1.73m2 (Non-) (test code = 0023743960) eGFR Calculation mL/min/1.73m2 () (test code = 1469554909) VERN (test code = VERN) Association of Glomerular Filtration Rate (GFR) and Staging of Kidney Disease* + -+ + ---+| GFR (mL/min/1.73 m2) ?| With Kidney Damage ?| ?Without Kidney Damage+ -------+ ------+ ---------+| ?>90 ?| ?Stage one ?| ? Normal ?+ --+ -+ ----+| ?60-89 ?| ?Stage two ?| ? Decreased GFR ? + -+ + ---+| ?30-59 ?| ?Stage three ?| ? Stage three ? + -+ + ---+| ?15-29 ?| ?Stage four ? | ? Stage four ?+ --+ -+ ----+| ?<15 (or dialysis) ? ?| ?Stage five ? | ? Stage five ?+ --+ -+ ----+ *Each stage assumes the associated GFR level has been in effect for at least three months. ?Stages 1 to 5, with or without kidney disease, indicate chronic kidney disease. Notes: Determination of stages one and two (with eGFR >59mL/min/1.73 m2) requires estimation of kidney damage for at least three months as defined by structural or functional abnormalities of the kidney, manifested by either:Pathological abnormalities or Markers of kidney damage (including abnormalities in the composition of the blood or urine or abnormalities in imaging tests). [facility]way[facility]inalysis2020-11-23 01:15:00 Test Item Value Reference Range Interpretation Comments APPEARANCE (test code = Clear Clear 6300580592) COLOR (test code = Straw Yellow A 4792381707) PH (test code = 4.8-8.0 8167875395) SP GRAVITY (test code = 1.003-1.030 3138034617) GLU U QUAL (test code = Normal Normal 0185954147) BLOOD (test code = Negative Negative 1538268724) KETONES (test code = Negative Negative 6245161413) PROTEIN (test code = Negative Negative 2887-8) UROBILIN (test code = Normal Normal 0269714915) BILIRUBIN (test code = Negative Negative 8428518034) NITRITE (test code = Negative Negative 3001928804) LEUK PAZ (test code = 75/uL Negative A 0735307750) RBC/HPF (test code = See_Comment [Autom ated message] 4334698504) The system [employer] generated this result transmitted ref erence range: 0 - 3 HP F. The reference range was not used to int erpret this result as normal/abnormal . WBC/HPF (test code = See_Comment [Autom ated message] 7498355153) The system [employer] generated this result transmitted ref erence range: 0 - 5 HP F. The reference range was not used to int erpret this result as normal/abnormal . BACTERIA (test code = Few Negative A 7228205670) SQ EPITH (test code = HPF 2146418626) Lab Interpretation (test Abnormal code = 34416-3) [facility]wayCBC with Iekjkwrzfuwz6379-09-20 01:04:00 Test Item Value Reference Range Interpretation Comments WBC (test code = See_Comment [Automated 9090-2) message] The sy stem which generated this result transmitted reference range : 4.30 - 11.10 10*3/?L. The reference range was not used to interpret this result as normal/abnormal . RBC (test code = See_Comment [Automated 299-8) message] The sy stem which generated this result transmitted reference range : 3.93 - 5.25 10*6/?L. The reference range was not used to interpret this result as normal/abnormal . HGB (test code = 11.4 g/dL 11.6-15 L 718-7) HCT (test code = 36.3 % 35.7-45.2 4544-3) MCV (test code = 80.8 fL 80.6-95.5 787-2) MCH (test code = 25.4 pg 25.9-32.8 L 785-6) MCHC (test code = 31.4 g/dL 31.6-35.1 L 786-4) RDW-SD (test code = 40.6 fL 39-49.9 40959-0) RDW-CV (test code = 13.9 % 12-15.5 788-0) PLT (test code = See_Comment [Automated 777-3) message] The sy stem which generated this result transmitted reference range : 166 - 358 10*3/ ?L. The reference r bunny was not used to interpret this result as normal/abnormal . MPV (test code = 11.6 fL 9.5-12.9 19556-5) NRBC/100 WBC (test See_Comment [Automat ed code = 1836507538) message] The system which generated this result transmitted reference range : 0.0 - 10.0 /100 WBCs. The refer ence range was not u sed to interpret th is result as normal/abnormal . NRBC x10^3 (test code <0.01 See_Comment [Auto mated = 9626528252) message] The s ystem which generated this result transmitted reference range : 10*3/?L. The reference range was not used to interpret this result as normal/abnormal . GRAN MAT (NEUT) % 60.9 % (test code = 770-8) IMM GRAN % (test code 0.20 % = 4647313534) LYMPH % (test code = 30.6 % 736-9) MONO % (test code = 7.2 % 5905-5) EOS % (test code = 0.9 % 713-8) BASO % (test code = 0.2 % 706-2) GRAN MAT x10^3(ANC) 3.22 10*3/uL 1.88-7.09 (test code = 1952408604) IMM GRAN x10^3 (test <0.03 0-0.06 code = 2539391154) LYMPH x10^3 (test code 1.62 10*3/uL 1.32-3.29 = 731-0) MONO x10^3 (test code 0.38 10*3/uL 0.33-0.92 = 742-7) EOS x10^3 (test code = 0.05 10*3/uL 0.03-0.39 711-2) BASO x10^3 (test code <0.03 0.01-0.07 = 704-7) Lab Interpretation Abnormal (test code = 53625-5) [facility]"
--- NOTE | 2023-06-06 11:08 | EDPHYS ---
Physician Documentation [facility] Name: Cristino Morrison Age: 67 yrs Sex: Female : 1955 Arrival Date: 06/06/2023 Time: 09:44 Bed IW1 Private MD: ED Physician Mustapha Bolton HPI: 06/06 10:01 This 67 yrs old Black Female presents to ER via Ambulatory with complaints of Covid kb Test. 10:01 Patient is a 67-year-old female with a history of asthma who presents for runny nose kb that started 4 days ago and is now resolved. States she was exposed to COVID so her employer told her she needed a COVID test before she could return. Denies any symptoms at this time.. Historical: - Allergies: 09:53 Codeine; ll1 - PMHx: 09:53 Asthma; GERD; ll1 - PSHx: 09:53 section; patial hysterectomy; tubes tied; ll1 - Immunization history:: Adult Immunizations up to date. - Social history:: Smoking status: Patient denies any tobacco usage or history of. ROS: 10:00 Constitutional: Negative for fever, chills, and weight loss, kb 10:00 All other systems are negative, Exam: 10:00 Constitutional: This is a well developed, well nourished patient who is awake, alert, kb and in no acute distress. Head/Face: Normocephalic, atraumatic. ENT: Moist Mucous membranes Cardiovascular: Regular rate Respiratory: Respirations even and unlabored. No increased work of breathing. Talking in full sentences Skin: Warm, dry with normal turgor. Normal color. MS/ Extremity: Pulses equal, no cyanosis. Neurovascular intact. Full, normal range of motion. Neuro: Awake and alert, GCS 15, oriented to person, place, time, and situation. Moves all extremities. Normal gait. Vital Signs: 09:58 BP 144 / 97; Pulse 76; Resp 16; Temp 98.3; Pulse Ox 100% ; Weight 58.97 kg; Height 5 ll1 ft. 4 in. ; Pain 0/10; 09:58 Body Mass Index 22.31 (58.97 kg, 162.56 cm) ll1 09:58 Pain Scale: Adult ll1 MDM: 09:49 Patient medically screened. kb 10:01 Differential diagnosis: Flu, COVID, URI, allergic rhinitis. Data reviewed: vital signs, kb nurses notes. I considered the following discharge prescriptions or medication management in the emergency department I discussed and recommended Over The Counter medications, Antibiotics: At this time antibiotics are not recommended, Antivirals: At this time, antivirals are not recommended. Counseling: I had a detailed discussion with the patient and/or guardian regarding the historical points, exam findings, and any diagnostic results supporting the discharge/admit diagnosis, lab results, the need for outpatient follow up, a family practitioner, to return to the emergency department if symptoms worsen or persist or if there are any questions or concerns that arise at home. 06/06 09:54 Order name: COVID-19 SARS RT PCR; Complete Time: 11:05 kb 06/06 09:54 Order name: Flu; Complete Time: 11:07 kb Administered Medications: No medications were administered Disposition: 17:31 I was immediately available on-site in the Emergency Department for consultation in the ms3 care of the patient. Disposition Summary: 06/06/23 11:07 Discharge Ordered Notes: Location: Home kb Condition: Stable kb Diagnosis - Allergic rhinitis, unspecified kb Followup: kb - With: Emergency Department - When: As needed - Reason: Worsening of condition Followup: kb - With: Private Physician - When: 2 - 3 days - Reason: Recheck today's complaints, Continuance of care, Re-evaluation by your physician Discharge Instructions: - Allergic Rhinitis, Adult, [id number] kb - Discharge Summary Sheet ll1 Forms: - Medication Reconciliation Form kb - Thank You Letter kb - Antibiotic Education kb - Prescription Opioid Use kb - Patient Portal Instructions kb - Leadership Thank You Letter kb - Work release form ll1 Signatures: Dispatcher [employer] Kenya Bolanos, INSTRUCTIONAL AIDE-C FLORINDA-Abdon Hernández, RN RN ll1 Mustapha Bolton DO DO ms3
--- NOTE | 2023-06-06 11:08 | ER ---
Nurse's Notes [facility] Name: Cristino Morrison Age: 67 yrs Sex: Female : 1955 Arrival Date: 06/06/2023 Time: 09:44 Bed IW1 Private MD: Diagnosis: Allergic rhinitis, unspecified Presentation: 06/06 09:58 Chief complaint: Patient states: Had runny nose for 4 days, better now. Wants covid ll1 test. Coronavirus screen: Vaccine status: Patient reports receiving the 2nd dose of the covid vaccine. Client denies travel out of the [place] in the last 14 days. At this time, the client does not indicate any symptoms associated with coronavirus-19. Ebola Screen: Patient denies travel to an Ebola-affected area in the 21 days before illness onset. Initial Sepsis Screen: Does the patient meet any 2 criteria? No. Patient's initial sepsis screen is negative. Does the patient have a suspected source of infection? No. Patient's initial sepsis screen is negative. Risk Assessment: Do you want to hurt yourself or someone else? Patient reports no desire to harm self or others. Onset of symptoms was June 03, 2023. 09:58 Method Of Arrival: Ambulatory ll1 09:58 Acuity: SYEDA 4 ll1 Historical: - Allergies: 09:53 Codeine; ll1 - PMHx: 09:53 Asthma; GERD; ll1 - PSHx: 09:53 section; patial hysterectomy; tubes tied; ll1 - Immunization history:: Adult Immunizations up to date. - Social history:: Smoking status: Patient denies any tobacco usage or history of. Vital Signs: 09:58 BP 144 / 97; Pulse 76; Resp 16; Temp 98.3; Pulse Ox 100% ; Weight 58.97 kg; Height 5 ll1 ft. 4 in. ; Pain 0/10; 09:58 Body Mass Index 22.31 (58.97 kg, 162.56 cm) ll1 09:58 Pain Scale: Adult ll1 ED Course: 09:48 Patient arrived in ED. mg5 09:48 Kenya Jeffery FNP-C is [facility] kb 09:48 Mustapha Bolton DO is Attending Physician. kb 09:53 Arm band placed on. ll1 09:59 Triage completed. ll1 10:03 Flu Sent. 1 10:03 COVID-19 SARS RT PCR Sent. 1 Administered Medications: No medications were administered Outcome: 11:07 Discharge ordered by . nathan 11:17 Patient left the ED. kb Signatures: Kenya Jeffery, FLORINDA-C FLORINDA-Abdon Hernández, RN RN ll1 Enid Orellana mg5
[2023-06-06 11:26] VITALS: BP 144/97; TEMP 98.3; O2SAT 100
== END 2023-06-06 11:17 | disposition home or self-care (01) ==
LOC: ER 09:44
DX: J30.9 Allergic rhinitis, unspecified (principal); Z11.52 Encounter for screening for COVID-19; Z88.5 Allergy status to narcotic agent
CPT/HCPCS: 87635; 87804; 99282

== ENCOUNTER → 2023-07-08 | Emergency (ER) | payer OTHER ==
[~2023-07-08] MED LIST: DIPHENHYDRAMINE 25 MG TAB/CAP ONE; predniSONE 20 MG TAB ONE
--- NOTE | 2023-07-08 16:27 | ER ---
Nurse's Notes [facility] Name: Cristino Morrison Age: 67 yrs Sex: Female : 1955 Arrival Date: 07/08/2023 Time: 15:07 Bed 9 Private MD: Diagnosis: Allergic urticaria Presentation: 07/08 15:28 Chief complaint: Patient states: Pt states she developed welts to back of legs and hb itching all over since taking levaquin approx 1 hour ago. Pt was diagnosed with pneumonia in this ED and discharged earlier today. Coronavirus screen: Vaccine status: Patient reports receiving the 2nd dose of the covid vaccine. At this time, the client does not indicate any symptoms associated with coronavirus-19. Ebola Screen: Patient negative for fever greater than or equal to 101.5 degrees Fahrenheit, and additional compatible Ebola Virus Disease symptoms Patient denies exposure to infectious person. Patient denies travel to an Ebola-affected area in the 21 days before illness onset. No symptoms or risks identified at this time. Onset: The symptoms/episode began/occurred suddenly. Anaphylaxis evaluation, the patient reports or I have noted the following symptoms which indicate a significant risk of anaphylaxis: urticaria. Initial Sepsis Screen: Does the patient meet any 2 criteria? No. Patient's initial sepsis screen is negative. Does the patient have a suspected source of infection? No. Patient's initial sepsis screen is negative. Risk Assessment: Do you want to hurt yourself or someone else? Patient reports no desire to harm self or others. Onset of symptoms was July 08, 2023 at 14:00. 15:28 Method Of Arrival: Ambulatory hb 15:28 Acuity: SYEDA 3 hb Triage Assessment: 15:32 General: Appears in no apparent distress. Behavior is calm, cooperative. Pain: Denies hb pain. Historical: - Allergies: 15:31 Codeine; hb - Home Meds: 15:31 Albuterol Inhl as needed [Active]; Hair Oral tablet [Active]; Iron CR 250 mg Oral cpER hb [Active]; pantoprazole oral daily [Active]; - PMHx: 15:31 Asthma; GERD; hb - PSHx: 15:31 section; patial hysterectomy; tubes tied; hb - Immunization history:: Adult Immunizations unknown. - Social history:: Smoking status: Patient/guardian denies using tobacco, the patient reports quitting approximately 20 years ago. Screenin:45 [facility] ED Fall Risk Assessment (Adult) History of falling in the last 3 months, bp including since admission No falls in past 3 months (0 pts). Abuse screen: Denies threats or abuse. Denies injuries from another. Nutritional screening: No deficits noted. Tuberculosis screening: No symptoms or risk factors identified. Assessment: 16:45 Respiratory: Airway is patent Respiratory effort is even, unlabored, Breath sounds are bp clear bilaterally. Vital Signs: 15:28 BP 131 / 83; Pulse 72; Resp 18; Temp 97.6(TE); Pulse Ox 97% on R/A; Weight 58.97 kg; hb Height 5 ft. 4 in. ; Pain 0/10; 15:28 Body Mass Index 22.31 (58.97 kg, 162.56 cm) hb 15:28 Pain Scale: Adult hb ED Course: 15:09 Patient arrived in ED. [facility] 15:22 Mounika Thorpe FNP is [facility] 15:22 Alfonso Canales MD is Attending Physician. [facility] 15:31 Triage completed. hb 15:33 Arm band placed on right wrist. hb 15:56 Leon Garcia, SUJATA is Primary Nurse. bp 16:45 Patient has correct armband on for positive identification. bp 16:45 No provider procedures requiring assistance completed. Patient did not have IV access bp during this emergency room visit. Administered Medications: 16:01 Drug: predniSONE PO 40 mg PO once Route: PO; bp 16:46 Follow up: Response: No adverse reaction bp 16:01 Drug: diphenhydrAMINE PO 25 mg PO once Route: PO; bp 16:45 Follow up: Response: No adverse reaction bp Outcome: 16:27 Discharge ordered by . [facility] 16:45 Discharged to home ambulatory, bp 16:45 Condition: good 16:45 Discharge instructions given to patient, Instructed on discharge instructions, follow up and referral plans. medication usage, Demonstrated understanding of instructions, follow-up care, medications, Prescriptions given X 2, 16:46 Patient left the ED. bp Signatures: Yojana Salcedo RN RN Colleen Araya rg4 Leon Garcia RN RN Mounika Thorpe FNP [place] [id number] Corrections: (The following items were deleted from the chart) 15:32 15:31 Home Meds: Hair Oral tablet; hb hb
--- NOTE | 2023-07-08 16:27 | EDPHYS ---
Physician Documentation [facility] Name: Cristino Morrison Age: 67 yrs Sex: Female : 1955 Arrival Date: 07/08/2023 Time: 15:07 Bed 9 Private MD: ED Physician Alfonso Canales HPI: 07/08 15:31 This 67 yrs old Black Female presents to ER via Ambulatory with complaints of Allergic jh7 Reaction. 15:31 67-year-old female just discharged from the ER with a diagnosis of pneumonia. She jh7 states that she took her first pill of Levaquin and within 1 hour broke out into hives. Patient calm and alert in triage.. Historical: - Allergies: 15:31 Codeine; hb - Home Meds: 15:31 Albuterol Inhl as needed [Active]; Hair Oral tablet [Active]; Iron CR 250 mg Oral cpER hb [Active]; pantoprazole oral daily [Active]; - PMHx: 15:31 Asthma; GERD; hb - PSHx: 15:31 section; patial hysterectomy; tubes tied; hb - Immunization history:: Adult Immunizations unknown. - Social history:: Smoking status: Patient/guardian denies using tobacco, the patient reports quitting approximately 20 years ago. ROS: 15:31 Constitutional: Negative for fever, chills, and weight loss, Neck: Negative for injury, jh7 pain, and swelling, Cardiovascular: Negative for chest pain, palpitations, and edema, Respiratory: Negative for shortness of breath, cough, wheezing, and pleuritic chest pain, Abdomen/GI: Negative for abdominal pain, nausea, vomiting, diarrhea, and constipation, MS/Extremity: Negative for injury and deformity, Neuro: Negative for headache, weakness, numbness, tingling, and seizure, 15:31 Skin: Positive for rash, 15:31 All other systems are negative, Exam: 15:31 Constitutional: This is a well developed, well nourished patient who is awake, alert, jh7 and in no acute distress. Head/Face: Normocephalic, atraumatic. Cardiovascular: Regular rate and rhythm with a normal S1 and S2. No gallops, murmurs, or rubs. Normal PMI, no JVD. No pulse deficits. Respiratory: Lungs have equal breath sounds bilaterally, clear to auscultation and percussion. No rales, rhonchi or wheezes noted. No increased work of breathing, no retractions or nasal flaring. Abdomen/GI: Soft, non-tender, with normal bowel sounds. No distension or tympany. No guarding or rebound. No evidence of tenderness throughout. MS/ Extremity: Pulses equal, no cyanosis. Neurovascular intact. Full, normal range of motion. Neuro: Awake and alert, GCS 15, oriented to person, place, time, and situation. Motor strength 5/5 in all extremities. Sensory grossly intact. Normal gait. 15:31 Skin: urticaria, and is diffusely located, Vital Signs: 15:28 BP 131 / 83; Pulse 72; Resp 18; Temp 97.6(TE); Pulse Ox 97% on R/A; Weight 58.97 kg; hb Height 5 ft. 4 in. ; Pain 0/10; 15:28 Body Mass Index 22.31 (58.97 kg, 162.56 cm) hb 15:28 Pain Scale: Adult hb MDM: 15:22 Patient medically screened. [facility] 16:35 Differential diagnosis: urticaria. Data reviewed: vital signs, nurses notes. I [facility] considered the following discharge prescriptions or medication management in the emergency department Medications were administered in the Emergency Department. See MAR. Counseling: I had a detailed discussion with the patient and/or guardian regarding the historical points, exam findings, and any diagnostic results supporting the discharge/admit diagnosis, to return to the emergency department if symptoms worsen or persist or if there are any questions or concerns that arise at home. Response to treatment: the patient's symptoms have markedly improved after treatment. Special discussion: Consulted with Dr. Canales, the attending physician who saw the patient, on what antibiotics he wanted the patient on. Instructed the patient to DC the Levaquin and will start doxycycline and Augmentin. The patient reported that her symptoms significantly improved at discharge.. Administered Medications: 16:01 Drug: predniSONE PO 40 mg PO once Route: PO; bp 16:46 Follow up: Response: No adverse reaction bp 16:01 Drug: diphenhydrAMINE PO 25 mg PO once Route: PO; bp 16:45 Follow up: Response: No adverse reaction bp Disposition: 07/09 08:56 Co-signature as Attending Physician, Alfonso Canales MD I reviewed the patient's care rn provided by the Advanced Practice Provider and agree with the diagnosis and treatment plan. Disposition Summary: 07/08/23 16:27 Discharge Ordered Notes: Location: Home [facility] Problem: new [facility] Symptoms: have improved [facility] Condition: Stable [facility] Diagnosis - Allergic urticaria [facility] Followup: [facility] - With: Private Physician - When: 2 - 3 days - Reason: Recheck today's complaints Discharge Instructions: - Discharge Summary Sheet [facility] - Drug Allergy [facility] - Hives [facility] - Rash, Adult [facility] Forms: - Medication Reconciliation Form [facility] - Thank You Letter [facility] - Antibiotic Education [facility] - Patient Portal Instructions [facility] - Leadership Thank You Letter [facility] Prescriptions: - Augmentin 875-125 mg Oral Tablet - take 1 tablet ORAL route every 12 hours for 10 days; 20 tablet; Refills: 0, [facility] Product Selection Permitted - Doxycycline Hyclate 100 mg Oral tablet - take 1 tablet ORAL route every 12 hours for 7 days; 14 tablet; Refills: 0, [facility] Product Selection Permitted Signatures: Alfonso Canales MD MD rn Baxter, Heather, RN RN hb Peltier, Brian RN RN Mounika Back, FRONT END SOFTWARE DEVELOPER FRONT END SOFTWARE DEVELOPER [facility] Corrections: (The following items were deleted from the chart) 07/08 15:32 15:31 Home Meds: Hair Oral tablet; hb hb
[2023-07-08 17:05] VITALS: BP 131/83; TEMP 97.6; O2SAT 97
== END ==
LOC: ER 15:07
DX: L50.0 Allergic urticaria (principal); Z88.5 Allergy status to narcotic agent
CPT/HCPCS: 99283; J7512

== ENCOUNTER → 2023-07-08 | Emergency (ER) | payer OTHER ==
[2023-07-08 11:47] LABS: SARS-CoV-2 Antigen Rapid Res Negative (Negative)
--- NOTE | 2023-07-08 12:25 | RAD REPORT ---
EXAM DESCRIPTION: RAD - Chest Pa And Lat (2 Views) - 07/08/2023 12:18 pm CLINICAL HISTORY: COUGH Chest pain. COMPARISON: <Comparisons> FINDINGS: Small opacity seen in the left lung base likely developing pneumonia. The lungs are otherw ise clear. The heart is upper limit of normal in size. No displaced fractures. IMPRESSION: Small developing pneumonia left lung base.
--- NOTE | 2023-07-08 12:37 | ER ---
Nurse's Notes [facility] Name: Cristino Morrison Age: 67 yrs Sex: Female : 1955 Arrival Date: 07/08/2023 Time: 11:01 Bed 12 Private MD: Mark Renae Diagnosis: Pneumonia, unspecified organism Presentation: 07/08 11:11 Chief complaint: Cough and body aches x 3 days. Denies SOB/fever. Coronavirus screen: hb Client presents with at least one sign or symptom that may indicate coronavirus-19. Standard/surgical mask placed on the client. Provider contacted for isolation considerations. Ebola Screen: No symptoms or risks identified at this time. Initial Sepsis Screen: Does the patient meet any 2 criteria? No. Patient's initial sepsis screen is negative. Does the patient have a suspected source of infection? No. Patient's initial sepsis screen is negative. Risk Assessment: Do you want to hurt yourself or someone else? Patient reports no desire to harm self or others. Onset of symptoms was July 05, 2023. 11:11 Method Of Arrival: Ambulatory 11:11 Acuity: SYEDA 4 hb Triage Assessment: 11:14 General: Appears in no apparent distress. Behavior is calm, cooperative. Pain: Pain hb currently is 5 out of 10 on a pain scale. Neuro: Level of Consciousness is awake, alert, obeys commands, Oriented to person, place, time, situation. Cardiovascular: Patient's skin is warm and dry. Respiratory: Respiratory effort is even, unlabored, Respiratory pattern is regular, symmetrical. Historical: - Allergies: 11:12 Codeine; hb - Home Meds: 11:12 Albuterol Inhl as needed [Active]; Iron CR 250 mg Oral cpER [Active]; pantoprazole oral hb daily [Active]; Hair,Skin and Nails oral tablet [Active]; - PMHx: 11:12 Asthma; GERD; hb - PSHx: 11:12 section; patial hysterectomy; tubes tied; hb - Immunization history:: Client reports receiving the 2nd dose of the Covid vaccine, Flu vaccine is not up to date. It has been more than one year since last vaccine. - Social history:: Smoking status: Patient denies any tobacco usage or history of. - Family history:: not pertinent. - Hospitalizations: : No recent hospitalization is reported. Screenin:16 [facility] ED Fall Risk Assessment (Adult) Score/Fall Risk Level 0 - 2 = Low Risk hb Oriented to surroundings, Maintained a safe environment, Educated pt \T\ family on fall prevention, incl call for assistance when getting out of bed. Abuse screen: Denies threats or abuse. Denies injuries from another. Nutritional screening: No deficits noted. Tuberculosis screening: No symptoms or risk factors identified. Assessment: 11:14 General: See triage assessment.. hb 12:50 Reassessment: Patient appears in no apparent distress at this time. Patient and/or hb family updated on plan of care and expected duration. Pain level reassessed. Patient is alert, oriented x 3, equal unlabored respirations, skin warm/dry/pink. Vital Signs: 11:11 BP 125 / 83; Pulse 90; Resp 16; Temp 97.9; Pulse Ox 100% on R/A; Weight 58.97 kg; hb Height 5 ft. 4 in. ; Pain 5/10; 11:11 Body Mass Index 22.31 (58.97 kg, 162.56 cm) hb 11:11 Pain Scale: Adult hb ED Course: 11:02 Patient arrived in ED. rg4 11:02 Mark Renae DO is Private Physician. rg4 11:04 Alfonso Canales MD is Attending Physician. rn 11:12 Triage completed. hb 11:14 Arm band placed on. hb 11:16 Patient has correct armband on for positive identification. hb 11:16 No provider procedures requiring assistance completed. hb 11:25 Provided Education on: tests, result times. hb 11:55 Hong Townsend is Primary Nurse. tl4 12:20 XRAY Chest Pa And Lat (2 Views) In Process Unspecified. EDMS 12:50 Yojana Salcedo, RN is Primary Nurse. hb 12:51 Patient did not have IV access during this emergency room visit. hb Administered Medications: No medications were administered Medication: 11:16 VIS not applicable for this client. hb Outcome: 12:36 Discharge ordered by MD. rn 12:51 Discharged to home ambulatory, hb 12:51 Condition: stable 12:51 Discharge instructions given to patient, Instructed on discharge instructions, follow up and referral plans. medication usage, Demonstrated understanding of instructions, follow-up care, medications, Prescriptions given X 1, 12:51 Patient left the ED. hb Signatures: Dispatcher [employer] EDAlfonso Cordoba MD MD rn Baxter, Heather, RN RN hb Garcia, Rubi rg4 Hong Townsend 4
--- NOTE | 2023-07-08 12:37 | EDPHYS ---
Physician Documentation [facility] Name: Cristino Morrison Age: 67 yrs Sex: Female : 1955 Arrival Date: 07/08/2023 Time: 11:01 Bed 12 Private MD: Mark Renae ED Physician Alfonso Canales HPI: 07/08 11:37 This 67 yrs old Black Female presents to ER via Ambulatory with complaints of Cough. rn 11:37 The patient or guardian reports cough, that is intermittent, described as mild, with rn productive sputum. Onset: The symptoms/episode began/occurred 3 day(s) ago. Severity of symptoms: At their worst the symptoms were mild, in the emergency department the symptoms are unchanged. Modifying factors: The symptoms are alleviated by nothing, the symptoms are aggravated by nothing. Associated signs and symptoms: Pertinent negatives: fever, vomiting. The patient has not experienced similar symptoms in the past. Patient reports cough for 3 days. No shortness of breath. No chest pain. No hemoptysis. No fever.. Historical: - Allergies: 11:12 Codeine; hb - Home Meds: 11:12 Albuterol Inhl as needed [Active]; Iron CR 250 mg Oral cpER [Active]; pantoprazole oral hb daily [Active]; Hair,Skin and Nails oral tablet [Active]; - PMHx: 11:12 Asthma; GERD; hb - PSHx: 11:12 section; patial hysterectomy; tubes tied; hb - Immunization history:: Client reports receiving the 2nd dose of the Covid vaccine, Flu vaccine is not up to date. It has been more than one year since last vaccine. - Social history:: Smoking status: Patient denies any tobacco usage or history of. - Family history:: not pertinent. - Hospitalizations: : No recent hospitalization is reported. ROS: 11:37 Constitutional: Negative for fever, chills, and weight loss, Cardiovascular: Negative rn for chest pain, palpitations, and edema, Respiratory: Positive for cough, negative for shortness of breath Abdomen/GI: Negative for abdominal pain, nausea, vomiting, diarrhea, and constipation, Back: Negative for injury and pain, MS/Extremity: Negative for injury and deformity, Skin: Negative for injury, rash, and discoloration, Neuro: Negative for headache, weakness, numbness, tingling, and seizure, Exam: 11:37 Constitutional: This is a well developed, well nourished patient who is awake, alert, rn and in no acute distress. ENT: Moist mucous membranes, no stridor Cardiovascular: Regular rate and rhythm. No pulse deficits. Respiratory: No increased work of breathing, no retractions or nasal flaring. Abdomen/GI: Soft, non-tender MS/ Extremity: Pulses equal, no cyanosis. Neuro: Awake and alert, GCS 15 Vital Signs: 11:11 BP 125 / 83; Pulse 90; Resp 16; Temp 97.9; Pulse Ox 100% on R/A; Weight 58.97 kg; hb Height 5 ft. 4 in. ; Pain 5/10; 11:11 Body Mass Index 22.31 (58.97 kg, 162.56 cm) hb 11:11 Pain Scale: Adult hb MDM: 11:05 Patient medically screened. rn 12:35 Differential Diagnosis: Bronchitis Influenza Upper Respiratory Infection Viral Syndrome rn Pneumonia. Data reviewed: vital signs, nurses notes, lab test result(s), radiologic studies, plain films, and as a result, I will discharge patient. Counseling: I had a detailed discussion with the patient and/or guardian regarding the historical points, exam findings, and any diagnostic results supporting the discharge/admit diagnosis, lab results, radiology results, the need for outpatient follow up, to return to the emergency department if symptoms worsen or persist or if there are any questions or concerns that arise at home. Special discussion: I discussed with the patient/guardian in detail that at this point there is no indication for admission to the hospital. It is understood, however, that if the symptoms persist or worsen the patient needs to return immediately for re-evaluation. 07/08 11:19 Order name: Strep rn 07/08 11:19 Order name: SARS RAPID; Complete Time: 12:33 rn 07/08 11:19 Order name: Flu; Complete Time: 12:33 rn 07/08 11:52 Order name: Throat Culture EDMS 07/08 11:19 Order name: XRAY Chest Pa And Lat (2 Views); Complete Time: 12:33 rn Administered Medications: No medications were administered Disposition Summary: 07/08/23 12:36 Discharge Ordered Notes: Location: Home rn Problem: new rn Symptoms: have improved rn Condition: Stable rn Diagnosis - Pneumonia, unspecified organism rn Followup: rn - With: Private Physician - When: As needed - Reason: Recheck today's complaints, Re-evaluation by your physician Discharge Instructions: - Discharge Summary Sheet rn - Community-Acquired Pneumonia, Adult rn Forms: - Medication Reconciliation Form rn - Thank You Letter rn - 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
[2023-07-08 13:17] VITALS: BP 125/83; TEMP 97.9; O2SAT 100
== END ==
LOC: ER 11:01
DX: J18.9 Pneumonia, unspecified organism (principal); Z11.52 Encounter for screening for COVID-19; Z88.5 Allergy status to narcotic agent
CPT/HCPCS: 36415; 71046; 87070; 87081; 87804; 87811; 99283

== ENCOUNTER 2023-10-16 07:20 | Emergency (ER) | payer OTHER ==
[2023-10-16] MEDS ORDERED: ONDANSETRON 4 MG/2 ML VIAL ONE (07:52)
[2023-10-16 08:49] LABS: Absolute Lymphocytes (CBC) 0.9 K/uL (0.7-4.9); Absolute Monocytes 0.3 K/uL (0.1-1.3); Absolute Neutrophil 1.8 K/uL (1.8-8.0); Basophils % 0.4 % (0-1.3); Hematocrit 32.4 % (36.0-45.0); Hemoglobin 10.5 g/dL (12.0-15.0); MCH 25.9 pg (27.0-35.0); MCHC 32.4 g/dL (32.0-36.0); MCV 79.7 fL (80-100); MPV 9.6 fL (7.6-11.3); Monocytes % 9.3 % (3.3-12.3); Neutrophils % 59.3 % (41.7-73.7); Nucleated Red Blood Cells % 0.1 % (0-0); Platelets 187 thou/uL (152-406); RBC Red Blood Cell Count 4.07 M/uL (3.86-4.86); Red Cell Distribution Width 14.9 % (12.1-15.2)
[2023-10-16 09:01] LABS: Albumin 3.2 g/dL (3.4-5.0); Albumin/Globulin Ratio 0.9 (1.1-1.8); Anion Gap 4.8 mEq/L (5.0-15.0); Bilirubin Total 0.3 mg/dL (0.2-1.0); Globulin 3.6 g/dL (2.3-3.5); Potassium 3.8 mEq/L (3.5-5.1); Protein, Total 6.8 g/dL (6.4-8.2)
--- NOTE | 2023-10-16 09:09 | EDPHYS ---
Physician Documentation [facility] Name: Cristino Morrison Age: 67 yrs Sex: Female : 1955 Arrival Date: 10/16/2023 Time: 07:20 Bed 19 Private MD: ED Physician Nigel You HPI: 10/15 07:48 This 67 yrs old Black Female presents to ER via Ambulatory with complaints of concern ec2 for dehydration. 07:48 Patient arrives today for evaluation of gaseousness along with concern for dehydration. ec2 Patient reports that she can feel like she is not getting enough fluid intake. Reports some nausea, denies vomiting. Patient reports she had some diarrhea as well. Patient reports no cough or cold symptoms, no fevers, no chills, no urinary complaints. Reports no abdominal pain.. Historical: - Allergies: 07:39 Codeine; ll1 - PMHx: 07:39 Asthma; GERD; ll1 - PSHx: 07:39 section; patial hysterectomy; tubes tied; ll1 - Immunization history:: Adult Immunizations up to date. - Infectious Disease History:: Denies. - Social history:: Smoking status: Patient denies any tobacco usage or history of. ROS: 07:48 Constitutional: as per hpi ec2 Exam: 07:48 Constitutional: GEN: NAD Head: atraumatic Eyes: EOMI Ears: External ears are ec2 normal. CV: regular rate LUNGS: no respiratory distress ABD: non-distended, soft, nontender, no guarding, not rigid SKIN: no evidence of rashes MSK: no evidence of trauma NEURO: moves all extremities equally Vital Signs: 07:43 BP 142 / 94; Pulse 69; Resp 18; Temp 97.2; Pulse Ox 100% on R/A; Weight 58.97 kg; ll1 Height 5 ft. 4 in. ; Pain 0/10; 09:21 BP 113 / 71; Pulse 59; Resp 16; Temp 98; Pulse Ox 98% ; bp 07:43 Body Mass Index 22.31 (58.97 kg, 162.56 cm) ll1 07:43 Pain Scale: Adult ll1 MDM: 07:42 Patient medically screened. ec2 07:48 Data reviewed: vital signs. ED course: Patient arrives today due to concern for ec2 dehydration as well as diarrhea and gaseousness. Examination remarkable for well-appearing nontoxic individual with reassuring vital signs. Will obtain lab work, give the patient crystalloid and as well as nausea medications. Evaluating for electrolyte disturbance, anemia, dehydration. Doubt intra-abdominal infection such as appendicitis or cholecystitis.. 09:04 ED course: CBC/slight anemia, metabolic profile is reassuring. Lipase is slightly ec2 elevated at 147, does not meet threshold for pancreatitis, patient been tolerating p.o. otherwise, low suspicion for complex pancreatitis. . 10/15 07:48 Order name: CBC with Diff; Complete Time: 09:03 ec2 10/15 07:48 Order name: CMP; Complete Time: 09:03 ec2 10/15 07:48 Order name: Lipase; Complete Time: 09:03 ec2 10/15 07:48 Order name: IV Saline Lock; Complete Time: 08:01 ec2 10/15 07:48 Order name: Labs collected and sent; Complete Time: 08:01 ec2 Administered Medications: 08:01 Drug: NS 0.9% IV 500 ml IV at bolus once Route: IV; Rate: bolus; Site: left antecubital;bp 09:22 Follow up: IV Status: Completed infusion; IV Intake: 1000ml bp 08:01 Drug: Ondansetron IVP 4 mg IVP once; over 2 minutes Route: IVP; Site: left antecubital; bp 09:23 Follow up: Response: No adverse reaction bp Disposition Summary: 10/16/23 09:09 Discharge Ordered Notes: Location: Home ec2 Condition: Stable ec2 Diagnosis - Nausea ec2 - Abdominal distension (gaseous) ec2 Followup: ec2 - With: Private Physician - When: - Reason: Re-evaluation by your physician Discharge Instructions: - Discharge Summary Sheet ec2 - Abdominal Bloating ec2 Forms: - Work release form ec2 - Medication Reconciliation Form ec2 - Thank You Letter ec2 - Antibiotic Education ec2 - Prescription Opioid Use ec2 - Patient Portal Instructions ec2 - Leadership Thank You Letter ec2 Prescriptions: - Zofran 4 mg Oral Tablet - take 1 tablet ORAL route every 12 hours As needed; 20 tablet; Refills: 0, ec2 Product Selection Permitted Signatures: Dispatcher [employer] Leon Gregorio RN RN bp Abdon Mccray RN RN [facility] You, Nigel, MD MD ec2
--- NOTE | 2023-10-16 09:09 | ER ---
Nurse's Notes [facility] Name: Cristino Morrison Age: 67 yrs Sex: Female : 1955 Arrival Date: 10/16/2023 Time: 07:20 Bed 19 Private MD: Diagnosis: Nausea;Abdominal distension (gaseous) Presentation: 10/15 07:43 Chief complaint: Patient states: Gassy since last night. Slight RODAS, nausea, fatigue. No ll1 fever. Coronavirus screen: Client denies travel out of the [place] in the last 14 days. fatigue, headache, nausea, Client presents with at least one sign or symptom that may indicate coronavirus-19. Standard/surgical mask placed on the client. Ebola Screen: Patient denies travel to an Ebola-affected area in the 21 days before illness onset. Initial Sepsis Screen: Does the patient meet any 2 criteria? No. Patient's initial sepsis screen is negative. Does the patient have a suspected source of infection? No. Patient's initial sepsis screen is negative. Risk Assessment: Do you want to hurt yourself or someone else? Patient reports no desire to harm self or others. Onset of symptoms was October 15, 2023. 07:43 Method Of Arrival: Ambulatory ll1 07:43 Acuity: SYEDA 3 ll1 Triage Assessment: 07:45 General: Appears uncomfortable, Behavior is calm, cooperative, appropriate for age. ll1 General: Reports fatigue for. Pain: Denies pain. GI: Reports bloating, gaseousness, nausea. Historical: - Allergies: 07:39 Codeine; ll1 - PMHx: 07:39 Asthma; GERD; ll1 - PSHx: 07:39 section; patial hysterectomy; tubes tied; ll1 - Immunization history:: Adult Immunizations up to date. - Infectious Disease History:: Denies. - Social history:: Smoking status: Patient denies any tobacco usage or history of. Screenin:22 [facility] ED Fall Risk Assessment (Adult) History of falling in the last 3 months, bp including since admission No falls in past 3 months (0 pts). Abuse screen: Denies threats or abuse. Denies injuries from another. Nutritional screening: No deficits noted. Tuberculosis screening: No symptoms or risk factors identified. Assessment: 07:45 General: Appears in no apparent distress. Behavior is calm, cooperative, appropriate bp for age. Pain: Complains of pain in abdomen. GI: Reports gaseousness. Vital Signs: 07:43 BP 142 / 94; Pulse 69; Resp 18; Temp 97.2; Pulse Ox 100% on R/A; Weight 58.97 kg; ll1 Height 5 ft. 4 in. ; Pain 0/10; 09:21 BP 113 / 71; Pulse 59; Resp 16; Temp 98; Pulse Ox 98% ; bp 07:43 Body Mass Index 22.31 (58.97 kg, 162.56 cm) ll1 07:43 Pain Scale: Adult ll1 ED Course: 07:23 Patient arrived in ED. mg5 07:38 Arm band placed on Patient placed in an exam room, on a stretcher. ll1 07:42 Nigel You MD is Attending Physician. ec2 07:45 Triage completed. ll1 07:48 Leon Garcia, RN is Primary Nurse. bp 08:01 CBC with Diff Sent. bp 08:01 CMP Sent. bp 08:01 Lipase Sent. bp 08:01 Inserted saline lock: 22 gauge in left forearm, using aseptic technique. Blood bp collected. 09:22 Patient has correct armband on for positive identification. bp 09:22 No provider procedures requiring assistance completed. IV discontinued, intact, bp bleeding controlled, No redness/swelling at site. Pressure dressing applied. 09:23 Provided Education on: n/a. bp Administered Medications: 08:01 Drug: NS 0.9% IV 500 ml IV at bolus once Route: IV; Rate: bolus; Site: left antecubital;bp 09:22 Follow up: IV Status: Completed infusion; IV Intake: 1000ml bp 08:01 Drug: Ondansetron IVP 4 mg IVP once; over 2 minutes Route: IVP; Site: left antecubital; bp 09:23 Follow up: Response: No adverse reaction bp Medication: 09:23 VIS not applicable for this client. bp Intake: 09:22 IV: 1000ml; Total: 1000ml. bp Outcome: 09:09 Discharge ordered by . ec2 09:22 Discharged to home bp 09:22 Condition: stable 09:22 Discharge instructions given to patient, Instructed on discharge instructions, follow up and referral plans. medication usage, Demonstrated understanding of instructions, follow-up care, medications, Prescriptions given X 1, 09:23 Patient left the ED. bp Signatures: Leon Garcia RN RN Abdon Hernandez RN RN ll1 Enid Orellana mg5 Nigel You MD MD ec2
[2023-10-16 11:16] VITALS: BP 113/71; TEMP 98; O2SAT 98
== END 2023-10-16 09:23 | disposition home or self-care (01) ==
LOC: ER 07:20
DX: R11.0 Nausea (principal); R14.0 Abdominal distension (gaseous); Z88.5 Allergy status to narcotic agent
CPT/HCPCS: 96361; 85025; 36415; 83690; 80053; 96374; 99284; J2405

== ENCOUNTER 2024-01-28 20:19 | Emergency (ER) | payer OTHER ==
[2024-01-28] MEDS ORDERED: GUAIFENESIN/DM 5 ML UCUP ONE ×2 (22:36→22:37)
[2024-01-28 23:35] LABS: SARS-CoV-2 Antigen CONTROL BLUE LINE VIS/BG OK
[2024-01-28 23:36] LABS: SARS-CoV-2 Antigen Rapid Res Positive (Negative)
--- NOTE | 2024-01-29 00:12 | ER ---
Nurse's Notes [facility] Name: Cristino Morrison Age: 68 yrs Sex: Female : 1955 Arrival Date: 01/28/2024 Time: 20:19 Bed 15 Private MD: Diagnosis: Acute COVID-19, nasal congestion, Presentation: 01/27 21:28 Chief complaint: Patient states: c/o congestion x3 days. Coronavirus screen: At this al5 time, the client does not indicate any symptoms associated with coronavirus-19. Ebola Screen: No symptoms or risks identified at this time. Resp Distress? No respiratory distress is noted at this time. Initial Sepsis Screen: Does the patient meet any 2 criteria? No. Patient's initial sepsis screen is negative. Does the patient have a suspected source of infection? No. Patient's initial sepsis screen is negative. Risk Assessment: Do you want to hurt yourself or someone else? Patient reports no desire to harm self or others. Onset of symptoms was January 25, 2024. 21:28 Method Of Arrival: Ambulatory al5 21:28 Acuity: SYEDA 4 al5 Triage Assessment: 21:32 General: Appears in no apparent distress. Behavior is calm, cooperative. Pain: Denies al5 pain. EENT: Reports nasal congestion. Neuro: Level of Consciousness is awake, alert, obeys commands, Oriented to person, place, time, situation, Gait is steady, Speech is normal. Cardiovascular: No deficits noted. Cardiovascular: Patient's skin is warm and dry. Respiratory: Airway is patent Respiratory effort is even, unlabored, Respiratory pattern is regular, symmetrical. GI: No signs and/or symptoms were reported involving the gastrointestinal system. : No signs and/or symptoms were reported regarding the genitourinary system. Derm: Skin is intact, Skin is pink, warm \T\ dry. normal. Musculoskeletal: No signs and/or symptoms reported regarding the musculoskeletal system. Historical: - Allergies: 21:31 Codeine; al5 - PMHx: 21:31 Asthma; GERD; al5 - PSHx: 21:31 section; patial hysterectomy; tubes tied; al5 - Immunization history:: Adult Immunizations up to date. - Infectious Disease History:: Denies. - Social history:: Smoking status: Patient denies any tobacco usage or history of. - Family history:: not pertinent. Screenin:05 [facility] [place] ED Fall Risk Assessment (Adult) History of falling in the last 3 months, tm6 including since admission No falls in past 3 months (0 pts) Confusion or Disorientation No (0 pts) Intoxicated or Sedated No (0 pts) Impaired Gait No (0 pts) Mobility Assist Device Used No (0 pt) Altered Elimination No (0 pt) Score/Fall Risk Level 0 - 2 = Low Risk Oriented to surroundings, Maintained a safe environment, Educated pt \T\ family on fall prevention, incl call for assistance when getting out of bed. Abuse screen: Denies threats or abuse. Denies injuries from another. Nutritional screening: No deficits noted. Tuberculosis screening: No symptoms or risk factors identified. Assessment: 23:04 General: Appears in no apparent distress. Behavior is calm, cooperative. Pain: Denies tm6 pain. Neuro: Level of Consciousness is awake, alert, obeys commands, Oriented to person, place, time, situation. Cardiovascular: No deficits noted. Patient's skin is warm and dry. Respiratory: Reports cough that is productive, Airway is patent Respiratory effort is even, unlabored, Respiratory pattern is regular, symmetrical, Breath sounds are clear. GI: No signs and/or symptoms were reported involving the gastrointestinal system. Abdomen is flat, non-distended. : No signs and/or symptoms were reported regarding the genitourinary system. EENT: Reports nasal congestion nasal discharge sinus pressure . Derm: No signs and/or symptoms reported regarding the dermatologic system. Musculoskeletal: No signs and/or symptoms reported regarding the musculoskeletal system. 23:46 Reassessment: Patient appears in no apparent distress at this time. Patient and/or tm6 family updated on plan of care and expected duration. Pain level reassessed. Patient is alert, oriented x 3, equal unlabored respirations, skin warm/dry/pink. 01/28 00:26 Reassessment: Patient appears in no apparent distress at this time. Patient and/or tm6 family updated on plan of care and expected duration. Pain level reassessed. Patient is alert, oriented x 3, equal unlabored respirations, skin warm/dry/pink. Vital Signs: 01/27 21:28 BP 159 / 86; Pulse 74; Resp 18; Temp 97.4(TE); Pulse Ox 99% on R/A; Weight 63.5 kg; al5 Height 5 ft. 4 in. ; Pain 0/10; 23:06 BP 148 / 100; Pulse 76; Pulse Ox 100% on R/A; Pain 0/10; tm6 23:46 BP 158 / 86; Pulse 65; Pulse Ox 100% on R/A; Pain 0/10; tm6 01/28 00:26 BP 157 / 83; Pulse 63; Resp 19; Temp 96.9(TE); Pulse Ox 100% on R/A; Pain 0/10; tm6 01/27 21:28 Body Mass Index 24.03 (63.50 kg, 162.56 cm) al5 01/27 21:28 Pain Scale: Adult al5 23:06 Pain Scale: Adult tm6 23:46 Pain Scale: Adult tm6 01/28 00:26 Pain Scale: Adult tm6 Gloria Coma Score: 06:59 Eye Response: spontaneous(4). Motor Response: obeys commands(6). Verbal Response: sp4 oriented(5). Total: 15. ED Course: 01/27 20:23 Patient arrived in ED. jj6 20:30 Lam Joe MD is Attending Physician. sp4 21:31 Triage completed. al5 21:32 Arm band placed on right wrist. Patient placed in an exam room, on a stretcher. al5 23:04 Mehul Fischer, RN is Primary Nurse. tm6 23:05 Patient has correct armband on for positive identification. Bed in low position. Call tm6 light in reach. Side rails up X 1. Provided Education on: use of call valles. Client placed on continuous cardiac and pulse oximetry monitoring. NIBP monitoring applied. Pulse ox on. NIBP on. Door closed. Noise minimized. Warm blanket given. 01/28 00:26 No provider procedures requiring assistance completed. Patient did not have IV access tm6 during this emergency room visit. Administered Medications: 01/27 23:06 Drug: Dextromethorphan-Guaifenesin PO Liquid 10 mg-100 mg/5 mL 10 ml PO once Route: PO; tm6 23:06 Not Given (med not availablee): [id number] mg PO once tm6 Medication: 23:05 VIS not applicable for this client. tm6 Outcome: 07/23 00:12 Discharge ordered by . sp4 00:26 Discharged to home ambulatory, tm6 00:26 Condition: stable 00:26 Discharge instructions given to patient, Instructed on discharge instructions, follow up and referral plans. medication usage, Demonstrated understanding of instructions, follow-up care, medications, Prescriptions given X 4, 00:27 Patient left the ED. tm6 Signatures: Mounika Yoo jj6 Lam Joe MD MD sp4 Mehul Fischer RN RN tm6 Ny Greene RN RN al5
--- NOTE | 2024-01-29 00:12 | EDPHYS ---
Physician Documentation [facility] Name: Cristino Morrison Age: 68 yrs Sex: Female : 1955 Arrival Date: 01/28/2024 Time: 20:19 Bed 15 Private MD: ED Physician Lam Joe HPI: 01/27 20:30 This 68 yrs old Black Female presents to ER via Unassigned with complaints of sp4 Congestion. 01/28 06:59 68-year-old female presents with complaint of nasal congestion and feeling unwell. sp4 Denies fever.. Historical: - Allergies: 01/27 21:31 Codeine; al5 - PMHx: 21:31 Asthma; GERD; al5 - PSHx: 21:31 section; patial hysterectomy; tubes tied; al5 - Immunization history:: Adult Immunizations up to date. - Infectious Disease History:: Denies. - Social history:: Smoking status: Patient denies any tobacco usage or history of. - Family history:: not pertinent. ROS: 01/28 06:59 Constitutional: Negative for fever, chills, and weight loss, sp4 All other systems are negative, Exam: 06:59 Constitutional: This is a well developed, well nourished patient who is awake, alert, sp4 and in no acute distress. Head/Face: Normocephalic, atraumatic. Eyes: Pupils equal round and reactive to light, extra-ocular motions intact. Lids and lashes normal. Conjunctiva and sclera are not injected. Cornea within normal limits. Periorbital areas with no swelling, redness, or edema. ENT: Nares patent. No nasal discharge, no septal abnormalities noted. Tympanic membranes are normal and external auditory canals are clear. Oropharynx with no redness, swelling, or masses, exudates, or evidence of obstruction, uvula midline. Mucous membranes moist. Neck: Trachea midline, no thyromegaly or masses palpated, and no cervical lymphadenopathy. Supple, full range of motion without nuchal rigidity, or vertebral point tenderness. Chest/axilla: Normal chest wall appearance and motion. Nontender with no deformity. No lesions are appreciated. Cardiovascular: Regular rate and rhythm with a normal S1 and S2. No gallops, murmurs, or rubs. Normal PMI, no JVD. No pulse deficits. Respiratory: Lungs have equal breath sounds bilaterally, clear to auscultation and percussion. No rales, rhonchi or wheezes noted. No increased work of breathing, no retractions or nasal flaring. Abdomen/GI: Soft, with normal bowel sounds. No distension or tympany. No guarding or rebound. No evidence of tenderness throughout. Back: No spinal tenderness. No costovertebral tenderness. Skin: Warm, dry with normal turgor. Normal color with no rashes, no lesions, and no evidence of cellulitis. MS/ Extremity: Pulses equal, no cyanosis. Neurovascular intact. Full, normal range of motion. Neuro: Awake and alert, GCS 15, oriented to person, place, time, and situation. Cranial nerves II-XII grossly intact. Motor strength 5/5 in all extremities. Sensory grossly intact. Psych: Awake, alert, with orientation to person, place and time. Behavior, mood, and affect are within normal limits Vital Signs: 01/27 21:28 BP 159 / 86; Pulse 74; Resp 18; Temp 97.4(TE); Pulse Ox 99% on R/A; Weight 63.5 kg; al5 Height 5 ft. 4 in. ; Pain 0/10; 23:06 BP 148 / 100; Pulse 76; Pulse Ox 100% on R/A; Pain 0/10; tm6 23:46 BP 158 / 86; Pulse 65; Pulse Ox 100% on R/A; Pain 0/10; tm6 01/28 00:26 BP 157 / 83; Pulse 63; Resp 19; Temp 96.9(TE); Pulse Ox 100% on R/A; Pain 0/10; tm6 01/27 21:28 Body Mass Index 24.03 (63.50 kg, 162.56 cm) al5 01/27 21:28 Pain Scale: Adult al5 23:06 Pain Scale: Adult tm6 23:46 Pain Scale: Adult tm6 01/28 00:26 Pain Scale: Adult tm6 Gloria Coma Score: 06:59 Eye Response: spontaneous(4). Motor Response: obeys commands(6). Verbal Response: sp4 oriented(5). Total: 15. MDM: 01/27 20:31 Patient medically screened. sp4 01/28 07:00 Data reviewed: vital signs, nurses notes, lab test result(s). ED course: Stable for sp4 discharge home. 01/27 20:42 Order name: REN RIGGINS; Complete Time: 00:01 sp4 Administered Medications: 01/27 23:06 Drug: Dextromethorphan-Guaifenesin PO Liquid 10 mg-100 mg/5 mL 10 ml PO once Route: PO; tm6 23:06 Not Given (med not availablee): [id number] mg PO once tm6 Disposition Summary: 01/29/24 00:12 Discharge Ordered Notes: Location: Home sp4 Problem: new sp4 Symptoms: have improved sp4 Condition: Stable sp4 Diagnosis - Acute COVID-19, nasal congestion, sp4 Followup: sp4 - With: Private Physician - When: 7 - 10 days - Reason: Recheck today's complaints Discharge Instructions: - Discharge Summary Sheet sp4 - COVID-19 sp4 Forms: - Work release form sp4 - Patient Portal Instructions sp4 Prescriptions: - dextromethorphan-guaifenesin 20-400 mg Oral tablet - take 1 tablet ORAL route every 6 hours PRN cough; 40 tablet; Refills: 0, sp4 Product Selection Permitted - phenylephrine HCl 10 mg Oral tablet - take 1 tablet ORAL route every 6 hours PRN congestion; 40 tablet; Refills: 0, sp4 Product Selection Permitted - Ibuprofen 600 mg Oral Tablet - take 1 tablet ORAL route every 6 hours As needed take with food; 30 tablet; sp4 Refills: 0, Product Selection Permitted - ondansetron 8 mg Oral Tablet,disintegrating - take 1 tablet ORAL route every 8 hours PRN nausea; 30 tablet; Refills: 0, sp4 Product Selection Permitted Signatures: Dispatcher [employer] Lam Hernandez MD MD sp4 Mehul Fischer RN RN tm6 Ny Greene RN RN al5
[2024-01-31 16:05] VITALS: BP 157/83; TEMP 96.9; O2SAT 100
== END 2024-01-29 00:27 | disposition home or self-care (01) ==
LOC: ER 20:19
DX: U07.1 COVID-19 (principal); R09.81 Nasal congestion; J45.909 Unspecified asthma, uncomplicated; Z88.5 Allergy status to narcotic agent
CPT/HCPCS: 36415; 87811; 99284